=== PATIENT | female | born 1950 | race Asian ===

== ENCOUNTER → 2018-04-09 12:05 | Outpatient (CLI) | payer MEDICARE, MEDICAID, SELFPAY ==
--- NOTE | 2018-04-09 12:18 | DI.RAD.S_ITS ---
PROCEDURE: XR FOOT RT MIN 3V INDICATIONS: BILATERAL FOOT PAIN TECHNIQUE: 3 views of the foot were acquired. COMPARISON: None. FINDINGS: Bones: No fractures or dislocations. No suspicious bony lesions. Soft tissues: No tibiotalar joint effusion. Achilles tendon appears normal. IMPRESSION: Source of pain is not found. Dictated by: Ottoniel Dotson M.D. on 04/09/2018 at 13:33 Approved by: Ottoniel Dotson M.D. on 04/09/2018 at 13:34
--- NOTE | 2018-04-09 12:18 | DI.RAD.S_ITS ---
PROCEDURE: XR FOOT LT MIN 3V INDICATIONS: BILATERAL FOOT PAIN TECHNIQUE: 3 views of the foot were acquired. COMPARISON: [facility], CR, XR FOOT RT MIN 3V, 04/09/2018, 12:16. FINDINGS: Bones: No fractures or dislocations. No suspicious bony lesions. Soft tissues: No tibiotalar joint effusion. Achilles tendon appears normal. IMPRESSION: No trauma found, source of pain is not identified. Dictated by: Ottoniel Dotson M.D. on 04/09/2018 at 13:34 Approved by: Ottoniel Dotson M.D. on 04/09/2018 at 13:35
== END ==
PROVIDERS: PCP Family Medicine; Visit Provider Physician Assistant Medical
DX: M79.671 Pain in right foot (principal); M79.672 Pain in left foot
CPT/HCPCS: 73630

== ENCOUNTER → 2018-12-23 15:09 | Outpatient (CLI) | payer MEDICARE, SELFPAY | PROVIDERS: PCP Family Medicine; Visit Provider Physician Assistant | DX: N89.8 Other specified noninflammatory disorders of vagina (principal) | CPT/HCPCS: 87210 ==

== ENCOUNTER 2019-01-27 07:29 | Emergency (ER) | payer MEDICARE, SELFPAY ==
[2019-01-27 07:34] VITALS: BP 189/81; PULSE 89; RESP 16; TEMP 36.7; O2SAT 97; BMI 23.8
--- NOTE | 2019-01-27 07:40 | PC.NURSE ---
quarter size abrasion noted mid forehead.
--- NOTE | 2019-01-27 07:57 | ED.FALL ---
HPI - Fall General Chief Complaint: Fall Stated Complaint: fell and hit head, headache, dizziness Time Seen by Provider: 01/27/19 07:41 Source: patient Mode of arrival: ambulatory Limitations: no limitations History of Present Illness HPI Narrative: This is a 68-year-old female comes to the emergency department with complaint of trip and fall. Patient states she hit her right forehead. States she feels a little bit dizzy. She denies any loss of consciousness. She denies any headache, no neck or back pain, no vision changes, no nausea or vomiting. Patient does not have any other injuries. Patient states that she does not take any blood thinners. She states that she was not lightheaded dizzy or have any other issue she just caught her foot and fell forward. She states that she has injured her wrist before so she tries to protect them and caught herself with her head. Patient states tetanus is up-to-date she does take methadone daily for pain as well as addiction she does not take any other medications. Related Data Home Medications Medication Instructions Recorded Confirmed methadone 70 mg PO DAILY 12/23/18 12/23/18 Allergies Allergy/AdvReac Type Severity Reaction Status Date / Time codeine [CODEINE] Allergy Unknown Verified 01/27/19 07:37 Review of Systems Review of Systems ROS Unobtainable: All systems reviewed & are unremarkable except as noted in HPI and below Constitutional Denies frequent falls, Denies headache(s), Denies weakness and Reports other (head injury.) Eyes Denies change in vision ENT Ears, Nose, Mouth, and Throat: Reports dizziness, Denies headache(s), Denies neck pain and Reports other (abrasion forehead.) Cardiovascular Denies chest pain, Denies syncope and Denies dyspnea Respiratory Denies dyspnea Gastrointestinal Gastrointestinal: Denies abdominal pain, Denies nausea and Denies vomiting Musculoskeletal Denies back pain, Denies arthralgias, Denies limited range of motion, Denies neck pain and Denies numbness Integumentary/Breasts Reports wounds (abrasion forehead) Neurologic Reports as per HPI, Denies abnormal speech, Reports dizziness, Denies syncope, Denies frequent falls, Denies headache(s), Denies focal weakness, Denies memory loss, Denies numbness, Denies sensory deficit, Denies weakness and Denies other (loc) Psychiatric Denies memory loss Exam Narrative Exam Narrative: GEN: Patient appears in mild distress. HEAD: Patient has a 2 cm abrasion on the right forehead along the hairline, no raccoon/Cavazos sign. No other injuries noted. NECK: Nontender, painless range of motion, trachea midline Negative Nexus criteria, there is no midline tenderness, distracting injury, altered mental status, neuro deficit, recent EtOH. EYES: PERRLA, EOMI ENT: External inspection normal, trachea is midline, TM's are normal no hemotypanum, Nares are clear, no septal hematoma, no dental or oral injury, airway is normal and with normal occlusion, No bony tenderness RESP: Chest is nontender and has symmetric movement, no ecchymosis, breath sounds are normal no crackles, wheezes or rales CVS: Heart sounds are normal, no murmur noted, No JVD. ABG/GI: Nontender, soft, normal bowel sounds, no distention, no organomegaly. NEURO: Oriented AOx3, neuro is grossly intact, sensation and motor is normal all 4 extremities moving, cranial nerves II through XII are intact, GCS is 15 PSYCH: Normal mood and affect SKIN: Intact except as above. warm and dry, no crepitus and without decubitus BACK: No CVA tenderness, no vertebral tenderness, no step-off's, no crepitus EXT: Atraumatic, hips are nontender, no pedal edema, normal color and temperature, normal range of motion of extremities with normal tendon exam, 5/5 tube coremaker bilaterall and upper and lower extremites, 2+ pulses in all four extremities Initial Vital Signs Initial Vital Signs: Vital Signs Temperature 98.1 F 01/27/19 07:34 Pulse Rate 89 01/27/19 07:34 Respiratory Rate 16 01/27/19 07:34 Blood Pressure 189/81 H 01/27/19 07:34 Pulse Oximetry 97 01/27/19 07:34 Scores GCS [place] coma scale eye opening: Spontaneous [place] coma scale verbal response: Orientated Ling coma scale motor response: Obey commands Ling coma scale total score: 15 Course Vital Signs - 8 hr 01/27/19 07:34 Temperature 98.1 F Pulse Rate 89 Respiratory Rate 16 Blood Pressure 189/81 H Pulse Oximetry 97 MDM - Fall MDM Narrative Medical decision making narrative: Patient does not take any blood thinners she has some slight dizziness so she may have a concussion but no high risk factors that require head CT at this time. Discussed with patient his story guidance. As well as keeping an eye on the abrasion on her forehead appropriate care. Patient is comfortable with this plan. Discharge Plan Departure Patient Disposition: Home Clinical Impression: Concussion Qualifiers: Encounter type: initial encounter Loss of consciousness presence/duration: without LOC Qualified Code(s): S06.0X0A - Concussion without loss of consciousness, initial encounter Discharge Date/Time: 01/27/19 08:28 Interventions: ED Discharge Assessment Last Done: 01/27/19 08:27 Instructions: DI for Concussion Activity Restrictions/Additional Instructions: Follow up with your primary care physician. You may take ibuprofen and or tylenol as needed for pain. This should not interfere with your home medications. Wound Care: Keep wound(s) clean and dry. Wash daily with soap and water only. Do not use over the counter products (alcohol or peroxide)on the wounds unless instructed by a physician, you may use triple antibiotic ointment (i.e. neosporin) two to three times daily. Avoid sun on affected area. Return if fever greater than 100.4 Fahrenheit, increased swelling, increasing pain or worsening symptoms such as increased discharge or spreading redness, sudden severe headaches, new vision changes, persistent vomiting, new weakness, numbness, neck pain or other new or concerning symptoms. Prescriptions: No Action methadone 70 mg PO DAILY RF: 0 Referrals: Joel Kaur MD [Non-Staff] - ED Cosign/Signout Cosign ED Attending Cosignature Attestation: I was immediately available in the department for consultation. This documentation has been reviewed and I agree with assessment and plan. Supervised by Verito Shah DO
[2019-01-27 08:27] VITALS: BP 169/71; PULSE 64; RESP 16; O2SAT 94
== END 2019-01-27 08:28 | disposition home or self-care (01) ==
PROVIDERS: Emergency Provider Emergency Medicine
DX: S06.0X0A Concussion without loss of consciousness, initial encounter (principal); W19.XXXA Unspecified fall, initial encounter
CPT/HCPCS: 99282; 99283

== ENCOUNTER → 2020-06-03 17:27 | Outpatient (CLI) | payer MEDICARE, SELFPAY ==
--- NOTE | 2020-06-03 | DI.RAD.S_ITS ---
PROCEDURE: XR FOOT RT MIN 3V INDICATIONS: RIGHT ANKLE PAIN AND SWELLING TECHNIQUE: 3 views of the foot were acquired. COMPARISON: [facility], CR, XR FOOT LT MIN 3V, 04/09/2018, 12:17. FINDINGS: Bones: No fractures or dislocations. No suspicious bony lesions. Severe degenerative arthritis involving the 1st tarsometatarsal joint. Small subtle erosion at the base of the 5th metatarsal. Soft tissues: No tibiotalar joint effusion. Achilles tendon appears normal. No soft tissue gas. Mild edema. IMPRESSION: 1. Severe degenerative arthritis of the 1st tarsometatarsal joint. 2. Ill-defined erosion at the base of the 5th metatarsal. Comment: If clinically suspect osteomyelitis of the base of the 5th metatarsal, would consider foot MRI with without contrast. Dictated by: Jonathan Kamara M.D. on 06/04/2020 at 10:46 Approved by: Jonathan Kamara M.D. on 06/04/2020 at 10:48
== END ==
PROVIDERS: Referring Provider Nurse Practitioner Family; Visit Provider Nurse Practitioner Family
DX: M25.572 Pain in left ankle and joints of left foot (principal); M19.071 Primary osteoarthritis, right ankle and foot
CPT/HCPCS: 73630

== ENCOUNTER → 2020-06-25 11:02 | Outpatient (CLI) | payer MEDICARE, SELFPAY ==
[2020-06-26 10:47] LABS: COVID19 Sendout Not Detected (Not Detect)
== END ==
PROVIDERS: PCP Obstetrics & Gynecology; Visit Provider Physician Assistant
DX: Z11.59 Encounter for screening for other viral diseases (principal)
CPT/HCPCS: 87635

== ENCOUNTER 2020-06-28 08:54 | Day surgery (SDC) | payer MEDICARE, MEDICAID, SELFPAY ==
[2020-06-23 07:52] VITALS: BMI 23.0
[2020-06-28] VITALS (16 sets, daily range): BP systolic 97–169; BP diastolic 60–82; PULSE 58–92; RESP 9–18; TEMP 36.3–37.1; O2SAT 94–100; BMI 22.4
--- NOTE | 2020-06-28 | PATH_ITS ---
[facility] Accession Number: [id number] . 01 Material submitted: . uterus - UTERUS, CERVIX, BILATERAL FALLOPIAN TUBES AND BILATERAL OVARIES . 02 Diagnosis: Uterus, Cervix, Bilateral Fallopian Tubes and Bilateral Ovaries, Hysterectomy and Bilateral Salpingo-oophorectomy: 1. Adenomyosis. 2. Posterior cervix with ulcer and reactive changes. 3. Atrophic endometrium; negative for hyperplasia. 4. Paratubal cysts. 5. No evidence of neoplasia. [facility] 06/30/2020 1441 Local . 02 Electronically signed: . Anni Arthur MD, Pathologist NPI- [id number] . 01 Gross description: . Received in formalin, labeled uterus, cervix, bilateral fallopian tubes and bilateral ovaries, is a 110-gram uterus and cervix measuring 11.0 cm from superior fundus to cervix by 6.0 cm from cornu to cornu by 3.2 cm from anterior to posterior. The craft-pink wrinkled ectocervix measures 5.5 x 5.0 cm. The serosa is craft-pink and smooth. The specimen is bivalved to reveal a 6.0 x 2.0 cm endometrial cavity with a craft-pink glistening endometrium measuring 0.1 cm in thickness. The myometrium is craft-pink and trabeculated, measuring 1.3 cm in thickness. The detached ovaries measure 1.5 x 1.0 x 0.6 cm and 2.4 x 1.5 x 0.5 cm. The capsules are craft and smooth to cerebriform. Sectioning through the ovaries reveals multiple corpora albicantia and the larger ovary has a 0.2 x 0.2 x 0.2 cm smooth-walled cyst with no papillary excrescences. The fallopian tubes measure 3.2 cm in length by 0.5 cm in diameter and 3.7 cm length by 0.5 cm in diameter. The serosa is craft-pink and smooth. Sectioning reveals a pinpoint to stellate lumen measuring 0.2 cm in diameter. The larger fallopian tube displays multiple paratubal cysts measuring from 0.1 to 0.2 cm. Photographic Specialist sections are submitted. . A1: anterior cervix and lower uterine segment. A2: posterior cervix and lower uterine segment. A3: anterior uterus, full-thickness section. A4: posterior uterus, full-thickness section. A5-A6: novelties sales representative ovaries. A7-A10: fallopian tubes, to include bisected fimbria. (EA/cmc10 [id number]) /MRV 06/29/2020 1356 Local . 02 Pathologist provided ICD-10: N81.3, N80.0 . 02 CPT . 575809 Performed at: [facility] [address] [place] [address], [place], [place] [id number] MD Fer White MD Phone: [phone] Performed at: [facility] [address] [place] [id number] MD Anni Arthur MD Phone: [phone]
--- NOTE | 2020-06-28 09:17 | PM.PREOP ---
Pre-operative Note COVID-19 COVID-19 status: Negative Result date/Date tested (Pos, Neg/Pending): 06/25/20 Interval Note History & Physical reviewed/Exam performed by Physician: Yes Changes to H&P: No H&P completed within 30 days and has changed as indicated here:: 06/22/20
[2020-06-28] MEDS: LACTATED RINGERS 1,000 ML 42 ML IV ×2 (09:34→11:15)
[2020-06-28] MEDS: CEFAZOLIN 2 GM/100 ML FROZ.PIGGY IV (09:48)
--- NOTE | 2020-06-28 10:21 | SUR.OPER ---
Lithotomy on padded OR bed, head on pillow, arms secured on padded arm boards at <90 degrees abduction. Legs secured in padded yellow fins stirrups.
[2020-06-28] MEDS: BUPIVACAINE 0.5% W/ EPI (PF) 30 ML VIAL INJ (10:27)
--- NOTE | 2020-06-28 12:24 | SUR.PHASEI ---
1208 late entry -Assumed care from Edwige White RN. Pt sleeping, resp even and regular, VSS
--- NOTE | 2020-06-28 12:35 | P.OP_ITS ---
Operative Date/Time/Diagnoses Date of procedure: 06/28/20 Time of procedure: 12:35 Pre-op diagnosis: Uterine procidentia Post-op diagnosis: same Procedure & Clinicians Procedure: Procedures Operation Date: 06/28/20 09:45 Actual Procedures Side Surgeon p Vaginal Hysterectomy w/ bilateral salpingo-oophorectomy, perineoplasty, sacrospinous ligament fixation Mercy Chance MD Indications: Uterine procidentia Surgeon: Mercy Chance Organ Teacher: Alize Thorpe Anesthesia Type: General Operative Notes Findings: Uterine procidentia Normal tubes and ovaries Very lax vaginal cuff after the uterus removed Closure Type: primary Specimen(s): left tube & ovary, right tube & ovary and uterus Applied: catheter (To continuous drainage) Estimated blood loss (mL): 75 Blood products transfused: none Procedure in detail: The patient was taken to the operating room where she was placed in the dorsal supine position. After adequate general endotracheal anesthesia was achieved, she was placed in the dorsal lithotomy position, and prepped and draped in the usual sterile fashion. A time-out was performed. A 4 tooth tenaculum was placed on the cervix. 10 cc of 0.5% Marcaine with epinephrine were injected circumferentially around the cervix and the cervix was incised. This was carried down to the fascia. The bladder and rectum were dissected off the lower uterine segment and cervix piece using an open moistened Ray-Emmanuelle. The peritoneum was identified posteriorly and entered sharply with the Metzenbaum scissors. The long weighted speculum was placed into the cul-de-sac. Anteriorly the peritoneum was identified and entered sharply with the Metzenbaum scissors. A Alonzo retractor was placed into the anterior cul-de-sac. The uterosacral cardinal ligament complexes were clamped, incised, and suture ligated with 0 Vicryl and tagged with hemostats. The uterine arteries were clamped, transected, and suture ligated with 0 Vicryl. The utero- ovarian ligament bilaterally was clamped, transected, free tied with 0 Vicryl and then suture ligated with 0 Vicryl. There was a small amount of bleeding on the patient's left side and an Allis clamp was placed and then a suture with 2 0 Vicryl for hemostasis. The uterus was handed off for specimen. The left tube and ovary were identified and grasped with a Blair. The infundibulopelvic ligament on the left side was clamped, transected, free tied with 0 Vicryl and then suture ligated with 0 Vicryl. This was repeated on the patient's right side. Hemostasis was achieved. The peritoneum was identified anteriorly and posteriorly. The peritoneum was closed with a pursestring suture with 2 0 Vicryl. The angles of the vaginal cuff were closed with a [id number] suture with 0 Vicryl and tagged with a hemostat. The remainder of the vaginal cuff was closed with simple interrupted sutures with 0 Vicryl. Hemostasis was achieved. There was significant descent of the vaginal cuff. 6 cc of 0.5% Marcaine with epinephrine were injected posteriorly approximately 2[address] to the sacrum and a 4 cm incision was made. On left side of the rectum was dissected off bluntly and the sacral spinous ligament was identified and cleared of all tissue. 2 cm away from the ischial spine, 2 0 PDS on a Capio needle was used to place a suture into the sacral spinous ligament. This was then attached to the posterior vaginal wall. This was tagged with a hemostat. The vaginal mucosa was closed with 2 0 Vicryl in a running interlocking for approximately 4 passes. The sacral spinous ligament fixation was then tied down, taking the vaginal cuff back into the left. The remainder of the posterior vagina were closed with 2 0 Vicryl with running interlocking sutures. On the perineum Allis clamps were placed at the mucocutaneous junction. 6 cc of 0.5% Marcaine with epinephrine were injected between the 2 Allis clamps. An incision was made between the 2 Allis clamps and a triangular piece of skin with underlying s ubcutaneous tissue was excised. Two 0 Vicryl was used to close the vaginal mucosa up to the introitus. 0 Vicryl was then used to close the levator muscles. 2-0 Vicryl was used in simple interrupted sutures to close the space under the skin. The skin was closed with 2 0 chromic in a subcuticular fashion. The remainder of the 2 0 Vicryl was used to close all the way to the mucocutaneous junction. Hemostasis was achieved. The vagina was packed with a Betadine moistened packing. Sponge, lap, and instrument counts were correct x2. The patient tolerated the procedure well, and was taken to PACU in stable condition. The urine was clear and 150 cc. Estimated blood loss: 75 cc. IV fluids a 1000 cc of crystalloid. Complications: none Post-operative Condition: stable Disposition: PACU Plan for aftercare: To Acute care after recovery
--- NOTE | 2020-06-28 12:50 | SUR.PHASEI ---
1242 to room 221, bed down and locked, call light within reach. VSS. clothing to room. Pt drowsy, responsive, appropriate. No questions from pt or staff.
[2020-06-28] MEDS: LACTATED RINGERS 1,000 ML 100 ML IV ×2 (13:01→22:31)
--- NOTE | 2020-06-28 13:22 | PC.NURSE ---
accepted pt to room 221 s/p total vag/hyst + bso- peripad in place with small drainage noted to posterior portion - looks to be betadyne ( betadyne soaked packing inserted vaginally) pt is drowsy and oriented and tolerating ice chips well- general diet ordered for dinner - does state she is having some cramping - LR @ 100cc via peripheral iv in left wrist, scds in place and frazier patent for pale yellow urine- daughter at bedside
[2020-06-28] MEDS: KETOROLAC 30 MG/ML VIAL IV (18:20)
[2020-06-28] MEDS: ACETAMINOPHEN 325 MG TABLET 650 MG PO (18:20)
[2020-06-28] MEDS: DOCUSATE 250 MG CAPSULE PO (21:14)
--- NOTE | 2020-06-28 21:57 | PC.NURSE ---
Pt is A and O x 4, VSS. She was able to eat evening meal and states pain is 4/10. Urine output is qs clear yellow, no ricardo bleeding or discharge. LS clear, HRR. +BT. Able to sleep. Using IS.
[2020-06-29] MEDS: ACETAMINOPHEN 325 MG TABLET 650 MG PO ×3 (00:17→12:36)
[2020-06-29] MEDS: KETOROLAC 30 MG/ML VIAL IV ×3 (00:23→12:36)
[2020-06-29 05:00] VITALS: BP 130/65; PULSE 63; RESP 18; TEMP 36.7; O2SAT 96
[2020-06-29 05:37] LABS: Add Manual Diff / Slide Review NO; Basophils Absolute Auto 0 /uL (0-100); Basophils Percent Auto 0.3 % (0-2); Eosinophils Absolute Auto 0 /uL (0-450); Eosinophils Percent Auto 0.1 % (2-4); Hematocrit 29.3 % (36-46); Hemoglobin 9.6 g/dL (12.0-16.0); Lymphocytes Absolute Auto 1600 /uL (1100-4500); Lymphocytes Percent Auto 16.9 % (25-40); Mean Corpuscular HGB Conc 32.7 % (30-36); Mean Corpuscular Hemoglobin 26.7 PG (26-34); Mean Corpuscular Volume 81.7 fL (80-100); Monocytes Absolute Auto 600 /uL (0-900); Monocytes Percent Auto 6.1 % (3-14); Neutrophils Absolute Auto 7200 /uL (1500-7000); Neutrophils Percent Auto 76.6 % (50-75); Platelet Count 257 X10^3/uL (150-400); Red Blood Cell Count 3.59 X10^6/uL (4.0-5.2); Red Cell Distribution Width 15.3 % (11.6-14.8); White Blood Cell Count 9.4 X10^3/uL (4.5-11.0)
[2020-06-29 07:59] VITALS: BP 135/65; PULSE 57; RESP 15; TEMP 36.8; O2SAT 97
[2020-06-29] MEDS: SODIUM CHLORIDE 0.9% FLUSH 10 ML IV ×2 (10:23→12:37)
[2020-06-29] MEDS: DOCUSATE 250 MG CAPSULE PO (10:23)
[2020-06-29] MEDS: METHADONE 10 MG TABLET 140 MG PO (10:23)
[2020-06-29 11:30] VITALS: BP 134/71; PULSE 55; RESP 14; TEMP 36.7; O2SAT 97
--- NOTE | 2020-06-29 13:16 | CM.DANOTE ---
DCP/Assessment: Reviewed chart. Patient is a 69yr old female admitted for elective complete uterovaginal prolapse performed on 06-28-[address] Chance. Patient reports that she does not have PCP. Primary payor is 1)Medicare 2)Medicaid. Met with patient explained CM/SW role. Patient reports that she is completely I in all ADL's. Patient has very supportive daughter/Verito that will be available for support if needed. At this time patient does not anticipate any d/c planning needs. Patient unsure on d/c date. Patient believes that d/c might be today. P:Anticipate home when stable. CM team to continue to follow. CYNDEE Weaver Discharge Planning/Care Management CM Discharge Assessment Start: 06/29/20 13:13 Freq: Status: Active Protocol: Document 06/29/20 13:13 KJS (Rec: 06/29/20 13:16 KJS [id number]) Discharge Planning Assessment Assigned [employer] CYNDEE Weaver Contact Information Magdy Robi (friend) phone# [phone]. Advance Directives? No Advance Directives on File No History Provided By Patient,Medical Record Prior Living Arrangements House Household Members other Independent with ADL's Yes Is patient alert and oriented? Yes Caregiver for Another No Barriers to Discharge No Discharge Plan Home Transportation Arrangement Patient's daughter/Verito can provide transport. Referrals Initiated None needed Whiteboard Updated in Patient Room with Yes name and ext. # of [employer] Review Status In Process Next Review Type Continued Stay Review Pre-Anesthesia Assessment Start: 06/23/20 07:52 Freq: Status: Complete Protocol: Document 06/23/20 07:52 CAB (Rec: 06/23/20 08:19 CAB [id number]) Pre-Anesthesia Assessment Patient Information Reviewed Via Chart Review H&P Completed Within 30 Days Yes Comment COVID screen @ 06/25/20 Seen Specialist in Last 12 Months Yes Specialist Seen Traffic Rate Clerk Primary Language Wolof Release Engineer Required No Height 154.94 cm Weight 55.338 kg Body Mass Index (BMI) 23.0 Hx Anesthesia Reactions Pt takes 140mg methadone daily Anesthesia Review Requested Yes: Rene requested re: Methadone use Smoking Status Never smoker Substance Use Type former substance user Comment Hx of meth/heroin abuse Pain Present Pain Reported History of Falling (Recent or History of Yes ) Patient is completely paralyzed or No completely immobile Mental Status Oriented to own ability Currently Taking a Beta Payal No Hx Chest Pain Yes: Worked up @ ED 2018 Anti-Coagulant Therapy No Has a Cad Programmer No Cardiac Testing No Hx Pacemaker/ICD No Pacemaker Rep Required? No Cardiac Clearance Received Not Applicable Urinary Catheter Present No Hx Urinary Self Catheterization No Comment Uterine procidentia Diabetes No Patient No Lactating No Have you had any close contact with Unknown someone diagnosed with COVID-19? Marital Status Unknown Patient Discharge Plan Description Return Home Advance Directives? No
--- NOTE | 2020-06-29 13:29 | PC.NURSE ---
Discharge: IV dc'd intact. Reviewed all d/c instructions thoroughly with patient. Medicated with Toradol and Tylenol w/ noon scheduled doses prior to d/c. Instructed to alternate between Ibuprofen and Tylenol every 3 hours (per earlier conversation with Dr Chance), written into d/c papers when to start which medication (starting with Ibuprofen today at 3:30 pm and Tylenol next at 6:30 pm). Reviewed s/sx with which to call MD, instructed how to use answering service should issues/concerns come up after clinic hours. Given f/u appt info, instructed that Dr Chance wants to see her in 2 weeks should she need to reschedule. Patient verbalized understanding of all d/c instructions and stated no further questions. All personal belongings sent with patient. Wheeled out to private vehicle by nursing staff.
--- NOTE | 2020-06-29 17:30 | P.DS_ITS ---
History of Present Illness History of Present Illness Date Patient Seen: 06/29/20 Time Patient Seen: 12:30 Chief complaint: OPB Narrative: Patient is a 69-year-old 6 para 5 postop day # 1 status post total vaginal hysterectomy, bilateral salpingo-oophorectomy, sacral spinous ligament fixation, and perineorrhaphy. Overnight she did very well. Her Valle catheter was removed at 5:30 a.m.. The vaginal packing was removed at 7:00 a.m.. The patient was able to void 100 cc of clear yellow urine with a 0 postvoid residual. She has not used anything for pain other than Tylenol and Toradol. She is tolerating a diet. She has ambulated without assistance. She is passing flatus. Discharge Providers Provider Date of admission: June 28, 2020 Discharge Date: 06/29/20 Primary care physician: Mercy Chance MD Consults: 06/23/20 08:28 Consult to Anesthesiology Routine Comment: Consulting Provider: Anesthesiologist Reason for consultation: Surgeon requested re: Methadone use Discharge provider: Mercy Chance MD Summary Hospital Course Discharge Diagnosis: Uterine procidentia Status post total vaginal hysterectomy/bilateral salpingo-oophorectomy/sacral spinous ligament fixation/perineorrhaphy History of opioid abuse Currently on methadone Hospital Course: The patient was admitted on June 28, 2020 for scheduled TVH/BSO/SSLF/perineorrhaphy. She underwent these procedures without complication. On postop day # 1 her Valle catheter was removed as well as vaginal packing. She was able to void 100 cc of clear yellow urine with a 0 postvoid residual. She tolerated the diet. Her pain was well controlled with Tylenol and Toradol. She ambulated without assistance. She was passing flatus. She is discharged home on postop day # 1. Status at Discharge Cognitive/behavioral status at discharge: oriented Functional status at discharge: independent ambulation Overall status at discharge: patient is progressing back to baseline Time Spent with Patient Time spent: Less than 30 minutes Exam Vital Signs (past 8 hours): - 06/29/20 11:30 Temperature 98.1 F Pulse Rate 55 L Respiratory Rate 14 Blood Pressure 134/71 Pulse Oximetry 97 Oxygen Delivery Method Room Air Oxygen Flow Rate 0 Narrative Exam Narrative: Generally: A well-developed, well-nourished female, no acute distress Lungs: Clear to auscultation bilaterally Cardiovascular: Regular rate and rhythm Abdomen: Soft, flat, good bowel sounds in all 4 quadrants. Perineum: Scant old blood. Packing without much blood on removal. Extremities: Negative Homans Objective Labs Result Diagrams: 06/29/20 05:10 Labs: Laboratory Results - last 24 hr 06/29/20 05:10 WBC 9.4 RBC 3.59 L Hgb 9.6 L Hct 29.3 L MCV 81.7 MCH 26.7 MCHC 32.7 RDW 15.3 H Plt Count 257 Neut % (Auto) 76.6 H Lymph % (Auto) 16.9 L Hernando % (Auto) 6.1 Eos % (Auto) 0.1 L Baso % (Auto) 0.3 Neut # (Auto) 7200 H Lymph # (Auto) 1600 Hernando # (Auto) 600 Eos # (Auto) 0 Baso # (Auto) 0 Discharge Assessment & Plan Assessment and Plan Assessment: Patient is a 69-year-old 6 para 5 postop day # 1 status post TVH/BSO/SSLF/perineorrhaphy doing very well Plan of Treatment: Discharge to home Follow-up in 2 weeks by [facility] for postop visit No heavy lifting. Nothing more than a gal of milk Patient to call with fever, chills, or bleeding vaginally more than spotting to light Patient will use ibuprofen and Tylenol every 6 hours for pain Discharge Plan Discharge Plan Patient Disposition: Home Discharge comment: Call with fever, chills or bleeding vaginally more than spotty to light Ibuprofen 600mg every 6 hours Tylenol 650mg every 6 hours Discharge Med Rec/Prescriptions Prescriptions: Continued methadone 140 mg PO DAILY RF: 0 Follow up/Referrals: Mercy Chance MD [Primary Care Provider] - 2 Weeks (Follow up with Dr Chance scheduled for Sunday07/14/2020 at 9:30 a.m. ) Discharge Orders: Discharge (Order); Ordered 06/29/20 Ordered By: Mercy Chance Provider Discharge Instructions Diet: Regular Activity: No heavy lifting (nothing more than a gallon of milk) Nothing in the vagina Skin/Wound/Dressing Care Report to your healthcare provider any signs of infection, such as:: chills, fever, increased pain and unusual drainage Visit Report/Discharge Packet Instructions: Acetaminophen, Ibuprofen, DI for Vaginal Hysterectomy Stand Alone Forms: Surgery Discharge Discharge Data Primary Care Provider: Mercy Chance Attending Provider: Mrecy Chance Discharges patient from system. Discharge Date/Time: 06/29/20 13:34 Quality VTE Deep Vein Thrombosis/Pulmonary Embolism Present on Admission: No
== END 2020-06-29 13:34 | disposition home or self-care (01) ==
LOC: OR 09:02 → AC 11:14
PROVIDERS: PCP Obstetrics & Gynecology; Referring Provider Obstetrics & Gynecology; Visit Provider Obstetrics & Gynecology
PROC: (CPT 58260; principal; 2020-06-28 09:45)
DX: N81.3 Complete uterovaginal prolapse (principal); N80.0 Endometriosis of uterus; N86 Erosion and ectropion of cervix uteri; N83.8 Other noninflammatory disorders of ovary, fallopian tube and broad ligament; F11.20 Opioid dependence, uncomplicated
CPT/HCPCS: 58262; 57282; 57250; 36415; 85025; J0330; J0690; J1100; J1885; J2405; J2704; J3010

== ENCOUNTER 2020-10-03 00:17 | Emergency (ER) | payer MEDICARE, MEDICAID, SELFPAY ==
[2020-06-28 13:02] VITALS: BMI 22.4
[2020-10-03 00:25] VITALS: BP 186/82; PULSE 68; RESP 18; TEMP 36.9; O2SAT 98; BMI 23.4
--- NOTE | 2020-10-03 00:51 | ED_ITS ---
HPI - Fall General Chief Complaint: Fall Stated Complaint: fell hit face on cement outside -2 hours Time Seen by Provider: 10/03/20 00:51 Source: patient and family Mode of arrival: Wheelchair History of Present Illness HPI Narrative: Patient is a 69-year-old female presents after trip and fall, stating that she tripped on the cement and landed on the right side of the face. His she said she was rushing to get to [facility] before they closed. She states she did not lose consciousness however according to a witness it was a brief loss of consciousness. She denies any blurry vision or double vision. She is not on any anti-platelet or anticoagulation medications. She denies any neck pain or any other injury. MD complaint: fall Fall from: standing Fall witnessed: yes, by family Related Data Home Medications Medication Instructions Recorded Confirmed methadone 140 mg PO DAILY 06/22/20 06/28/20 Allergies Allergy/AdvReac Type Severity Reaction Status Date / Time codeine [CODEINE] Allergy Unknown Verified 06/28/20 09:09 Review of Systems Review of Systems ROS Unobtainable: All systems reviewed & are unremarkable except as noted in HPI and below Constitutional Constitutional: Denies chills, Denies fever(s), Denies lethargy and Denies weakness Eyes Eyes: Denies change in vision, Denies eye discharge, Denies irritation and Denies loss of vision Cardiovascular Cardiovascular: Denies chest pain, Denies irregular heart rhythm, Denies lightheadedness, Denies palpitations, Denies dyspnea, Denies dyspnea on exertion and Denies orthopnea Respiratory Respiratory: Denies cough, Denies dyspnea, Denies dyspnea on exertion and Denies wheezing Gastrointestinal Gastrointestinal: Denies abdominal pain, Denies change in bowel habits, Denies diarrhea, Denies nausea and Denies vomiting Musculoskeletal Musculoskeletal: Denies arthralgias, Denies back pain and Denies deformity Integumentary/Breasts Skin/Breast: Reports as per HPI Neurologic Neurologic: Reports as per HPI, Denies loss of vision, Denies weakness and Denies other (LOC) Endocrine Endocrine: Denies palpitations Allergic/Immunologic Allergic/Immunologic: Denies wheezing Patient History Medical History History of opioid abuse Methadone use Uterine procidentia Surgical History H/O right wrist surgery Social History household members: other Smoking Status: Never smoker alcohol intake: never Smoking Status: Never smoker alcohol intake frequency: 0-2 drinks per day Substance Use Type: former substance user Exam Initial Vital Signs Initial Vital Signs: Vital Signs Temperature 98.5 F 10/03/20 00:25 Pulse Rate 68 10/03/20 00:25 Respiratory Rate 18 10/03/20 00:25 Blood Pressure 186/82 H 10/03/20 00:25 Pulse Oximetry 98 10/03/20 00:25 GENERAL: Alert female appears sluggish to respond but does respond HEENT: Head atraumatic, right-sided superficial facial abrasions no step-offs or depression. Swelling noted just inferior right periorbital area. EOMI. No sign of entrapment. NECK: No vertebral tenderness or step-offs full flexion extension and rotation CARDIOVASCULAR: Regular rate and rhythm without murmurs, rubs or gallops. RESPIRATORY: Breath sounds equal bilaterally, no wheezes rales or rhonchi. ABDOMEN: Soft, nontender. Normoactive bowel sounds all 4 quadrants. No guardi ng or rebound. EXTREMITIES: Normal range of motion, no clubbing or edema. Neurovascularly intact NEUROLOGICAL: Alert and oriented x4.Normal gait and speech. Cranial nerves II through XII grossly intact. Behavioral Sciences Instructor strength equal bilaterally no tremors SKIN: Warm, dry, no laceration, no petechiae, no rashes or lesions. Course Orders Ordered: ED Orders 10/03/20 00:52 CT cervical spine wo con Stat CT facial bones wo con Stat CT head/brain wo con Stat Discontinued Medications Acetaminophen (Acetaminophen 325 Mg Tablet) 975 mg PO NOW ONE Stop: 10/03/20 02:07 Last Admin: 10/03/20 02:13 Dose: 975 mg Documented by: JONY Vital Signs Vital signs: Vital Signs - 8 hr 10/03/20 00:25 10/03/20 02:50 Temperature 98.5 F 98.8 F Pulse Rate 68 55 L Respiratory Rate 18 14 Blood Pressure 186/82 H 142/65 H Pulse Oximetry 98 99 MDM - Fall Imaging Data CT scan - head: Radiologist's Impression: Preliminary report: No acute intracranial findings CT - cervical spine: Radiologist's Impression: Preliminary report: No acute findings. Multilevel degenerative change of the spine with moderate to severe spinal canal stenosis at C4-C5 better characterization can be obtained with non emergent spine MRI CT Face: Radiologist's Impression: Preliminary report right orbital floor fracture. Mild inferior displacement of the inferior rectus muscle. Clinical it leak correlate for entrapment MDM Narrative Medical decision making narrative: The patient is found to have a right inferior orbital wall fracture. She denies any blurry vision or double vision. She does not have any sign of inferior rectus muscle entrapment. At this time recommend outpatient follow-up with ENT. I have given her strict instructions not to blow her nose. Discharge Plan Departure Patient Disposition: Home Clinical Impression: Closed fracture of right orbital floor Qualifiers: Encounter type: initial encounter Qualified Code(s): S02.31XA - Fracture of orbital floor, right side, initial encounter for closed fracture Closed head injury Qualifiers: Encounter type: initial encounter Qualified Code(s): S09.90XA - Unspecified injury of head, initial encounter Abrasion of face Qualifiers: Encounter type: initial encounter Qualified Code(s): S00.81XA - Abrasion of other part of head, initial encounter Instructions: DI for Orbital Fracture, How to Prevent Falls Activity Restrictions/Additional Instructions: *You have been diagnosed with right orbital floor fracture,. closed head injury, facial abrasions *What to do: DO NOT BLOW NOSE. DAB ONLY. You will need to call ENT thing Sunday morning to schedule follow-up appointment Please be careful where you are walking so that you do not trip and fall. At this time no injuries are noted *Continue to take medications as directed Tylenol 650 mg every 4-6 hours if needed for pain *Follow up with your primary care provider in 2-3 days Call ENT for follow-up appointment *Return to ER if you should have persistent vomiting of the confusion or any new, worsening or concerning symptoms Prescriptions: No Action methadone 140 mg PO DAILY RF: 0 Referrals: Luis Prajapati MD [Physician] - Mercy Chance MD [Primary Care Provider] - Darío Lozano MD [Physician] -
--- NOTE | 2020-10-03 00:52 | DI.CT.S_ITS ---
PROCEDURE: CT CERVICAL SPINE WO CON INDICATIONS: fall ams TECHNIQUE: Noncontrast 3 mm thick sections acquired from the skull base to the T4 level. Sagittal and coronal reformats were then constructed. For radiation dose reduction, the following was used: automated exposure control, adjustment of mA and/or kV according to patient size. COMPARISON: [facility], CT, CT HEAD/BRAIN WO CON, 10/03/2020, 1:22. [facility], CT, CT FACIAL BONES WO CON, 10/03/2020, 1:22. FINDINGS: Image quality: Excellent. Bones: No fractures or dislocations. Visualized superior ribs are intact. Prominent degenerative changes are seen, with severe C6-C7 disc space narrowing with moderate to severe disc space narrowing at C3-C4, C4-C5, and C5-C6. 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 Soft tissues: Prevertebral soft tissues are normal in thickness. No paravertebral hematomas. No apical pneumothoraces. IMPRESSION: No acute fractures are seen. Prominent degenerative changes are seen, with severe central canal narrowing at C4-C5. Severe disc space narrowing is seen at C6-C7. If it would be helpful for clinical management decision making, please consider a dedicated cervical spine MRI for further evaluation (assuming that there is no contraindication). Note: No significant discrepancy from the preliminary report. Dictated by: Moise Velasquez M.D. on 10/03/2020 at 8:25 Approved by: Moise Velasquez M.D. on 10/03/2020 at 8:27
--- NOTE | 2020-10-03 00:52 | DI.CT.S_ITS ---
PROCEDURE: CT FACIAL BONES WO CON INDICATIONS: fall on face right side TECHNIQUE: Noncontrast 2.5 mm thick axial images acquired from the mandible through the frontal sinuses, with coronal and sagittal reformatting. For radiation dose reduction, the following was used: automated exposure control, adjustment of mA and/or kV according to patient size. COMPARISON: [facility], CT, CT HEAD/BRAIN WO CON, 10/03/2020, 1:22. [facility], CT, CT CERVICAL SPINE WO CON, 10/03/2020, 1:22. FINDINGS: Image quality: This examination is limited by involuntary motion artifact. Bones and teeth: There is a right orbital floor blow-out fracture seen, with 5 mm displacement. There is inferior displacement of the right inferior rectus muscle. The lateral wall of the right maxillary sinus appears fractured on this study, although this appearance may be secondary to motion artifact. On the accompanying head CT examination, this area appears within normal limits. Nasal bones and septum are intact. There is chronic S shaped nasal septal deviation. Visualized portions of the mandible demonstrate no fractures or subluxation. Zygomatic arches are intact. Pterygoid plates are intact. Visualized portions of the skull base and auditory canals are intact. Sinuses: There is an air blood level seen within the right maxillary sinus Soft tissues: Right cheek/periorbital soft tissue swelling can be seen. Vascular: Visualized vascular structures appear normal in the absence of contrast. Bony vascular foramina and canals are intact. IMPRESSION: Right orbital floor blow-out fracture, with findings of entrapment of the inferior rectus muscle. An associated air blood level can be seen within the right maxillary sinus. Right cheek/periorbital soft tissue swelling. Note: No significant discrepancy from the preliminary report. Dictated by: Moise Velasquez M.D. on 10/03/2020 at 8:22 Approved by: Moise Velasquez M.D. on 10/03/2020 at 8:25
--- NOTE | 2020-10-03 00:52 | DI.CT.S_ITS ---
PROCEDURE: CT HEAD/BRAIN WO CON INDICATIONS: fall AMS TECHNIQUE: Noncontrast 4.5 mm thick angled axial sections acquired from the foramen magnum to the vertex, with coronal and sagittal reformats. For radiation dose reduction, the following was used: automated exposure control, adjustment of mA and/or kV according to patient size. COMPARISON: [facility], CT, CT CERVICAL SPINE WO CON, 10/03/2020, 1:22. [facility], CT, CT FACIAL BONES WO CON, 10/03/2020, 1:22. FINDINGS: Image quality: Excellent. CSF spaces: Basal cisterns are patent. No extra-axial fluid collections. The ventricles are symmetric in size and shape. Brain: No intracranial bleeds or masses. There is cerebral volume loss for age, with resultant ventricular and sulcal prominence. There are periventricular and deep white matter chronic small vessel ischemic changes. There is intracranial internal carotid artery atherosclerosis. Skull and face: There is a right orbital floor blow-out fracture seen, which is better demonstrated on the accompanying maxillofacial CT. The right inferior rectus muscle is displaced inferiorly. Calvarium and visualized facial bones appear intact, without suspicious lesions. Sinuses: There is an air blood level seen within the right maxillary sinus. No abnormal fluid is seen within the mastoid air cells. IMPRESSION: No acute intracranial hemorrhage is seen. No acute intracranial process is seen. Right orbital floor blow-out fracture, with findings of entrapment of the inferior rectus muscle and a right maxillary sinus air blood level. Note: No significant discrepancy from the preliminary report. Dictated by: Moise Velasquez M.D. on 10/03/2020 at 8:18 Approved by: Moise Velasquez M.D. on 10/03/2020 at 8:21
[2020-10-03] MEDS: ACETAMINOPHEN 325 MG TABLET 975 MG PO (02:13)
--- NOTE | 2020-10-03 02:46 | PC.NURSE ---
0130-- Pt's daughter, María, notified me that she was leaving the department but she left her phone number on the whiteboard in the room and we should call her with updates. I told María that is usually takes about an hour to receive results from imaging and we would be in touch after. 0230- Pt up for discharge. Multiple calls placed to María and pt's other contact, Magdy, without success.
[2020-10-03 02:50] VITALS: BP 142/65; PULSE 55; RESP 14; TEMP 37.1; O2SAT 99
== END 2020-10-03 02:35 | disposition home or self-care (01) ==
PROVIDERS: Emergency Provider Emergency Medicine; PCP Obstetrics & Gynecology
DX: S02.31XA Fracture of orbital floor, right side, initial encounter for closed fracture (principal); S09.90XA Unspecified injury of head, initial encounter; S00.81XA Abrasion of other part of head, initial encounter; W19.XXXA Unspecified fall, initial encounter
CPT/HCPCS: 70450; 70486; 72125; 99284

== ENCOUNTER 2020-11-18 22:21 | Inpatient (IN) | payer MEDICARE, MEDICAID, SELFPAY ==
[2020-06-28 13:02] VITALS: BMI 22.4
[2020-11-18 22:18] VITALS: BP 149/67; PULSE 80; RESP 22; TEMP 39.6; O2SAT 88; BMI 22.8
[2020-11-18 22:43] VITALS: PULSE 82; RESP 21; O2SAT 92
[2020-11-18 23:00] VITALS: PULSE 78; RESP 24; O2SAT 92
--- NOTE | 2020-11-18 23:00 | DI.RAD.S_ITS ---
PROCEDURE: XR CHEST 1V INDICATIONS: suspected sepsis TECHNIQUE: One view of the chest was acquired. COMPARISON: [facility], , CHEST 1 VIEW, 12/19/2017, 18:45. FINDINGS: Surgical changes and devices: None. Lungs and pleura: Patchy left basilar and retrocardiac opacity is present. Mediastinum: Mediastinal contours appear normal. Heart size is normal. Bones and chest wall: No suspicious bony lesions. Overlying soft tissues appear unremarkable. IMPRESSION: Retrocardiac and left basilar opacity most suggestive of developing pneumonia. The above findings are concordant with preliminary report. Dictated by: Shantal Joseph M.D. on 11/19/2020 at 9:23 Approved by: Shantal Joseph M.D. on 11/19/2020 at 9:28
[2020-11-18 23:30] VITALS: PULSE 76; RESP 23
[2020-11-19] VITALS (16 sets, daily range): BP systolic 104–142; BP diastolic 54–65; PULSE 57–87; RESP 15–24; TEMP 36.6–39.6; O2SAT 94–96; BMI 22.8
[2020-11-19 00:46] LABS: INR 1.3 (0.9-1.3); Prothrombin Time 14.7 SECONDS (10.1-12.7)
[2020-11-19 00:48] LABS: PTT Partial Thromboplastin Tim 31 SECONDS (26.4-36.2)
[2020-11-19 00:51] LABS: Add Manual Diff / Slide Review NO; Basophils Absolute Auto 0 /uL (0-100); Basophils Percent Auto 0.1 % (0-2); Eosinophils Absolute Auto 0 /uL (0-450); Hematocrit 33.8 % (36-46); Hemoglobin 10.6 g/dL (12.0-16.0); Lymphocytes Absolute Auto 400 /uL (1100-4500); Lymphocytes Percent Auto 3.6 % (25-40); Mean Corpuscular HGB Conc 31.4 % (30-36); Mean Corpuscular Hemoglobin 25.6 PG (26-34); Mean Corpuscular Volume 81.5 fL (80-100); Monocytes Absolute Auto 700 /uL (0-900); Monocytes Percent Auto 5.7 % (3-14); Neutrophils Absolute Auto 10700 /uL (1500-7000); Neutrophils Percent Auto 90.6 % (50-75); Platelet Count 238 X10^3/uL (150-400); Red Blood Cell Count 4.15 X10^6/uL (4.0-5.2); Red Cell Distribution Width 15.5 % (11.6-14.8); White Blood Cell Count 11.8 X10^3/uL (4.5-11.0)
[2020-11-19 01:01] LABS: Lactate (Lactic Acid) 1.4 mmol/L (0.7-2.1)
[2020-11-19 01:03] LABS: Alanine Aminotransferase 22 IU/L (<35); Albumin 3.9 g/dL (3.5-5.0); Alkaline Phosphatase 71 U/L (38-126); Aspartate Aminotransferase 52 IU/L (14-36); BUN Creatinine Ratio 33.6 (6-22); Bilirubin Total 0.7 mg/dL (0.2-1.3); Blood Urea Nitrogen 36 mg/dL (7-17); Calcium 8.4 mg/dL (8.4-10.2); Carbon Dioxide 31 mmol/L (22-32); Chloride 97 mmol/L (98-107); Estimated Glomerular Filt Rate 50.7 mL/min (>60); Globulin 4.1 g/dL (1.7-4.1); Glucose 97 mg/dL (80-110); HEMOLYSIS 17 (0-50); Lipase 17 U/L (23-300); Sodium 134 mmol/L (137-145)
--- NOTE | 2020-11-19 01:03 | PC.NURSE ---
Patient requiring frequent reminders to open eyes and take sips of water to swallow tylenol. Patient appears very lethargic, will follow commands with frequent prompts.
[2020-11-19] MEDS: ACETAMINOPHEN 325 MG TABLET 975 MG PO (01:09)
[2020-11-19 01:15] LABS: Procalcitonin 8.02 ng/mL (<0.5)
[2020-11-19 01:20] LABS: COVID19 -Nasal RAPID POSITIVE (Negative)
--- NOTE | 2020-11-19 02:02 | ED_ITS ---
HPI - URI/Sore Throat General Chief Complaint: Upper Respiratory Symptoms Stated Complaint: COVID + Source: patient and EMS Mode of arrival: EMS History of Present Illness HPI Narrative: Patient brought here by ambulance for dyspnea and fever. Tested COVID positive. Patient here with history of substance abuse. Has not used her when she states in a few days. Has fever and dry cough. No nausea vomiting or diarrhea. Is not on home oxygen. 89% room air prior to arrival. Has improved with 4 L nasal cannula 96%. Patient is very difficult with peripheral IV access. Verbal consent by patient for central line. Risks and benefits d iscussed with her. Risk of bleeding pain/infection. Benefits for medication and IV access and blood draw. She agrees. She is awake alert oriented x4 Complaint: fever and cough Related Data Home Medications Medication Instructions Recorded Confirmed methadone 140 mg PO DAILY 11/19/20 11/19/20 Allergies Allergy/AdvReac Type Severity Reaction Status Date / Time codeine [CODEINE] Allergy Unknown Verified 11/18/20 22:53 Review of Systems Review of Systems Narrative: GENERAL: Complaint chills, fatigue, malaise, fever, sweats. HEENT: Denies sinus pain, ear pain, sore throat, difficulty swallowing RESPIRATORY: Complains dyspnea, cough CARDIOVASCULAR: Denies chest pain, palpitations, edema, GASTROINTESTINAL: Denies nausea, vomiting, abdominal pain, diarrhea, constipa tion, melena. : Denies dysuria, frequency, hematuria MUSCULOSKELETAL: denies muscle or bony pain SKIN: Denies rash, skin lesions NEUROLOGIC: Denies weakness, headache, numbness, change in speech, confusion PSYCHIATRIC: No SI or HI or hallucinations ROS Unobtainable: All systems reviewed & are unremarkable except as noted in HPI and below Patient History Medical History History of opioid abuse Methadone use Uterine procidentia Surgical History H/O right wrist surgery Social History household members: other Smoking Status: Never smoker alcohol intake: never Smoking Status: Never smoker alcohol intake frequency: 0-2 drinks per day Substance Use Type: heroin and prescription drug Exam Narrative Exam Narrative: GENERAL: patient appears stated age. Well-nourished, well- developed patient, in no distress, not toxic not dyspneic now that patient is on nasal cannula HEAD: Normocephalic. EYES: Pupils equal round and reactive. No scleral icterus. No injection no discharge ENT: Mucous membranes moist. No drooling no tongue elevation no trismus no malocclusion NECK: Trachea midline. Non tender CARDIOVASCULAR: Regular rate and rhythm without murmurs, gallops, or rubs. RESPIRATORY: Clear to auscultation. Breath sounds equal bilaterally. No wheezes, rales, or rhonchi. GASTROINTESTINAL: Abdomen soft, non-tender, nondistended. EXTREMITIES: No gross deformities. BACK: Nontender without deformity or crepitance. No flank tenderness. NEURO: AOx4. SKIN: Warm and dry PSYCH: Not anxious, is cooperative Initial Vital Signs Initial Vital Signs: Vital Signs Temperature 103.2 F H 11/18/20 22:18 Pulse Rate 80 11/18/20 22:18 Respiratory Rate 22 11/18/20 22:18 Blood Pressure 149/67 H 11/18/20 22:18 Pulse Oximetry 88 L 11/18/20 22:18 Procedures Central Line Placement Right Femoral: Time Out Performed: Yes Patient Placed on Monitor/Pulse Ox: Yes MD Prep: mask, gown and gloves Central Line Prep: Chlorhexidine scrub and sterile drapes applied Local Anesthetic: lidocaine 1% and with epi Amount of anesthesia used (mL): 6 Ultrasound Used for Placement: Yes Central Line Lumen Inserted: triple Post Procedure: sutured in place, good blood return, all ports aspirated, flushed, capped and sterile dressing applied Patient Tolerated Procedure: Well Complications: none Course Course Course Narrative: Patient maintain blood pressure. Not requiring pressors. Will require admission for hypoxia. Protecting airway. Not requiring intubation Decision to Admit Date: 11/19/20 Decision to Admit time: 02:08 Orders Ordered: ED Orders 11/18/20 23:00 XR chest 1V Stat Blood Culture Stat Complete Blood Count AUTO DIFF Stat Comprehensive Metabolic Panel Stat Lactate (Lactic Acid) Stat Lipase Stat Partial Thromboplastin Time Stat Procalcitonin Stat Prothrombin Time INR Stat 11/19/20 00:58 COVID19 Stat 11/19/20 02:05 Respiratory Panel (Film Array) Stat Urinalysis and Microscopic Stat Acetaminophen (Acetaminophen 325 Mg Tablet) 650 mg PO Q4HR PRN PRN Reason: Fever/Mild Pain (1-3) Bisacodyl (Bisacodyl 10 Mg Supp) 10 mg [place] DAILY PRN PRN Reason: Constipation Dexamethasone (Dexamethasone 10 Mg/Ml Vial) 6 mg IV DAILY [facility] Dextrose (Dextrose 50 % In Water 25 Gm/50 Ml Syringe) 25 gm IV PRN PRN; Protocol PRN Reason: Hypoglycemia Docusate Sodium (Docusate 100 Mg Capsule) 100 mg PO BID [facility] Enoxaparin Sodium (Enoxaparin 40 Mg/0.4 Ml Syringe) 40 mg SUBCUT DAILY [facility] Famotidine (Famotidine 20 Mg Tablet) 20 mg PO BID [facility] Heparin Sodium (Porcine) (Heparin Flush (Cl/Picc/Mid-Line) 50 Unit/5 Ml Syringe) 50 unit IV PRN PRN PRN Reason: Flush Heparin Sodium (Porcine) (Heparin Flush (Cl/Picc/Mid-Line) 50 Unit/5 Ml Syringe) 50 unit IV BID [facility] Ceftriaxone Sodium/Dextrose (Rocephin) 2 gm in 50 mls @ 100 mls/hr IV Q24H [facility] Remdesivir 100 mg/ Sodium (Chloride) 250 mls @ 250 mls/hr IV DAILY [facility] Azithromycin 500 mg/ Dextrose 250 mls @ 250 mls/hr IV Q24H [facility] Insulin Aspart (Insulin Aspart 100 Unit/Ml Insuln Pen) 0 unit SUBCUT ACHS [facility]; Protocol Melatonin (Melatonin 3 Mg Tablet) 9 mg PO BEDTIME [facility] Metoclopramide HCl (Metoclopramide 10 Mg/2 Ml Inj) 10 mg IV Q6HR PRN PRN Reason: Nausea And Vomiting Naloxone HCl (Naloxone 0.4 Mg/Ml Vial) 0.2 mg IV Q2MIN PRN PRN Reason: Opiate Reversal Sodium Chloride (Sodium Chloride 0.9% Flush) 10 ml IV PRN PRN PRN Reason: Flush Sodium Chloride (Sodium Chloride 0.9% Flush) 10 ml IV BID [facility] Discontinued Medications Acetaminophen (Acetaminophen 325 Mg Tablet) 975 mg PO NOW ONE Stop: 11/19/20 00:45 Last Admin: 11/19/20 01:09 Dose: 975 mg Documented by: BEN Dexamethasone (Dexamethasone 10 Mg/Ml Vial) 6 mg IV NOW ONE Stop: 11/19/20 02:08 Last Admin: 11/19/20 02:10 Dose: 6 mg Documented by: BEN Sodium Chloride (Normal Saline 0.9%) 1,000 mls @ 1,000 mls/hr IV BOLUS ONE Stop: 11/18/20 23:59 Last Infusion: 11/19/20 03:59 Dose: 0 mls/hr Documented by: Admin: 11/19/20 02:03 Dose: 1,000 mls/hr Documented by: BEN Ceftriaxone Sodium/Dextrose (Rocephin) 2 gm in 50 mls @ 100 mls/hr IV NOW ONE Stop: 11/19/20 02:29 Last Infusion: 11/19/20 02:47 Dose: 0 mls/hr Documented by: Admin: 11/19/20 02:04 Dose: 100 mls/hr Documented by: BEN Azithromycin 500 mg/ Dextrose 250 mls @ 250 mls/hr IV NOW ONE Stop: 11/19/20 02:01 Last Admin: 11/19/20 04:05 Dose: 250 mls/hr Documented by: PEYTON Remdesivir 200 mg/ Sodium (Chloride) 250 mls @ 250 mls/hr IV NOW ONE Stop: 11/19/20 02:08 Azithromycin 500 mg/ Dextrose 250 mls @ 250 mls/hr IV Q24H WILLIE Reevaluation(s) Reevaluation #1: Reviewed results with patient and she understands and agrees for admission Time: 02:08 Consultations Consultation #1: Spoke with Jessee, hospitalist, will admit. He request patient start Decadron and remdesivir here Time: 02:08 Vital Signs Vital signs: Vital Signs - 8 hr 11/18/20 22:18 11/18/20 22:43 11/18/20 23:00 Temperature 103.2 F H Pulse Rate 80 82 78 Respiratory Rate 22 21 24 Blood Pressure 149/67 H Pulse Oximetry 88 L 92 92 11/18/20 23:30 11/19/20 00:00 11/19/20 00:30 Temperature Pulse Rate 76 79 77 Respiratory Rate 23 17 24 Blood Pressure Pulse Oximetry 96 95 11/19/20 00:53 11/19/20 01:00 11/19/20 01:09 Temperature 103.2 F H Pulse Rate 76 79 Respiratory Rate 23 24 Blood Pressure 131/61 135/56 L Pulse Oximetry 95 95 11/19/20 01:30 11/19/20 02:00 Temperature Pulse Rate 87 80 Respiratory Rate 19 19 Blood Pressure 142/65 H 116/54 L Pulse Oximetry 95 96 MDM - URI/Sore Throat Differential Diagnosis Differential diagnosis: Likely upper respiratory infection and viral infection Lab Data Attestation: I reviewed the patient's lab results. Result diagrams: 11/19/20 00:25 11/19/20 00:25 Labs: Lab Results 11/19/20 11/19/20 11/19/20 Range/Units 00:25 00:25 00:25 WBC 11.8 H (4.5-11.0) X10^3/uL RBC 4.15 (4.0-5.2) X10^6/uL Hgb 10.6 L (12.0-16.0) g/dL Hct 33.8 L (36-46) % MCV 81.5 (80-100) fL MCH 25.6 L (26-34) PG MCHC 31.4 (30-36) % RDW 15.5 H (11.6-14.8) % Plt Count 238 (150-400) X10^3/uL Neut % (Auto) 90.6 H (50-75) % Lymph % (Auto) 3.6 L (25-40) % Jay % (Auto) 5.7 (3-14) % Eos % (Auto) 0.0 L (2-4) % Baso % (Auto) 0.1 (0-2) % Neut # (Auto) 92692 H (1442-6010) /uL Lymph # (Auto) 400 L (8300-1439) /uL Jay # (Auto) 700 (0-900) /uL Eos # (Auto) 0 (0-450) /uL Baso # (Auto) 0 (0-100) /uL PT 14.7 H (10.1-12.7) SECONDS INR 1.3 (0.9-1.3) APTT 31 (26.4-36.2) SECONDS D-Dimer (<230) ng/mL Sodium (137-145) mmol/L Potassium (3.4-5.1) mmol/L Chloride (98-107) mmol/L Carbon Dioxide (22-32) mmol/L BUN (7-17) mg/dL Creatinine (0.52-1.04) mg/dL Estimated GFR (>60) mL/min BUN/Creatinine Ratio (6-22) Glucose (80-110) mg/dL Lactate (0.7-2.1) mmol/L Calcium (8.4-10.2) mg/dL Ferritin (11-264) ng/mL Total Bilirubin (0.2-1.3) mg/dL AST (14-36) IU/L ALT (<35) IU/L Alkaline Phosphatase (38-126) U/L Lactate Dehydrogenase (313-618) U/L Troponin I (0.01-0.034) ng/mL C-Reactive Protein (<1.0) mg/dL Total Protein (6.3-8.2) g/dL Albumin (3.5-5.0) g/dL Globulin (1.7-4.1) g/dL Albumin/Globulin Ratio (1.0-2.8) Lipase (23-300) U/L Procalcitonin 8.02 H (<0.5) ng/mL Urine Color Urine Appearance Urine pH (4.5-8.0) Ur Specific [place] (1.000-1.035) Urine Protein (Negative) Urine Glucose (UA) (Negative) g/dL Urine Ketones (NEGATIVE) Urine Occult Blood (Negative) Urine Nitrate (Negative) Urine Bilirubin (NEGATIVE) Urine Urobilinogen (0.2) E.U./dL Ur Leukocyte Esterase (NEGATIVE) Urine RBC (0-5/HPF) Urine WBC (0-5/HPF) Ur Squamous Epith Cells (0-5/HPF) Amorphous Sediment Urine Bacteria (None) Granular Casts (None) Ur Culture Indicated? U Opiates 300ng/mL cut (Negative) Ur Oxycodone Screen (Negative) Urine Methadone Screen (Negative) Ur Barbiturates Screen (Negative) U Tricyclic Antidepress (Negative) Ur Phencyclidine Scrn (Negative) Ur Amphetamines Screen (Negative) U Methamphetamines Scrn (Negative) Ur MDMA Scrn (Ecstasy) (Negative) U Benzodiazepines Scrn (Negative) Urine Cocaine Screen (Negative) U Marijuana (THC) Screen (Negative) Chlamy pneumoniae PCR (Not Detect) Adenovirus (PCR) (Not Detect) B.parapertussis DNA PCR (Not Detect) Coronavirus OC43 (PCR) (Not Detect) Coronavirus HKU1 (PCR) (Not Detect) Coronavirus 229E (PCR) (Not Detect) SARS-CoV-2 (PCR) (Negative) Coronavirus NL63 (PCR) (Not Detect) Human Metapneumovir PCR (Not Detect) Influenza Type A (PCR) (Not Detect) Influenza Type B (PCR) (Not Detect) M. pneumoniae (PCR) (Not Detect) Parainfluenza 1 (PCR) (Not Detect) Parainfluenza 2 (PCR) (Not Detect) Parainfluenza 3 (PCR) (Not Detect) Parainfluenza 4 (PCR) (Not Detect) RSV (PCR) (Not Detect) Entero/Rhino (PCR) (Not Detect) 11/19/20 11/19/20 11/19/20 Range/Units 00:25 00:25 00:25 WBC (4.5-11.0) X10^3/uL RBC (4.0-5.2) X10^6/uL Hgb (12.0-16.0) g/dL Hct (36-46) % MCV (80-100) fL MCH (26-34) PG MCHC (30-36) % RDW (11.6-14.8) % Plt Count (150-400) X10^3/uL Neut % (Auto) (50-75) % Lymph % (Auto) (25-40) % Jay % (Auto) (3-14) % Eos % (Auto) (2-4) % Baso % (Auto) (0-2) % Neut # (Auto) (2672-2299) /uL Lymph # (Auto) (9800-5901) /uL Jay # (Auto) (0-900) /uL Eos # (Auto) (0-450) /uL Baso # (Auto) (0-100) /uL PT (10.1-12.7) SECONDS INR (0.9-1.3) APTT (26.4-36.2) SECONDS D-Dimer 951 H (<230) ng/mL Sodium 134 L (137-145) mmol/L Potassium 4.0 (3.4-5.1) mmol/L Chloride 97 L (98-107) mmol/L Carbon Dioxide 31 (22-32) mmol/L BUN 36 H (7-17) mg/dL Creatinine 1.07 H (0.52-1.04) mg/dL Estimated GFR 50.7 L (>60) mL/min BUN/Creatinine Ratio 33.6 H (6-22) Glucose 97 (80-110) mg/dL Lactate 1.4 (0.7-2.1) mmol/L Calcium 8.4 (8.4-10.2) mg/dL Ferritin (11-264) ng/mL Total Bilirubin 0.7 (0.2-1.3) mg/dL AST 52 H (14-36) IU/L ALT 22 (<35) IU/L Alkaline Phosphatase 71 (38-126) U/L Lactate Dehydrogenase (313-618) U/L Troponin I (0.01-0.034) ng/mL C-Reactive Protein (<1.0) mg/dL Total Protein 8.0 (6.3-8.2) g/dL Albumin 3.9 (3.5-5.0) g/dL Globulin 4.1 (1.7-4.1) g/dL Albumin/Globulin Ratio 1.0 (1.0-2.8) Lipase 17 L (23-300) U/L Procalcitonin (<0.5) ng/mL Urine Color Urine Appearance Urine pH (4.5-8.0) Ur Specific [place] (1.000-1.035) Urine Protein (Negative) Urine Glucose (UA) (Negative) g/dL Urine Ketones (NEGATIVE) Urine Occult Blood (Negative) Urine Nitrate (Negative) Urine Bilirubin (NEGATIVE) Urine Urobilinogen (0.2) E.U./dL Ur Leukocyte Esterase (NEGATIVE) Urine RBC (0-5/HPF) Urine WBC (0-5/HPF) Ur Squamous Epith Cells (0-5/HPF) Amorphous Sediment Urine Bacteria (None) Granular Casts (None) Ur Culture Indicated? U Opiates 300ng/mL cut (Negative) Ur Oxycodone Screen (Negative) Urine Methadone Screen (Negative) Ur Barbiturates Screen (Negative) U Tricyclic Antidepress (Negative) Ur Phencyclidine Scrn (Negative) Ur Amphetamines Screen (Negative) U Methamphetamines Scrn (Negative) Ur MDMA Scrn (Ecstasy) (Negative) U Benzodiazepines Scrn (Negative) Urine Cocaine Screen (Negative) U Marijuana (THC) Screen (Negative) Chlamy pneumoniae PCR (Not Detect) Adenovirus (PCR) (Not Detect) B.parapertussis DNA PCR (Not Detect) Coronavirus OC43 (PCR) (Not Detect) Coronavirus HKU1 (PCR) (Not Detect) Coronavirus 229E (PCR) (Not Detect) SARS-CoV-2 (PCR) (Negative) Coronavirus NL63 (PCR) (Not Detect) Human Metapneumovir PCR (Not Detect) Influenza Type A (PCR) (Not Detect) Influenza Type B (PCR) (Not Detect) M. pneumoniae (PCR) (Not Detect) Parainfluenza 1 (PCR) (Not Detect) Parainfluenza 2 (PCR) (Not Detect) Parainfluenza 3 (PCR) (Not Detect) Parainfluenza 4 (PCR) (Not Detect) RSV (PCR) (Not Detect) Entero/Rhino (PCR) (Not Detect) 11/19/20 11/19/20 11/19/20 Range/Units 00:25 00:58 02:05 WBC (4.5-11.0) X10^3/uL RBC (4.0-5.2) X10^6/uL Hgb (12.0-16.0) g/dL Hct (36-46) % MCV (80-100) fL MCH (26-34) PG MCHC (30-36) % RDW (11.6-14.8) % Plt Count (150-400) X10^3/uL Neut % (Auto) (50-75) % Lymph % (Auto) (25-40) % Jay % (Auto) (3-14) % Eos % (Auto) (2-4) % Baso % (Auto) (0-2) % Neut # (Auto) (5611-2977) /uL Lymph # (Auto) (7515-6384) /uL Jay # (Auto) (0-900) /uL Eos # (Auto) (0-450) /uL Baso # (Auto) (0-100) /uL PT (10.1-12.7) SECONDS INR (0.9-1.3) APTT (26.4-36.2) SECONDS D-Dimer (<230) ng/mL Sodium (137-145) mmol/L Potassium (3.4-5.1) mmol/L Chloride (98-107) mmol/L Carbon Dioxide (22-32) mmol/L BUN (7-17) mg/dL Creatinine (0.52-1.04) mg/dL Estimated GFR (>60) mL/min BUN/Creatinine Ratio (6-22) Glucose (80-110) mg/dL Lactate (0.7-2.1) mmol/L Calcium (8.4-10.2) mg/dL Ferritin 149 (11-264) ng/mL Total Bilirubin (0.2-1.3) mg/dL AST (14-36) IU/L ALT (<35) IU/L Alkaline Phosphatase (38-126) U/L Lactate Dehydrogenase 620 H (313-618) U/L Troponin I < 0.012 (0.01-0.034) ng/mL C-Reactive Protein 31.7 H (<1.0) mg/dL Total Protein (6.3-8.2) g/dL Albumin (3.5-5.0) g/dL Globulin (1.7-4.1) g/dL Albumin/Globulin Ratio (1.0-2.8) Lipase (23-300) U/L Procalcitonin (<0.5) ng/mL Urine Color Yellow Urine Appearance Cloudy Urine pH 5.5 (4.5-8.0) Ur Specific [place] 1.025 (1.000-1.035) Urine Protein 2+ H (Negative) Urine Glucose (UA) Negative (Negative) g/dL Urine Ketones Negative (NEGATIVE) Urine Occult Blood 3+ H (Negative) Urine Nitrate Negative (Negative) Urine Bilirubin Negative (NEGATIVE) Urine Urobilinogen 0.2 (0.2) E.U./dL Ur Leukocyte Esterase Negative (NEGATIVE) Urine RBC 0-1/hpf (0-5/HPF) Urine WBC None seen (0-5/HPF) Ur Squamous Epith Cells 0-1 /hpf (0-5/HPF) Amorphous Sediment 2+ Urine Bacteria None seen (None) Granular Casts 0-1/lpf (None) Ur Culture Indicated? Cult not indicated U Opiates 300ng/mL cut (Negative) Ur Oxycodone Screen (Negative) Urine Methadone Screen (Negative) Ur Barbiturates Screen (Negative) U Tricyclic Antidepress (Negative) Ur Phencyclidine Scrn (Negative) Ur Amphetamines Screen (Negative) U Methamphetamines Scrn (Negative) Ur MDMA Scrn (Ecstasy) (Negative) U Benzodiazepines Scrn (Negative) Urine Cocaine Screen (Negative) U Marijuana (THC) Screen (Negative) Chlamy pneumoniae PCR (Not Detect) Adenovirus (PCR) (Not Detect) B.parapertussis DNA PCR (Not Detect) Coronavirus OC43 (PCR) (Not Detect) Coronavirus HKU1 (PCR) (Not Detect) Coronavirus 229E (PCR) (Not Detect) SARS-CoV-2 (PCR) Positive H (Negative) Coronavirus NL63 (PCR) (Not Detect) Human Metapneumovir PCR (Not Detect) Influenza Type A (PCR) (Not Detect) Influenza Type B (PCR) (Not Detect) M. pneumoniae (PCR) (Not Detect) Parainfluenza 1 (PCR) (Not Detect) Parainfluenza 2 (PCR) (Not Detect) Parainfluenza 3 (PCR) (Not Detect) Parainfluenza 4 (PCR) (Not Detect) RSV (PCR) (Not Detect) Entero/Rhino (PCR) (Not Detect) 11/19/20 11/19/20 Range/Units 02:05 02:05 WBC (4.5-11.0) X10^3/uL RBC (4.0-5.2) X10^6/uL Hgb (12.0-16.0) g/dL Hct (36-46) % MCV (80-100) fL MCH (26-34) PG MCHC (30-36) % RDW (11.6-14.8) % Plt Count (150-400) X10^3/uL Neut % (Auto) (50-75) % Lymph % (Auto) (25-40) % Jay % (Auto) (3-14) % Eos % (Auto) (2-4) % Baso % (Auto) (0-2) % Neut # (Auto) (9284-5924) /uL Lymph # (Auto) (3386-7603) /uL Jay # (Auto) (0-900) /uL Eos # (Auto) (0-450) /uL Baso # (Auto) (0-100) /uL PT (10.1-12.7) SECONDS INR (0.9-1.3) APTT (26.4-36.2) SECONDS D-Dimer (<230) ng/mL Sodium (137-145) mmol/L Potassium (3.4-5.1) mmol/L Chloride (98-107) mmol/L Carbon Dioxide (22-32) mmol/L BUN (7-17) mg/dL Creatinine (0.52-1.04) mg/dL Estimated GFR (>60) mL/min BUN/Creatinine Ratio (6-22) Glucose (80-110) mg/dL Lactate (0.7-2.1) mmol/L Calcium (8.4-10.2) mg/dL Ferritin (11-264) ng/mL Total Bilirubin (0.2-1.3) mg/dL AST (14-36) IU/L ALT (<35) IU/L Alkaline Phosphatase (38-126) U/L Lactate Dehydrogenase (313-618) U/L Troponin I (0.01-0.034) ng/mL C-Reactive Protein (<1.0) mg/dL Total Protein (6.3-8.2) g/dL Albumin (3.5-5.0) g/dL Globulin (1.7-4.1) g/dL Albumin/Globulin Ratio (1.0-2.8) Lipase (23-300) U/L Procalcitonin (<0.5) ng/mL Urine Color Urine Appearance Urine pH (4.5-8.0) Ur Specific [place] (1.000-1.035) Urine Protein (Negative) Urine Glucose (UA) (Negative) g/dL Urine Ketones (NEGATIVE) Urine Occult Blood (Negative) Urine Nitrate (Negative) Urine Bilirubin (NEGATIVE) Urine Urobilinogen (0.2) E.U./dL Ur Leukocyte Esterase (NEGATIVE) Urine RBC (0-5/HPF) Urine WBC (0-5/HPF) Ur Squamous Epith Cells (0-5/HPF) Amorphous Sediment Urine Bacteria (None) Granular Casts (None) Ur Culture Indicated? U Opiates 300ng/mL cut Positive H (Negative) Ur Oxycodone Screen Negative (Negative) Urine Methadone Screen Positive H (Negative) Ur Barbiturates Screen Negative (Negative) U Tricyclic Antidepress Negative (Negative) Ur Phencyclidine Scrn Negative (Negative) Ur Amphetamines Screen Negative (Negative) U Methamphetamines Scrn Positive H (Negative) Ur MDMA Scrn (Ecstasy) Negative (Negative) U Benzodiazepines Scrn Negative (Negative) Urine Cocaine Screen Negative (Negative) U Marijuana (THC) Screen Negative (Negative) Chlamy pneumoniae PCR Not detected (Not Detect) Adenovirus (PCR) Not detected (Not Detect) B.parapertussis DNA PCR Not detected (Not Detect) Coronavirus OC43 (PCR) Not detected (Not Detect) Coronavirus HKU1 (PCR) Not detected (Not Detect) Coronavirus 229E (PCR) Not detected (Not Detect) SARS-CoV-2 (PCR) Detected H (Negative) Coronavirus NL63 (PCR) Not detected (Not Detect) Human Metapneumovir PCR Not detected (Not Detect) Influenza Type A (PCR) Not detected (Not Detect) Influenza Type B (PCR) Not detected (Not Detect) M. pneumoniae (PCR) Not detected (Not Detect) Parainfluenza 1 (PCR) Not detected (Not Detect) Parainfluenza 2 (PCR) Not detected (Not Detect) Parainfluenza 3 (PCR) Not detected (Not Detect) Parainfluenza 4 (PCR) Not detected (Not Detect) RSV (PCR) Not detected (Not Detect) Entero/Rhino (PCR) Not detected (Not Detect) Imaging Data Chest x-ray: Radiologist's Impression: Ill-defined left face lab past [place] suggesting pneumonia MDM Narrative Medical decision making narrative: Appropriate for admission. Patient hypoxic with COVID-19. Discharge Plan Departure Patient Disposition: Admitted As Inpatient Clinical Impression: COVID-19 Pneumonia Qualifiers: Pneumonia type: due to unspecified organism Laterality: left Lung location: lower lobe of lung Qualified Code(s): J18.9 - Pneumonia, unspecified organism Admit Date/Time: 11/19/20 02:06 Admit Provider: Robson Alcazar
[2020-11-19] MEDS: SODIUM CHLORIDE 0.9% 1,000 ML 1000 ML IV (02:03)
[2020-11-19] MEDS: CEFTRIAXONE 2 GM/50 ML FROZ.PIGGY IV (02:04)
[2020-11-19 02:06] LABS: Bacteria Urine None Seen; WBC Urine None Seen (0-5/HPF)
[2020-11-19 02:07] LABS: Appearance Urine UA CLOUDY; Bilirubin Urine UA NEGATIVE (NEGATIVE); Color Urine UA YELLOW; Glucose Urine UA NEGATIVE (Negative); Ketones Urine UA NEGATIVE (NEGATIVE); Leukocyte Esterase Urine UA NEGATIVE (NEGATIVE); Nitrite Urine UA NEGATIVE (Negative); Occult Blood Urine UA 3+ (Negative); Protein Urine UA 2+ (Negative); Specific Gravity Urine UA 1.025 (1.000-1.035); Urobilinogen Urine UA 0.2 E.U./dL (0.2)
[2020-11-19] MEDS: LIDOCAINE 1% (PF) 2 ML (02:07)
[2020-11-19] MEDS: LIDOCAINE 2% W/EPI INJ 20 ML (02:07)
[2020-11-19 02:10] LABS: pH Urine UA 5.5 (4.5-8.0)
[2020-11-19] MEDS: DEXAMETHASONE 10 MG/ML VIAL 6 MG IV ×2 (02:10→10:12)
[2020-11-19 02:22] LABS: Amorphous Sediment Urine 2+; RBC Urine 0-1/HPF (0-5/HPF); Squamous Epithelial Cell Urine 0-1 /HPF (0-5/HPF)
[2020-11-19 02:23] LABS: Culture Indicated Urine Cult Not Indicated; Granular Casts Urine 0-1/LPF
[2020-11-19 02:40] LABS: D Dimer 951 ng/mL (<230)
[2020-11-19 02:46] LABS: Lactate Dehydrogenase 620 U/L (313-618)
[2020-11-19 02:55] LABS: Troponin I < 0.012 ng/mL (0.01-0.034)
[2020-11-19 03:13] LABS: C-Reactive Protein Quant 31.7 mg/dL (<1.0)
[2020-11-19 03:13] LABS: Adenovirus Not Detected (Not Detect); Coronavirus 229E Not Detected (Not Detect); Coronavirus HKU1 Not Detected (Not Detect); Coronavirus NL 63 Not Detected (Not Detect); Coronavirus OC43 Not Detected (Not Detect); Human Metapneumovirus Not Detected (Not Detect); Human Rhinovirus/Enterovirus Not Detected (Not Detect); Influenza A Not Detected (Not Detect); Influenza B Not Detected (Not Detect); Parainfluenza Virus 1 Not Detected (Not Detect); Parainfluenza Virus 2 Not Detected (Not Detect); Parainfluenza Virus 3 Not Detected (Not Detect); Parainfluenza Virus 4 Not Detected (Not Detect); Respiratory Syncytial Virus Not Detected (Not Detect); SARS- CoV-2 Detected (Not Detecte)
[2020-11-19 03:14] LABS: Bordetella pertussis Not Detected (Not Detect); Chlamydophila pneumoniae Not Detected (Not Detect)
[2020-11-19 03:15] LABS: Mycoplasma pneumoniae Not Detected (Not Detect)
[2020-11-19 03:18] LABS: Ferritin 149 ng/mL (11-264)
[2020-11-19 03:35] LABS: UR Morphine/Opiate cutoff 300 Positive (Negative); Ur Creatinine Normal (Normal); Ur Specific Gravity Normal (Normal); Urine Amphetamines Negative (Negative); Urine Barbiturates Negative (Negative); Urine Benzodiazepines Negative (Negative); Urine Cocaine Negative (Negative); Urine MDMA Negative (Negative); Urine Methadone Positive (Negative); Urine Methamphetamines Positive (Negative); Urine Phencyclidine Negative (Negative); Urine Tetrahydrocannabinol Negative (Negative); Urine Tricyclic Antidepressant Negative (Negative); Urine pH Normal (Normal)
[2020-11-19 03:36] LABS: Urine Oxycodone Negative (Negative)
[2020-11-19] MEDS: AZITHROMYCIN 500 MG in DEXTROSE 5% IN WATER 250 ML IV (04:05)
[2020-11-19] MEDS: SODIUM CHLORIDE 0.9% FLUSH 10 ML IV ×2 (05:15→10:27)
[2020-11-19] MEDS: REMDESIVIR 200 MG in SODIUM CHLORIDE 0.9% 210 ML 250 ML IV (05:16)
--- NOTE | 2020-11-19 05:39 | PC.ADMIT ---
patient admitted to room 230 via stretcher from ER. Is oriented but drowsy and vague with responses. States she is here because she has covid and the ambulance brought her but has no other insight as to the reason for coming to hospital. Breath sounds diminished but CTA with sat of 94% on oxygen at 3L/min. Congested sounding cough with poor effort to cough; states cough has been non productive. States she feels SOB at rest but does appear dyspneic. On continuous oximetry. HRR; telemetry reading of SR w/prolonged QT. Denies nausea. BT present and abdomen is soft but appears distended. Denies problems with urination; had in/out cath reportedly in ER for UA. Is able to move self in bed. Gait not assessed. States having pain in right flank/rib area but reports it is tolerable. Fall risk score is high and bed alarm is activated. On droplet + aerosolizing precautions due to being covid positive. Oriented to bed controls and call light. [id number] [facility] Admission Note: The patient,Ashlie Epstein,70 y/o, was given written information regarding hospital policies, unit procedures and contact persons. Patient's smoking status: Never smoker. Vital Signs - 8 hr 11/18/20 22:18 11/18/20 22:43 11/18/20 23:00 Temperature 103.2 F H Pulse Rate 80 82 78 Respiratory Rate 22 21 24 Blood Pressure 149/67 H Pulse Oximetry 88 L 92 92 11/18/20 23:30 11/19/20 00:00 11/19/20 00:30 Temperature Pulse Rate 76 79 77 Respiratory Rate 23 17 24 Blood Pressure Pulse Oximetry 96 95 11/19/20 00:53 11/19/20 01:00 11/19/20 01:09 Temperature 103.2 F H Pulse Rate 76 79 Respiratory Rate 23 24 Blood Pressure 131/61 135/56 L Pulse Oximetry 95 95 11/19/20 01:30 11/19/20 02:00 11/19/20 02:30 Temperature Pulse Rate 87 80 72 Respiratory Rate 19 19 15 Blood Pressure 142/65 H 116/54 L 114/57 L Pulse Oximetry 95 96 96 11/19/20 02:47 11/19/20 03:00 11/19/20 04:00 Temperature 99.6 F 97.8 F Pulse Rate 66 72 Respiratory Rate 16 24 Blood Pressure 104/55 L 132/63 Pulse Oximetry 94 94
[2020-11-19 05:49] LABS: Alanine Aminotransferase 18 IU/L (<35); Albumin 3.4 g/dL (3.5-5.0); Albumin Globulin Ratio 0.9 (1.0-2.8); Alkaline Phosphatase 65 U/L (38-126); Aspartate Aminotransferase 46 IU/L (14-36); BUN Creatinine Ratio 29.9 (6-22); Bilirubin Total 0.4 mg/dL (0.2-1.3); Blood Urea Nitrogen 35 mg/dL (7-17); Calcium 7.6 mg/dL (8.4-10.2); Carbon Dioxide 30 mmol/L (22-32); Chloride 98 mmol/L (98-107); Estimated Glomerular Filt Rate 45.7 mL/min (>60); Globulin 3.6 g/dL (1.7-4.1); Glucose 183 mg/dL (80-110); HEMOLYSIS < 15 (0-50); Magnesium 2.5 mg/dL (1.6-2.3); Potassium 3.7 mmol/L (3.4-5.1); Sodium 133 mmol/L (137-145)
--- NOTE | 2020-11-19 06:40 | PM.HP.1 ---
History of Present Illness History of Present Illness Date Patient Seen: 11/19/20 Time Patient Seen: 04:00 Chief complaint: COVID + Narrative: Ms. Ashlie Epstein is a 70-year-old female with a past medical history significant for polysubstance IV drug abuse with heroin and methamphetamine who presents to the ER via EMS from a local hotel with complaints of dyspnea and fever. Patient is minimally communicative and a poor historian as best able to obtain from the patient she is been feeling ill for ?a couple of days. The patient states she has had nonproductive cough though she has audible congestion. She reports she has had fevers and chills and fatigue. The patient describes right-sided chest pain that ?just started? which is palpable reproducible. She denies abdominal pain, nausea vomiting, diarrhea or constipation. She states her last heroin use was ?a couple days ago? and her last methamphetamine use which she injects is also ?a couple days ago?. The patient is also on chronic methadone reported as 140 mg daily from [facility] Upon arrival to the ER the patient's temperature of 103.2?, heart rate of 80, blood pressure 149/67, respirations of 22 saturating 88% on room air improving to 92% on 4 L nasal cannula. The patient had a chest x-ray taken which shows left lower lobe pneumonia. On laboratory analysis she has a white count of 11.8 with limbs low at 400. She has a PT of 14.7 and INR 1.3. On chemistries are sodium is 134 anterior BUN is 36 with a creatinine 1.07. Her EGFR is 50.7. Her nonfasting glucose is 97. Her LFTs are notable for an increased AST at 52. Her lactic acid is 1.8 and a procalcitonin is 8.02. Additional labs are ordered including LDH which is 620, D-dimer which is 951, troponin which is negative at less than 0.012 and a CRP of 31.7. And urinary tox screen was positive for methamphetamines, methadone and opiates. The patient also test positive on COVID screening. In the ER the patient had a femoral central line placed for lack of vascular access the patient received ceftriaxone and Decadron. Azithromycin and remdesivir are administered after admission to the floor. The patient is admitted to the hospitalist service with COVID-19 and bacterial pneumonia. Patient History Medical History (Updated 11/19/20 @ 07:45 by DAMIAN Higgins) History of opioid abuse Hypertension Methadone use Uterine procidentia Surgical History (Updated 11/19/20 @ 07:45 by DAMIAN Higgins) H/O right wrist surgery History of colonoscopy History of vaginal hysterectomy Family & Social History Family History (Updated 11/19/20 @ 07:47 by DAMIAN Higgins) Father Cancer Mother Heart disease Social History: household members friend(s) Prior Living Arrangements House Safety & Behavioral: Feels Safe in Current Yes Environment Been Physically Hurt or No Threatened By a Person Tobacco & Substance use: Smoking Status Never smoker alcohol intake former alcohol intake frequency 0-2 drinks per day Substance Use Type heroin,prescription drug Meds Home Medications and Allergies Home Medications Medication Instructions Recorded Confirmed Type methadone 140 mg PO DAILY 11/19/20 11/19/20 History Allergies Allergy/AdvReac Type Severity Reaction Status Date / Time codeine [CODEINE] Allergy Unknown Verified 11/18/20 22:53 Review of Systems Review of Systems ROS: Yes All systems reviewed with the patient and are negative except as otherwise documented Exam Vital Signs (past 8 hours): - 11/18/20 22:43 11/18/20 23:00 11/18/20 23:30 Temperature Pulse Rate 82 78 76 Respiratory Rate 21 24 23 Blood Pressure Pulse Oximetry 92 92 11/19/20 00:00 11/19/20 00:30 11/19/20 00:53 Temperature Pulse Rate 79 77 76 Respiratory Rate 17 24 23 Blood Pressure 131/61 Pulse Oximetry 96 95 95 11/19/20 01:00 11/19/20 01:09 11/19/20 01:30 Temperature 103.2 F H Pulse Rate 79 87 Respiratory Rate 24 19 Blood Pressure 135/56 L 142/65 H Pulse Oximetry 95 95 11/19/20 02:00 11/19/20 02:30 11/19/20 02:47 Temperature 99.6 F Pulse Rate 80 72 Respiratory Rate 19 15 Blood Pressure 116/54 L 114/57 L Pulse Oximetry 96 96 11/19/20 03:00 11/19/20 04:00 Temperature 97.8 F Pulse Rate 66 72 Respiratory Rate 16 24 Blood Pressure 104/55 L 132/63 Pulse Oximetry 94 94 Oxygen Delivery Method Nasal Cannula Oxygen Flow Rate 3 Narrative Exam Narrative: GENERAL APPEARANCE: well developed, chronically ill-appearing elderly woman, . HEENT: Normocephalic, PERRLA, conjunctiva clear, EOMs intact without nystagmus, no sinus tenderness to percussion, no rhinorrhea, mucous membranes are moist and pink. NECK/THYROID: neck supple, no JVD, no carotid bruit, no thyromegaly, trachea midline. LYMPH NODES: no cervical or supraclavicular lymphadenopathy. SKIN: [place], warm and dry, no visible rashes. HEART: regular rate and rhythm, S1-S2, 1/6 systolic murmur, no rubs or gallops, brisk capillary refill, no edema LUNGS: Audible central coarseness with weak cough, rhonchi and rales bibasilar. CHEST: Right chest wall tenderness on palpation, symmetrical movement, no accessory muscle use, good tidal volume. ABDOMEN: Soft, distended, attempting to percussion, no abdominal tenderness or guarding, no organomegaly, no flank or suprapubic tenderness, active bowel tones. EXTREMITIES: Femoral central line right groin, moves all extremities, strength is 5/5 and symmetrical, no deformities or joint effusions no distal cyanosis NEUROLOGIC: AAO x4, cranial nerves II-XII grossly intact, sensation intact to light touch, hearing grossly normal to speech. PSYCH: Patient minimally conversant, requiring repeating questions to obtain response, poor eye contact, flat affect, withdrawn appearing Objective Labs Result Diagrams: 11/19/20 00:25 11/19/20 05:15 Labs: Laboratory Results - last 24 hr 11/19/20 11/19/20 11/19/20 00:25 00:25 00:25 WBC 11.8 H RBC 4.15 Hgb 10.6 L Hct 33.8 L MCV 81.5 MCH 25.6 L MCHC 31.4 RDW 15.5 H Plt Count 238 Neut % (Auto) 90.6 H Lymph % (Auto) 3.6 L [place] % (Auto) 5.7 Eos % (Auto) 0.0 L Baso % (Auto) 0.1 Neut # (Auto) 02461 H Lymph # (Auto) 400 L [place] # (Auto) 700 Eos # (Auto) 0 Baso # (Auto) 0 PT 14.7 H INR 1.3 APTT 31 D-Dimer Sodium Potassium Chloride Carbon Dioxide BUN Creatinine Estimated GFR BUN/Creatinine Ratio Glucose Lactate Calcium Magnesium Ferritin Total Bilirubin AST ALT Alkaline Phosphatase Lactate Dehydrogenase Troponin I C-Reactive Protein Total Protein Albumin Globulin Albumin/Globulin Ratio Lipase Procalcitonin 8.02 H Urine Color Urine Appearance Urine pH Ur Specific [place] Urine Protein Urine Glucose (UA) Urine Ketones Urine Occult Blood Urine Nitrate Urine Bilirubin Urine Urobilinogen Ur Leukocyte Esterase Urine RBC Urine WBC Ur Squamous Epith Cells Amorphous Sediment Urine Bacteria Granular Casts Ur Culture Indicated? U Opiates 300ng/mL cut Ur Oxycodone Screen Urine Methadone Screen Ur Barbiturates Screen U Tricyclic Antidepress Ur Phencyclidine Scrn Ur Amphetamines Screen U Methamphetamines Scrn Ur MDMA Scrn (Ecstasy) U Benzodiazepines Scrn Urine Cocaine Screen U Marijuana (THC) Screen Chlamy pneumoniae PCR Adenovirus (PCR) B.parapertussis DNA PCR Coronavirus OC43 (PCR) Coronavirus HKU1 (PCR) Coronavirus 229E (PCR) SARS-CoV-2 (PCR) Coronavirus NL63 (PCR) Human Metapneumovir PCR Influenza Type A (PCR) Influenza Type B (PCR) M. pneumoniae (PCR) Parainfluenza 1 (PCR) Parainfluenza 2 (PCR) Parainfluenza 3 (PCR) Parainfluenza 4 (PCR) RSV (PCR) Entero/Rhino (PCR) 11/19/20 11/19/20 11/19/20 00:25 00:25 00:25 WBC RBC Hgb Hct MCV MCH MCHC RDW Plt Count Neut % (Auto) Lymph % (Auto) [place] % (Auto) Eos % (Auto) Baso % (Auto) Neut # (Auto) Lymph # (Auto) [place] # (Auto) Eos # (Auto) Baso # (Auto) PT INR APTT D-Dimer 951 H Sodium 134 L Potassium 4.0 Chloride 97 L Carbon Dioxide 31 BUN 36 H Creatinine 1.07 H Estimated GFR 50.7 L BUN/Creatinine Ratio 33.6 H Glucose 97 Lactate 1.4 Calcium 8.4 Magnesium Ferritin Total Bilirubin 0.7 AST 52 H ALT 22 Alkaline Phosphatase 71 Lactate Dehydrogenase Troponin I C-Reactive Protein Total Protein 8.0 Albumin 3.9 Globulin 4.1 Albumin/Globulin Ratio 1.0 Lipase 17 L Procalcitonin Urine Color Urine Appearance Urine pH Ur Specific [place] Urine Protein Urine Glucose (UA) Urine Ketones Urine Occult Blood Urine Nitrate Urine Bilirubin Urine Urobilinogen Ur Leukocyte Esterase Urine RBC Urine WBC Ur Squamous Epith Cells Amorphous Sediment Urine Bacteria Granular Casts Ur Culture Indicated? U Opiates 300ng/mL cut Ur Oxycodone Screen Urine Methadone Screen Ur Barbiturates Screen U Tricyclic Antidepress Ur Phencyclidine Scrn Ur Amphetamines Screen U Methamphetamines Scrn Ur MDMA Scrn (Ecstasy) U Benzodiazepines Scrn Urine Cocaine Screen U Marijuana (THC) Screen Chlamy pneumoniae PCR Adenovirus (PCR) B.parapertussis DNA PCR Coronavirus OC43 (PCR) Coronavirus HKU1 (PCR) Coronavirus 229E (PCR) SARS-CoV-2 (PCR) Coronavirus NL63 (PCR) Human Metapneumovir PCR Influenza Type A (PCR) Influenza Type B (PCR) M. pneumoniae (PCR) Parainfluenza 1 (PCR) Parainfluenza 2 (PCR) Parainfluenza 3 (PCR) Parainfluenza 4 (PCR) RSV (PCR) Entero/Rhino (PCR) 11/19/20 11/19/20 11/19/20 00:25 00:58 02:05 WBC RBC Hgb Hct MCV MCH MCHC RDW Plt Count Neut % (Auto) Lymph % (Auto) [place] % (Auto) Eos % (Auto) Baso % (Auto) Neut # (Auto) Lymph # (Auto) [place] # (Auto) Eos # (Auto) Baso # (Auto) PT INR APTT D-Dimer Sodium Potassium Chloride Carbon Dioxide BUN Creatinine Estimated GFR BUN/Creatinine Ratio Glucose Lactate Calcium Magnesium Ferritin 149 Total Bilirubin AST ALT Alkaline Phosphatase Lactate Dehydrogenase 620 H Troponin I < 0.012 C-Reactive Protein 31.7 H Total Protein Albumin Globulin Albumin/Globulin Ratio Lipase Procalcitonin Urine Color Yellow Urine Appearance Cloudy Urine pH 5.5 Ur Specific [place] 1.025 Urine Protein 2+ H Urine Glucose (UA) Negative Urine Ketones Negative Urine Occult Blood 3+ H Urine Nitrate Negative Urine Bilirubin Negative Urine Urobilinogen 0.2 Ur Leukocyte Esterase Negative Urine RBC 0-1/hpf Urine WBC None seen Ur Squamous Epith Cells 0-1 /hpf Amorphous Sediment 2+ Urine Bacteria None seen Granular Casts 0-1/lpf Ur Culture Indicated? Cult not indicated U Opiates 300ng/mL cut Ur Oxycodone Screen Urine Methadone Screen Ur Barbiturates Screen U Tricyclic Antidepress Ur Phencyclidine Scrn Ur Amphetamines Screen U Methamphetamines Scrn Ur MDMA Scrn (Ecstasy) U Benzodiazepines Scrn Urine Cocaine Screen U Marijuana (THC) Screen Chlamy pneumoniae PCR Adenovirus (PCR) B.parapertussis DNA PCR Coronavirus OC43 (PCR) Coronavirus HKU1 (PCR) Coronavirus 229E (PCR) SARS-CoV-2 (PCR) Positive H Coronavirus NL63 (PCR) Human Metapneumovir PCR Influenza Type A (PCR) Influenza Type B (PCR) M. pneumoniae (PCR) Parainfluenza 1 (PCR) Parainfluenza 2 (PCR) Parainfluenza 3 (PCR) Parainfluenza 4 (PCR) RSV (PCR) Entero/Rhino (PCR) 11/19/20 11/19/20 11/19/20 02:05 02:05 05:15 WBC RBC Hgb Hct MCV MCH MCHC RDW Plt Count Neut % (Auto) Lymph % (Auto) [place] % (Auto) Eos % (Auto) Baso % (Auto) Neut # (Auto) Lymph # (Auto) [place] # (Auto) Eos # (Auto) Baso # (Auto) PT INR APTT D-Dimer Sodium 133 L Potassium 3.7 Chloride 98 Carbon Dioxide 30 BUN 35 H Creatinine 1.17 H Estimated GFR 45.7 L BUN/Creatinine Ratio 29.9 H Glucose 183 H Lactate Calcium 7.6 L Magnesium 2.5 H Ferritin Total Bilirubin 0.4 AST 46 H ALT 18 Alkaline Phosphatase 65 Lactate Dehydrogenase Troponin I C-Reactive Protein Total Protein 7.0 Albumin 3.4 L Globulin 3.6 Albumin/Globulin Ratio 0.9 L Lipase Procalcitonin Urine Color Urine Appearance Urine pH Ur Specific [place] Urine Protein Urine Glucose (UA) Urine Ketones Urine Occult Blood Urine Nitrate Urine Bilirubin Urine Urobilinogen Ur Leukocyte Esterase Urine RBC Urine WBC Ur Squamous Epith Cells Amorphous Sediment Urine Bacteria Granular Casts Ur Culture Indicated? U Opiates 300ng/mL cut Positive H Ur Oxycodone Screen Negative Urine Methadone Screen Positive H Ur Barbiturates Screen Negative U Tricyclic Antidepress Negative Ur Phencyclidine Scrn Negative Ur Amphetamines Screen Negative U Methamphetamines Scrn Positive H Ur MDMA Scrn (Ecstasy) Negative U Benzodiazepines Scrn Negative Urine Cocaine Screen Negative U Marijuana (THC) Screen Negative Chlamy pneumoniae PCR Not detected Adenovirus (PCR) Not detected B.parapertussis DNA PCR Not detected Coronavirus OC43 (PCR) Not detected Coronavirus HKU1 (PCR) Not detected Coronavirus 229E (PCR) Not detected SARS-CoV-2 (PCR) Detected H Coronavirus NL63 (PCR) Not detected Human Metapneumovir PCR Not detected Influenza Type A (PCR) Not detected Influenza Type B (PCR) Not detected M. pneumoniae (PCR) Not detected Parainfluenza 1 (PCR) Not detected Parainfluenza 2 (PCR) Not detected Parainfluenza 3 (PCR) Not detected Parainfluenza 4 (PCR) Not detected RSV (PCR) Not detected Entero/Rhino (PCR) Not detected Assessment & Plan Assessment & Plan narrative: This is a 70-year-old female with a past medical history significant for polysubstance IV drug abuse with heroin and methamphetamine who presents to the ER via EMS from a local hotel with complaints of dyspnea and fever who is found have bacterial pneumonia as well as COVID-19. The patient is a poor historian and unable to provide duration of illness or contribute in a meaningful way the the medical record. 1. Community-acquired pneumonia, bacterial, present admission, active -chest x-ray shows left lower lobe infiltrates. -patient has elevated white count at 11.8 increased neutrophils at 10,700 and lobe lymphocytes and 400. Procalcitonin is 8.02. -ordered ceftriaxone 2 g IV daily 1st dose administered in the ER. -ordered azithromycin 500 mg daily for 3 days. -requested respiratory therapy to consult evaluate and treat. -ordered incentive spirometry every 2 hours while awake and flutter valve 3 times daily 2. COVID-19 pneumonia, present on admission, active -patient is hypoxic on arrival with a saturation of 88% on room air improving to only 92% on 4 L. Goal for oxygen saturations is 94%. -patient is COVID positive on screening, and respiratory PCR panel with no other infection identified. -patient has positive COVID markers with low lymphocytes of 400, elevated LDH at 620, D-dimer is 951, CRP is 31.7. -will trend COVID markers. -patient started on Decadron 6 mg daily with 1st dose administered in the ER -patient started on remdesivir 200 mg x1 now then remdesivir 100 mg daily for 4 days. -patient is placed in droplet isolation with anticipation of patient deterioration. 3. Polysubstance abuse, chronic -patient acknowledges use heroin and methadone both of which she states she used ?a couple of days ago?. -patient present with flat affect appears withdrawn and minimally cooperative care. -no venous access is available via peripheral IV therapy for femoral IV started by the ER physician which will be replaced with a PICC line for access. 4. Hypertension, chronic -patient's blood pressure is 149/67 upon arrival to the ER and 132/63 after admission. -the patient denies taking medication for hypertension however she has metoprolol listed on her pharmacy record. -the patient's blood pressure is stable now, will trend pressures and treat as needed. VTE prophylaxis: SCDs, Enoxaparin IV fluid: Saline lock Diet: Heart healthy medium consistent carbohydrate. Code status: Patient is unable to state will default full code and the patient does not designate a surrogate decision maker. The patient is admitted to the hospital due to the severity of her symptoms risks for further deterioration adverse events and implementation of a complex treatment plan. The patient is admitted as inpatient with expected length of stay to be greater than 2 midnights. COVID-19 COVID-19 status: Positive Result date/Date tested (Pos, Neg/Pending): 11/19/20
--- NOTE | 2020-11-19 09:47 | DI.RAD.S_ITS ---
PROCEDURE: XR CHEST FOR PICC 1V INDICATIONS: Picc placement COMPARISON: [facility], , XR CHEST 1V, 11/18/2020, 23:04. FINDINGS: PICC was placed by the intravenous therapy team from the left side. AP chest x-ray demonstrates the tip of PICC projecting to the area of the distal left brachiocephalic vein. Patchy bilateral infiltrates, left greater than right. IMPRESSION: Tip of PICC projects to the area of the distal left brachiocephalic vein. Dictated by: Jonathan Kamara M.D. on 11/19/2020 at 10:12 Approved by: Jonathan Kamara M.D. on 11/19/2020 at 10:23
[2020-11-19] MEDS: INSULIN ASPART 100 UNIT/ML INSULN PEN SUBCUT ×2 (09:54→14:05)
[2020-11-19] MEDS: ENOXAPARIN 40 MG/0.4 ML SYRINGE SUBCUT (10:11)
[2020-11-19] MEDS: FAMOTIDINE 20 MG TABLET PO (10:11)
[2020-11-19] MEDS: DOCUSATE 100 MG CAPSULE PO ×2 (10:12→21:13)
[2020-11-19] MEDS: METHADONE 10 MG TABLET 150 MG PO (10:23)
--- NOTE | 2020-11-19 11:26 | PM.PN.1 ---
Subjective Subjective Date Patient Seen: 11/19/20 Time Patient Seen: 11:27 Interval history: She is stabilized on 3 L nasal cannula with saturations in the mid 90%. Her chest x-ray showing minimal left lower lobe infiltrate is reviewed. Her procalcitonin is 8.02. She has a history of IV drug use recently including heroin and methamphetamines and is also on methadone high dose. Her femoral central line has been recently placed for IV access but will be removed to decrease the chance of inducing bacteremia and a PICC line has now been placed successfully. Exam Vital Signs (past 8 hours): - 11/19/20 04:00 11/19/20 09:00 Temperature 97.8 F 98.6 F Pulse Rate 72 63 Respiratory Rate 24 16 Blood Pressure 132/63 112/57 L Pulse Oximetry 94 96 Oxygen Delivery Method Nasal Cannula Oxygen Flow Rate 0 Narrative Exam Narrative: She is quite distracted, sleepy, over-sedated and difficult to connect with. She does not look to be in any distress. Heart is regular rate and rhythm without murmur Lungs are clear to auscultation bilaterally Abdomen is soft, bowel sounds positive, nontender, no organomegaly There is no ankle edema. Objective Labs Result Diagrams: 11/19/20 00:25 11/19/20 05:15 Labs: Laboratory Results - last 24 hr 11/19/20 11/19/20 11/19/20 00:25 00:25 00:25 WBC 11.8 H RBC 4.15 Hgb 10.6 L Hct 33.8 L MCV 81.5 MCH 25.6 L MCHC 31.4 RDW 15.5 H Plt Count 238 Neut % (Auto) 90.6 H Lymph % (Auto) 3.6 L [place] % (Auto) 5.7 Eos % (Auto) 0.0 L Baso % (Auto) 0.1 Neut # (Auto) 76537 H Lymph # (Auto) 400 L [place] # (Auto) 700 Eos # (Auto) 0 Baso # (Auto) 0 PT 14.7 H INR 1.3 APTT 31 D-Dimer Sodium Potassium Chloride Carbon Dioxide BUN Creatinine Estimated GFR BUN/Creatinine Ratio Glucose Lactate Calcium Magnesium Ferritin Total Bilirubin AST ALT Alkaline Phosphatase Lactate Dehydrogenase Troponin I C-Reactive Protein Total Protein Albumin Globulin Albumin/Globulin Ratio Lipase Procalcitonin 8.02 H Urine Color Urine Appearance Urine pH Ur Specific [place] Urine Protein Urine Glucose (UA) Urine Ketones Urine Occult Blood Urine Nitrate Urine Bilirubin Urine Urobilinogen Ur Leukocyte Esterase Urine RBC Urine WBC Ur Squamous Epith Cells Amorphous Sediment Urine Bacteria Granular Casts Ur Culture Indicated? Nasal Screen MRSA (PCR) U Opiates 300ng/mL cut Ur Oxycodone Screen Urine Methadone Screen Ur Barbiturates Screen U Tricyclic Antidepress Ur Phencyclidine Scrn Ur Amphetamines Screen U Methamphetamines Scrn Ur MDMA Scrn (Ecstasy) U Benzodiazepines Scrn Urine Cocaine Screen U Marijuana (THC) Screen Chlamy pneumoniae PCR Adenovirus (PCR) B.parapertussis DNA PCR Coronavirus OC43 (PCR) Coronavirus HKU1 (PCR) Coronavirus 229E (PCR) SARS-CoV-2 (PCR) Coronavirus NL63 (PCR) Human Metapneumovir PCR Influenza Type A (PCR) Influenza Type B (PCR) M. pneumoniae (PCR) Parainfluenza 1 (PCR) Parainfluenza 2 (PCR) Parainfluenza 3 (PCR) Parainfluenza 4 (PCR) RSV (PCR) Entero/Rhino (PCR) 11/19/20 11/19/20 11/19/20 00:25 00:25 00:25 WBC RBC Hgb Hct MCV MCH MCHC RDW Plt Count Neut % (Auto) Lymph % (Auto) [place] % (Auto) Eos % (Auto) Baso % (Auto) Neut # (Auto) Lymph # (Auto) [place] # (Auto) Eos # (Auto) Baso # (Auto) PT INR APTT D-Dimer 951 H Sodium 134 L Potassium 4.0 Chloride 97 L Carbon Dioxide 31 BUN 36 H Creatinine 1.07 H Estimated GFR 50.7 L BUN/Creatinine Ratio 33.6 H Glucose 97 Lactate 1.4 Calcium 8.4 Magnesium Ferritin Total Bilirubin 0.7 AST 52 H ALT 22 Alkaline Phosphatase 71 Lactate Dehydrogenase Troponin I C-Reactive Protein Total Protein 8.0 Albumin 3.9 Globulin 4.1 Albumin/Globulin Ratio 1.0 Lipase 17 L Procalcitonin Urine Color Urine Appearance Urine pH Ur Specific [place] Urine Protein Urine Glucose (UA) Urine Ketones Urine Occult Blood Urine Nitrate Urine Bilirubin Urine Urobilinogen Ur Leukocyte Esterase Urine RBC Urine WBC Ur Squamous Epith Cells Amorphous Sediment Urine Bacteria Granular Casts Ur Culture Indicated? Nasal Screen MRSA (PCR) U Opiates 300ng/mL cut Ur Oxycodone Screen Urine Methadone Screen Ur Barbiturates Screen U Tricyclic Antidepress Ur Phencyclidine Scrn Ur Amphetamines Screen U Methamphetamines Scrn Ur MDMA Scrn (Ecstasy) U Benzodiazepines Scrn Urine Cocaine Screen U Marijuana (THC) Screen Chlamy pneumoniae PCR Adenovirus (PCR) B.parapertussis DNA PCR Coronavirus OC43 (PCR) Coronavirus HKU1 (PCR) Coronavirus 229E (PCR) SARS-CoV-2 (PCR) Coronavirus NL63 (PCR) Human Metapneumovir PCR Influenza Type A (PCR) Influenza Type B (PCR) M. pneumoniae (PCR) Parainfluenza 1 (PCR) Parainfluenza 2 (PCR) Parainfluenza 3 (PCR) Parainfluenza 4 (PCR) RSV (PCR) Entero/Rhino (PCR) 11/19/20 11/19/20 11/19/20 00:25 00:58 02:05 WBC RBC Hgb Hct MCV MCH MCHC RDW Plt Count Neut % (Auto) Lymph % (Auto) [place] % (Auto) Eos % (Auto) Baso % (Auto) Neut # (Auto) Lymph # (Auto) [place] # (Auto) Eos # (Auto) Baso # (Auto) PT INR APTT D-Dimer Sodium Potassium Chloride Carbon Dioxide BUN Creatinine Estimated GFR BUN/Creatinine Ratio Glucose Lactate Calcium Magnesium Ferritin 149 Total Bilirubin AST ALT Alkaline Phosphatase Lactate Dehydrogenase 620 H Troponin I < 0.012 C-Reactive Protein 31.7 H Total Protein Albumin Globulin Albumin/Globulin Ratio Lipase Procalcitonin Urine Color Yellow Urine Appearance Cloudy Urine pH 5.5 Ur Specific [place] 1.025 Urine Protein 2+ H Urine Glucose (UA) Negative Urine Ketones Negative Urine Occult Blood 3+ H Urine Nitrate Negative Urine Bilirubin Negative Urine Urobilinogen 0.2 Ur Leukocyte Esterase Negative Urine RBC 0-1/hpf Urine WBC None seen Ur Squamous Epith Cells 0-1 /hpf Amorphous Sediment 2+ Urine Bacteria None seen Granular Casts 0-1/lpf Ur Culture Indicated? Cult not indicated Nasal Screen MRSA (PCR) U Opiates 300ng/mL cut Ur Oxycodone Screen Urine Methadone Screen Ur Barbiturates Screen U Tricyclic Antidepress Ur Phencyclidine Scrn Ur Amphetamines Screen U Methamphetamines Scrn Ur MDMA Scrn (Ecstasy) U Benzodiazepines Scrn Urine Cocaine Screen U Marijuana (THC) Screen Chlamy pneumoniae PCR Adenovirus (PCR) B.parapertussis DNA PCR Coronavirus OC43 (PCR) Coronavirus HKU1 (PCR) Coronavirus 229E (PCR) SARS-CoV-2 (PCR) Positive H Coronavirus NL63 (PCR) Human Metapneumovir PCR Influenza Type A (PCR) Influenza Type B (PCR) M. pneumoniae (PCR) Parainfluenza 1 (PCR) Parainfluenza 2 (PCR) Parainfluenza 3 (PCR) Parainfluenza 4 (PCR) RSV (PCR) Entero/Rhino (PCR) 11/19/20 11/19/20 11/19/20 02:05 02:05 03:55 WBC RBC Hgb Hct MCV MCH MCHC RDW Plt Count Neut % (Auto) Lymph % (Auto) [place] % (Auto) Eos % (Auto) Baso % (Auto) Neut # (Auto) Lymph # (Auto) [place] # (Auto) Eos # (Auto) Baso # (Auto) PT INR APTT D-Dimer Sodium Potassium Chloride Carbon Dioxide BUN Creatinine Estimated GFR BUN/Creatinine Ratio Glucose Lactate Calcium Magnesium Ferritin Total Bilirubin AST ALT Alkaline Phosphatase Lactate Dehydrogenase Troponin I C-Reactive Protein Total Protein Albumin Globulin Albumin/Globulin Ratio Lipase Procalcitonin Urine Color Urine Appearance Urine pH Ur Specific [place] Urine Protein Urine Glucose (UA) Urine Ketones Urine Occult Blood Urine Nitrate Urine Bilirubin Urine Urobilinogen Ur Leukocyte Esterase Urine RBC Urine WBC Ur Squamous Epith Cells Amorphous Sediment Urine Bacteria Granular Casts Ur Culture Indicated? Nasal Screen MRSA (PCR) Negative for mrsa U Opiates 300ng/mL cut Positive H Ur Oxycodone Screen Negative Urine Methadone Screen Positive H Ur Barbiturates Screen Negative U Tricyclic Antidepress Negative Ur Phencyclidine Scrn Negative Ur Amphetamines Screen Negative U Methamphetamines Scrn Positive H Ur MDMA Scrn (Ecstasy) Negative U Benzodiazepines Scrn Negative Urine Cocaine Screen Negative U Marijuana (THC) Screen Negative Chlamy pneumoniae PCR Not detected Adenovirus (PCR) Not detected B.parapertussis DNA PCR Not detected Coronavirus OC43 (PCR) Not detected Coronavirus HKU1 (PCR) Not detected Coronavirus 229E (PCR) Not detected SARS-CoV-2 (PCR) Detected H Coronavirus NL63 (PCR) Not detected Human Metapneumovir PCR Not detected Influenza Type A (PCR) Not detected Influenza Type B (PCR) Not detected M. pneumoniae (PCR) Not detected Parainfluenza 1 (PCR) Not detected Parainfluenza 2 (PCR) Not detected Parainfluenza 3 (PCR) Not detected Parainfluenza 4 (PCR) Not detected RSV (PCR) Not detected Entero/Rhino (PCR) Not detected 11/19/20 05:15 WBC RBC Hgb Hct MCV MCH MCHC RDW Plt Count Neut % (Auto) Lymph % (Auto) [place] % (Auto) Eos % (Auto) Baso % (Auto) Neut # (Auto) Lymph # (Auto) [place] # (Auto) Eos # (Auto) Baso # (Auto) PT INR APTT D-Dimer Sodium 133 L Potassium 3.7 Chloride 98 Carbon Dioxide 30 BUN 35 H Creatinine 1.17 H Estimated GFR 45.7 L BUN/Creatinine Ratio 29.9 H Glucose 183 H Lactate Calcium 7.6 L Magnesium 2.5 H Ferritin Total Bilirubin 0.4 AST 46 H ALT 18 Alkaline Phosphatase 65 Lactate Dehydrogenase Troponin I C-Reactive Protein Total Protein 7.0 Albumin 3.4 L Globulin 3.6 Albumin/Globulin Ratio 0.9 L Lipase Procalcitonin Urine Color Urine Appearance Urine pH Ur Specific [place] Urine Protein Urine Glucose (UA) Urine Ketones Urine Occult Blood Urine Nitrate Urine Bilirubin Urine Urobilinogen Ur Leukocyte Esterase Urine RBC Urine WBC Ur Squamous Epith Cells Amorphous Sediment Urine Bacteria Granular Casts Ur Culture Indicated? Nasal Screen MRSA (PCR) U Opiates 300ng/mL cut Ur Oxycodone Screen Urine Methadone Screen Ur Barbiturates Screen U Tricyclic Antidepress Ur Phencyclidine Scrn Ur Amphetamines Screen U Methamphetamines Scrn Ur MDMA Scrn (Ecstasy) U Benzodiazepines Scrn Urine Cocaine Screen U Marijuana (THC) Screen Chlamy pneumoniae PCR Adenovirus (PCR) B.parapertussis DNA PCR Coronavirus OC43 (PCR) Coronavirus HKU1 (PCR) Coronavirus 229E (PCR) SARS-CoV-2 (PCR) Coronavirus NL63 (PCR) Human Metapneumovir PCR Influenza Type A (PCR) Influenza Type B (PCR) M. pneumoniae (PCR) Parainfluenza 1 (PCR) Parainfluenza 2 (PCR) Parainfluenza 3 (PCR) Parainfluenza 4 (PCR) RSV (PCR) Entero/Rhino (PCR) [facility] Medical History (Updated 11/19/20 @ 07:45 by DAMIAN Higgins) History of opioid abuse Hypertension Methadone use Uterine procidentia Surgical History (Updated 11/19/20 @ 07:45 by DAMIAN Higgins) H/O right wrist surgery History of colonoscopy History of vaginal hysterectomy Family History (Updated 11/19/20 @ 07:47 by DAMIAN Higgins) Father Cancer Mother Heart disease Social History household members: friend(s) Smoking Status: Never smoker alcohol intake: former Assessment & Plan Assessment & Plan narrative: This is a 70-year-old female with a past medical history significant for polysubstance IV drug abuse with heroin and methamphetamine who presented to the ER via EMS from a local hotel with complaints of dyspnea and fever and is found have bacterial pneumonia as well as COVID-19. The patient is a poor historian and unable to provide duration of illness or contribute in a meaningful way to the the medical record. 1. Community-acquired pneumonia, bacterial, present admission, active -chest x-ray shows left lower lobe infiltrates. -patient has elevated white count at 11.8 increased neutrophils at 10,700. Procalcitonin is 8.02. -continue ceftriaxone 2 g IV daily 1st dose administered in the ER. Duration set for 7 days, to be changed as indicated. -continue azithromycin 500 mg daily for 3 days. -respiratory therapy to consult and treat. -incentive spirometry every 2 hours while awake and flutter valve 3 times daily 2. COVID-19 pneumonia, present on admission, active -patient is hypoxic on arrival with a saturation of 88% on room air improving to only 92% on 4 L. Goal for oxygen saturations is 94%. -patient is COVID positive on screening, and respiratory PCR panel with no other infection identified. -patient has positive COVID markers with low lymphocytes of 400, elevated LDH at 620, D-dimer is 951, CRP is 31.7. -will trend COVID markers. -patient started on Decadron 6 mg daily with 1st dose administered in the ER -patient started on remdesivir 200 mg x1 now then remdesivir 100 mg daily for 4 days. -patient is placed in droplet isolation 3. Polysubstance abuse, chronic -patient acknowledges use of heroin and methadone both of which she states she used ?a couple of days ago?. -patient present with flat affect appears withdrawn and minimally cooperative care. -no venous access is available via peripheral IV therapy so femoral IV started by the ER physician which was replaced with a PICC line 11/19 for access. 4. Hypertension, chronic -patient's blood pressure is 149/67 upon arrival to the ER and 132/63 after admission. -the patient denies taking medication for hypertension however she has metoprolol listed on her pharmacy record. -the patient's blood pressure is stable now, will trend pressures and treat as needed. VTE prophylaxis: SCDs, Enoxaparin IV fluid: Saline lock Diet: Heart healthy medium consistent carbohydrate. Code status: Patient is unable to state so will default full code and the patient does not designate a surrogate decision maker.
--- NOTE | 2020-11-19 12:05 | PC.NURSE ---
Addendum entered by Kenya Godoy R.N. 11/19/20 14:48: Correction to María's phone number, it is Original Note: spoke with daughter, María. pt gave permission to relay updates to any of her children. María was hoping for insight on where and when the patient would discharge. I told her that the pt will be here a couple days and discharge will depend on her strength, mobility, and respiratory status. Daughter understood. I will relay her number to discharge planning. María lives in [place] and willing to travel if needed. María's cell is ([phone].
--- NOTE | 2020-11-19 12:12 | PC.NURSE ---
[facility] called looking to speak to pt for COVID tracking purposes. pt agreed and I provided her direct phone number. Jose can be reached at .
--- NOTE | 2020-11-19 14:29 | CM.DANOTE ---
Discharge Planning/Care Management DCP: assessment: Case received EMR reviewed. Discussed case during Team Rounds and a ? of transfer to a higher level of care was discussed. Dr. Prajapati saw pt later in the morning and gave update that she was stable for treatment here at [facility]. Pt is a 70 year old female who admitted early this mornin to care of hospitalist team. PCP: listed as Dr. Lio Chance She is also per documentation a client at [facility] and is on daily Methadone dosing as part of her recovery program. Her tox screen is + for opioids and methamphetamine and she admits to recent IV use of both. She is admitted for COVID+ bacterial pneumonia and is currently on IV antbiotics. O2 per NC, IV decadron and IV remdesivir. Per nsg, pt does not have her cell phone in the room. She has told ANSELMO Zambrano that her case can be discussed with any of her daughters. María, who lives in [place] has called for updates and is, per Kenya, willing to come to up here if she is needed. P: follow up tomorrow with pt per phone in room and with María. Anticipate pt will be more alert and POC will be clearer. Pt was very groggy for much of the morning, becoming more alert this afternoon. PT lives in [place] on [address] but apparently was brought in by EMS for a hotel. Will hope to get a clearer picture of what may be needed for the dc planning process tomorrow. CM Discharge Assessment Start: 11/19/20 14:26 Freq: Status: Active Protocol: Document 11/19/20 14:27 ITV (Rec: 11/19/20 14:29 ITV [id number]) Discharge Planning Assessment Advance Directives? No Advance Directives on File No History Provided By Medical Record Prior Living Arrangements House Review Status In Process
--- NOTE | 2020-11-19 14:48 | PC.NURSE ---
Addendum entered by Kenya Godoy R.N. 11/19/20 14:57: Dr. Prajapati gave an order for the removal of the right groin central line. Meghan, bridge toll collector, stated she will assist and will return around 1500. To do so, the patient will need to lay flat for 30minutes. pt is aware and supplies are in the room ready. Original Note: AM Shift report. pt AO and receptive to care. Sleepy and rested most of the shift with willingness to transfer to [facility]. PICC placed around 1000 by Suzi in ID to ULE, tolerated well and flushed with Heparin. Difficulty voiding at end of shift but voided ~250ml earlier in shift. Titrated from 3L NC at start of shift to 2.5L NC and oxygen mid-high 90's (96% currently). ACHS CBG's this shift were 131 and 179. Tele: sinus rita with BBB and prolonged QT. Intermittent, non-productive cough. Expiratory wheezes throughout. pt gave permission to discuss status with all children who call. Spoke to María, daughter, earlier and provided update. Jose from [facility] called and requested permission to speak to pt regarding COVID tracing, pt agreed. I do not believe he was successful in communicating with the pt yet today and may call back, he has her direct phone line.
--- NOTE | 2020-11-19 17:16 | PC.NURSE ---
Addendum entered by Macey Siddiqui R.N. 11/19/20 22:44: Discussion with DAMIAN alvarez pt's lack of urinary output and limited to poor oral intake. NS begun @ 75 cc/hr to left PICC. Remains consistent with 02 2.5 L per NC 95-96% per continuous monitor. Was able to void 600 cc's late in shift darlene colored urine. Generalized weakness and does requires assistance with walker to transfer. Addendum entered by Macey Siddiqui R.N. 11/19/20 18:51: 02 2.5L NC oxygen saturation level 95%. Sleeping with even and unlabored respirations. Dressing to right groin (gauze and tegaderm) is dry and intact. Original Note: K. Horr up to the floor and dc'd pt's central line right groin. Pt flat in bed x 30 minutes. Site checked for bleeding every 15 minutes and no bleeding observed. Prior to this removal, pt did request assistance up to commode to void. Unable to void. Care was taken to keep right groin line from being pulled or kinked in any manner. Returned to bed and bladder scanned by INDUSTRIAL MACHINE ASSEMBLER for 139 cc's. Will encourage oral fluids. Pt denies pain, denies nausea. Occasional moist, unproductive cough. Crackles auscultated throughout all posterior lung caraballo. Clear anterior caraballo. 02 2.5 L per NC oxygen saturation level 96-98%. Denies dyspnea and no dyspnea observed with activity. BL calf scd's replaced when in bed. Pt uses call light appropriately. Isolation precautions for covid-19 observed by staff members.
[2020-11-19] MEDS: SODIUM CHLORIDE 0.9% 1,000 ML 75 ML IV (21:14)
[2020-11-20] VITALS (12 sets, daily range): BP systolic 121–134; BP diastolic 60–78; PULSE 51–55; RESP 13–22; TEMP 36–37; O2SAT 84–98
[2020-11-20] MEDS: CEFTRIAXONE 2 GM/50 ML FROZ.PIGGY IV (02:22)
[2020-11-20] MEDS: AZITHROMYCIN 500 MG in DEXTROSE 5% IN WATER 250 ML IV (04:13)
[2020-11-20] MEDS: REMDESIVIR 100 MG in SODIUM CHLORIDE 0.9% 230 ML 250 ML IV (05:32)
[2020-11-20 05:55] LABS: Add Manual Diff / Slide Review NO; Basophils Absolute Auto 0 /uL (0-100); Basophils Percent Auto 0.1 % (0-2); Eosinophils Absolute Auto 0 /uL (0-450); Hematocrit 29.5 % (36-46); Hemoglobin 9.6 g/dL (12.0-16.0); Lymphocytes Absolute Auto 400 /uL (1100-4500); Lymphocytes Percent Auto 5.3 % (25-40); Mean Corpuscular HGB Conc 32.7 % (30-36); Mean Corpuscular Hemoglobin 26.1 PG (26-34); Monocytes Absolute Auto 500 /uL (0-900); Monocytes Percent Auto 5.7 % (3-14); Neutrophils Absolute Auto 7100 /uL (1500-7000); Neutrophils Percent Auto 88.9 % (50-75); Platelet Count 223 X10^3/uL (150-400); Red Blood Cell Count 3.69 X10^6/uL (4.0-5.2); Red Cell Distribution Width 16.2 % (11.6-14.8); White Blood Cell Count 7.9 X10^3/uL (4.5-11.0)
[2020-11-20 06:04] LABS: Alanine Aminotransferase 32 IU/L (<35); Albumin 3.1 g/dL (3.5-5.0); Albumin Globulin Ratio 0.9 (1.0-2.8); Alkaline Phosphatase 56 U/L (38-126); Aspartate Aminotransferase 70 IU/L (14-36); BUN Creatinine Ratio 44.7 (6-22); Bilirubin Total 0.2 mg/dL (0.2-1.3); Blood Urea Nitrogen 34 mg/dL (7-17); Calcium 7.5 mg/dL (8.4-10.2); Carbon Dioxide 30 mmol/L (22-32); Chloride 98 mmol/L (98-107); Estimated Glomerular Filt Rate > 60.0 mL/min (>60); Globulin 3.5 g/dL (1.7-4.1); Glucose 159 mg/dL (80-110); HEMOLYSIS < 15 (0-50); Potassium 3.7 mmol/L (3.4-5.1); Sodium 132 mmol/L (137-145); Total Protein 6.6 g/dL (6.3-8.2)
[2020-11-20] MEDS: ENOXAPARIN 40 MG/0.4 ML SYRINGE SUBCUT (08:03)
[2020-11-20] MEDS: DEXAMETHASONE 10 MG/ML VIAL 6 MG IV (08:03)
[2020-11-20] MEDS: FAMOTIDINE 20 MG TABLET PO (08:03)
[2020-11-20] MEDS: DOCUSATE 100 MG CAPSULE PO ×2 (08:03→20:18)
[2020-11-20] MEDS: SODIUM CHLORIDE 0.9% FLUSH 10 ML IV ×2 (08:04→20:35)
[2020-11-20] MEDS: METHADONE 10 MG TABLET 150 MG PO (08:04)
--- NOTE | 2020-11-20 11:51 | PM.PN.1 ---
Subjective Subjective Date Patient Seen: 11/20/20 Time Patient Seen: 13:10 Interval history: She is now awake and alert., looking close to what must be her baseline. She tells me that she lives in a [address] on [address] with Evan but had gone to stay at the mot because she was getting sick and did not want him to get sick. That is why she came from the [facility] here. She is on the phone with her daughter when I walk in. She is not aware of any acquaintances with COVID so suspects she must have picked it up at the [facility]. She has her hair brushed and looks transformed. She receives IV fluid overnight because she had not been drinking or eating but that has completely resolved. Her glucose is 159. Her white blood count is 7.9 with a hemoglobin of 9.6. Exam Vital Signs (past 8 hours): - 11/20/20 04:24 11/20/20 08:15 11/20/20 08:51 Temperature 96.8 F L 97.8 F Pulse Rate 51 L 51 L Respiratory Rate 13 16 Blood Pressure 122/60 121/78 Pulse Oximetry 95 97 98 11/20/20 10:00 11/20/20 10:25 11/20/20 10:35 Temperature Pulse Rate Respiratory Rate Blood Pressure Pulse Oximetry 84 L 98 95 Oxygen Delivery Method Nasal Cannula Oxygen Flow Rate 1 Narrative Exam Narrative: She is now alert, sitting on the edge of her bed, brushing her hair, eating and talking on the phone to her daughter. There is no respiratory distress. She has her oxygen off and is saturating in the mid 90s. When she exerts herself, walking in her room then she does desat into the 80s. Heart is regular rate and rhythm without murmur Lungs are clear to auscultation bilaterally Extremities have no ankle edema. Objective Labs Result Diagrams: 11/20/20 05:30 11/20/20 05:30 Labs: Laboratory Results - last 24 hr 11/20/20 11/20/20 05:30 05:30 WBC 7.9 RBC 3.69 L Hgb 9.6 L Hct 29.5 L MCV 80.0 MCH 26.1 MCHC 32.7 RDW 16.2 H Plt Count 223 Neut % (Auto) 88.9 H Lymph % (Auto) 5.3 L [place] % (Auto) 5.7 Eos % (Auto) 0.0 L Baso % (Auto) 0.1 Neut # (Auto) 7100 H Lymph # (Auto) 400 L [place] # (Auto) 500 Eos # (Auto) 0 Baso # (Auto) 0 Sodium 132 L Potassium 3.7 Chloride 98 Carbon Dioxide 30 BUN 34 H Creatinine 0.76 Estimated GFR > 60.0 BUN/Creatinine Ratio 44.7 H Glucose 159 H Calcium 7.5 L Total Bilirubin 0.2 AST 70 H ALT 32 Alkaline Phosphatase 56 Total Protein 6.6 Albumin 3.1 L Globulin 3.5 Albumin/Globulin Ratio 0.9 L [facility] Medical History (Updated 11/19/20 @ 07:45 by DAMIAN Higgins) History of opioid abuse Hypertension Methadone use Uterine procidentia Surgical History (Updated 11/19/20 @ 07:45 by DAMIAN Higgins) H/O right wrist surgery History of colonoscopy History of vaginal hysterectomy Family History (Updated 11/19/20 @ 07:47 by DAMIAN Higgins) Father Cancer Mother Heart disease Social History household members: friend(s) Smoking Status: Never smoker alcohol intake: former Assessment & Plan Assessment & Plan narrative: This is a 70-year-old female with a past medical history significant for polysubstance IV drug abuse with heroin and methamphetamine who presented to the ER via EMS from a local hotel with complaints of dyspnea and fever and is found have bacterial pneumonia as well as COVID-19. The patient is a poor historian and unable to provide duration of illness or contribute in a meaningful way to the the medical record. 1. Community-acquired pneumonia, bacterial, present admission, active -chest x-ray shows left lower lobe infiltrates. -patient had an elevated white count at 11.8 increased neutrophils at 10,700. Procalcitonin was 8.02. -continue ceftriaxone 2 g IV daily 1st dose administered in the ER. Duration set for 7 days, to be changed as indicated. 11/20 dose decreased to 1 g daily. -Azithromycin stopped 11/20 (prolonged QT risks) as the patient has improved significantly. -respiratory therapy to consult and treat. -incentive spirometry every 2 hours while awake and flutter valve 3 times daily 2. COVID-19 pneumonia, present on admission, active -patient is hypoxic on arrival with a saturation of 88% on room air improving to only 92% on 4 L. Goal for oxygen saturations is 94%. -patient is COVID positive on screening, and respiratory PCR panel with no other infection identified. -patient has positive COVID markers with low lymphocytes of 400, elevated LDH at 620, D-dimer is 951, CRP is 31.7. -will trend COVID markers. -continue Decadron 6 mg daily with 1st dose administered in the ER -patient started on remdesivir 200 mg x1 and then remdesivir 100 mg daily for 4 days. -patient is placed in droplet isolation 3. Polysubstance abuse, chronic -patient acknowledges use of heroin and methadone both of which she states she used ?a couple of days ago?. -patient present with flat affect appears withdrawn and minimally cooperative care. -no venous access is available via peripheral IV therapy so femoral IV started by the ER physician which was replaced with a PICC line 11/19 for access. -affect, attitude, energy levels much improved on 11/20 4. Hypertension, chronic -patient's blood pressure is 149/67 upon arrival to the ER and 132/63 after admission. -the patient denies taking medication for hypertension however she has metoprolol listed on her pharmacy record. -the patient's blood pressure is stable now, will trend pressures and treat as needed. VTE prophylaxis: SCDs, Enoxaparin IV fluid: Saline lock Diet: Heart healthy medium consistent carbohydrate. Code status: Patient is unable to state so will default full code and the patient does not designate a surrogate decision maker. She does discuss her daughter who lives on [address].
--- NOTE | 2020-11-20 12:57 | PC.NURSE ---
Pt maintaining SPO2 95% and greater at start of shift. Weaned to 1L NC. Assisted up to BSC. Pt was noted to desat to 85% with increased work of breathing. Titrated back to 2L NC for SPO2 95%. Pt tolerated prone position for about an hour before turning independently to left side. Prone SPO2 98%. Left side lying SPO2 95%. At lunchtime, pt was noted to have removed O2 accidentally. She is unsure how long it has been off. She is noted to maintain SPO2 95% on RA at rest and with minimal exertion. Prolonged qtc noted at 1200 tele read. Discussed with pharmacist and reported to Dr. Prajapati. Pt on multiple qt prolonging meds (azithromycin, methadone, pepcid). Dr. Prajapati states he will review meds and write orders. States no need for EKG at this time. Pt is sitting up to eob for lunch. Denies pain. Reports fatique/generalized weakness. Call light/phone in easy reach, bed alarm on.
--- NOTE | 2020-11-20 13:25 | CM.DPC ---
DCP: continued: Spoke with Dr. Prajapati just now after he was in pt's room. He reported that pt seems much improved today and is now able and willing to communicate. He anticipates having pt stay in hospital for full dosing of Remdesivir as per CDC recommendations before consideration of d/c. Spoke then with pt via her room phone and introduced self and role. Pt states that she does not live on [address] any longer. She moved into a [address] (denies knowing the full address) a couple of months ago with an 85 year old man, Evan. She has recently been in a motel once I started to feel sick so that I would not put Evan at risk. Pt says she continued going to [facility] daily for her methadone dosing. States that the team there are very aware that IV heroin and IV methamphetamines are a current part of my life. She says they are helping her through this. She also confirms that she [facility] as she does not have a PCP outside of the [facility]. She says her daughers have been calling her and are concerned but they have their own families and she does not expect them to be a part of her d/c plan. She also states that she is unsure if she will be returning to [facility]. She does not want him at risk and today she has not been able to contact him by phone. She considering other options but says that today is the first time she has felt like she is feeling well enough to think about this. Agreed to check in again with her tomorrow... Will update Dr. Prajapati in Rounds tomorrow.
[2020-11-20] MEDS: MELATONIN 3 MG TABLET 9 MG PO (20:18)
--- NOTE | 2020-11-20 21:47 | PC.NURSE ---
Pt AAO X4 up independently in room, O2Sats >95 on RM air. Denies pain or discomfort, VSS, afebrile this shift. Will continue to monitor
[2020-11-21] VITALS (12 sets, daily range): BP systolic 129–161; BP diastolic 64–75; PULSE 46–55; RESP 16–20; TEMP 35.9–36.6; O2SAT 87–100
[2020-11-21] MEDS: CEFTRIAXONE 1 GM/50 ML FROZ.PIGGY IV (02:22)
[2020-11-21] MEDS: REMDESIVIR 100 MG in SODIUM CHLORIDE 0.9% 230 ML 250 ML IV (05:22)
[2020-11-21 05:46] LABS: Hematocrit 32.7 % (36-46); Hemoglobin 10.7 g/dL (12.0-16.0); Mean Corpuscular HGB Conc 32.8 % (30-36); Mean Corpuscular Hemoglobin 26.3 PG (26-34); Mean Corpuscular Volume 80.1 fL (80-100); Platelet Count 258 X10^3/uL (150-400); Red Blood Cell Count 4.09 X10^6/uL (4.0-5.2); Red Cell Distribution Width 16.1 % (11.6-14.8); White Blood Cell Count 10.4 X10^3/uL (4.5-11.0)
[2020-11-21 05:53] LABS: Add Manual Diff / Slide Review YES
[2020-11-21 05:57] LABS: Alanine Aminotransferase 27 IU/L (<35); Albumin 3.2 g/dL (3.5-5.0); Albumin Globulin Ratio 0.9 (1.0-2.8); Alkaline Phosphatase 55 U/L (38-126); Aspartate Aminotransferase 46 IU/L (14-36); BUN Creatinine Ratio 45.3 (6-22); Bilirubin Total 0.2 mg/dL (0.2-1.3); Blood Urea Nitrogen 29 mg/dL (7-17); Calcium 7.9 mg/dL (8.4-10.2); Carbon Dioxide 32 mmol/L (22-32); Chloride 100 mmol/L (98-107); Estimated Glomerular Filt Rate > 60.0 mL/min (>60); Globulin 3.4 g/dL (1.7-4.1); Glucose 84 mg/dL (80-110); HEMOLYSIS < 15 (0-50); Potassium 3.9 mmol/L (3.4-5.1); Sodium 135 mmol/L (137-145); Total Protein 6.6 g/dL (6.3-8.2)
[2020-11-21 06:04] LABS: Neutrophils Absolute Manual 8736 /uL (3000-5900); Total Cells Counted 100
[2020-11-21 06:05] LABS: Anisocytosis 1+; Poikilocytosis 1+
--- NOTE | 2020-11-21 07:19 | PM.PN.1 ---
Subjective Subjective Date Patient Seen: 11/21/20 Interval history: She is doing much better. Her hemoglobin has risen from 9.6 up to 10.7. Basic metabolic panel is normal and her white blood count is 10.4. The AST has dropped from 70-46 and the ALT has dropped from 32-27. Her blood sugars have been normal and she will be transitioned to a general diet. Room air saturation is 90% when walking and is in the mid 90s on room air at rest. Her heart rates is slow at 46 with blood pressure of 143/75. Exam Vital Signs (past 8 hours): - 11/21/20 00:20 11/21/20 04:00 Temperature 98 F 97.3 F L Pulse Rate 51 L 46 L Respiratory Rate 16 18 Blood Pressure 157/71 H 143/75 H Pulse Oximetry 97 95 Oxygen Delivery Method Nasal Cannula Oxygen Flow Rate 0 Narrative Exam Narrative: She is doing quite well today. She says she feels winded by walking and back and forth to the bathroom so does not look quite as rested sitting in bed today. It takes quite a while for her to regain her easy breathing. Otherwise there are no changes to suggest a repeat chest x-ray or worsening COVID. Her white blood count is 10.4 and her hemoglobin has come up to 10.7. Her liver enzymes are dropping Objective Labs Result Diagrams: 11/21/20 05:30 11/21/20 05:30 Labs: Laboratory Results - last 24 hr 11/21/20 11/21/20 05:30 05:30 WBC 10.4 RBC 4.09 Hgb 10.7 L Hct 32.7 L MCV 80.1 MCH 26.3 MCHC 32.8 RDW 16.1 H Plt Count 258 Neut % (Auto) Not Reportable Lymph % (Auto) Not Reportable [place] % (Auto) Not Reportable Eos % (Auto) Not Reportable Baso % (Auto) Not Reportable Lymph # (Auto) Not Reportable [place] # (Auto) Not Reportable Baso # (Auto) Not Reportable Total Counted 100 Seg Neutrophils % 80.0 H Band Neutrophils % 4.0 Lymphocytes % (Manual) 7.0 L Monocytes % (Manual) 9.0 Neutrophils # (Manual) 8736 H RBC Morphology See below Poikilocytosis 1+ H Anisocytosis 1+ H Sodium 135 L Potassium 3.9 Chloride 100 Carbon Dioxide 32 BUN 29 H Creatinine 0.64 Estimated GFR > 60.0 BUN/Creatinine Ratio 45.3 H Glucose 84 Calcium 7.9 L Total Bilirubin 0.2 AST 46 H ALT 27 Alkaline Phosphatase 55 Total Protein 6.6 Albumin 3.2 L Globulin 3.4 Albumin/Globulin Ratio 0.9 L [facility], [facility] Medical History (Updated 11/19/20 @ 07:45 by DAMIAN Higgins) History of opioid abuse Hypertension Methadone use Uterine procidentia Surgical History (Updated 11/19/20 @ 07:45 by DAMIAN Higgins) H/O right wrist surgery History of colonoscopy History of vaginal hysterectomy Family History (Updated 11/19/20 @ 07:47 by DAMIAN Higgins) Father Cancer Mother Heart disease Social History household members: friend(s) Smoking Status: Never smoker alcohol intake: former Assessment & Plan Assessment & Plan narrative: This is a 70-year-old female with a past medical history significant for polysubstance IV drug abuse with heroin and methamphetamine who presented to the ER via EMS from a local hotel with complaints of dyspnea and fever and is found have bacterial pneumonia as well as COVID-19. The patient is a poor historian and unable to provide duration of illness or contribute in a meaningful way to the the medical record. 1. Community-acquired pneumonia, bacterial, present admission, active -chest x-ray shows left lower lobe infiltrates. -patient had an elevated white count at 11.8 increased neutrophils at 10,700. Procalcitonin was 8.02. -continue ceftriaxone 2 g IV daily 1st dose administered in the ER. Duration set for 7 days, to be changed as indicated. 11/20 - dose decreased to 1 g daily. -Azithromycin stopped 11/20 (prolonged QT risks) as the patient has improved significantly. -respiratory therapy following -incentive spirometry every 2 hours while awake and flutter valve 3 times daily For 2. COVID-19 pneumonia, present on admission, active Acute Respiratory Failure with hypoxemia, present on admission. Active -patient is hypoxic on arrival with a saturation of 88% on room air improving to only 92% on 4 L. Goal for oxygen saturations is 94%. -11/21 current oxygen numbers are in the mid 90s at rest and then to 90% with exertion -patient is COVID positive on screening, and respiratory PCR panel with no other infection identified. -patient has positive COVID markers with low lymphocytes of 400, elevated LDH at 620, D-dimer is 951, CRP is 31.7. -will trend COVID markers. -continue Decadron 6 mg daily for 10 days with 1st dose administered in the ER on 11/19 -patient started on remdesivir 200 mg x1 and then remdesivir 100 mg daily for 4 days with last dose confirmed for 11/23. -She will be discharging to the [facility] in [place] if arrangements can be confirmed. -patient in droplet isolation 3. Polysubstance abuse, chronic -patient acknowledges use of heroin and methadone both of which she states she used ?a couple of days ago?. -patient present with flat affect appears withdrawn and minimally cooperative care. -no venous access is available via peripheral IV therapy so femoral IV started by the ER physician which was replaced with a PICC line 11/19 for access. -affect, attitude, energy levels much improved on 11/20 4. Hypertension, chronic -patient's blood pressure is 149/67 upon arrival to the ER and 132/63 after admission. -the patient denies taking medication for hypertension however she has metoprolol listed on her pharmacy record. -the patient's blood pressure is stable now, will trend pressures and treat as needed. VTE prophylaxis: SCDs, Enoxaparin IV fluid: Saline lock Diet: Heart healthy medium consistent carbohydrate. Code status: Patient is unable to state so will default full code and the patient does not designate a surrogate decision maker. She does discuss her daughter who lives on [address]. Discharge plan is to the [facility] in [place] on 11/23. To be confirmed with the health department in conversations on Sunday.
[2020-11-21] MEDS: SODIUM CHLORIDE 0.9% FLUSH 10 ML IV ×2 (08:05→21:22)
[2020-11-21] MEDS: DEXAMETHASONE 10 MG/ML VIAL 6 MG IV (08:05)
[2020-11-21] MEDS: FAMOTIDINE 20 MG TABLET PO (08:05)
[2020-11-21] MEDS: DOCUSATE 100 MG CAPSULE PO ×2 (08:05→21:22)
[2020-11-21] MEDS: ENOXAPARIN 40 MG/0.4 ML SYRINGE SUBCUT (08:05)
[2020-11-21] MEDS: METHADONE 10 MG TABLET 150 MG PO (08:19)
--- NOTE | 2020-11-21 12:06 | CM.DPC ---
Addendum entered by Nidhi Boyer LPN 11/21/20 12:35: contact # for [facility] is: [phone]. Original Note: DCP: continued: case discussed in Team Rounds and with focus on the d/c and recovery process for a pt without a safe quarantine spot to continue recovery. Dr. Prajapati mentioned a motel in [place] that he thought may be accepting patients in this catagory. Have worked on this option throughout the morning: [facility] call to pt early this morning to discuss her contacts for tracing history. They then called help desk supervisor and spoke with BISHNU Treviño re option of [facility] in [place]: set up under COVID funding to accommodate these patients. Call back # given: for [facility]: [phone] Attempted call back but is Sunday-Sunday and no ability for vm. Next called the [facility] and spoke with reception interviewer Sara. Sara reported that she had already been contacted by Funmilayo Clark/[employer] at [facility]. Contact #: [phone] re likely need for this patient. Left a vm for Funmilayo on this line, name of pt and anticipated d/c on Thursday 11/23 Sara reported that the next step would be for Funmilayo to contact this patient at the hospital to offer services at the facility and discuss details of her needed POC. She also clarified that no visitors are allowed during the quarantine. All meals are delivered to room/left outside the door. If medical supplies are needed these too are accepted and then left outside door. She says they work with various vendors and providers and including toes involved in recovery programs such as [employer]. Spoke with pt re this option and she expressed relief and gratitude that this was available and very much wishes to accept this. Dr. Prajapati was updated. Have confirmed now that Funmilayo Clark did call the room while pt in shower and ANSELMO Gandhi says she will call back again to get this plan finalized with pt. Transport: am not sure how this will work in the setting of + Covid..DCP team should be able to find this out more readily when the [facility] opens up tomorrow. Pt does have medicaid but do not know if this route will be considered safe... At this time: plan is for home Sunday with immediate transition to [facility]. Sara did confirm that there is no problem having a room available and that they are usually noticed by [facility] on the day pt is too arrive.
--- NOTE | 2020-11-21 13:09 | PC.NURSE ---
Addendum entered by Roosevelt Delong R.N. 11/21/20 14:15: Sitting up to chair comfortably. SPO2 95%-97% on RA. Provided set up assist for oral hygiene. Pt would like to drink some milk first. Original Note: 1130- Pt would like to take a shower. Prior to showering, VSS and pt maintaining Spo2 93-95% on RA. Pt walked to shower and provided own hygiene independently. At the end of the shower, pt began coughing and c/o shortness of breath. O2 sat at this time 87% on RA. RR 27 and pt noted with frequent congested cough without sputum production. Assisted pt to chair sitting bolt upright and instructed to take slow, deep breaths. Placed O2 via NC at 2LPM. After about 10 minutes, pt was able to maintain SPo2 93% on RA. Work of breathing decreased and RR slowed to 20. Pt states she is ready to eat lunch. Checked on pt again at 1300 and noted she had removed NC and had SPo2 95-97% on RA. No complaints at this time.
[2020-11-21] MEDS: MELATONIN 3 MG TABLET 9 MG PO (21:22)
[2020-11-22] VITALS (8 sets, daily range): BP systolic 146–182; BP diastolic 70–88; PULSE 44–62; RESP 14–20; TEMP 36.6–36.9; O2SAT 93–98
[2020-11-22] MEDS: SODIUM CHLORIDE 0.9% FLUSH 10 ML IV ×3 (01:52→21:13)
[2020-11-22] MEDS: CEFTRIAXONE 1 GM/50 ML FROZ.PIGGY IV (01:52)
[2020-11-22] MEDS: REMDESIVIR 100 MG in SODIUM CHLORIDE 0.9% 230 ML 250 ML IV (05:13)
[2020-11-22 05:44] LABS: Hemoglobin 10.5 g/dL (12.0-16.0); Mean Corpuscular HGB Conc 31.9 % (30-36); Mean Corpuscular Hemoglobin 25.6 PG (26-34); Mean Corpuscular Volume 80.3 fL (80-100); Platelet Count 304 X10^3/uL (150-400); Red Blood Cell Count 4.11 X10^6/uL (4.0-5.2); Red Cell Distribution Width 16.3 % (11.6-14.8); White Blood Cell Count 9.6 X10^3/uL (4.5-11.0)
[2020-11-22 05:47] LABS: Add Manual Diff / Slide Review YES; D Dimer 943 ng/mL (<230)
[2020-11-22 06:00] LABS: Alanine Aminotransferase 23 IU/L (<35); Albumin 2.9 g/dL (3.5-5.0); Albumin Globulin Ratio 0.9 (1.0-2.8); Alkaline Phosphatase 55 U/L (38-126); Aspartate Aminotransferase 33 IU/L (14-36); BUN Creatinine Ratio 39.7 (6-22); Bilirubin Total 0.1 mg/dL (0.2-1.3); Blood Urea Nitrogen 23 mg/dL (7-17); Calcium 7.9 mg/dL (8.4-10.2); Carbon Dioxide 34 mmol/L (22-32); Chloride 98 mmol/L (98-107); Estimated Glomerular Filt Rate > 60.0 mL/min (>60); Globulin 3.3 g/dL (1.7-4.1); Glucose 74 mg/dL (80-110); HEMOLYSIS < 15 (0-50); Potassium 3.7 mmol/L (3.4-5.1); Sodium 135 mmol/L (137-145); Total Protein 6.2 g/dL (6.3-8.2)
[2020-11-22 06:12] LABS: Anisocytosis 1+; Neutrophils Absolute Manual 7200 /uL (3000-5900); Total Cells Counted 100
[2020-11-22 06:32] LABS: Procalcitonin 1.44 ng/mL (<0.5)
[2020-11-22] MEDS: ENOXAPARIN 40 MG/0.4 ML SYRINGE SUBCUT (08:36)
[2020-11-22] MEDS: METHADONE 10 MG TABLET 150 MG PO (08:37)
[2020-11-22] MEDS: DOCUSATE 100 MG CAPSULE PO ×2 (08:37→21:12)
[2020-11-22] MEDS: FAMOTIDINE 20 MG TABLET PO (08:37)
[2020-11-22] MEDS: DEXAMETHASONE 10 MG/ML VIAL 6 MG IV (08:37)
[2020-11-22] MEDS: METOCLOPRAMIDE 10 MG/2 ML INJ IV (09:22)
--- NOTE | 2020-11-22 10:17 | CM.DPC ---
Addendum entered by Donna Rothman R.N. 11/22/20 10:43: Confirmed, this patient is not working with P.T, and is independent. Confirmed this with nurse, Caleb. Patient had already taken her shower on her own. Called Meche at [facility], and let her know that patient is independent. She is not working with P.T. Meche stated that she will request her medical records to review, and will call back. Addendum entered by Donna Rothman R.N. 11/22/20 10:37: Meghan, nurse for [facility] called back. Stated that she had recently spoken to patient, and is not a candidate for going to the [facility], since she is a one person assist. Looked at P.T. notes, and this is indicated that she is a one person. Will need to look into skilled facilities. [facility] in [place] [facility] Will have Monique call to see if there are any available openings. Original Note: DCP Cont: Discussed patient during team rounds. Hospitalist, Dr. Novak, stated that patient is not on room air, and may be able to be discharged today. Called the [facility], and attempted to get in touch with Funmilayo Clark, who is the contact center specialist. Left her a message and asked her to call this media planner / buyer. Also, called the other main [facility] phone number, and left a message for a call back as well. Called Sara, contract administration manager at [facility] in [place]. Stated, she has been in contact with Funmilayo Clark as well, and stated, she may need to hear from them first, since they are paying for patient's expenses. Asked Sara that if she hears back from [facility], to call this insurance case manager back. Called [facility] regarding transportation for COVID positive patient. Stated, they have one company out of [place] that does transport positive COVID patients. Stated to fax over Medicaid form when patient is ready for discharge, and they will dispatch with this company. Stated, it is essential on form to indicate that patient is COVID positive. P: DCP to continue to follow. Have call outs to the [facility]. Will need confirmation from them before patient can be discharged. Sara at [facility] will also call back when she hears back from [facility]. Donna Rothman RN/Entry Level Staff Accountant
--- NOTE | 2020-11-22 12:44 | PC.NURSE ---
Addendum entered by Roosevelt Delong R.N. 11/22/20 13:59: Pt has been AO x4 and making her needs known with clear, logical speech. She has ambulated to and from BR independently without an assistive device with some mild shortness of breath. Gait is steady. She has maintained an SPO2 91-98% on RA depending on activity. She did have some nausea this AM that was relieved with PRN reglan. Pt was able to shower herself and dress herself. VSS. Afebrile. Tolerating general diet. Addendum entered by Roosevelt Delong R.N. 11/22/20 13:41: Spoke with public health nurse, Jennyfer, via phone. Requested clarification/rationale for pt's denial. She states that due to pt's age of 70 and polysubstance abuse, she will not be a candidate. She further states that she read in the chart that pt had difficulty communicating needs, which excludes her from this program. Confirmed with Jennyfer that the pt does not, in fact, have any difficulty making her needs known. I reiterated to her that the pt is completely independent with ADLs. I also relayed to nurse that the pt has been calm and cooperative with care and that she has not displayed any substance misuse behaviors or requested any additional medications beyond what is currently prescribed to her during her stay here. Further, I reported to her that pt was staying in a motel prior to coming to the hospital in effort to self-isolate from her 84 year old housemate. Nurse states that some of pts housemates have been instructed to test for COVID, and if they have and are negative, to reach back out for further consideration. Reported this information to ANSELMO Thompson. Original Note: Spoke with ANSELMO Thompson regarding DCP. Donna relates that case was reviewed by [facility] nurse who has determined pt is not a candidate for room/board assistance as previously planned due to risk factors. Requested phone number from KIM BRIONES for [facility] nurse in order to clarify rationale for denial. Left VM for state nurse to return phone call at 1230.
--- NOTE | 2020-11-22 14:05 | CM.DPC ---
Addendum entered by Donna Rothman R.N. 11/22/20 14:32: Called Jennyfer, nurse at [facility]. Let her know that hospitalist is wanting to discharge patient, and only alternative is for her to go back to her motel. Jennyfer indicated, she is wondering if those individuals were tested. She called her room mates, and Evan, and left a message. Let Jennyfer know that there are no other options, other than her going back to the motel. Will await call back from patient, to see where she can go. Dr. Novak wants to ensure that patient has a safe discharge plan regarding contaminating others. Stated that he will keep her another day, for [facility] nurse is working on finding out about patient's room mate testing. Jennyfer gave this piano case and bench assembler her phone number. It is: [phone]. She will work on finding out if her room mates were tested, and if so, the results. She will coordinate with this piano case and bench assembler tomorrow on status. Original Note: DCP Cont: Jennyfer, nurse for [facility] has reviewed records, and confirmed denial for patient to be able to go to [facility]. Original reason, was concern that patient is not independent. After speaking to nurseCaleb, let Jennyfer know that patient is independent with all of her ADLS, had taken her own shower in her room. She is also confirmed to be going to the [facility] for her methadone treatments. She has been compliant here in the hospital, and alert and oriented. Other reason, according to [facility] nurse, was that she was around other individuals, who are also being tested. At this time, patient is not eligible to go to the [facility]. Caleb, GEOTHERMAL OPERATING ENGINEER also update Jennyfer regarding patient's compliance with care, and independence with activities. P: Attempted to call patient in her room, and give her update. Called her room phone, and left her a message on her cell phone to call this piano case and bench assembler back. Will ask patient if she is able to go back to her original motel that she has been staying at. Will also need to consider how she will be receiving meals, as well. Donna Rothman RN/Hand Buffing Wheel Former
--- NOTE | 2020-11-22 15:28 | P.PN_ITS ---
Subjective Subjective Date Patient Seen: 11/22/20 Time Patient Seen: 15:29 Interval history: This is a 70-year-old female with a past medical history of substance abuse who was admitted for acute respiratory failure secondary to COVID-19 pneumonia as well as a superimposed bacterial pneumonia. She continues to improve and is on room air. Anticipated discharge was to [facility] however they denied her today given history of substance abuse. Currently work ing to consider alternative options as patient does not currently know where she would go. She was living previously with an elderly male to care for him, but she did not think returning there would be a good idea. When asked where she would go, she did not know at this time. Will continue to work with care management and [facility] to determine safe discharge plan for patient and community. Exam Vital Signs (past 8 hours): - 11/22/20 08:00 11/22/20 08:30 11/22/20 12:00 Temperature 98.5 F 98.5 F Pulse Rate 62 55 L Respiratory Rate 20 15 Blood Pressure 163/72 H 149/72 H Pulse Oximetry 93 94 96 Oxygen Delivery Method Room Air Oxygen Flow Rate 0 Narrative Exam Narrative: GENERAL APPEARANCE: well developed, chronically ill-appearing elderly woman, . HEENT: Normocephalic, PERRLA, conjunctiva clear, EOMs intact without nystagmus, no sinus tenderness to percussion, no rhinorrhea, mucous membranes are moist and pink. NECK/THYROID: neck supple, no JVD, no carotid bruit, no thyromegaly, trachea midline. LYMPH NODES: no cervical or supraclavicular lymphadenopathy. SKIN: [place], warm and dry, no visible rashes. Old scattered bruising HEART: regular rate and rhythm, S1-S2, No murmur, no rubs or gallops, brisk capillary refill, no edema LUNGS: Mild ralesIn bilateral lung bases, otherwise clear to auscultation CHEST: symmetrical movement, no accessory muscle use, good tidal volume. ABDOMEN: Soft,Nondistended, no abdominal tenderness or guarding, no organomegaly, no flank or suprapubic tenderness, active bowel tones. EXTREMITIES: moves all extremities, strength is 5/5 and symmetrical, no deformi ties or joint effusions no distal cyanosis NEUROLOGIC: AAO x4, cranial nerves II-XII grossly intact, sensation intact to light touch, hearing grossly normal to speech. PSYCH: Patient calm and cooperative with stable behavior Objective Labs Result Diagrams: 11/22/20 05:15 11/22/20 05:15 Labs: Laboratory Results - last 24 hr 11/22/20 11/22/20 11/22/20 05:15 05:15 05:15 WBC 9.6 RBC 4.11 Hgb 10.5 L Hct 33.0 L MCV 80.3 MCH 25.6 L MCHC 31.9 RDW 16.3 H Plt Count 304 Neut % (Auto) Not Reportable Lymph % (Auto) Not Reportable [place] % (Auto) Not Reportable Eos % (Auto) Not Reportable Baso % (Auto) Not Reportable Lymph # (Auto) Not Reportable [place] # (Auto) Not Reportable Baso # (Auto) Not Reportable Total Counted 100 Seg Neutrophils % 65.0 Band Neutrophils % 10.0 H Lymphocytes % (Manual) 13.0 L Monocytes % (Manual) 7.0 Metamyelocytes % 4.0 H Myelocytes % 1.0 H Neutrophils # (Manual) 7200 H RBC Morphology See below Anisocytosis 1+ H D-Dimer 943 H Sodium Potassium Chloride Carbon Dioxide BUN Creatinine Estimated GFR BUN/Creatinine Ratio Glucose Calcium Total Bilirubin AST ALT Alkaline Phosphatase Total Protein Albumin Globulin Albumin/Globulin Ratio Procalcitonin 1.44 H 11/22/20 05:15 WBC RBC Hgb Hct MCV MCH MCHC RDW Plt Count Neut % (Auto) Lymph % (Auto) [place] % (Auto) Eos % (Auto) Baso % (Auto) Lymph # (Auto) [place] # (Auto) Baso # (Auto) Total Counted Seg Neutrophils % Band Neutrophils % Lymphocytes % (Manual) Monocytes % (Manual) Metamyelocytes % Myelocytes % Neutrophils # (Manual) RBC Morphology Anisocytosis D-Dimer Sodium 135 L Potassium 3.7 Chloride 98 Carbon Dioxide 34 H BUN 23 H Creatinine 0.58 Estimated GFR > 60.0 BUN/Creatinine Ratio 39.7 H Glucose 74 L Calcium 7.9 L Total Bilirubin 0.1 L AST 33 ALT 23 Alkaline Phosphatase 55 Total Protein 6.2 L Albumin 2.9 L Globulin 3.3 Albumin/Globulin Ratio 0.9 L Procalcitonin [facility] Medical History (Updated 11/19/20 @ 07:45 by DAMIAN Higgins) History of opioid abuse Hypertension Methadone use Uterine procidentia Surgical History (Updated 11/19/20 @ 07:45 by DAMIAN Higgins) H/O right wrist surgery History of colonoscopy History of vaginal hysterectomy Family History (Updated 11/19/20 @ 07:47 by DAMIAN Higgins) Father Cancer Mother Heart disease Social History household members: friend(s) Smoking Status: Never smoker alcohol intake: former Assessment & Plan Assessment & Plan narrative: This is a 70-year-old female with a past medical history significant for polysubstance IV drug abuse with heroin and methamphetamine who presented to the ER via EMS from a local hotel with complaints of dyspnea and fever and is found have bacterial pneumonia as well as COVID-19. 1. Community-acquired pneumonia, bacterial, present admission, active -chest x-ray on admission shows left lower lobe infiltrates. -patient had an elevated white count at 11.8 increased neutrophils at 10,700. Procalcitonin was 8.02. -continue ceftriaxone 2 g IV daily 1st dose administered in the ER. Duration set for 7 days, to be changed as indicated. 11/20 - dose decreased to 1 g daily. -Azithromycin stopped 11/20 (prolonged QT risks) as the patient has improved significantly. -respiratory therapy following -incentive spirometry every 2 hours while awake and flutter valve 3 times daily 2. COVID-19 pneumonia, present on admission, active -see management as noted below 3.Acute Respiratory Failure with hypoxemia, present on admission. Active -patient is hypoxic on arrival with a saturation of 88% on room air improving to only 92% on 4 L. Goal for oxygen saturations is 94%. -11/21 current oxygen numbers are in the mid 90s at rest and then to 90% with exertion -patient is COVID positive on screening, and respiratory PCR panel with no other infection identified. -patient has positive COVID markers with low lymphocytes of 400, elevated LDH at 620, D-dimer is 951, CRP is 31.7. -continue Decadron 6 mg daily for 10 days with 1st dose administered in the ER on 11/19 -patient started on remdesivir 200 mg x1 and then remdesivir 100 mg daily for 4 days with last dose confirmed for 11/23. 3. Polysubstance abuse, chronic -patient acknowledges use of heroin and methadone both of which she states she used ?a couple of days ago? on admission. -no venous access is available via peripheral IV therapy so femoral IV started by the ER physician which was replaced with a PICC line 11/19 for access. -affect, attitude, energy levels much improved since admission 4. Hypertension, chronic -patient's blood pressure is 149/67 upon arrival to the ER and 132/63 after admission. Has slightly increased today and her blood pressure is 149/72 this afternoon. She is also intermittently bradycardic, although asymptomatic. Her pharmacy record indicates she is previously on metoprolol, which will be changed given her bradycardia this admission. Will change to amlodipine 5 mg starting tomorrow. VTE prophylaxis: SCDs, Enoxaparin IV fluid: Saline lock Diet: Heart healthy medium consistent carbohydrate. Code status: Patient is unable to state so will default full code and the patient does not designate a surrogate decision maker. She does discuss her daughter who lives on [facility]. Dispo: Patient is no longer consistently requiring supplemental oxygen, plan was for discharge to the [facility] however [facility] did not believe this patient was a good candidate given her history of drug use. 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 Will continue to work with [facility] and care management to determine optimal safe discharge planning for the patient as well as the community.
[2020-11-22] MEDS: MELATONIN 3 MG TABLET 9 MG PO (21:12)
[2020-11-23] VITALS (7 sets, daily range): BP systolic 157–200; BP diastolic 70–93; PULSE 49–67; RESP 17–20; TEMP 36.7–37; O2SAT 93–95
[2020-11-23] MEDS: CEFTRIAXONE 1 GM/50 ML FROZ.PIGGY IV (01:57)
[2020-11-23] MEDS: REMDESIVIR 100 MG in SODIUM CHLORIDE 0.9% 230 ML 250 ML IV (04:41)
[2020-11-23] MEDS: ENOXAPARIN 40 MG/0.4 ML SYRINGE SUBCUT (07:58)
[2020-11-23] MEDS: SODIUM CHLORIDE 0.9% FLUSH 10 ML IV (07:59)
[2020-11-23] MEDS: DOCUSATE 100 MG CAPSULE PO (07:59)
[2020-11-23] MEDS: DEXAMETHASONE 10 MG/ML VIAL 6 MG IV (07:59)
[2020-11-23] MEDS: FAMOTIDINE 20 MG TABLET PO (07:59)
[2020-11-23] MEDS: AMLODIPINE 5 MG TABLET PO (07:59)
[2020-11-23] MEDS: METHADONE 10 MG TABLET 150 MG PO (08:54)
--- NOTE | 2020-11-23 10:06 | CM.DPC ---
Addendum entered by Donna Rothman R.N. 11/23/20 11:44: Called patient back and asked her if she was able to get in touch with Evan. Stated, he's not answering his phone, I don't think that he wants me back there. Asked her where she was staying prior to coming here. Stated, she was staying at the [facility]. Asked her if she can return there. Stated, she's not sure, she will have to call them. Will call patient back in about a half an hour to see what she has found out. Addendum entered by Donna Rothman R.N. 11/23/20 11:08: Spoke to Jennyfer, public health nurse. She did not have any suggestions to assist with discharge. Stated, you can call her room mates to see if they tested positive at the motel. Explained that this is not care management's role, and was hopeful that the department of health can assist with this. She stated that she would speak to her counter supervisor, and would call back. Maryann from [facility] called back shortly after. Let her know that patient is ready for discharge, but need to have the guidance from [facility] as far as her returning to her motel [place]. Maryann stated, the best plan is for her to return to her house with Evan. Stated that he is showing signs of COVID, but as long as they are socially distancing, would be the best option. She mentioned that there are also two other individuals who are living there. Called patient's cell phone in her room. Asked her if she has a heller to the house, and stated, she does not. Discussed having her discharge back to the house with Evan, and updated her that she is not able to go to the [facility] in [place] secondary to having tighter restrictions. Let her know that this exercise planner can set up transportation for her via Medicaid transport. DO MaryannH, stated that they can set up food delivery for patient. Asked patient about getting her Methadone at [facility], and she mentioned, she has enough from the last visit at the clinic. Have not yet heard back from [facility]. Updated Dr. Novak on discharge. Will call Maryann back again before setting up transportation, for will need to confirm address of where patient will go. It will either be the house, or motel, if need be. Original Note: DCP Cont: Left a message for public health nurse, Jennyfer, to call back regarding plan to discharge. Patient is medically ready for discharge, but need to identify safe plan back into the community. Also, left a message at [facility], to see if there are any other options for patient to be able to stay. P: DCP to continue to follow up with [facility] health nurse. If she does not call back within the next hours, will attempt another staff member. Donna Rothman RN/Seo Associate
--- NOTE | 2020-11-23 12:22 | CM.DPC ---
Addendum entered by Donna Rothman R.N. 11/23/20 15:22: Jennyfer,[facility] nurse stated that taxi will be here at approximately 1645. The team cdl driver will call from downstairs, at the upstairs nurses station. Patient's friend had brought her her debit card so that she was able to make her co-payment for her medications. [facility] has filled. Patient will discharge this pm. Addendum entered by Donna Rothman R.N. 11/23/20 14:38: Spoke to Jennyfer [facility] health nurse. Stated, she should not have her friend pick her up, since she can get exposed. Let her know that all efforts have been exhausted to pick her up. Jennyfer stated that they will send a taxi to come and get her. Updated patient, and she will call her friend and cancel to come and get her. Addendum entered by Donna Rothman R.N. 11/23/20 14:23: Spoke to Leda at [facility], after sending over Medicaid transport form. Indicated that patient does not have the Medicaid transport benefit. She gave a number of an individual from [employer], Joe. Called him, and he mentioned that they do transport, but already left the area. [employer] do not transport COVID positive patients. Called patient's room, she is aware now that [facility] can accept her. She mentioned that she would find someone to pick her up. Her friend, Funmilayo, called back. Stated that her or Linwood will come and pick her up in about a half an hour. Medications are being ordered at [facility] here in the hospital. Had nurse, Mayra, take IMM form for her to sign. Updated public [facility] nurse, Jennyfer, of time of picking machine operator helper. Original Note: DCP Cont: Nurse, Jennyfer, from [facility] called back, and stated that after collaborating with supervisor files, Dorina, they are approving patient to go to the [facility] in [place]. Stated, patient needs a safe discharge plan back in the community, so this will be an exception. Jennyfer is asking for report from nurse, Mayra. She also wants to have a time confirmed that patient will arrive at the mot, and not to contact the motel directly. Let Jennyfer know that this social work case manager will call her back as soon as a time is known. Updated Dr. Novak, he is aware of plan. He is ordering a stool sample from patient to rule out C-Diff. Updated nurse, Shwetha, and had her give a note to patient regarding her now being able to go to the [facility]. Had her sign updated IMM for discharge, but still will be pending stool results. Faxed Medicaid transport, confirmed that form went through. Will await for their call back, they will have to contract with a service that takes COVID positive patients. P: Plan is for patient to go to the [facility] in [place]. Gave Lyudmila number to give Jennyfer, public health nurse, report. Will follow up with [employer], in case there is no timely response, as far as transportation. Will also have to see about her stool results. Donna Rothman RN/Field Staff Manager
--- NOTE | 2020-11-23 13:37 | P.DS_ITS ---
History of Present Illness History of Present Illness Date Patient Seen: 11/23/20 Time Patient Seen: 11:00 Chief complaint: COVID + Narrative: As per DAMIAN Higgins: Ms. Ashlie Epstein is a 70-year-old female with a past medical histo ry significant for polysubstance IV drug abuse with heroin and methamphetamine who presents to the ER via EMS from a local hotel with complaints of dyspnea and fever. Patient is minimally communicative and a poor historian as best able to obtain from the patient she is been feeling ill for ?a couple of days. The patient states she has had nonproductive cough though she has audible congestion. She reports she has had fevers and chills and fatigue. The patient describes right-sided chest pain that ?just started? which is palpable reproducible. She denies abdominal pain, nausea vomiting, diarrhea or constipation. She states her last heroin use was ?a couple days ago? and her last methamphetamine use which she injects is also ?a couple days ago?. The patient is also on chronic methadone reported as 140 mg daily from [facility] Upon arrival to the ER the patient's temperature of 103.2?, heart rate of 80, blood pressure 149/67, respirations of 22 saturating 88% on room air improving to 92% on 4 L nasal cannula. The patient had a chest x-ray taken which shows left lower lobe pneumonia. On laboratory analysis she has a white count of 11.8 with limbs low at 400. She has a PT of 14.7 and INR 1.3. On chemistries are sodium is 134 anterior BUN is 36 with a creatinine 1.07. Her EGFR is 50.7. Her nonfasting glucose is 97. Her LFTs are notable for an increased AST at 52. Her lactic acid is 1.8 and a procalcitonin is 8.02. Additional labs are ordered including LDH which is 620, D-dimer which is 951, troponin which is negative at less than 0.012 and a CRP of 31.7. And urinary tox screen was positive for methamphetamines, methadone and opiates. The patient also test positive on COVID screening. In the ER the patient had a femoral central line placed for lack of vascular access the patient received ceftriaxone and Decadron. Azithromycin and remdesivir are administered after admission to the floor. The patient is admitted to the hospitalist service with COVID-19 and bacterial pneumonia. Discharge Providers Provider Date of admission: 11/19/20 02:06 Discharge Date: 11/23/20 Primary care physician: Mercy Chance MD Consults: 11/19/20 04:11 Consult to Discharge Planning Routine Comment: Consult to Respiratory Therapy Evaluate & Treat Comment: COVID +, bacterial PNA Physician Instructions: Evaluate and treat Discharge provider: oRbson Novak DO Summary Hospital Course Discharge Diagnosis: Please see hospital course by problem list noted below Hospital Course: This is a 70-year-old female with a past medical history significant for polysubstance IV drug abuse with heroin and methamphetamine who presented to the ER via EMS from a local [facility] with complaints of dyspnea and fever and is found have bacterial pneumonia as well as COVID-19. She required supplemental oxygen, as much as 4 L but improved with antibiotics, decadron and remdesevir therapy. She was discharged to the [facility] after extensive social work assistance given poor housing situation. 1. Community-acquired pneumonia, bacterial, present admission, resolved -chest x-ray on admission showed left lower lobe infiltrates. -patient had an elevated white count at 11.8 increased neutrophils at 10,700. Procalcitonin was 8.02. -continued ceftriaxone for 5 days for treatment of community acquired pneumonia (last day was discharge day). -Azithromycin stopped 11/20 (prolonged QT risks) 2. COVID-19 pneumonia, present on admission, improved -patient was treated with 5 days of decadron and remdesevir therapy given severe infection. Discontinued on day of discharge. 3.Acute Respiratory Failure with hypoxemia, present on admission. resolved -patient required as high as 4L NC, improved rapidly after above therapies and was not requiring supplemental oxygen on discharge. 4. Polysubstance abuse, chronic -patient acknowledges use of heroin and methadone both of which she states she used ?a couple of days ago? on admission. -no venous access is available via peripheral IV therapy so femoral IV started by the ER physician which was replaced with a PICC line 11/19 for access. Removed prior to discharge. -affect, attitude, energy levels much improved since admission and above therapies. 5. Hypertension, chronic - Her pharmacy record indicated she was previously on metoprolol, which was changed given her bradycardia this admission. Will discharge on home amlodipine 10 mg daily. Recommend she establish with PCP via telehealth visit. Time Spent with Patient Time spent: Greater than 30 minutes Exam Vital Signs (past 8 hours): - 11/23/20 08:38 11/23/20 08:41 11/23/20 11:07 Temperature 98.6 F Pulse Rate 52 L Respiratory Rate 20 Blood Pressure 200/93 H 178/79 H Pulse Oximetry 93 93 11/23/20 11:12 11/23/20 12:00 Temperature 98.1 F Pulse Rate 67 Respiratory Rate 17 Blood Pressure 163/79 H 160/72 H Pulse Oximetry 95 Oxygen Delivery Method Room Air Oxygen Flow Rate 0 Narrative Exam Narrative: GENERAL APPEARANCE: well developed, chronically ill-appearing elderly woman, . HEENT: Normocephalic, PERRLA, conjunctiva clear, EOMs intact without nystagmus, no sinus tenderness to percussion, no rhinorrhea, mucous membranes are moist and pink. NECK/THYROID: neck supple, no JVD, no carotid bruit, no thyromegaly, trachea midline. LYMPH NODES: no cervical or supraclavicular lymphadenopathy. SKIN: [place], warm and dry, no visible rashes. Old scattered bruising HEART: regular rate and rhythm, S1-S2, No murmur, no rubs or gallops, brisk ca pillary refill, no edema LUNGS: Mild ralesIn bilateral lung bases, otherwise clear to auscultation CHEST: symmetrical movement, no accessory muscle use, good tidal volume. ABDOMEN: Soft,Nondistended, no abdominal tenderness or guarding, no organomegaly, no flank or suprapubic tenderness, active bowel tones. EXTREMITIES: moves all extremities, strength is 5/5 and symmetrical, no deformities or joint effusions no distal cyanosis NEUROLOGIC: AAO x4, cranial nerves II-XII grossly intact, sensation intact to light touch, hearing grossly normal to speech. PSYCH: Patient calm and cooperative with stable behavior Objective Labs Result Diagrams: 11/22/20 05:15 11/22/20 05:15 [facility] Medical History (Updated 11/19/20 @ 07:45 by DAMIAN Higgins) History of opioid abuse Hypertension Methadone use Uterine procidentia Surgical History (Updated 11/19/20 @ 07:45 by DAMIAN Higgins) H/O right wrist surgery History of colonoscopy History of vaginal hysterectomy Family History (Updated 11/19/20 @ 07:47 by DAMIAN Higgins) Father Cancer Mother Heart disease Social History household members: friend(s) Smoking Status: Never smoker alcohol intake: former Discharge Plan Discharge Plan Patient Disposition: Home Provider Discharge Comment: You were admitted to the hospital with COVID 19 pneumonia and a probable bacterial pneumonia. You were treated fully in the hospital. If you have return of loose stools, you may need to be tested to make sure there is not an additional infection but this can also be a symptom of COVID-19 as well. I have started you on a blood pressure medication as well, you should take this once a day. Please follow up with a PCP preferrably via telehealth visit in the next few weeks to continue blood pressure management. Discharge orders & Medications Prescriptions: New amlodipine 10 mg tablet 10 mg PO DAILY 30 Days Qty: 30 RF: 0 Continued methadone 10 mg Tablet 140 mg PO DAILY RF: 0 Follow up/Referrals: Mercy Chance MD [Primary Care Provider] - Diet/Activity/Treatments Diet: Diet as Tolerated and Low-sodium Activity: As tolerated Visit Report/Discharge Packet Instructions: Amlodipine, DI for COVID-19 (Suspected or Confirmed ) Discharge Data Primary Care Provider: Meryc Chance
--- NOTE | 2020-11-23 14:56 | PC.NURSE ---
Went over dc medications and instructions with patient, questions answered. Rx for norvasc sent to [facility] and picked up for patient before discharge.
--- NOTE | 2020-11-23 18:11 | PC.NURSE ---
Evening shift note: Pt waiting for riding from cab, all discharge documentation reviewed with pt during dayshift, PICC line removed by dayshift. Pt taken via wheelchair with all of her belongings to [facility]. No further pt contact at this time.
== END 2020-11-23 16:50 | disposition home or self-care (01) | DRG 177 ==
LOC: ED 11-19 00:55 → AC 11-19 02:07 → ICU 11-19 03:20
PROVIDERS: Family Medicine; Admitting Provider Nurse Practitioner Adult Health; Emergency Provider Emergency Medicine; PCP Obstetrics & Gynecology; Referring Provider Emergency Medicine; Visit Provider Nurse Practitioner Adult Health
DX: U07.1 COVID-19 (principal); J12.82 Pneumonia due to coronavirus disease 2019; J15.9 Unspecified bacterial pneumonia; J96.01 Acute respiratory failure with hypoxia; F11.10 Opioid abuse, uncomplicated; F15.10 Other stimulant abuse, uncomplicated; I10 Essential (primary) hypertension
CPT/HCPCS: 36415; 36573; 36592; 71045; 80053; 80305; 81001; 82728; 82962; 83605; 83615; 83690; 83735; 84145; 84484; 85007; 85025; 85379; 85610; 85730; 86140; 87040; 87633; 87635; 87797; 94762; 96361; 96365; 96375; 99284; 99285; C9803; A9270; J0696; J1100; J1642; J1650; J2765

== ENCOUNTER → 2022-07-04 07:49 | Outpatient (CLI) | payer MEDICARE, MEDICAID, SELFPAY ==
[2020-11-19 04:23] VITALS: BMI 22.8
--- NOTE | 2022-07-04 | DI.NM.S_ITS ---
PROCEDURE: NM RAISSA PERF SPECT SINGLE STUDY Resting myocardial perfusion SPECT, with gated imaging and ejection fraction RADIOPHARMACEUTICAL: 11.7 mCi 99m-Tc sestamibi intravenously. INDICATIONS: dyspnea TECHNIQUE: Radiopharmaceutical was injected at rest. SPECT images were obtained. SPECT myocardial perfusion images were displayed in short axis, horizontal long axis, and vertical long axis views. Gated images were reviewed using Nub[employer] software. COMPARISON: None. FINDINGS: Raw data: There is good tracer uptake by the myocardium. No significant motion artifacts. Left ventricle function: gating not done Myocardial perfusion: There is mildly intense defect in the distal anterior wall defect at rest. No stress images done. IMPRESSION: Abnormal nuc stress test. There is mildly intense defect in the distal anterior wall defect at rest. No stress images done as the patient couldn't exercise and was unable to get lexiscan as she had coffee. Dictated by: Ingrid Vega MD on 07/17/2022 at 13:11 Approved by: Ingrid Vega MD on 07/17/2022 at 14:00
[2022-07-04 09:38] LABS: COVID19 -Nasal RAPID Negative (Negative)
--- NOTE | 2022-07-04 09:49 | DI.ECHO.S_ITS ---
Interpretation Summary The ejection fraction is estimated to be 60-65%. Diastolic function could not be accurately assessed due to contradictory data. The right ventricle is normal in size and function. The left atrium is severely dilated. There is mild tricuspid regurgitation. The right ventricular systolic pressure is estimated to be at least 27 mmHg based on an estimated right atrial pressure of 3 mm Hg. Compared to the prior study dated 01/10/2018, the left atrium has increased in size. Procedure: A two-dimensional transthoracic echocardiogram with color flow and Doppler was performed. The study quality was technically adequate. Comparison is made with the echocardiogram of 01/10/2018. The patient was in sinus rhythm with heart rates between 54-70 bpm during the exam. Left Ventricle: The left ventricle is normal in size and wall thickness. The ejection fraction is estimated to be 60-65%. Diastolic function could not be accurately assessed due to contradictory data. Right Ventricle: The right ventricle is normal in size and function. Atria: The left atrium is severely dilated. Right atrial size is normal. There is no Doppler evidence for an interatrial shunt. Mitral Valve: The mitral valve leaflets appear borderline thickened, but open well. There is trace mitral regurgitation. Aortic Valve: The aortic valve is trileaflet. The aortic valve opens well. There is no aortic valve stenosis. No aortic regurgitation is present. Tricuspid Valve: The tricuspid valve is normal in structure and function. There is mild tricuspid regurgitation. The right ventricular systolic pressure is estimated to be at least 27 mmHg based on an estimated right atrial pressure of 3 mm Hg. Pulmonic Valve: The pulmonic valve leaflets are thin and pliable; valve motion is normal. There is a trace or physiologic amount of pulmonic regurgitation. Great Vessels: The aortic root is normal size. The dimensions of the ascending aorta are normal. The IVC is of normal diameter and collapses greater than 50% with a sniff. This suggests a low right atrial pressure of 3 mm Hg. Pericardium/ Pleura There is no pericardial effusion. There is no pleural effusion. MMode/2D Measurements & Calculations LVIDd: 4.7 cm LVOT diam: 2.0 cm LVIDs: 3.0 cm Ao root diam: 2.8 cm FS: 35.9 % asc Aorta Diam: 3.7 cm EPSS: 0.44 cm Ao Arch Diam (Prox Trans): 2.6 cm IVSd: 0.85 cm LVPWd: 0.72 cm LV parker. diameter/BSA (cm/m^2): 3.1 LV sys. diameter/BSA (cm/m^2): 2.0 LA A2 area: 22.2 cm2 RA long axis: 5.2 cm LA A4 area: 20.2 cm2 RA area: 14.1 cm2 LA length (vol): 5.0 cm RA vol: 32.8 ml LA vol: 76.6 ml RA : 21.8 ml/m2 LA vol index: 50.7 ml/m2 IVC diam: 1.4 cm RVD1 (basal): 3.8 cm RVD2 (mid): 3.0 cm TAPSE: 2.4 cm Doppler Measurements & Calculations Ao V2 max: 179.9 cm/sec LVOT Max Jimbo: 113.6 cm/sec Ao V2 mean: 120.3 cm/sec LV V1 max P.2 mmHg Ao max P.0 mmHg LV V1 VTI: 28.5 cm Ao mean P.6 mmHg ABIGAIL(I,D): 2.0 cm2 Ao V2 VTI: 43.7 cm ABIGAIL(V,D): 1.9 cm2 sev ratio: 0.65 ABIGAIL indexed to BSA (cm^2/m^2): 1.3 MV E max jimbo: 88.4 cm/sec TR max jimbo: 237.2 cm/sec MV A max jimbo: 95.2 cm/sec TR max P.5 mmHg MV E/A: 0.93 PA V2 max: 96.1 cm/sec Med Peak E' Jimbo: 7.2 cm/sec PA V2 mean: 67.4 cm/sec E/E' med: 12.4 PA mean P.0 mmHg Lat Peak E' Jimbo: 8.6 cm/sec PA pr(Accel): 34.5 mmHg E/E' lat: 10.3 E/e' average: 11.3 MV dec time: 0.22 sec SV(LVOT): 85.3 ml Reading Physician:12:54 PM
== END ==
PROVIDERS: Referring Provider Internal Medicine Cardiovascular Disease; Visit Provider Internal Medicine Cardiovascular Disease
DX: R06.02 Shortness of breath (principal); R01.1 Cardiac murmur, unspecified; Z20.822 Contact with and (suspected) exposure to COVID-19
CPT/HCPCS: 78451; 87635; 93306; A9502

== ENCOUNTER 2023-07-11 18:48 | Inpatient (IN) | payer MEDICARE, MEDICAID, SELFPAY ==
[2020-11-19 04:23] VITALS: BMI 22.8
[2023-07-11 18:54] VITALS: BP 126/57; PULSE 67; RESP 18; TEMP 36.6; O2SAT 100; BMI 21.5
[2023-07-11 19:41] LABS: Hematocrit 30.1 % (36-46); Hemoglobin 9.9 g/dL (12.0-16.0); Mean Corpuscular HGB Conc 32.9 % (30-36); Mean Corpuscular Hemoglobin 26.7 PG (26-34); Mean Corpuscular Volume 81.2 fL (80-100); Platelet Count 559 X10^3/uL (150-400); Red Blood Cell Count 3.71 X10^6/uL (4.0-5.2); Red Cell Distribution Width 14.2 % (11.6-14.8)
[2023-07-11 19:43] LABS: Add Manual Diff / Slide Review YES
[2023-07-11 19:50] LABS: INR 1.3 (0.9-1.3); Prothrombin Time 15.2 SECONDS (10.1-12.7)
[2023-07-11 19:53] LABS: PTT Partial Thromboplastin Tim 31 SECONDS (26-36)
[2023-07-11 19:56] LABS: Alanine Aminotransferase 15 IU/L (<35); Albumin 3.6 g/dL (3.5-5.0); Albumin Globulin Ratio 0.9 (1.0-2.8); Alkaline Phosphatase 97 U/L (38-126); Aspartate Aminotransferase 20 IU/L (14-36); BUN Creatinine Ratio 33.3 (6-22); Bilirubin Total 0.3 mg/dL (0.2-1.3); Blood Urea Nitrogen 21 mg/dL (7-17); Carbon Dioxide 30 mmol/L (22-32); Chloride 94 mmol/L (98-107); Estimated Glomerular Filt Rate > 60 mL/min (>60); Globulin 3.8 g/dL (1.7-4.1); Glucose 125 mg/dL (80-110); HEMOLYSIS < 15 (0-50); Lipase 57 U/L (23-300); Potassium 4.7 mmol/L (3.4-5.1); Sodium 134 mmol/L (137-145); Total Protein 7.4 g/dL (6.3-8.2)
[2023-07-11 19:57] LABS: Lactate (Lactic Acid) 2.1 mmol/L (0.7-2.1)
[2023-07-11 20:06] LABS: Neutrophils Absolute Manual 17200 /uL (3000-5900); RBC Morphology Normal Morphology; Total Cells Counted 100
[2023-07-11 20:11] LABS: Procalcitonin 0.08 ng/mL (<0.5)
[2023-07-11] MEDS: SODIUM CHLORIDE 0.9% 1,000 ML 1000 ML IV (20:33)
--- NOTE | 2023-07-11 20:36 | ED.WOUNDLAC ---
HPI - Wound/Laceration General Chief Complaint: Wound/Laceration Stated Complaint: SENT BY [facility] Time Seen by Provider: 07/11/23 20:36 Source: patient Mode of arrival: Wheelchair History of Present Illness HPI narrative: 72-year-old female nonsmoker with history of opioid abuse, on Suboxone, IV drug use (most recently 3 or 4 days ago) presents at the request of the walk-in clinic for evaluation of a worsening abscess on her left hip. She states she did not inject in this region and has only had 1 prior skin infection. She states it has been gradually worsening despite taking Keflex had been prescribed her a few days ago at an outside facility. She is had subjective fever and chills but no nausea or vomiting, no diarrhea. No chest pain or shortness of breath. Related Data Home Medications Medication Instructions Recorded Confirmed buprenorphine 8 mg-naloxone 2 mg 8 mg sublingual BID 07/12/23 07/12/23 sublingual film cephalexin 500 mg capsule 1,000 mg PO BID 07/12/23 07/12/23 lisinopril 20 mg tablet 20 mg PO DAILY 07/12/23 07/12/23 metoprolol succinate 25 mg 25 mg PO DAILY 07/12/23 07/12/23 tablet,extended release 24 hr Allergies Allergy/AdvReac Type Severity Reaction Status Date / Time codeine [CODEINE] Allergy Unknown Verified 07/11/23 19:00 Review of Systems Review of Systems Narrative: GENERAL: Denies chills, fatigue, malaise, fever, sweats. HEENT: Denies sinus pain, ear pain, sore throat, difficulty swallowing, dizziness. RESPIRATORY: Denies dyspnea, cough, wheezing, hemoptysis, sputum. CARDIOVASCULAR: Denies chest pain, palpitations, orthopnea, edema, GASTROINTESTINAL: Denies nausea, vomiting, abdominal pain, diarrhea, constipation, melena. : Denies dysuria, frequency, incontinence, hematuria, urinary retention. MUSCULOSKELETAL: denies weakness, joint pain, or bony pain SKIN: See HPI NEUROLOGIC: Denies weakness, headache, numbness, change in speech, confusion, seizures, incoordination. PSYCHIATRIC: No concerning psychosocial issues. 12 point review of systems is negative except for those stated above Patient History Medical History History of opioid abuse Hypertension Methadone use Uterine procidentia Surgical History H/O right wrist surgery History of colonoscopy History of vaginal hysterectomy Family History Father Cancer Mother Heart disease Social History household members: children and friend(s) Smoking Status: Never smoker alcohol intake: former Smoking Status: Never smoker alcohol intake frequency: 0-2 drinks per day Substance Use Type: heroin, methamphetamine and prescription drug Exam Narrative Exam Narrative: GENERAL: [72] year old patient appears stated age. Well-developed patient, in mild distress. HEAD: Atraumatic. Normocephalic. EYES: Pupils equal round and reactive. Extraocular motions intact. No scleral icterus. No injection or drainage. ENT: Nose without bleeding, purulent drainage. Throat without erythema, tonsillar hypertrophy or exudate. Airway patent. NECK: Trachea midline. Non tender CARDIOVASCULAR: Regular rate and rhythm without murmurs, gallops, or rubs. RESPIRATORY: Clear to auscultation. Breath sounds equal bilaterally. No wheezes, rales, or rhonchi. GASTROINTESTINAL: Abdomen soft, non-tender, nondistended. EXTREMITIES: No edema or joint tenderness. BACK: Nontender without deformity or crepitance. No flank tenderness. NEURO: AOx3. SKIN: Left posterior hip and superior buttock with large, 10 x 10 cm abscess with significant fluctuance and moderate surrounding erythema consistent with abscess. No lymphangitis, no crepitance Initial Vital Signs Initial Vital Signs: Vital Signs Temperature 98 F 07/11/23 18:54 Pulse Rate 67 07/11/23 18:54 Respiratory Rate 18 07/11/23 18:54 Blood Pressure 126/57 L 07/11/23 18:54 Pulse Oximetry 100 07/11/23 18:54 Oxygen Delivery Method Room Air 07/11/23 18:54 Procedures Abscess I/D I&D #1: Site: back Side (if applicable): left Local Anesthetic: lidocaine 1% Amount of anesthesia used (mL): 10 Technique: incised with #11 blade Amount of fluid expressed (mL): 120 Irrigation: Yes Course Orders Ordered: Acetaminophen (Acetaminophen 325 Mg Tablet) 650 mg PO Q6H WILLIE Last Admin: 07/12/23 02:40 Dose: 650 mg Documented By: SEAN Albuterol (Albuterol 2.5 Mg/3 Ml Neb (Adult)) 2.5 mg INH RTQ4HR PRN PRN Reason: Shortness Of Breath Or Wheezing Calcium Carbonate (Calcium Carbonate 500 Mg Tab) 1,000 mg PO Q4HR PRN PRN Reason: Dyspepsia Vancomycin HCl (Vancomycin) 1,000 mg in 200 mls @ 200 mls/hr IV Q24H [facility] Sodium Chloride (Normal Saline 0.9%) 1,000 mls @ 100 mls/hr IV CONT [facility] Last Admin: 07/12/23 02:40 Dose: 100 mls/hr Documented By: SEAN Ibuprofen (Ibuprofen 600 Mg Tablet) 600 mg PO Q6H [facility] Last Admin: 07/12/23 04:08 Dose: 600 mg Documented By: SEAN Morphine Sulfate (Morphine 4 Mg/Ml Inj) 3 mg IV Q4HR PRN PRN Reason: Pain, Severe (7-10) Naloxone HCl (Naloxone 0.4 Mg/Ml Vial) 0.2 mg IV Q2MIN PRN PRN Reason: Opiate Reversal Ondansetron HCl (Ondansetron 4 Mg/2 Ml Inj) 4 mg IV NOW PRN PRN Reason: Nausea And Vomiting Ondansetron HCl (Ondansetron 4 Mg Odt) 4 mg SL NOW PRN PRN Reason: Nausea And Vomiting Ondansetron HCl (Ondansetron 4 Mg/2 Ml Inj) 4 mg IV Q8HR PRN PRN Reason: Nausea And Vomiting Oxycodone HCl (Oxycodone Ir 5 Mg Tablet) 5 mg PO Q3H PRN PRN Reason: Pain, Moderate (4-6) Sennosides (Sennosides 8.6 Mg Tablet) 17.2 mg PO BEDTIME [facility] Sodium Biphosphate/Sodium Phosphate (Fleets Enema) 1 each DE QD PRN PRN Reason: Constipation Vancomycin HCl (Vancomycin Per Pharmacy) 1 request MISC NOW PRN PRN Reason: Fever > 100.4 Discontinued Medications Hydromorphone HCl (Hydromorphone 1 Mg Inj) 1 mg IV NOW ONE Stop: 07/12/23 01:01 Last Admin: 07/12/23 01:09 Dose: 1 mg Documented By: ULI Sodium Chloride (Normal Saline 0.9%) 1,000 mls @ 1,000 mls/hr IV BOLUS ONE Stop: 07/11/23 20:00 Last Infusion: 07/11/23 21:33 Dose: 0 mls/hr Documented By: Admin: 07/11/23 20:33 Dose: 1,000 mls/hr Documented By: OTTO Vancomycin HCl (Vancomycin) 1,250 mg in 250 mls @ 250 mls/hr IV Q24H [facility] Last Admin: 07/12/23 03:41 Dose: Not Given Documented By: SEAN Vancomycin HCl (Vancomycin) 1,250 mg in 250 mls @ 250 mls/hr IV NOW ONE Stop: 07/12/23 02:44 Last Infusion: 07/12/23 02:42 Dose: 0 mls/hr Documented By: Admin: 07/12/23 01:42 Dose: 250 mls/hr Documented By: AP Consultations Consultation #1: Discussed with on-call surgery (Dr. Martel). Agrees with IV antibiotics, need for surgical exploration. Requests admission to hospitalist given opioid abuse history and use of Suboxone. States he has no need for imaging at this time Vital Signs Vital signs: Vital Signs - 8 hr 07/11/23 22:27 07/11/23 22:28 07/11/23 22:30 Pulse Rate 67 Respiratory Rate 19 Blood Pressure 112/56 L 107/53 L Pulse Oximetry 99 07/11/23 22:30 07/11/23 23:00 07/11/23 23:00 Pulse Rate 67 66 Respiratory Rate 18 12 Blood Pressure 127/58 L Pulse Oximetry 99 100 07/11/23 23:30 07/11/23 23:30 07/12/23 00:00 Pulse Rate 62 Respiratory Rate 17 Blood Pressure 105/51 L 111/61 Pulse Oximetry 100 07/12/23 00:00 07/12/23 00:30 07/12/23 00:30 Pulse Rate 64 63 Respiratory Rate 16 17 Blood Pressure 124/59 L Pulse Oximetry 99 100 07/12/23 01:00 07/12/23 01:00 07/12/23 01:30 Pulse Rate 66 Respiratory Rate 12 Blood Pressure 115/59 L 130/63 Pulse Oximetry 96 07/12/23 01:30 Pulse Rate 65 Respiratory Rate 12 Blood Pressure Pulse Oximetry 99 MDM - Wound/Laceration Lab Data 07/11/23 19:25 07/11/23 19:25 Labs: Lab Results 07/11/23 07/11/23 07/11/23 Range/Units 19:25 19:25 19:25 WBC 20.0 H (4.5-11.0) X10^3/uL RBC 3.71 L (4.0-5.2) X10^6/uL Hgb 9.9 L (12.0-16.0) g/dL Hct 30.1 L (36-46) % MCV 81.2 (80-100) fL MCH 26.7 (26-34) PG MCHC 32.9 (30-36) % RDW 14.2 (11.6-14.8) % Plt Count 559 H (150-400) X10^3/uL Neut % (Auto) Not Reportable Lymph % (Auto) Not Reportable [place] % (Auto) Not Reportable Eos % (Auto) Not Reportable Baso % (Auto) Not Reportable Lymph # (Auto) Not Reportable [place] # (Auto) Not Reportable Baso # (Auto) Not Reportable Total Counted 100 Seg Neutrophils % 84.0 H (38-70) % Band Neutrophils % 2.0 L (3-7) % Lymphocytes % (Manual) 10.0 L (25-45) % Metamyelocytes % 4.0 H (-0) % Neutrophils # (Manual) 69938 H (7345-2237) /uL RBC Morphology Normal morphology PT 15.2 H (10.1-12.7) SECONDS INR 1.3 (0.9-1.3) APTT 31 (26-36) SECONDS Sodium 134 L (137-145) mmol/L Potassium 4.7 (3.4-5.1) mmol/L Chloride 94 L (98-107) mmol/L Carbon Dioxide 30 (22-32) mmol/L BUN 21 H (7-17) mg/dL Creatinine 0.63 (0.52-1.04) mg/dL Estimated GFR > 60 (>60) mL/min BUN/Creatinine Ratio 33.3 H (6-22) Glucose 125 H (80-110) mg/dL Lactate (0.7-2.1) mmol/L Calcium 9.0 (8.4-10.2) mg/dL Total Bilirubin 0.3 (0.2-1.3) mg/dL AST 20 (14-36) IU/L ALT 15 (<35) IU/L Alkaline Phosphatase 97 (38-126) U/L Total Protein 7.4 (6.3-8.2) g/dL Albumin 3.6 (3.5-5.0) g/dL Globulin 3.8 (1.7-4.1) g/dL Albumin/Globulin Ratio 0.9 L (1.0-2.8) Lipase 57 (23-300) U/L Procalcitonin 0.08 (<0.5) ng/mL 07/11/23 07/11/23 Range/Units 19:25 22:17 WBC (4.5-11.0) X10^3/uL RBC (4.0-5.2) X10^6/uL Hgb (12.0-16.0) g/dL Hct (36-46) % MCV (80-100) fL MCH (26-34) PG MCHC (30-36) % RDW (11.6-14.8) % Plt Count (150-400) X10^3/uL Neut % (Auto) Lymph % (Auto) [place] % (Auto) Eos % (Auto) Baso % (Auto) Lymph # (Auto) [place] # (Auto) Baso # (Auto) Total Counted Seg Neutrophils % (38-70) % Band Neutrophils % (3-7) % Lymphocytes % (Manual) (25-45) % Metamyelocytes % (-0) % Neutrophils # (Manual) (1465-4638) /uL RBC Morphology PT (10.1-12.7) SECONDS INR (0.9-1.3) APTT (26-36) SECONDS Sodium (137-145) mmol/L Potassium (3.4-5.1) mmol/L Chloride (98-107) mmol/L Carbon Dioxide (22-32) mmol/L BUN (7-17) mg/dL Creatinine (0.52-1.04) mg/dL Estimated GFR (>60) mL/min BUN/Creatinine Ratio (6-22) Glucose (80-110) mg/dL Lactate 2.1 2.3 H (0.7-2.1) mmol/L Calcium (8.4-10.2) mg/dL Total Bilirubin (0.2-1.3) mg/dL AST (14-36) IU/L ALT (<35) IU/L Alkaline Phosphatase (38-126) U/L Total Protein (6.3-8.2) g/dL Albumin (3.5-5.0) g/dL Globulin (1.7-4.1) g/dL Albumin/Globulin Ratio (1.0-2.8) Lipase (23-300) U/L Procalcitonin (<0.5) ng/mL MDM Narrative Medical decision making narrative: 72-year-old female with history of IV drug abuse presents with a few days of worsening left buttock abscess. She has had fever, significant pain and the size and depth of the abscess is unable to be appropriately incised and drained at the bedside. The patient access the primary source of information. Multiple diagnoses considered. Consultations performed with both General surgery and hospitalist, see details above. Patient understands and agrees with the diagnosis and plan Discharge Plan Departure Patient Disposition: Admitted As Inpatient Clinical Impression: Abscess of buttock, left Admit Date/Time: 07/12/23 01:46 Admit Provider: Tobi Diggs
[2023-07-11 21:31] LABS: Reflexed Lactate in 2 Hours Y
[2023-07-11 22:27] VITALS: BP 112/56
[2023-07-11 22:28] VITALS: PULSE 67; RESP 19; O2SAT 99
[2023-07-11 22:30] VITALS: BP 107/53; PULSE 67; RESP 18; O2SAT 99
[2023-07-11 22:34] LABS: Lactate 2HR (Lactic Acid Rflx) 2.3 mmol/L (0.7-2.1)
[2023-07-11 23:00] VITALS: BP 127/58; PULSE 66; RESP 12; O2SAT 100
[2023-07-11 23:30] VITALS: BP 105/51; PULSE 62; RESP 17; O2SAT 100
[2023-07-12] VITALS (17 sets, daily range): BP systolic 88–130; BP diastolic 36–63; PULSE 49–66; RESP 12–17; TEMP 36.1–37.1; O2SAT 93–100; BMI 21.5
[2023-07-12] MEDS: HYDROMORPHONE 1 MG INJ IV (01:09)
[2023-07-12] MEDS: LIDOCAINE 1% 20 ML (01:30)
[2023-07-12] MEDS: VANCOMYCIN 1,250 MG/250 ML PIGGYBACK 250 MG IV (01:42)
[2023-07-12] MEDS: ACETAMINOPHEN 325 MG TABLET 650 MG PO ×4 (02:40→20:52)
[2023-07-12] MEDS: SODIUM CHLORIDE 0.9% 1,000 ML 100 ML IV ×3 (02:40→19:52)
--- NOTE | 2023-07-12 03:28 | PC.NURSE ---
Pt. admitted to room 211 diagnosed with left hip abscess, was I&D in ER. Wound is still erythematous & peeling Covered with 4x4 dressing. Draining small amount of sero-sang. drainage. Patient reported pain a lot better after abscess was drained & got some pain medication. Denied any fall @ home for the past 3 months. Bed alarm not activated, NS started @ 100 cc/hr., will continue plan of care & monitor.
--- NOTE | 2023-07-12 03:56 | P.HP_ITS ---
History of Present Illness History of Present Illness Date Patient Seen: 07/12/23 Time Patient Seen: 03:56 Chief complaint: SENT BY [facility] Narrative: The pt is a 72 yo who has been seen at the [facility] for her Suboxone meds as she is trying to wean off her Methadone ( was 140mg daily) who started noticing a painful area on her left hip. The area started to hurt 2 weeks ago and has been worsening since. She was seen at an area urgent care and was given Keflex. Ashlie comes to the ER after 5 days of therapy due to worsening pain and increasing area of the soreness. She denies any fevers, chills, injury to the area, hx of recurrent skin infections, and denies IV drug abuse to the area. [facility] Medical History History of opioid abuse Hypertension Methadone use Uterine procidentia Surgical History H/O right wrist surgery History of colonoscopy History of vaginal hysterectomy Family History Father Cancer Mother Heart disease Social History household members: children and friend(s) Smoking Status: Never smoker alcohol intake: former Meds Home Medications and Allergies Home Medications Medication Instructions Recorded Confirmed Type buprenorphine 8 mg-naloxone 2 mg 8 mg sublingual BID 07/12/23 07/12/23 History sublingual film cephalexin 500 mg capsule 1,000 mg PO BID 07/12/23 07/12/23 History lisinopril 20 mg tablet 20 mg PO DAILY 07/12/23 07/12/23 History metoprolol succinate 25 mg 25 mg PO DAILY 07/12/23 07/12/23 History tablet,extended release 24 hr Allergies Allergy/AdvReac Type Severity Reaction Status Date / Time codeine [CODEINE] Allergy Unknown Verified 07/11/23 19:00 Exam Vital Signs (past 8 hours): - 07/11/23 22:27 07/11/23 22:28 07/11/23 22:30 Temperature Pulse Rate 67 Respiratory Rate 19 Blood Pressure 112/56 L 107/53 L Pulse Oximetry 99 Oxygen Delivery Method 07/11/23 22:30 07/11/23 23:00 07/11/23 23:00 Temperature Pulse Rate 67 66 Respiratory Rate 18 12 Blood Pressure 127/58 L Pulse Oximetry 99 100 Oxygen Delivery Method 07/11/23 23:30 07/11/23 23:30 07/12/23 00:00 Temperature Pulse Rate 62 Respiratory Rate 17 Blood Pressure 105/51 L 111/61 Pulse Oximetry 100 Oxygen Delivery Method 07/12/23 00:00 07/12/23 00:30 07/12/23 00:30 Temperature Pulse Rate 64 63 Respiratory Rate 16 17 Blood Pressure 124/59 L Pulse Oximetry 99 100 Oxygen Delivery Method 07/12/23 01:00 07/12/23 01:00 07/12/23 01:30 Temperature Pulse Rate 66 Respiratory Rate 12 Blood Pressure 115/59 L 130/63 Pulse Oximetry 96 Oxygen Delivery Method 07/12/23 01:30 07/12/23 02:00 07/12/23 02:00 Temperature 98.7 F Pulse Rate 65 64 Respiratory Rate 12 15 Blood Pressure 120/58 L Pulse Oximetry 99 99 99 Oxygen Delivery Method Room Air Oxygen Delivery Method Room Air Const General: cooperative and comfortable Resp Auscultation: clear to auscultation bilaterally Cardio Rate: regular rate Rhythm: regular rhythm Skin Lesions: lesion noted Other: left hip/ gluteal area with large area of eyrthema with active drainage Objective Labs 07/11/23 19:25 07/11/23 19:25 Labs: Laboratory Results - last 24 hr 07/11/23 07/11/23 07/11/23 19:25 19:25 19:25 WBC 20.0 H RBC 3.71 L Hgb 9.9 L Hct 30.1 L MCV 81.2 MCH 26.7 MCHC 32.9 RDW 14.2 Plt Count 559 H Neut % (Auto) Not Reportable Lymph % (Auto) Not Reportable [place] % (Auto) Not Reportable Eos % (Auto) Not Reportable Baso % (Auto) Not Reportable Lymph # (Auto) Not Reportable [place] # (Auto) Not Reportable Baso # (Auto) Not Reportable Total Counted 100 Seg Neutrophils % 84.0 H Band Neutrophils % 2.0 L Lymphocytes % (Manual) 10.0 L Metamyelocytes % 4.0 H Neutrophils # (Manual) 24302 H RBC Morphology Normal morphology PT 15.2 H INR 1.3 APTT 31 Sodium 134 L Potassium 4.7 Chloride 94 L Carbon Dioxide 30 BUN 21 H Creatinine 0.63 Estimated GFR > 60 BUN/Creatinine Ratio 33.3 H Glucose 125 H Lactate Calcium 9.0 Total Bilirubin 0.3 AST 20 ALT 15 Alkaline Phosphatase 97 Total Protein 7.4 Albumin 3.6 Globulin 3.8 Albumin/Globulin Ratio 0.9 L Lipase 57 Procalcitonin 0.08 07/11/23 07/11/23 19:25 22:17 WBC RBC Hgb Hct MCV MCH MCHC RDW Plt Count Neut % (Auto) Lymph % (Auto) [place] % (Auto) Eos % (Auto) Baso % (Auto) Lymph # (Auto) [place] # (Auto) Baso # (Auto) Total Counted Seg Neutrophils % Band Neutrophils % Lymphocytes % (Manual) Metamyelocytes % Neutrophils # (Manual) RBC Morphology PT INR APTT Sodium Potassium Chloride Carbon Dioxide BUN Creatinine Estimated GFR BUN/Creatinine Ratio Glucose Lactate 2.1 2.3 H Calcium Total Bilirubin AST ALT Alkaline Phosphatase Total Protein Albumin Globulin Albumin/Globulin Ratio Lipase Procalcitonin Assessment & Plan Assessment and plan (1) Abscess of buttock, left: Status: Acute (2) Drug abuse: Status: Acute (3) Narcotic dependency, continuous: Status: Acute Plan The pt was started on Vanco as well as had a I&D by the ER physician. Will continue the vanco, needs to be screened for MRSA, wound culture pending, oxycodone and morphine ordered but could consider stopping once home meds have been restarted. repeat labs in am. Quality VTE Deep Vein Thrombosis/Pulmonary Embolism Present on Admission: No
[2023-07-12] MEDS: IBUPROFEN 600 MG TABLET PO ×3 (04:08→16:34)
--- NOTE | 2023-07-12 04:11 | PC.NURSE ---
Patient's daughter visiting & brought her cell phone & operations developer.
[2023-07-12 05:42] LABS: MRSA (Nasal) PCR Not Detected (Not Detect)
[2023-07-12 06:26] LABS: Hematocrit 27.2 % (36-46); Hemoglobin 8.9 g/dL (12.0-16.0); Mean Corpuscular HGB Conc 32.7 % (30-36); Mean Corpuscular Hemoglobin 26.7 PG (26-34); Mean Corpuscular Volume 81.5 fL (80-100); Platelet Count 465 X10^3/uL (150-400); Red Blood Cell Count 3.34 X10^6/uL (4.0-5.2); Red Cell Distribution Width 14.4 % (11.6-14.8); White Blood Cell Count 14.9 X10^3/uL (4.5-11.0)
[2023-07-12 06:27] LABS: Add Manual Diff / Slide Review YES
[2023-07-12 06:29] LABS: BUN Creatinine Ratio 32.8 (6-22); Blood Urea Nitrogen 22 mg/dL (7-17); Calcium 7.8 mg/dL (8.4-10.2); Carbon Dioxide 26 mmol/L (22-32); Chloride 101 mmol/L (98-107); Estimated Glomerular Filt Rate > 60 mL/min (>60); Glucose 125 mg/dL (80-110); HEMOLYSIS < 15 (0-50); Potassium 4.1 mmol/L (3.4-5.1); Sodium 135 mmol/L (137-145)
[2023-07-12 07:41] LABS: Neutrophils Absolute Manual 12963 /uL (3000-5900); Total Cells Counted 100
[2023-07-12 07:43] LABS: Hypochromasia 1+; Ovalocytes 1+
[2023-07-12 07:44] LABS: Poikilocytosis 1+
[2023-07-12] MEDS: SODIUM CHLORIDE 0.9% 1,000 ML 1000 ML IV (08:15)
--- NOTE | 2023-07-12 10:38 | CM.DANOTE ---
Initial DCP Assessment Note Pt is a 72 yo female, resident of [place], arrives with Abscess of buttock, left scheduled for an I+D PCP: Did not discuss Payer: [facility] Met w/patient this morning to introduce self and role. Two woman were at bedside visiting, both were falling asleep. Patient introduced them as a friend and daughter María Siddiqui P [phone]. Patient denied having a DPOA Patient explains she is renting a room from Evan Carreon, who lives a few blocks from the hospital. Patient exchanges house work for rent. Patient receives $23 mo in food stamps, denies difficult access to any basic needs including food transport housing Patient has a home on [address] that is currently occupied by her other daughter, Verito Epstein's boyfriend. Verito Galeas [phone] Patient admits to former drug use, says she is no longer using drugs and attends [facility] once weekly for suboxone maintenance. Patient's last use of heroin (IM) and meth was last week when she states he used very little Plan: Discharge home expected. Awaiting medical plan of care to unfold Would not recommend this patient discharge home w/PICC r/t recent heroin use CM team will plan to follow closely for DCP coordination. Patient denies having a substance use disorder, says I use to also denies need for resources to retain sobriety CYNDEE Cheng Discharge Planning/Care Management Advanced directive, confirm from FAMILY Start: 07/12/23 03:25 Freq: Q24H Status: Active Protocol: Document 07/12/23 03:25 MP (Rec: 07/12/23 04:35 MP [id number]) Advance Directive, confirm on record Time 03:25 Person contacted pt. Copy received No CM Discharge Assessment Start: 07/12/23 10:35 Freq: Status: Active Protocol: Document 07/12/23 10:35 CAESAR (Rec: 07/12/23 10:38 CAESAR [id number]) Discharge Planning Assessment Assigned Library Associate CYNDEE Thakur DPOA/Assigned Designee Name María Siddiqui, ,daughter Contact Information [phone] Advance Directives? No Advance Directives on File No History Provided By Patient,Medical Record Prior Living Arrangements House Household Members children,friend(s) Type of transporation used prior to Relies on Others admit Independent with ADL's Yes Is patient alert and oriented? Yes Barriers to Discharge No Discharge Plan Home Transportation Arrangement Patient's daughter/Verito can provide transport. Referrals Initiated None needed Whiteboard Updated in Patient Room with Yes name and ext. # of Library Associate
[2023-07-12] MEDS: VANCOMYCIN 500 MG in SODIUM CHLORIDE 0.9% 100 ML 100 MG IV ×2 (11:07→18:49)
--- NOTE | 2023-07-12 11:15 | PC.NURSE ---
Addendum entered by Maryellen Buenrostro R.N. 07/12/23 16:51: Got pt up to BS, SBA. Chucks pad and gauze dressing were heavily saturated with serousanguinous/purulent fluid draining from wound. When pt went to sit on BSC, the wound site was gushing out fluid. Left wound to drain with another chucks pad under pt while in the bed. Pain at the wound site 03/07. Medicated with carlos enrique ibuprofen and tylenol. Original Note: @ 0800 Pavan SELF notified RN of low BP readin/39 (MAP 54) & HR 49. Rechecked pt's BP @ 0811, reading showed 93/39 (51) & HR 51. Pt stated she was not symptomatic, no c/o dizziness, lightheadedness or N/V, but repositioned pt in Trendelenburg. Pt stated was very fatigued and waa sleepy all moring. Notified MD. Rocio ordered 1L bolus. Rechecked BP before administering bolus, reading: BP 88/36 (55) @ 0812. Rechecked BP during bolus, reading: BP 95/41 (57) & HR 51 @ 0820, pt was sleeping soundly, asymptomatic. Bolus finished @ 0927, BP 108/47 (72) & HR 51. checked on pt and notified of effectiveness. Checking pt's BP Q4. MD and RN spoke with pt at length about taking something without letting us know, and educated pt about the safety measures, and pt denies taking anything. RN & PRODUCER DIRECTOR have noticed that pt's friends/family keep visiting pt frequently all morning, coming in and out of pt's room. Yelena from [facility] suggested to keep pt's door open, so we have all morning since the BP was low. Pt was asking friend/family to get her food, friend/family asked if she wanted a chocolate and I educated family about the reason why pt is NPO as well as safety concerns for pt during sx if she does eat. PRODUCER DIRECTOR got pt up to BS, rechecked BP: 108/47 HR 50, and pt was still asymptomatic. When getting pt up, PRODUCER DIRECTOR found a half-eaten chocolate bar & an unopened twinkie. RN notified and spoke with pt about when she ate the chocolate bar. Pt denied eating it this morning, and stated she ate it last night. I reminded pt that there has been suspicious visiting frequency with her friends/family, and that I heard the friend talking about getting chocolate bar for pt, and that I thought it was odd that BP was so low this morning from having stable VS overnight. Pt still denies. utilization specialist notified and HEADER BOSS notified. Aristeo MONTANO, notified and pt will not have sx today. Pt ok to have dinner tonight, NPO @ midnight. Orders changed and pt notified and reminded of safety and policies for NPO and sx.
[2023-07-12] MEDS: PIPERACILLIN/TAZO 3.375 GM in SODIUM CHLORIDE 0.9% 100 ML IV ×2 (12:11→20:49)
--- NOTE | 2023-07-12 13:41 | P.PN_ITS ---
Subjective Subjective Date Patient Seen: 07/12/23 Time Patient Seen: 08:00 Interval history: She has no complaints. Her pain is controlled. She has been quite sleepy and per nursing lethargic. Exam Vital Signs (past 8 hours): - 07/12/23 06:00 07/12/23 08:00 07/12/23 10:00 Pulse Rate 49 L Respiratory Rate 14 Blood Pressure 89/39 L Pulse Oximetry 95 98 98 Oxygen Delivery Method Room Air Oxygen Flow Rate 0 07/12/23 08:11 07/12/23 08:12 07/12/23 08:20 Pulse Rate 51 L 51 L Respiratory Rate Blood Pressure 93/39 L 88/36 L 95/41 L Pulse Oximetry Oxygen Delivery Method Oxygen Flow Rate 07/12/23 10:58 07/12/23 12:00 Pulse Rate 51 L 50 L Respiratory Rate 14 Blood Pressure 108/47 L 108/47 L Pulse Oximetry 93 Oxygen Delivery Method Oxygen Flow Rate Oxygen Delivery Method Room Air Oxygen Flow Rate 0 Narrative Exam Narrative: GEN: no acute distress CV: regular rate and rhythm, no murmurs PULM: clear bilaterally ABD: soft, nontender Objective Labs 07/12/23 06:03 07/12/23 06:03 Labs: Laboratory Results - last 24 hr 07/11/23 07/11/23 07/11/23 19:25 19:25 19:25 WBC 20.0 H RBC 3.71 L Hgb 9.9 L Hct 30.1 L MCV 81.2 MCH 26.7 MCHC 32.9 RDW 14.2 Plt Count 559 H Neut % (Auto) Not Reportable Lymph % (Auto) Not Reportable [place] % (Auto) Not Reportable Eos % (Auto) Not Reportable Baso % (Auto) Not Reportable Lymph # (Auto) Not Reportable [place] # (Auto) Not Reportable Baso # (Auto) Not Reportable Total Counted 100 Seg Neutrophils % 84.0 H Band Neutrophils % 2.0 L Lymphocytes % (Manual) 10.0 L Monocytes % (Manual) Eosinophils % (Manual) Metamyelocytes % 4.0 H Blast Cells % Neutrophils # (Manual) 69858 H RBC Morphology Normal morphology Hypochromasia Poikilocytosis Ovalocytes PT 15.2 H INR 1.3 APTT 31 Sodium 134 L Potassium 4.7 Chloride 94 L Carbon Dioxide 30 BUN 21 H Creatinine 0.63 Estimated GFR > 60 BUN/Creatinine Ratio 33.3 H Glucose 125 H Lactate Calcium 9.0 Total Bilirubin 0.3 AST 20 ALT 15 Alkaline Phosphatase 97 Total Protein 7.4 Albumin 3.6 Globulin 3.8 Albumin/Globulin Ratio 0.9 L Lipase 57 Procalcitonin 0.08 Nasal Screen MRSA (PCR) 07/11/23 07/11/23 07/12/23 19:25 22:17 04:27 WBC RBC Hgb Hct MCV MCH MCHC RDW Plt Count Neut % (Auto) Lymph % (Auto) [place] % (Auto) Eos % (Auto) Baso % (Auto) Lymph # (Auto) [place] # (Auto) Baso # (Auto) Total Counted Seg Neutrophils % Band Neutrophils % Lymphocytes % (Manual) Monocytes % (Manual) Eosinophils % (Manual) Metamyelocytes % Blast Cells % Neutrophils # (Manual) RBC Morphology Hypochromasia Poikilocytosis Ovalocytes PT INR APTT Sodium Potassium Chloride Carbon Dioxide BUN Creatinine Estimated GFR BUN/Creatinine Ratio Glucose Lactate 2.1 2.3 H Calcium Total Bilirubin AST ALT Alkaline Phosphatase Total Protein Albumin Globulin Albumin/Globulin Ratio Lipase Procalcitonin Nasal Screen MRSA (PCR) Not detected 07/12/23 07/12/23 06:03 06:03 WBC 14.9 H RBC 3.34 L Hgb 8.9 L Hct 27.2 L MCV 81.5 MCH 26.7 MCHC 32.7 RDW 14.4 Plt Count 465 H Neut % (Auto) Not Reportable Lymph % (Auto) Not Reportable [place] % (Auto) Not Reportable Eos % (Auto) Not Reportable Baso % (Auto) Not Reportable Lymph # (Auto) Not Reportable [place] # (Auto) Not Reportable Baso # (Auto) Not Reportable Total Counted 100 Seg Neutrophils % 87.0 H Band Neutrophils % Lymphocytes % (Manual) 9.0 L Monocytes % (Manual) 1.0 L Eosinophils % (Manual) 2.0 Metamyelocytes % Blast Cells % 1.0 H Neutrophils # (Manual) 71315 H RBC Morphology See below Hypochromasia 1+ H Poikilocytosis 1+ H Ovalocytes 1+ H PT INR APTT Sodium 135 L Potassium 4.1 Chloride 101 Carbon Dioxide 26 BUN 22 H Creatinine 0.67 Estimated GFR > 60 BUN/Creatinine Ratio 32.8 H Glucose 125 H Lactate Calcium 7.8 L Total Bilirubin AST ALT Alkaline Phosphatase Total Protein Albumin Globulin Albumin/Globulin Ratio Lipase Procalcitonin Nasal Screen MRSA (PCR) [facility] Medical History History of opioid abuse Hypertension Methadone use Uterine procidentia Surgical History H/O right wrist surgery History of colonoscopy History of vaginal hysterectomy Family History Father Cancer Mother Heart disease Social History household members: children and friend(s) Smoking Status: Never smoker alcohol intake: former Assessment & Plan Assessment and plan (1) Abscess of buttock, left: Status: Acute (2) Drug abuse: Status: Acute (3) Narcotic dependency, continuous: Status: Acute Plan -she was started on vanco in ED -initial WBC 20.0, now improved to 14.9 -she had I+D in ED -due to abscess surgery is consulted and planning to take to OR -follow up wound cultures -for now treat with broad spectrum antibiotics -for now ordered for pain medications for pain control -will try to restart suboxone, but blood pressure has been quite low, so hold f or now -unclear why blood pressure so low, could be illicit drug use, vs infection, vs other, continue with IV fluid resuscitation -patient denies any substance use in hospital Quality VTE Deep Vein Thrombosis/Pulmonary Embolism Present on Admission: No
--- NOTE | 2023-07-12 15:34 | P.CONS_ITS ---
History of Present Illness Consult details Date Patient Seen: 07/12/23 Time Patient Seen: 15:34 Chief complaint: [facility] Narrative: Ashlie is a 72-year-old woman who is an IV drug user. She developed a left hip abscess a few weeks ago that has steadily worsened. It did start draining yesterday. She was admitted to the hospital and started on IV antibiotics. She did have some Twinkies and chocolate today. Meds Home Medications and Allergies Home Medications Medication Instructions Recorded Confirmed Type buprenorphine 8 mg-naloxone 2 mg 8 mg sublingual BID 07/12/23 07/12/23 History sublingual film cephalexin 500 mg capsule 1,000 mg PO BID 07/12/23 07/12/23 History lisinopril 20 mg tablet 20 mg PO DAILY 07/12/23 07/12/23 History metoprolol succinate 25 mg 25 mg PO DAILY 07/12/23 07/12/23 History tablet,extended release 24 hr Allergies Allergy/AdvReac Type Severity Reaction Status Date / Time codeine [CODEINE] Allergy Unknown Verified 07/11/23 19:00 Exam Vital Signs (past 8 hours): - 07/12/23 08:00 07/12/23 10:00 07/12/23 08:11 Pulse Rate 49 L 51 L Respiratory Rate 14 Blood Pressure 89/39 L 93/39 L Pulse Oximetry 98 98 Oxygen Delivery Method Room Air Oxygen Flow Rate 0 07/12/23 08:12 07/12/23 08:20 07/12/23 10:58 Pulse Rate 51 L 51 L Respiratory Rate Blood Pressure 88/36 L 95/41 L 108/47 L Pulse Oximetry Oxygen Delivery Method Oxygen Flow Rate 07/12/23 12:00 07/12/23 14:00 Pulse Rate 50 L Respiratory Rate 14 Blood Pressure 108/47 L Pulse Oximetry 93 93 Oxygen Delivery Method Room Air Oxygen Flow Rate 0 Oxygen Delivery Method Room Air Oxygen Flow Rate 0 Narrative Exam Narrative: The left hip is inflamed and indurated There is a 6 mm opening in the skin which is draining purulent fluid Objective Labs 07/12/23 06:03 07/12/23 06:03 Labs: Laboratory Results - last 24 hr 07/11/23 07/11/23 07/11/23 19:25 19:25 19:25 WBC 20.0 H RBC 3.71 L Hgb 9.9 L Hct 30.1 L MCV 81.2 MCH 26.7 MCHC 32.9 RDW 14.2 Plt Count 559 H Neut % (Auto) Not Reportable Lymph % (Auto) Not Reportable [place] % (Auto) Not Reportable Eos % (Auto) Not Reportable Baso % (Auto) Not Reportable Lymph # (Auto) Not Reportable [place] # (Auto) Not Reportable Baso # (Auto) Not Reportable Total Counted 100 Seg Neutrophils % 84.0 H Band Neutrophils % 2.0 L Lymphocytes % (Manual) 10.0 L Monocytes % (Manual) Eosinophils % (Manual) Metamyelocytes % 4.0 H Blast Cells % Neutrophils # (Manual) 54234 H RBC Morphology Normal morphology Hypochromasia Poikilocytosis Ovalocytes PT 15.2 H INR 1.3 APTT 31 Sodium 134 L Potassium 4.7 Chloride 94 L Carbon Dioxide 30 BUN 21 H Creatinine 0.63 Estimated GFR > 60 BUN/Creatinine Ratio 33.3 H Glucose 125 H Lactate Calcium 9.0 Total Bilirubin 0.3 AST 20 ALT 15 Alkaline Phosphatase 97 Total Protein 7.4 Albumin 3.6 Globulin 3.8 Albumin/Globulin Ratio 0.9 L Lipase 57 Procalcitonin 0.08 Nasal Screen MRSA (PCR) 07/11/23 07/11/23 07/12/23 19:25 22:17 04:27 WBC RBC Hgb Hct MCV MCH MCHC RDW Plt Count Neut % (Auto) Lymph % (Auto) [place] % (Auto) Eos % (Auto) Baso % (Auto) Lymph # (Auto) [place] # (Auto) Baso # (Auto) Total Counted Seg Neutrophils % Band Neutrophils % Lymphocytes % (Manual) Monocytes % (Manual) Eosinophils % (Manual) Metamyelocytes % Blast Cells % Neutrophils # (Manual) RBC Morphology Hypochromasia Poikilocytosis Ovalocytes PT INR APTT Sodium Potassium Chloride Carbon Dioxide BUN Creatinine Estimated GFR BUN/Creatinine Ratio Glucose Lactate 2.1 2.3 H Calcium Total Bilirubin AST ALT Alkaline Phosphatase Total Protein Albumin Globulin Albumin/Globulin Ratio Lipase Procalcitonin Nasal Screen MRSA (PCR) Not detected 07/12/23 07/12/23 06:03 06:03 WBC 14.9 H RBC 3.34 L Hgb 8.9 L Hct 27.2 L MCV 81.5 MCH 26.7 MCHC 32.7 RDW 14.4 Plt Count 465 H Neut % (Auto) Not Reportable Lymph % (Auto) Not Reportable [place] % (Auto) Not Reportable Eos % (Auto) Not Reportable Baso % (Auto) Not Reportable Lymph # (Auto) Not Reportable [place] # (Auto) Not Reportable Baso # (Auto) Not Reportable Total Counted 100 Seg Neutrophils % 87.0 H Band Neutrophils % Lymphocytes % (Manual) 9.0 L Monocytes % (Manual) 1.0 L Eosinophils % (Manual) 2.0 Metamyelocytes % Blast Cells % 1.0 H Neutrophils # (Manual) 93848 H RBC Morphology See below Hypochromasia 1+ H Poikilocytosis 1+ H Ovalocytes 1+ H PT INR APTT Sodium 135 L Potassium 4.1 Chloride 101 Carbon Dioxide 26 BUN 22 H Creatinine 0.67 Estimated GFR > 60 BUN/Creatinine Ratio 32.8 H Glucose 125 H Lactate Calcium 7.8 L Total Bilirubin AST ALT Alkaline Phosphatase Total Protein Albumin Globulin Albumin/Globulin Ratio Lipase Procalcitonin Nasal Screen MRSA (PCR) [facility] Medical History History of opioid abuse Hypertension Methadone use Uterine procidentia Surgical History H/O right wrist surgery History of colonoscopy History of vaginal hysterectomy Family History Father Cancer Mother Heart disease Social History household members: children and friend(s) Tobacco & Substance Use Smoking Status: Never smoker alcohol intake: former Assessment & Plan Assessment and plan (1) Abscess of left lower extremity: Status: Acute Plan I recommend incision and drainage with anesthesia in the operating room. She should be NPO tonight. She should stay on IV antibiotics for now.
[2023-07-12] MEDS: SENNOSIDES 8.6 MG TABLET 17.2 MG PO (20:49)
[2023-07-13] VITALS (16 sets, daily range): BP systolic 102–157; BP diastolic 42–60; PULSE 51–60; RESP 10–111; TEMP 35.8–36.9; O2SAT 92–100; BMI 21.3
[2023-07-13] MEDS: VANCOMYCIN 500 MG in SODIUM CHLORIDE 0.9% 100 ML 100 MG IV ×3 (02:03→20:26)
[2023-07-13] MEDS: ACETAMINOPHEN 325 MG TABLET 650 MG PO ×3 (02:03→20:49)
[2023-07-13] MEDS: PIPERACILLIN/TAZO 3.375 GM in SODIUM CHLORIDE 0.9% 100 ML IV ×3 (04:52→20:50)
[2023-07-13 08:37] LABS: Blood Urea Nitrogen 20 mg/dL (7-17); Calcium 8.1 mg/dL (8.4-10.2); Carbon Dioxide 21 mmol/L (22-32); Chloride 112 mmol/L (98-107); Estimated Glomerular Filt Rate > 60 mL/min (>60); Glucose 106 mg/dL (80-110); HEMOLYSIS < 15 (0-50); Potassium 4.3 mmol/L (3.4-5.1); Sodium 138 mmol/L (137-145)
[2023-07-13 08:46] LABS: Hemoglobin 8.8 g/dL (12.0-16.0); Mean Corpuscular HGB Conc 32.8 % (30-36); Mean Corpuscular Hemoglobin 27.2 PG (26-34); Mean Corpuscular Volume 82.9 fL (80-100); Platelet Count 467 X10^3/uL (150-400); Red Blood Cell Count 3.25 X10^6/uL (4.0-5.2); Red Cell Distribution Width 14.5 % (11.6-14.8); White Blood Cell Count 13.5 X10^3/uL (4.5-11.0)
[2023-07-13 10:05] LABS: Vancomycin Trough 14.3 ug/mL (10-20)
--- NOTE | 2023-07-13 10:12 | PC.NURSE ---
Addendum entered by Joelle Hwang R.N. 07/13/23 14:02: Dressing to l.hip/buttock abcess changed. Area with bloody drainage and no odor. Patient has asked a couple of times if she can have ice chips. She knows that she is npo and cannot have any ice. Gave patient a toothette and let her clean her mouth out. She has been resting. Original Note: Patient is lying on her r.side. Abcess to l.hip/buttocks draining a serous/pus fluid. Area is hard, warm, and red to touch. Patient denies pain. Discussed suboxone and Patients blood pressure. It has come up to 100s/50s and he states that if she was awake enough that we could give this. He does not want her to withdraw. She tolerated it fine under her tongue as it is in a strip form. Resting comfortably and waiting for surgery.
[2023-07-13] MEDS: SODIUM CHLORIDE 0.9% 1,000 ML 100 ML IV ×2 (10:50→20:27)
--- NOTE | 2023-07-13 10:52 | PM.PN.1 ---
Subjective Subjective Date Patient Seen: 07/13/23 Time Patient Seen: 08:00 Interval history: She is not lethargic today. Her blood pressure is mildly improved. Her pain is improved. Plan is for surgery today. Exam Vital Signs (past 8 hours): - 07/13/23 04:00 07/13/23 06:00 07/13/23 08:00 Temperature 96.7 F L 97.6 F Pulse Rate 52 L 51 L Respiratory Rate 14 18 Blood Pressure 134/47 L 104/50 L Pulse Oximetry 98 98 98 Oxygen Delivery Method Room Air Oxygen Flow Rate 0 07/13/23 10:05 Temperature Pulse Rate Respiratory Rate Blood Pressure Pulse Oximetry Oxygen Delivery Method Room Air Oxygen Flow Rate Oxygen Delivery Method Room Air Oxygen Flow Rate 0 Narrative Exam Narrative: GEN: no acute distress CV: regular rate and rhythm, no murmurs PULM: clear bilaterally ABD: soft, nontender EXT: indurated draining wound Objective Labs 07/13/23 08:05 07/13/23 08:05 Labs: Laboratory Results - last 24 hr 07/13/23 07/13/23 07/13/23 08:05 08:05 09:31 WBC 13.5 H RBC 3.25 L Hgb 8.8 L Hct 27.0 L MCV 82.9 MCH 27.2 MCHC 32.8 RDW 14.5 Plt Count 467 H Sodium 138 Potassium 4.3 Chloride 112 H Carbon Dioxide 21 L BUN 20 H Creatinine 0.80 Estimated GFR > 60 BUN/Creatinine Ratio 25.0 H Glucose 106 Lactate 1.0 Calcium 8.1 L Vancomycin Trough 07/13/23 09:31 WBC RBC Hgb Hct MCV MCH MCHC RDW Plt Count Sodium Potassium Chloride Carbon Dioxide BUN Creatinine Estimated GFR BUN/Creatinine Ratio Glucose Lactate Calcium Vancomycin Trough 14.3 PFSH Medical History History of opioid abuse Hypertension Methadone use Uterine procidentia Surgical History H/O right wrist surgery History of colonoscopy History of vaginal hysterectomy Family History Father Cancer Mother Heart disease Social History household members: children and friend(s) Smoking Status: Never smoker alcohol intake: former Assessment & Plan Assessment and plan (1) Abscess of buttock, left: Status: Acute (2) Drug abuse: Status: Acute (3) Narcotic dependency, continuous: Status: Acute Plan -she was started on vanco in ED -initial WBC 20.0, now improved to 13.5 -she had I+D in ED -due to abscess surgery is consulted and planning to take to OR -follow up wound cultures, so far growing staph aureus, no sensitivities -blood culture with no growth -for now treat with broad spectrum antibiotics -for now ordered for pain medications for pain control -restart suboxone, monitor closely with soft blood pressures -patient denies any substance use in hospital Quality VTE Deep Vein Thrombosis/Pulmonary Embolism Present on Admission: No
--- NOTE | 2023-07-13 15:53 | PC.NURSE ---
Day shift: Pt left unit for procedure with RESEARCH INTERVIEWER at approx 1555.
--- NOTE | 2023-07-13 16:29 | PM.PREOP ---
Pre-operative Note Interval Note History & Physical reviewed/Exam performed by Physician: Yes Changes to H&P: No H&P completed within 30 days and has changed as indicated here:: Consult note reviewed by Dr. Alberts. I examined the patient and agree that I&D is recommended there is a cavity approximately 10 cm palpable underneath the skin though it is draining spontaneously there is just a punctate lesion and a large cavity underneath. I discussed the risks benefits and alternatives of opening up this cavity and proceeding with a washout and packing. She understands that there will be a large wound and that packing dressing changes can be painful and prolonged but overall the hope is that this will shorten her overall healing and have a better outcome than not opening the cavity since I would anticipate that the infection would reaccumulate and not heal well without incision. She understands these and the options including risks benefits and alternatives and wishes to proceed today.
[2023-07-13] MEDS: LACTATED RINGERS 1,000 ML 42 ML IV (16:31)
[2023-07-13] MEDS: LIDOCAINE 1% 20 ML, EPINEPHrine 0.2 MG INJ (19:08)
--- NOTE | 2023-07-13 19:09 | PM.OP.1 ---
Operative Date/Time/Diagnoses Date of procedure: 07/13/23 Time of procedure: 19:09 Pre-op diagnosis: Abscess left back/hip/upper buttock Procedure & Clinicians Procedure: Incision and drainage Same procedure as scheduled: Yes Indications: There is a large cavity that is draining spontaneously through a punctate lesion. I discussed risks benefits and alternatives but recommended opening the cavity for more optimal wound healing. Patient understood the risks benefits and alternatives and wished to proceed with the incision and drainage Surgeon: Adriana Jimenez Click Yes if Unassisted: Yes Anesthesia Type: MAC +/- and Local Operative Notes Findings: Abscess cavity 10 x 15 cm and 5 cm in depth. Located in the subcutaneous layer with muscles intact and not involved. Previous cultures have been sent decision not to send a 2nd set. Specimen(s): none sent Procedure in detail: Patient was taken to the operating room and given a little bit propofol to keep her comfortable on her hospital bed she was turned on her side into a right lateral decubitus position to expose the area of the abscess. Chlorhexidine prep was used to prep the skin and it was corner off with sterile towels. A sterile gown and sterile gloves were used. A 50% mixture of lidocaine and bupivacaine with epinephrine was infused around the area. An 10 blade scalpel was used to incorporate the punctate drainage area into an elliptical incision overlying the cavity. The cavity then was explored with a gloved finger loculations broke broken down. Kerlix moistened with saline was packed into the area. There was undermining both medially and laterally of the abscess cavity approximately 5 cm in depth. The wound was then covered with 4x4s and ABD pad. Patient tolerated the procedure well EBL was minimal and she went in good condition to the postoperative care unit Complications: none Post-operative Condition: stable Disposition: PACU Plan for aftercare: Return to floor and can be discharged home as soon as able to do dressing changes either with assistance from family or by herself. When the cultures have speciated and an antibiotic regimen is decided then she can be discharged. As far as I can tell I do not see any further cellulitis and the abscess cavity is open so unless there is concern for systemic or cellulitic infection no further antibiotics are needed from a surgical perspective.
[2023-07-13] MEDS: BUPIVACAINE 0.5% (PF) 30 ML VIAL INJ (19:10)
--- NOTE | 2023-07-13 19:13 | SUR.OPER ---
Patient moved to right lateral position in acute care bed for procedure. Warm blankets placed to patient. Head on pillow and pillow between legs. Three out of four bed rails up in place.
[2023-07-13] MEDS: fentaNYL 100 MCG/2 ML INJ IV (19:29)
[2023-07-13] MEDS: OXYCODONE IR 5 MG TABLET PO (19:59)
--- NOTE | 2023-07-13 20:34 | SUR.PHASEI ---
Pt transferred to room 211 by Morena BRIONES. SBAR report to Tres BRIONES.
[2023-07-13] MEDS: SENNOSIDES 8.6 MG TABLET 17.2 MG PO (20:46)
[2023-07-14] VITALS (13 sets, daily range): BP systolic 99–150; BP diastolic 44–75; PULSE 54–81; RESP 16–18; TEMP 35.7–36.3; O2SAT 96–98
[2023-07-14] MEDS: OXYCODONE IR 5 MG TABLET PO ×3 (02:50→16:49)
[2023-07-14] MEDS: ACETAMINOPHEN 325 MG TABLET 650 MG PO ×4 (02:50→20:29)
[2023-07-14] MEDS: VANCOMYCIN 500 MG in SODIUM CHLORIDE 0.9% 100 ML 100 MG IV ×3 (02:51→17:43)
[2023-07-14] MEDS: IBUPROFEN 600 MG TABLET PO ×3 (04:25→16:48)
[2023-07-14] MEDS: PIPERACILLIN/TAZO 3.375 GM in SODIUM CHLORIDE 0.9% 100 ML IV (04:26)
[2023-07-14 05:23] LABS: Hematocrit 26.3 % (36-46); Hemoglobin 8.7 g/dL (12.0-16.0); Platelet Count 474 X10^3/uL (150-400); Red Blood Cell Count 3.21 X10^6/uL (4.0-5.2); Red Cell Distribution Width 14.7 % (11.6-14.8); White Blood Cell Count 9.3 X10^3/uL (4.5-11.0)
[2023-07-14 05:34] LABS: BUN Creatinine Ratio 20.8 (6-22); Blood Urea Nitrogen 16 mg/dL (7-17); Calcium 7.8 mg/dL (8.4-10.2); Carbon Dioxide 25 mmol/L (22-32); Chloride 111 mmol/L (98-107); Estimated Glomerular Filt Rate > 60 mL/min (>60); Glucose 138 mg/dL (80-110); HEMOLYSIS < 15 (0-50); Potassium 4.1 mmol/L (3.4-5.1); Sodium 140 mmol/L (137-145)
[2023-07-14] MEDS: METOPROLOL ER 25 MG TABLET PO (09:11)
[2023-07-14] MEDS: lisinopriL 20 MG TABLET PO (09:11)
--- NOTE | 2023-07-14 11:03 | CM.DPNOTE ---
DCP Note Patient discussed in multidisciplinary rounds, MRSA is growing in the wound, blood cultures pending Discussed recent hx of IVDU and discouraged patient's discharge with PICC Patient is likely to return home on po abx according to Dr Núñez CM team will plan to follow closely in case any DC needs, concerns or questions arise JW
--- NOTE | 2023-07-14 14:18 | PM.PN.1 ---
Subjective Subjective Interval history: 72-year-old female with hypertension, opioid dependence as well as recent IV drug use was admitted with a significant buttock abscess. She underwent incision and drainage of the abscess in the operating room by General surgery yesterday. She was found to have a 10 x 15 cm cavity which went to a depth of 5 cm. There was some loculation which was removed. Patient reports her pain is fairly well controlled. She reports that she provides caregiving to in the person with whom she lives. She does not feel she will be able to change her dressings at this point. She may be able to ask her daughter to do so. Exam Vital Signs (past 8 hours): - 07/14/23 06:32 07/14/23 08:30 07/14/23 09:11 Temperature 96.6 F L 96.9 F L Pulse Rate 58 L 54 L 58 L Respiratory Rate 16 16 Blood Pressure 137/75 115/47 L 140/58 L Pulse Oximetry 96 98 Oxygen Delivery Method Oxygen Flow Rate 0 0 07/14/23 09:11 07/14/23 10:00 07/14/23 12:10 Temperature 96.9 F L Pulse Rate 58 L 81 Respiratory Rate 16 Blood Pressure 140/58 L 99/44 L Pulse Oximetry 98 98 Oxygen Delivery Method Room Air Oxygen Flow Rate 0 0 07/14/23 14:00 Temperature Pulse Rate Respiratory Rate Blood Pressure Pulse Oximetry 98 Oxygen Delivery Method Room Air Oxygen Flow Rate 0 Oxygen Delivery Method Room Air Oxygen Flow Rate 0 Narrative Exam Narrative: GEN: Alert and oriented x 3, NAD HEENT:NC, Face symmetric CHEST: Respiratory excursions symmetric, CTAB CV: RRR, no M/R/G ABD: Soft, NT/ND, BT present in all 4 quadrants, no organomegaly or masses EXTR: warm, well perfused, no C/C/E SKIN: warm and dry, no rash, surgical wound is clean, dry, intact, no drainage, there is some dried serosanguineous drainage noted on the dressing NEURO: Alert and oriented x 3, nonfocal Objective Labs 07/14/23 05:13 07/14/23 05:13 Labs: Laboratory Results - last 24 hr 07/14/23 07/14/23 05:13 05:13 WBC 9.3 RBC 3.21 L Hgb 8.7 L Hct 26.3 L MCV 82.0 MCH 27.0 MCHC 33.0 RDW 14.7 Plt Count 474 H Sodium 140 Potassium 4.1 Chloride 111 H Carbon Dioxide 25 BUN 16 Creatinine 0.77 Estimated GFR > 60 BUN/Creatinine Ratio 20.8 Glucose 138 H Calcium 7.8 L PFSH Medical History History of opioid abuse Hypertension Methadone use Uterine procidentia Surgical History H/O right wrist surgery History of colonoscopy History of vaginal hysterectomy Family History Father Cancer Mother Heart disease Social History household members: children and friend(s) Smoking Status: Former smoker alcohol intake: former Assessment & Plan Assessment & Plan narrative: 1. Left buttock abscess, positive for MRSA, postop day 1. From incision and drainage by General surgery Patient remains on IV vancomycin. Will discontinue Zosyn, as cultures are positive for MRSA. General surgery felt patient would be low risk for sepsis or worsening cellulitis and recommended oral antibiotics pending culture results. Will plan to transition to oral doxycycline tomorrow. I have instructed the patient to contact her daughter to determine if her daughter is receptive to doing her dressing changes for her until she is able to do them herself. Patient agrees. Anticipate she will be able to discharge tomorrow. 2. Anemia Hemoglobin was 9.9 on admission. Post I&D x2, her hemoglobin has drifted down to 8.7. This is expected given her procedures. She is above the threshold for transfusion. 3. Thrombocytosis Platelet count is 474. This is improved from 559 on admission. Likely an acute phase reactant. 4. Opioid dependence Patient is on Suboxone. She was recently transitioned off of methadone 140 mg daily. She is back on Suboxone and tolerating it well. 5. IV drug use Patient reports she is not presently using, but nursing notes that she last used week ago. Will send an HIV and hepatitis panel. Code status Full Prophylaxis Low Olive score Disposition Likely discharge home tomorrow Quality VTE Deep Vein Thrombosis/Pulmonary Embolism Present on Admission: No
[2023-07-14] MEDS: MORPHINE 4 MG/ML INJ 3 MG IV (17:38)
--- NOTE | 2023-07-14 18:32 | PM.PNPO.1 ---
Subjective Subjective Date Patient Seen: 07/14/23 Time Patient Seen: 18:32 Interval history: Doing fine no complaints still complaining of pain at the incision site. States that the other doctor told her possibly discharge home tomorrow. Exam Vital Signs (past 8 hours): - 07/14/23 12:10 07/14/23 14:00 07/14/23 17:37 Temperature 96.9 F L 96.3 F L Pulse Rate 81 57 L Respiratory Rate 16 16 Blood Pressure 99/44 L 150/54 H Pulse Oximetry 98 98 98 Oxygen Delivery Method Room Air Oxygen Flow Rate 0 0 0 Oxygen Delivery Method Room Air Oxygen Flow Rate 0 Narrative Exam Narrative: Wound is clean and dry cavity open. First dressing change went well except for patient had pain and required IV medication. Objective Labs 07/14/23 05:13 07/14/23 05:13 Labs: Laboratory Results - last 24 hr 07/14/23 07/14/23 05:13 05:13 WBC 9.3 RBC 3.21 L Hgb 8.7 L Hct 26.3 L MCV 82.0 MCH 27.0 MCHC 33.0 RDW 14.7 Plt Count 474 H Sodium 140 Potassium 4.1 Chloride 111 H Carbon Dioxide 25 BUN 16 Creatinine 0.77 Estimated GFR > 60 BUN/Creatinine Ratio 20.8 Glucose 138 H Calcium 7.8 L PFSH Medical History History of opioid abuse Hypertension Methadone use Uterine procidentia Surgical History H/O right wrist surgery History of colonoscopy History of vaginal hysterectomy Family History Father Cancer Mother Heart disease Social History household members: children and friend(s) Smoking Status: Former smoker alcohol intake: former Assessment & Plan Post-op Postoperative Procedures: Procedures Operation Date: 07/13/23 15:15 Actual Procedure Side Surgeon p Incision and Drainage Hip/Gluteal Left Adriana Jimenez MD Postoperative day: 1 Postoperative status: doing well Postoperative plan narrative: Wet-to-dry dressings once or twice daily. Okay for RN change at this point. Will need wound check in about a week, would send to wound care clinic. Okay for discharge from surgical perspective. Time Spent With Patient Time with patient: less than 15 minutes Quality VTE Deep Vein Thrombosis/Pulmonary Embolism Present on Admission: No
[2023-07-14] MEDS: SENNOSIDES 8.6 MG TABLET 17.2 MG PO (20:29)
[2023-07-15 01:54] VITALS: BP 130/51; PULSE 50; RESP 16; TEMP 36.8; O2SAT 100
[2023-07-15 02:00] VITALS: O2SAT 100
[2023-07-15] MEDS: VANCOMYCIN 500 MG in SODIUM CHLORIDE 0.9% 100 ML 100 MG IV ×2 (02:44→10:34)
[2023-07-15 05:45] VITALS: BP 139/50; PULSE 50; RESP 16; TEMP 36.2; O2SAT 97
[2023-07-15 06:28] LABS: Hematocrit 27.1 % (36-46); Hemoglobin 8.8 g/dL (12.0-16.0); Mean Corpuscular HGB Conc 32.5 % (30-36); Mean Corpuscular Hemoglobin 26.6 PG (26-34); Mean Corpuscular Volume 81.8 fL (80-100); Platelet Count 482 X10^3/uL (150-400); Red Blood Cell Count 3.31 X10^6/uL (4.0-5.2); Red Cell Distribution Width 14.3 % (11.6-14.8); White Blood Cell Count 7.9 X10^3/uL (4.5-11.0)
[2023-07-15 06:30] LABS: Add Manual Diff / Slide Review YES
[2023-07-15 06:31] LABS: BUN Creatinine Ratio 22.2 (6-22); Blood Urea Nitrogen 16 mg/dL (7-17); Calcium 8.4 mg/dL (8.4-10.2); Carbon Dioxide 26 mmol/L (22-32); Chloride 110 mmol/L (98-107); Estimated Glomerular Filt Rate > 60 mL/min (>60); Glucose 114 mg/dL (80-110); HEMOLYSIS < 15 (0-50); Potassium 4.4 mmol/L (3.4-5.1); Sodium 140 mmol/L (137-145)
[2023-07-15 06:44] LABS: Neutrophils Absolute Manual 5688 /uL (3000-5900); Total Cells Counted 100
[2023-07-15 06:45] LABS: Poikilocytosis 1+
[2023-07-15 08:17] VITALS: BP 129/52; PULSE 50; RESP 16; TEMP 35.8; O2SAT 97
[2023-07-15] MEDS: lisinopriL 20 MG TABLET PO (09:10)
[2023-07-15] MEDS: ACETAMINOPHEN 325 MG TABLET 650 MG PO (09:10)
[2023-07-15 10:00] VITALS: O2SAT 97
[2023-07-15 10:17] VITALS: PULSE 50
[2023-07-15] MEDS: IBUPROFEN 600 MG TABLET PO (10:35)
--- NOTE | 2023-07-15 12:05 | PM.DS.1 ---
History of Present Illness History of Present Illness Chief complaint: SENT BY [facility] Narrative: Per history and physical: The pt is a 72 yo who has been seen at the [facility] for her Suboxone meds as she is trying to wean off her Methadone ( was 140mg daily) who started noticing a painful area on her left hip. The area started to hurt 2 weeks ago and has been worsening since. She was seen at an area urgent care and was given Keflex. Ashlie comes to the ER after 5 days of therapy due to worsening pain and increasing area of the soreness. She denies any fevers, chills, injury to the area, hx of recurrent skin infections, and denies IV drug abuse to the area. Discharge Providers Provider Date of admission: 07/12/23 01:46 Discharge Date: 07/15/23 Primary care physician: Doctor Carlos MD Consults: 07/12/23 01:55 Consult to General Surgery Routine Comment: Consulting Provider: Sukumar Martel Reason for consultation: abscess Has provider been notified: Yes Discharge provider: Carolina Núñez MD Summary Hospital Course Discharge Diagnosis: 1. Left buttock abscess, positive for MRSA, postop day 2 from incision and drainage by General surgery 2. Anemia Acute blood loss in the setting of chronic anemia, stable, improving. 3. Thrombocytosis [place] to be secondary to an acute phase reaction. 4. Opioid dependence on Suboxone. 5. IV drug use Unclear whether in remission or not Hospital Course: Patient was admitted with increasing pain to her left buttock for a period of 5 days prior to admission. She was found to have a large left buttock abscess. She was admitted for further treatment with IV vancomycin as well as Zosyn. General surgery was consulted with plan for patient to be taken to the operating room for incision and drainage. General surgery, Dr. Jimenez, took the patient to the operating room on July 13. Abscess cavity was noted to be 10 x 15 cm and 5 cm in depth. Wet-to-dry dressings were recommended. Postoperatively, patient showed ongoing improvement. Her daughter was taught how to do dressing changes. Home health referral is being made at discharge. [facility] referral is requested as they are able to provide home health services with sound telehealth physician support. Patient is also being referred to the Wound Care Clinic. She will follow-up with Dr. Jimenez and the wound care clinic. Patient is discharged in stable condition. Status at Discharge Cognitive/behavioral status at discharge: oriented Functional status at discharge: independent ambulation Overall status at discharge: patient is progressing back to baseline Time Spent with Patient Time spent: Greater than 30 minutes Exam Vital Signs (past 8 hours): - 07/15/23 06:00 07/15/23 05:45 07/15/23 08:17 Temperature 97.2 F L 96.5 F L Pulse Rate 50 L 50 L Respiratory Rate 16 16 Blood Pressure 139/50 L 129/52 L Pulse Oximetry 97 97 Oxygen Delivery Method Room Air Oxygen Flow Rate 0 0 07/15/23 10:17 Temperature Pulse Rate 50 L Respiratory Rate Blood Pressure Pulse Oximetry Oxygen Delivery Method Oxygen Flow Rate Oxygen Delivery Method Room Air Oxygen Flow Rate 0 Narrative Exam Narrative: GEN: Alert and oriented x 3, NAD HEENT:NC, Face symmetric CHEST: Respiratory excursions symmetric, CTAB CV: RRR, no M/R/G ABD: Soft, NT/ND, BT present in all 4 quadrants, no organomegaly or masses EXTR: warm, well perfused, no C/C/E SKIN: warm and dry, no rash, surgical wound is clean, dry, intact, no drainage, mild erythema at the edges of the incision, wound is packed with wet gauze, wet-to-dry dressing intact serosanguineous drainage noted NEURO: Alert and oriented x 3, nonfocal Objective Labs 07/15/23 05:45 07/15/23 05:45 Labs: Laboratory Results - last 24 hr 07/15/23 07/15/23 05:45 05:45 WBC 7.9 RBC 3.31 L Hgb 8.8 L Hct 27.1 L MCV 81.8 MCH 26.6 MCHC 32.5 RDW 14.3 Plt Count 482 H Neut % (Auto) Not Reportable Lymph % (Auto) Not Reportable [place] % (Auto) Not Reportable Eos % (Auto) Not Reportable Baso % (Auto) Not Reportable Lymph # (Auto) Not Reportable [place] # (Auto) Not Reportable Baso # (Auto) Not Reportable Total Counted 100 Seg Neutrophils % 70.0 Band Neutrophils % 2.0 L Lymphocytes % (Manual) 24.0 L Monocytes % (Manual) 1.0 L Basophils % (Manual) 1.0 Metamyelocytes % 2.0 H Neutrophils # (Manual) 5685 RBC Morphology See below Poikilocytosis 1+ H Sodium 140 Potassium 4.4 Chloride 110 H Carbon Dioxide 26 BUN 16 Creatinine 0.72 Estimated GFR > 60 BUN/Creatinine Ratio 22.2 H Glucose 114 H Calcium 8.4 PFSH Medical History History of opioid abuse Hypertension Methadone use Uterine procidentia Surgical History H/O right wrist surgery History of colonoscopy History of vaginal hysterectomy Family History Father Cancer Mother Heart disease Social History household members: children and friend(s) Smoking Status: Former smoker alcohol intake: former Discharge Plan Discharge Plan Patient Disposition: Home Health Service Provider Discharge Comment: You had a large buttock abscess that grew MRSA. You will continue oral antibiotics to complete a total of 10 days of antibiotic therapy. Your wound dressing needs to be replaced daily to twice daily. The surgeon recommended wet-to-dry dressing changes and your RN provided instruction on that. You will need to follow-up in the surgery clinic within 1 week. Return to the ED: Fever/chills/increased pain, redness or drainage from wound/inability to hold down food/fluids Discharge orders & Medications Prescriptions: New sennosides [senna] 8.6 mg Tablet 17.2 mg PO BEDTIME Qty: 30 0RF acetaminophen 325 mg Tablet 650 mg PO Q6H Qty: 60 0RF ibuprofen 600 mg Tablet 600 mg PO TID Qty: 30 0RF oxycodone 5 mg Tablet 5 mg PO Q3H PRN (Reason: Pain, Moderate (4-6)) Qty: 15 0RF doxycycline monohydrate 100 mg capsule 100 mg PO BID Qty: 14 0RF Continued lisinopril 20 mg tablet 20 mg PO DAILY metoprolol succinate 25 mg tablet extended release 24 hr 25 mg PO DAILY buprenorphine-naloxone 8-2 mg film 8 mg sublingual BID Rx Instructions: takes 8 mg.Buprenorphine & 2 mg. of Naloxone BID. Discontinued cephalexin 500 mg capsule 1,000 mg PO BID Follow up/Referrals: Ashwin Zapata MD [Physician] - (Call for wound care. Wound check in 7-10 days) Adriana Jimenez MD [Physician] - (Follow-up as needed or if you are unable to get into the wound care clinic in a timely way) Doctor Gonzalez MD [Primary Care Provider] - Diet/Activity/Treatments Diet: Diet as Tolerated and Regular Activity: As tolerated Catheter comment: N/A Oxygen: N/A Visit Report/Discharge Packet Instructions: DI for Methicillin-Resistant Staph Infection (MRSA), DI for Prescription Opioid Use, DI for Incision and Drainage, [facility]: Wound Care Stand Alone Forms: Patient Portal/API, Stroke Signs & Symptoms Discharge Data Primary Care Provider: Doctor Carlos Quality VTE Deep Vein Thrombosis/Pulmonary Embolism Present on Admission: No
[2023-07-15] MEDS: MORPHINE 4 MG/ML INJ 3 MG IV (12:48)
--- NOTE | 2023-07-15 12:57 | CM.DPC ---
DCP Cont: Dr. Jasso is discharging patient home today, daughter will be assisting with wound care. Dr. Jasso inquired if patient could qualify for [facility], since she does not have a current provider. Let her know that the barrier is her past IV drug use. She is asking to attempt to send referral, for she does work with [facility] as their provider. Also, can see if there is a change that [facility] may see patient, this DC Electrolysist will discuss with patient and give her provider numbers for [facility], since they are accepting new patients. Met with patient and daughter, and printed out providers for [facility], and gave her and daughter their number. Encouraged her and daughter to call tomorrow to set up new appointment. Let her know that this DC Electrolysist could attempt [facility], but no guarantee. Could also see if [facility] could possibly see patient otherwise, if she is seeking a provider, other barrier is that referral is needed by primary care provider. Called Ashlie over at [facility] and left a message and faxed her over the information on patient. Let her know that patient is discharging home today, has no current PCP, but encouraged her to call over at [facility]. Left Funmilayo Aguilar with [facility] a message regarding patient as well, regarding [facility], but mentioned that she does have drug history. Did go ahead and fax over referral, on face to face, indicated no current provider, but patient is to be calling [facility] to see about new appointment. No guaranteed acceptance of [facility] or if [facility] can see. Patient is not on [place] at this time, is staying at [facility] [address], here in [place], with Evan Carreon. P: Patient is discharging home today, sent referrals to [facility], [facility], and gave patient phone numbers and encouraged her to call [facility] tomorrow, no confirmed acceptance. Donna Rothman, RN/Truck Leasing Manager
--- NOTE | 2023-07-15 14:10 | PC.NURSE ---
Pt A&Ox4, VSS with bradycardia. Wound care done and steps reviewed with patient and daughter, supplies provided for transition to home/wound care. IV removed, pt tolerated well. Discharge packet reviewed with patient and daughter, both able to teach back information independently. Pt taken downstairs in wheelchair by CLOTH FINISHING RANGE OPERATOR CHIEF and discharged home with ride from daughter.
[2023-07-15 19:29] LABS: HIV 1 & 2 Ab/Ag 4th Gen Combo NEGATIVE (NEGATIVE)
[2023-07-19 12:13] LABS: HBsAg Screen Negative (Negative); Hepatitis A Antibody IgM Negative (Negative); Hepatitis B Core Antibody IgM Negative (Negative); Hepatitis C Antibody Reactive (Non Reactive); Hepatitis C Quant HCV Not Detected IU/mL (.)
== END 2023-07-15 14:19 | disposition home health service (06) | DRG 603 ==
LOC: ED 07-12 01:44 → AC 07-12 01:46
PROVIDERS: Family Medicine; Internal Medicine; Surgery; Admitting Provider Internal Medicine; Emergency Provider Emergency Medicine; Referring Provider Emergency Medicine; Visit Provider Internal Medicine
PROC: 0J990ZZ Drainage of Buttock Subcutaneous Tissue and Fascia, Open Approach (ICD-10-PCS; principal; 2023-07-13 15:15)
DX: L02.31 Cutaneous abscess of buttock (principal); D62 Acute posthemorrhagic anemia; F11.20 Opioid dependence, uncomplicated; B95.62 Methicillin resistant Staphylococcus aureus infection as the cause of diseases classified elsewhere; D75.839 Thrombocytosis, unspecified
CPT/HCPCS: 10060; 10061; 36415; 80048; 80053; 80074; 80202; 81003; 83605; 83690; 84145; 85007; 85025; 85027; 85610; 85730; 87040; 87070; 87075; 87077; 87147; 87186; 87205; 87389; 87797; 96361; 96365; 96375; 99232; 99284; J0171; J1100; J1170; J2270; J2405; J2543; J2704; J3010; J3370

== ENCOUNTER → 2023-07-24 10:53 | Outpatient (CLI) | payer MEDICARE, MEDICAID, SELFPAY ==
[2023-07-12 02:00] VITALS: BMI 21.5
== END ==
PROVIDERS: Referring Provider Emergency Medicine; Visit Provider Surgery
DX: T81.89XA Other complications of procedures, not elsewhere classified, initial encounter (principal); S71.002A Unspecified open wound, left hip, initial encounter; I10 Essential (primary) hypertension; F15.90 Other stimulant use, unspecified, uncomplicated; Z87.891 Personal history of nicotine dependence; Z86.14 Personal history of Methicillin resistant Staphylococcus aureus infection
CPT/HCPCS: 11042; 99203; 99212

== ENCOUNTER → 2023-07-31 13:51 | Outpatient (CLI) | payer MEDICARE, MEDICAID, SELFPAY ==
[2023-07-12 02:00] VITALS: BMI 21.5
== END ==
PROVIDERS: Referring Provider Emergency Medicine; Visit Provider Surgery
DX: T81.31XA Disruption of external operation (surgical) wound, not elsewhere classified, initial encounter (principal); S71.002A Unspecified open wound, left hip, initial encounter
CPT/HCPCS: 11042

== ENCOUNTER → 2023-08-08 13:29 | Outpatient (CLI) | payer MEDICARE, MEDICAID, SELFPAY ==
[2023-07-12 02:00] VITALS: BMI 21.5
== END ==
PROVIDERS: Referring Provider Emergency Medicine; Visit Provider Surgery
DX: T81.89XA Other complications of procedures, not elsewhere classified, initial encounter (principal); S71.002A Unspecified open wound, left hip, initial encounter
CPT/HCPCS: 17250; 99213

== ENCOUNTER 2023-08-11 11:22 | Emergency (ER) | payer MEDICARE, MEDICAID, SELFPAY ==
[2023-07-12 02:00] VITALS: BMI 21.5
[2023-08-11] VITALS (15 sets, daily range): BP systolic 102–162; BP diastolic 51–73; PULSE 54–76; RESP 13–23; TEMP 36.7–37.2; O2SAT 95–100; BMI 21.3
--- NOTE | 2023-08-11 11:39 | ED_ITS ---
HPI - General Adult General Chief complaint: Fever Stated complaint: fever/ R/knee and hand pain/bloody stool Time Seen by Provider: 08/11/23 11:32 History of Present Illness HPI narrative: 72-year-old female 72-year-old female nonsmoker with history of opioid abuse, on Suboxone, IV drug use who was seen by myself about 1 month ago and admitted for treatment and surgical debridement of a large left buttock abscess found to be positive for MRSA. She states that her left hip is nearly completely healed and is doing quite well. She presents with multiple symptoms including some rectal bleeding with occasional abdominal discomfort for the past week or so. She takes no blood thinners and has had no fever or chills. Her last colonoscopy was about 20 years ago and she states she had some polyps. He has had recent hospitalizations and has had recent antibiotic use but denies any bad food or travel. She has had fever as high as 101F that comes and goes. She denies headache or blurred vision. She is had no runny nose, sore throat or cough. She denies any chest pain. She denies abdominal pain currently nor any nausea or vomiting. She denies urinary complaints such as dysuria, frequency or urgency. Additionally she states that she was having swelling in her right hand seems to be better now in the absence of any trauma or injury. Related Data Home Medications Medication Instructions Recorded Confirmed buprenorphine 8 mg-naloxone 2 mg 8 mg sublingual BID 07/12/23 07/12/23 sublingual film lisinopril 20 mg tablet 20 mg PO DAILY 07/12/23 07/12/23 metoprolol succinate 25 mg 25 mg PO DAILY 07/12/23 07/12/23 tablet,extended release 24 hr Previous Rx's Medication Instructions Recorded acetaminophen 325 mg tablet 650 mg (2 x 325 mg) PO Q6H #60 tabs 07/15/23 doxycycline monohydrate 100 mg 100 mg PO BID #14 caps 07/15/23 capsule ibuprofen 600 mg tablet 600 mg PO TID #30 tabs 07/15/23 oxycodone 5 mg tablet 5 mg PO Q3H PRN Pain, Moderate 07/15/23 (4-6) #15 tabs sennosides 8.6 mg tablet (senna) 17.2 mg (2 x 8.6 mg) PO BEDTIME 07/15/23 #30 tabs acetaminophen 325 mg tablet 650 mg (2 x 325 mg) PO Q6H PRN 07/16/23 fever or pain #120 tabs sennosides 17.2 mg tablet 17.2 mg PO BEDTIME PRN 07/16/23 constipation #30 tabs cephalexin 500 mg capsule 500 mg PO Q6H 7 days #28 caps 08/11/23 Allergies Allergy/AdvReac Type Severity Reaction Status Date / Time codeine [CODEINE] Allergy Unknown Verified 07/11/23 19:00 Review of Systems Review of Systems Narrative: GENERAL: See HPI HEENT: See HPI RESPIRATORY: Denies dyspnea, cough, wheezing, hemoptysis, sputum. CARDIOVASCULAR: Denies chest pain, palpitations, orthopnea, edema, GASTROINTESTINAL: See HPI : Denies dysuria, frequency, incontinence, hematuria, urinary retention. MUSCULOSKELETAL: See HPI SKIN: Denies rash, skin lesions, or other NEUROLOGIC: Denies weakness, headache, numbness, change in speech, confusion, seizures, incoordination. PSYCHIATRIC: No concerning psychosocial issues. 12 point review of systems is negative except for those stated above Patient History Medical History Uterine procidentia Methadone use History of opioid abuse Hypertension Surgical History History of colonoscopy History of vaginal hysterectomy H/O right wrist surgery Family History Father Cancer Mother Heart disease Social History household members: children and friend(s) Smoking Status: Former smoker alcohol intake: former Smoking Status: Former smoker alcohol intake frequency: 0-2 drinks per day Substance Use Type: heroin, methamphetamine, prescription drug and other Exam Narrative Exam Narrative: GENERAL: [72] year old patient appears stated age. Well-developed patient, in no obvious distress, resting comfortably, sitting upright HEAD: Atraumatic. Normocephalic. EYES: Pupils equal round and reactive. Extraocular motions intact. No scleral icterus. No injection or drainage. ENT: Nose without bleeding, purulent drainage. Throat without erythema, tonsillar hypertrophy or exudate. Airway patent. NECK: Trachea midline. Non tender CARDIOVASCULAR: Regular rate and rhythm without murmurs, gallops, or rubs. RESPIRATORY: Clear to auscultation. Breath sounds equal bilaterally. No wheezes, rales, or rhonchi. GASTROINTESTINAL: Abdomen soft, non-tender, nondistended. Bowel sounds present EXTREMITIES: Perhaps minimal edema to the right hand, able to make a fist, no obvious redness or significant swelling, no lymphangitis, no pain in the forearm or upper arm BACK: Nontender without deformity or crepitance. No flank tenderness. NEURO: AOx3. SKIN: No rash or erythema of visible areas Initial Vital Signs Initial Vital Signs: Vital Signs Temperature 98.0 F 08/11/23 11:45 Pulse Rate 65 08/11/23 11:45 Respiratory Rate 23 08/11/23 11:45 Blood Pressure 162/73 H 08/11/23 11:45 Pulse Oximetry 99 08/11/23 11:45 Oxygen Delivery Method Room Air 08/11/23 11:45 Course Orders Ordered: ED Orders 08/11/23 11:43 GI Panel (Film Array) Stat 08/11/23 12:07 Complete Blood Count AUTO DIFF Stat Comprehensive Metabolic Panel Stat Covid-19 + FLU A/B + RSV - PCR Stat D Dimer Stat Lactate (Lactic Acid) Stat Magnesium Stat NT-proBNP (BNP-Adult 18+) Stat Procalcitonin Stat Troponin & CK Cardiac Panel Stat 08/11/23 12:34 US periph venous up extrem rt Stat 08/11/23 13:15 Blood Culture Stat 08/11/23 14:58 CT angio chest PE protocol Stat 08/11/23 16:53 Urine Microscopic Stat Sodium Chloride (Normal Saline 0.9%) 1,000 mls @ 1,000 mls/hr IV BOLUS ONE Stop: 08/11/23 17:14 Last Admin: 08/11/23 16:53 Dose: Not Given Documented By: KLS Discontinued Medications Cefazolin Sodium (Cephalexin 250 Mg Cap Prepack) 1 bottle MISC SEEINSTR ONE Stop: 08/11/23 16:54 Sodium Chloride (Normal Saline 0.9%) 1,000 mls @ 1,000 mls/hr IV BOLUS ONE Stop: 08/11/23 12:39 Last Infusion: 08/11/23 13:35 Dose: Infused Documented By: Admin: 08/11/23 12:15 Dose: 1,000 mls/hr Documented By: SHAYNE Vital Signs Vital signs: Vital Signs - 8 hr 08/11/23 11:45 08/11/23 12:00 08/11/23 12:13 Temperature 98.0 F 98.9 F Pulse Rate 65 67 66 Respiratory Rate 23 18 18 Blood Pressure 162/73 H 162/73 H 130/60 Pulse Oximetry 99 97 99 Oxygen Delivery Method Room Air Room Air Room Air 08/11/23 12:31 08/11/23 13:00 08/11/23 13:01 Temperature Pulse Rate 59 L 62 65 Respiratory Rate 15 20 14 Blood Pressure Pulse Oximetry 100 96 96 Oxygen Delivery Method 08/11/23 13:01 08/11/23 13:05 08/11/23 13:05 Temperature Pulse Rate 64 Respiratory Rate 19 Blood Pressure 154/69 H 148/69 H Pulse Oximetry 95 Oxygen Delivery Method 08/11/23 13:30 08/11/23 13:30 08/11/23 14:00 Temperature Pulse Rate 63 Respiratory Rate 14 Blood Pressure 138/63 115/55 L Pulse Oximetry 97 Oxygen Delivery Method 08/11/23 14:00 08/11/23 14:30 08/11/23 14:30 Temperature Pulse Rate 63 59 L Respiratory Rate 17 15 Blood Pressure 103/53 L Pulse Oximetry 99 97 Oxygen Delivery Method 08/11/23 15:00 08/11/23 15:00 08/11/23 15:30 Temperature Pulse Rate 56 L 54 L Respiratory Rate 14 18 Blood Pressure 103/51 L 102/66 Pulse Oximetry 98 97 Oxygen Delivery Method Room Air 08/11/23 16:00 08/11/23 16:47 08/11/23 16:49 Temperature Pulse Rate 73 76 63 Respiratory Rate 18 13 Blood Pressure 104/66 Pulse Oximetry 98 98 99 Oxygen Delivery Method 08/11/23 16:49 Temperature Pulse Rate Respiratory Rate Blood Pressure 130/62 Pulse Oximetry Oxygen Delivery Method Medical Decision Making Lab Data 08/11/23 12:07 08/11/23 12:07 Labs: Lab Results 08/11/23 Range/Units 12:07 WBC 7.5 (4.5-11.0) X10^3/uL RBC 3.71 L (4.0-5.2) X10^6/uL Hgb 10.1 L (12.0-16.0) g/dL Hct 30.3 L (36-46) % MCV 81.7 (80-100) fL MCH 27.1 (26-34) PG MCHC 33.2 (30-36) % RDW 16.2 H (11.6-14.8) % Plt Count 248 (150-400) X10^3/uL Neut % (Auto) 75.2 H (50-75) % Lymph % (Auto) 14.6 L (25-40) % [place] % (Auto) 9.1 (3-14) % Eos % (Auto) 0.2 L (2-4) % Baso % (Auto) 0.9 (0-2) % Neut # (Auto) 5600 (0267-9559) /uL Lymph # (Auto) 1100 (9902-2041) /uL [place] # (Auto) 700 (0-900) /uL Eos # (Auto) 0 (0-450) /uL Baso # (Auto) 100 (0-100) /uL D-Dimer 1731 H (<500) ng/ml Sodium 136 L (137-145) mmol/L Potassium 3.4 (3.4-5.1) mmol/L Chloride 101 (98-107) mmol/L Carbon Dioxide 27 (22-32) mmol/L BUN 12 (7-17) mg/dL Creatinine 0.69 (0.52-1.04) mg/dL Estimated GFR > 60 (>60) mL/min BUN/Creatinine Ratio 17.4 (6-22) Glucose 131 H (80-110) mg/dL Lactate 0.9 (0.7-2.1) mmol/L Calcium 8.7 (8.4-10.2) mg/dL Magnesium 2.0 (1.6-2.3) mg/dL Total Bilirubin 0.7 (0.2-1.3) mg/dL AST 33 (14-36) IU/L ALT 32 (<35) IU/L Alkaline Phosphatase 66 (38-126) U/L Total Creatine Kinase 21 L (30-135) U/L Troponin I < 0.012 (0.01-0.034) ng/mL NT-Pro-B Natriuret Pep 481 H (<125) pg/mL Total Protein 7.3 (6.3-8.2) g/dL Albumin 3.9 (3.5-5.0) g/dL Globulin 3.4 (1.7-4.1) g/dL Albumin/Globulin Ratio 1.1 (1.0-2.8) Procalcitonin 0.11 (<0.5) ng/mL SARS-CoV-2 (PCR) Negative (Negative) Influenza A (RT-PCR) Flu a negative (NEGATIVE) Influenza B (RT-PCR) Flu b negative (NEGATIVE) RSV (PCR) Negative (Negative) Urine Dip Bedside Urine Glucose Negative Bedside Urine Bilirubin - Negative Bedside Urine Ketone - Negative Urine Specific [place] 1.015 Bedside Urine Occult Blood +/- Bedside Urine pH 6.0 Bedside Urine Protein - Negative Bedside Urine Urobilinogen - Negative Bedside Urine Nitrite - Negative Bedside Urine Leukocytes +/- 15 Esterase Point of care testing: Urine Dip Bedside Urine Glucose Negative Bedside Urine Bilirubin - Negative Bedside Urine Ketone - Negative Urine Specific [place] 1.015 Bedside Urine Occult Blood +/- Bedside Urine pH 6.0 Bedside Urine Protein - Negative Bedside Urine Urobilinogen - Negative Bedside Urine Nitrite - Negative Bedside Urine Leukocytes +/- 15 Esterase MDM Narrative Medical decision making narrative: CC: 72-year-old female with multiple complaints as noted above Complicating co-morbidities: Age, recent hospitalization, MRSA, prior IV drug abuse Data collected from: Patient Medical records reviewed: Prior notes reviewed in our EMR Differential considered, but not limited to: DVT versus pulmonary embolism versus pneumonia versus viral infection versus bacteremia versus urine infection versus C diff or other colitis versus other Exam documented above, pertinent findings include: Heart rate regular, lungs clear, alert and oriented, abdomen soft and nontender with bowel sounds intact, minimal swelling to right hand with no obvious deformity, redness or induration Lab Test results independently reviewed as above. Pertinent findings: Independently reviewed EKG as above Imaging studies independently reviewed: CT angio without evidence of pulmonary embolism or focal infiltrates, right upper extremity DVT without evidence clot Treatments: Fluids, Keflex prepack Re-evaluations: Patient hemodynamically stable, no signs of sepsis no increased work of breathing, no ability to produce a bowel movement over the course of the visit Discussion: 72-year-old female with various, relatively nonspecific complaints has reassuring history and physical exam, is hemodynamically stable, no signs of sepsis. Multiple etiologies considered as noted above. No evidence of DVT or pulmonary embolism, no evidence of pneumonia. Urine with leukocytes requires treatment, prepack given here and prescription sent to pharmacy of choice. Disposition: see below, along with detailed discharge instructions that have been reviewed with patient as well as indications for ED re-evaluation and additional outpatient follow up Discharge Plan Departure Patient Disposition: Home Clinical Impression: Acute UTI Instructions: DI for Urinary Tract Infection (UTI) Activity Restrictions/Additional Instructions: *You have been diagnosed with [UTI ] *What to do: *Please continue to take your regular medications as directed. [x ] New medication prescriptions sent to your pharmacy: [[facility] ] [ ] New medication written as a paper prescription [ ] No new medications given *Please follow up with your primary care provider in 2-3 days, call for an appointment. Let them know you were seen in the Emergency Department and that we ask that you be seen in follow up. We will electronically transmit a record of today's note if your PCP is in our system *If you do not have a primary care provider please contact the [facility] Resource line at [phone]. They will ask some questions about your medical history and help get you set up with a doctor in the community. *Return to Emergency Department if you should have any new, worsening or concerning symptoms, such as [fever greater than 101 F, shaking chills, worsening pain, persistent vomiting or other bothersome symptoms] Prescriptions: New cephalexin 500 mg capsule 500 mg PO Q6H 7 Days Qty: 28 0RF No Action lisinopril 20 mg tablet 20 mg PO DAILY metoprolol succinate 25 mg tablet extended release 24 hr 25 mg PO DAILY buprenorphine-naloxone 8-2 mg film 8 mg sublingual BID Rx Instructions: takes 8 mg.Buprenorphine & 2 mg. of Naloxone BID. sennosides [senna] 8.6 mg Tablet 17.2 mg PO BEDTIME Qty: 30 0RF acetaminophen 325 mg Tablet 650 mg PO Q6H Qty: 60 0RF ibuprofen 600 mg Tablet 600 mg PO TID Qty: 30 0RF oxycodone 5 mg Tablet 5 mg PO Q3H PRN (Reason: Pain, Moderate (4-6)) Qty: 15 0RF doxycycline monohydrate 100 mg capsule 100 mg PO BID Qty: 14 0RF acetaminophen 325 mg tablet 650 mg PO Q6H PRN (Reason: fever or pain) Qty: 120 0RF sennosides 17.2 mg tablet 17.2 mg PO BEDTIME PRN (Reason: constipation) Qty: 30 0RF Referrals: Miscellaneous,Doctor, MD [Primary Care Provider] - Stand Alone Forms: Patient Portal/API
[2023-08-11] MEDS: SODIUM CHLORIDE 0.9% 1,000 ML 1000 ML IV (12:15)
[2023-08-11 12:18] LABS: Add Manual Diff / Slide Review NO; Basophils Absolute Auto 100 /uL (0-100); Basophils Percent Auto 0.9 % (0-2); Eosinophils Absolute Auto 0 /uL (0-450); Eosinophils Percent Auto 0.2 % (2-4); Hematocrit 30.3 % (36-46); Hemoglobin 10.1 g/dL (12.0-16.0); Lymphocytes Absolute Auto 1100 /uL (1100-4500); Lymphocytes Percent Auto 14.6 % (25-40); Mean Corpuscular HGB Conc 33.2 % (30-36); Mean Corpuscular Hemoglobin 27.1 PG (26-34); Mean Corpuscular Volume 81.7 fL (80-100); Monocytes Absolute Auto 700 /uL (0-900); Monocytes Percent Auto 9.1 % (3-14); Neutrophils Absolute Auto 5600 /uL (1500-7000); Neutrophils Percent Auto 75.2 % (50-75); Platelet Count 248 X10^3/uL (150-400); Red Blood Cell Count 3.71 X10^6/uL (4.0-5.2); Red Cell Distribution Width 16.2 % (11.6-14.8); White Blood Cell Count 7.5 X10^3/uL (4.5-11.0)
[2023-08-11 12:26] LABS: D Dimer 1731 ng/ml (<500)
--- NOTE | 2023-08-11 12:34 | DI.US.S_ITS ---
PROCEDURE: US PERIPH VENOUS UP EXTREM RT INDICATIONS: PAIN/SWELLING. CRITICAL D-DIMER. TECHNIQUE: Real-time imaging, as well as color and pulse Doppler interrogation, was performed of the right upper extremity deep veins from the inferior neck to the antecubital fossa. COMPARISON: None. FINDINGS: The internal jugular vein, visualized portions of the subclavian vein, axillary, and brachial veins are free of intraluminal thrombus. Where physically possible, the veins are normally compressible. Color and pulse Doppler demonstrate normal intraluminal flow, with expected phasicity and pulsatility. Additional scanning of the cephalic and basilic veins of the superficial system demonstrates normal compressibility, without thrombus. At the site of the IV, there is stagnant blood flow seen, yet without quyen thrombus. IMPRESSION: No findings of upper extremity deep venous thrombosis can be seen. Dictated by: Moise Velasquez M.D. on 08/11/2023 at 12:56 Approved by: Moise Velasquez M.D. on 08/11/2023 at 12:57
[2023-08-11 12:47] LABS: Alanine Aminotransferase 32 IU/L (<35); Albumin 3.9 g/dL (3.5-5.0); Albumin Globulin Ratio 1.1 (1.0-2.8); Alkaline Phosphatase 66 U/L (38-126); Aspartate Aminotransferase 33 IU/L (14-36); BUN Creatinine Ratio 17.4 (6-22); Bilirubin Total 0.7 mg/dL (0.2-1.3); Blood Urea Nitrogen 12 mg/dL (7-17); Calcium 8.7 mg/dL (8.4-10.2); Carbon Dioxide 27 mmol/L (22-32); Chloride 101 mmol/L (98-107); Creatine Kinase 21 U/L (30-135); Estimated Glomerular Filt Rate > 60 mL/min (>60); Globulin 3.4 g/dL (1.7-4.1); Glucose 131 mg/dL (80-110); HEMOLYSIS < 15 (0-50); Potassium 3.4 mmol/L (3.4-5.1); Sodium 136 mmol/L (137-145); Total Protein 7.3 g/dL (6.3-8.2)
[2023-08-11 12:48] LABS: Lactate (Lactic Acid) 0.9 mmol/L (0.7-2.1)
[2023-08-11 12:58] LABS: NT-proBNP (BNP-Adult 18+) 481 pg/mL (<125); Troponin I < 0.012 ng/mL (0.01-0.034)
[2023-08-11 13:04] LABS: Procalcitonin 0.11 ng/mL (<0.5)
[2023-08-11 13:05] LABS: Influenza A - CEPHEID Flu A NEGATIVE (NEGATIVE); Influenza B - CEPHEID Flu B NEGATIVE (NEGATIVE); Respiratory Syncytial Virus Negative (Negative)
--- NOTE | 2023-08-11 13:05 | PC.NURSE ---
Provider aware of inability to get 2nd blood culture. (multiple attempts by lab / RNs)
--- NOTE | 2023-08-11 14:58 | DI.CT.S_ITS ---
PROCEDURE: CT ANGIO CHEST PE PROTOCOL INDICATIONS: fever, body pain, recent admit, critical dimer, PE? TECHNIQUE: After the administration of intravenous contrast, 2 mm thick sections acquired from the pulmonary apices to the posterior costophrenic angles. 3-dimensional maximum intensity projection (MIP) coronal and sagittal reformats were then acquired through the thorax. For radiation dose reduction, the following was used: automated exposure control, adjustment of mA and/or kV according to patient size. COMPARISON: [facility], , PERIPH VENOUS UP EXTREM RT, 08/11/2023, 13:19. FINDINGS: Image quality: Excellent. Pulmonary arteries: Pulmonary arteries are normal in size, and demonstrate no intraluminal filling defects to suggest central pulmonary embolism. Lungs and pleura: Lungs are clear. No pleural effusions or pneumothorax. Central and peripheral airways are patent. Mediastinum: Heart size is normal, without pericardial effusion. No mediastinal or hilar adenopathy. Thoracic aorta is normal in caliber and enhancement. Esophagus is normal in caliber, without hiatal hernia. Bones and chest wall: No suspicious bony lesions. No displaced rib fracture is seen. There is a remote appearing L1 anterior wedge deformity, with approximately 30% loss of height anteriorly. Focal lower cervical spine degenerative change can be seen. Accentuated thoracic kyphosis is seen. Age-appropriate bony degenerative changes are seen. Mild dextroconvex scoliotic curvature is seen. Thyroid gland demonstrates no significant abnormality. No axillary or supraclavicular adenopathy. Abdomen: Visualized upper abdominal solid organs appear normal in the early arterial phase of enhancement. IMPRESSION: Negative for pulmonary embolism. No focal infiltrates are seen. Additional findings: Focal lower cervical spine degenerative change Remote appearing L1 anterior wedge deformity Dictated by: Moise Velasquez M.D. on 08/11/2023 at 14:26 Approved by: Moise Velasquez M.D. on 08/11/2023 at 14:29
[2023-08-11 15:13] LABS: COVID-19 CEPHEID 4-PLEX PCR Negative (Negative)
[2023-08-11] MEDS: cephALEXin 250 MG CAP PREPACK 1 BOTTLE MISC (17:16)
[2023-08-11 18:00] LABS: Bacteria Urine Moderate (10-30); RBC Urine 1-5/HPF (0-5/HPF); Renal Epithelial Cells Urine 5-10/HPF (0-1/HPF); Squamous Epithelial Cell Urine None Seen (0-5/HPF); WBC Urine 5-10/HPF (0-5/HPF)
[2023-08-11 18:01] LABS: Amorphous Sediment Urine 1+; Culture Indicated Urine Specimen Cultured
== END 2023-08-11 17:18 | disposition home or self-care (01) ==
PROVIDERS: Emergency Provider Emergency Medicine
DX: N39.0 Urinary tract infection, site not specified (principal); Z79.899 Other long term (current) drug therapy; Z20.822 Contact with and (suspected) exposure to COVID-19
CPT/HCPCS: 0241U; 36415; 71275; 80053; 81003; 81015; 82550; 83605; 83735; 83880; 84145; 84484; 85025; 85379; 87040; 87077; 87086; 87186; 93971; 99284; Q9967

== ENCOUNTER → 2023-08-15 13:19 | Outpatient (CLI) | payer MEDICARE, MEDICAID, SELFPAY ==
[2023-07-12 02:00] VITALS: BMI 21.5
== END ==
PROVIDERS: Referring Provider Emergency Medicine; Visit Provider Surgery
DX: S71.002A Unspecified open wound, left hip, initial encounter (principal)
CPT/HCPCS: 99212; 99213

== ENCOUNTER 2023-09-12 18:12 | Emergency (ER) | payer MEDICARE, MEDICAID, SELFPAY ==
[2023-07-12 02:00] VITALS: BMI 21.5
[2023-09-12] VITALS (12 sets, daily range): BP systolic 125–174; BP diastolic 58–74; PULSE 53–74; RESP 14–22; TEMP 37.1; O2SAT 97–99; BMI 20.2
--- NOTE | 2023-09-12 19:12 | DI.US.S_ITS ---
PROCEDURE: US ABDOMEN LIMITED INDICATIONS: Jaundice TECHNIQUE: Real-time scanning was performed of the abdominal and retroperitoneal organs, with image documentation. COMPARISON: [facility], CT, CT ANGIO CHEST PE PROTOCOL, 08/11/2023, 15:03. FINDINGS: Liver: Liver is normal in size and homogeneous in echotexture. Gallbladder: Distended, with sludge. No wall thickening. Negative sonographic Cunningham sign. Biliary ducts: Intrahepatic and extrahepatic biliary dilation. Common bile duct measures 18 mm. Pancreas: Not visualized due to overlying bowel gas. IMPRESSION: Marked intrahepatic and extrahepatic biliary dilation. Obstructing mass or stone not excluded. Recommend MRI (pancreatic mass protocol) if available now. If not available, CT abdomen (pancreatic mass protocol). Dictated by: Jon Fitch M.D. on 09/12/2023 at 21:40 Approved by: Jon Fitch M.D. on 09/12/2023 at 21:44
[2023-09-12 20:02] LABS: INR 1.9 (0.9-1.3); Prothrombin Time 22.2 SECONDS (10.1-12.7)
[2023-09-12 20:05] LABS: PTT Partial Thromboplastin Tim 44 SECONDS (26-36)
[2023-09-12 20:17] LABS: Alanine Aminotransferase 128 IU/L (<35); Alkaline Phosphatase 334 U/L (38-126); Aspartate Aminotransferase 119 IU/L (14-36); BUN Creatinine Ratio 21.5 (6-22); Bilirubin Conjugated 2.4 md/dL (0.0-0.3); Bilirubin Total 6.2 mg/dL (0.2-1.3); Bilirubin Unconjugated 1.1 mg/dL (0.0-1.1); Blood Urea Nitrogen 14 mg/dL (7-17); Carbon Dioxide 28 mmol/L (22-32); Chloride 99 mmol/L (98-107); Estimated Glomerular Filt Rate > 60 mL/min (>60); Globulin 4.1 g/dL (1.7-4.1); Glucose 125 mg/dL (80-110); HEMOLYSIS < 15 (0-50); Potassium 3.5 mmol/L (3.4-5.1); Sodium 137 mmol/L (137-145); Total Protein 8.1 g/dL (6.3-8.2)
[2023-09-12 20:21] LABS: Ammonia (NH3) 15 umol/L (9-30)
[2023-09-12 20:30] LABS: Ethanol (ETOH) < 10 mg/dL
[2023-09-12 20:38] LABS: Acetaminophen < 10 ug/mL (10-30)
[2023-09-12 20:43] LABS: Add Manual Diff / Slide Review NO; Basophils Absolute Auto 100 /uL (0-100); Basophils Percent Auto 0.9 % (0-2); Eosinophils Absolute Auto 0 /uL (0-450); Eosinophils Percent Auto 0.6 % (2-4); Hematocrit 31.3 % (36-46); Hemoglobin 10.4 g/dL (12.0-16.0); Lymphocytes Absolute Auto 1100 /uL (1100-4500); Lymphocytes Percent Auto 16.2 % (25-40); Mean Corpuscular HGB Conc 33.2 % (30-36); Mean Corpuscular Hemoglobin 27.6 PG (26-34); Mean Corpuscular Volume 83.2 fL (80-100); Monocytes Absolute Auto 500 /uL (0-900); Monocytes Percent Auto 6.8 % (3-14); Neutrophils Absolute Auto 5300 /uL (1500-7000); Neutrophils Percent Auto 75.5 % (50-75); Platelet Count 464 X10^3/uL (150-400); Red Blood Cell Count 3.77 X10^6/uL (4.0-5.2); Red Cell Distribution Width 18.4 % (11.6-14.8)
--- NOTE | 2023-09-12 22:00 | ED_ITS ---
HPI - Abdominal Pain General Chief Complaint: Abdominal Pain Stated Complaint: [facility] reffered due to color of skin and stom issues Time Seen by Provider: 09/12/23 19:10 Source: patient Mode of arrival: Ambulatory History of Present Illness HPI narrative: 72-year-old female with prior history of hepatitis-C treated 20 years ago patient states she would hepatitis-B which cleared, hypertension and non Suboxone chronically. Patient states no longer uses IV drugs but does occasionally smoke methamphetamines. Patient presents with complaint of abdominal pain, diarrhea, gas and burping for the past several weeks and noted that she had a color change with jaundice for the past week. She is had no fevers, she denies chest pain no shortness of breath no passing out. She is had nausea but no vomiting. She states diarrhea has been intermittent that she might have seen some blood she is unsure what color it was it was black or bloody or burgundy. She states no new edema in her extremities. No urinary symptoms. Patient states medications include blood pressure medication and Suboxone. Has had prior hysterectomy, wrist surgery hip surgery. Allergic to codeine. Quit using tobacco in 2002, quit using alcohol in 2002. Remote history of IV drug use. Occasionally smokes methamphetamine but denies other recreational drugs. Last use of methamphetamine was yesterday. Related Data Home Medications Medication Instructions Recorded Confirmed buprenorphine 8 mg-naloxone 2 mg 8 mg sublingual BID 07/12/23 09/11/23 sublingual film lisinopril 20 mg tablet 20 mg PO DAILY 07/12/23 09/11/23 metoprolol succinate 25 mg 25 mg PO DAILY 07/12/23 09/11/23 tablet,extended release 24 hr Previous Rx's Medication Instructions Recorded acetaminophen 325 mg tablet 650 mg (2 x 325 mg) PO Q6H #60 tabs 07/15/23 doxycycline monohydrate 100 mg 100 mg PO BID #14 caps 07/15/23 capsule ibuprofen 600 mg tablet 600 mg PO TID #30 tabs 07/15/23 oxycodone 5 mg tablet 5 mg PO Q3H PRN Pain, Moderate 07/15/23 (4-6) #15 tabs sennosides 8.6 mg tablet (senna) 17.2 mg (2 x 8.6 mg) PO BEDTIME 07/15/23 #30 tabs acetaminophen 325 mg tablet 650 mg (2 x 325 mg) PO Q6H PRN 07/16/23 fever or pain #120 tabs sennosides 17.2 mg tablet 17.2 mg PO BEDTIME PRN 07/16/23 constipation #30 tabs Allergies Allergy/AdvReac Type Severity Reaction Status Date / Time codeine [CODEINE] Allergy Unknown Verified 09/11/23 11:35 Review of Systems Review of Systems ROS Unobtainable: All systems reviewed & are unremarkable except as noted in HPI and below Patient History Medical History Uterine procidentia Methadone use History of opioid abuse Hypertension Surgical History History of colonoscopy History of vaginal hysterectomy H/O right wrist surgery Family History Father Cancer Mother Heart disease Social History household members: children and friend(s) Smoking Status: Former smoker alcohol intake: former Smoking Status: Former smoker alcohol intake frequency: 0-2 drinks per day Substance Use Type: methamphetamine, prescription drug and other Exam Narrative Exam Narrative: GENERAL: Alert and oriented x three, female. Jaundiced. Mild distress. HEENT: Head normocephalic, atraumatic, EOMI, positive for scleral icterus, pupils reactive, face symmetric, moist mucous membranes NECK: Supple, full range of motion CARDIOVASCULAR: Regular rate and rhythm without murmurs, rubs or gallops. RESPIRATORY: Breath sounds equal bilaterally, no wheezes rales or rhonchi. ABDOMEN: Soft, nontender. Mildly distended but does feel full. Normoactive bowel sounds all 4 quadrants. No guarding or rebound, rigidity, no mass : No CVA tenderness EXTREMITIES: Normal range of motion, no clubbing or edema bilateral lower extremities. Neurovascularly intact NEUROLOGICAL: Cranial nerves II through XII grossly intact. Moving all extremities SKIN: Warm, dry, no petechiae, no rashes or lesions. Initial Vital Signs Initial Vital Signs: Vital Signs Temperature 98.7 F 09/12/23 18:35 Pulse Rate 74 09/12/23 18:35 Respiratory Rate 16 09/12/23 18:35 Blood Pressure 174/72 H 09/12/23 18:35 Pulse Oximetry 98 09/12/23 18:35 Oxygen Delivery Method Room Air 09/12/23 18:35 Course Orders Ordered: ED Orders 09/12/23 18:58 EKG-12 Lead Stat 09/12/23 19:11 Hepatitis Acute Panel Stat 09/12/23 19:12 US abdomen limited Stat 09/12/23 19:40 Acetaminophen Stat Ammonia (NH3) Stat Basic Metabolic Panel Stat Complete Blood Count AUTO DIFF Stat Ethanol (ETOH) Stat Hepatic (Liver) Panel Stat Lipase Stat PTT Partial Thromboplastin Tj Stat Prothrombin Time INR Stat 09/12/23 21:59 CT abdomen pelvis w con Stat 09/12/23 22:14 Ictotest Urine Stat UA Complete [Urinalysis and Microscopic] Stat Discontinued Medications Phytonadione 10 mg/ Sodium (Chloride) 101 mls @ 202 mls/hr IV NOW ONE Stop: 09/12/23 22:42 Last Infusion: 09/12/23 23:41 Dose: Infused Documented By: Admin: 09/12/23 23:01 Dose: 202 mls/hr Documented By: DIAZ Ondansetron HCl (Ondansetron 4 Mg Odt) 4 mg PO NOW PRN PRN Reason: Nausea And Vomiting Ondansetron HCl (Ondansetron 4 Mg/2 Ml Inj) 4 mg IV NOW PRN PRN Reason: Nausea And Vomiting Vital Signs Vital signs: Vital Signs - 8 hr 09/12/23 19:45 09/12/23 19:46 09/12/23 19:46 Pulse Rate 62 Respiratory Rate Blood Pressure 161/74 H Pulse Oximetry 98 98 Oxygen Delivery Method Room Air Room Air 09/12/23 20:00 09/12/23 20:00 09/12/23 20:30 Pulse Rate 62 60 Respiratory Rate 22 20 Blood Pressure 151/70 H Pulse Oximetry 99 99 Oxygen Delivery Method Room Air 09/12/23 20:30 09/12/23 21:00 09/12/23 21:00 Pulse Rate 59 L Respiratory Rate 18 Blood Pressure 136/64 125/58 L Pulse Oximetry 97 Oxygen Delivery Method Room Air 09/12/23 21:30 09/12/23 21:30 09/12/23 22:00 Pulse Rate 54 L Respiratory Rate 16 Blood Pressure 144/65 H 136/62 Pulse Oximetry 98 Oxygen Delivery Method Room Air 09/12/23 22:00 09/12/23 22:38 09/12/23 23:00 Pulse Rate 53 L 67 58 L Respiratory Rate 14 20 21 Blood Pressure Pulse Oximetry 99 Oxygen Delivery Method 09/12/23 23:30 09/12/23 23:48 09/12/23 23:48 Pulse Rate 58 L 55 L Respiratory Rate 18 18 Blood Pressure 130/63 Pulse Oximetry 99 99 Oxygen Delivery Method Room Air Room Air 09/13/23 00:00 09/13/23 00:00 Pulse Rate 54 L Respiratory Rate 17 Blood Pressure 134/60 Pulse Oximetry 100 Oxygen Delivery Method Room Air MDM - Abdominal Pain Lab Data 09/12/23 19:40 09/12/23 19:40 Labs: Lab Results 09/12/23 09/12/23 09/12/23 Range/Units 19:40 19:40 19:40 WBC 7.0 (4.5-11.0) X10^3/uL RBC 3.77 L (4.0-5.2) X10^6/uL Hgb 10.4 L (12.0-16.0) g/dL Hct 31.3 L (36-46) % MCV 83.2 (80-100) fL MCH 27.6 (26-34) PG MCHC 33.2 (30-36) % RDW 18.4 H (11.6-14.8) % Plt Count 464 H (150-400) X10^3/uL Neut % (Auto) 75.5 H (50-75) % Lymph % (Auto) 16.2 L (25-40) % [place] % (Auto) 6.8 (3-14) % Eos % (Auto) 0.6 L (2-4) % Baso % (Auto) 0.9 (0-2) % Neut # (Auto) 5300 (2436-5618) /uL Lymph # (Auto) 1100 (4363-9303) /uL [place] # (Auto) 500 (0-900) /uL Eos # (Auto) 0 (0-450) /uL Baso # (Auto) 100 (0-100) /uL PT 22.2 H (10.1-12.7) SECONDS INR 1.9 H (0.9-1.3) APTT 44 H (26-36) SECONDS Sodium Cancelled 137 Potassium Cancelled 3.5 Chloride Cancelled Carbon Dioxide BUN Creatinine Estimated GFR BUN/Creatinine Ratio Glucose Calcium Total Bilirubin Conjugated Bilirubin (0.0-0.3) md/dL Unconjugated Bilirubin (0.0-1.1) mg/dL AST ALT Alkaline Phosphatase Ammonia (9-30) umol/L Total Protein Albumin Globulin Albumin/Globulin Ratio Lipase Urine Color Urine Appearance Urine pH (4.5-8.0) Ur Specific [place] (1.000-1.035) Urine Protein (Negative) Urine Glucose (UA) (Negative) g/dL Urine Ketones (NEGATIVE) Urine Occult Blood (Negative) Urine Nitrate (Negative) Urine Bilirubin (NEGATIVE) Ur Bilirubin Confirm (Negative) Urine Urobilinogen (0.2) E.U./dL Ur Leukocyte Esterase (NEGATIVE) Urine RBC (0-5/HPF) Urine WBC (0-5/HPF) Ur Squamous Epith Cells (0-5/HPF) Amorphous Sediment Urine Bacteria (None) Granular Casts (None) Ur Culture Indicated? Acetaminophen (10-30) ug/mL Ethyl Alcohol ( - 10) mg/dL 09/12/23 09/12/23 09/12/23 Range/Units 19:40 19:40 19:40 WBC (4.5-11.0) X10^3/uL RBC (4.0-5.2) X10^6/uL Hgb (12.0-16.0) g/dL Hct (36-46) % MCV (80-100) fL MCH (26-34) PG MCHC (30-36) % RDW (11.6-14.8) % Plt Count (150-400) X10^3/uL Neut % (Auto) (50-75) % Lymph % (Auto) (25-40) % [place] % (Auto) (3-14) % Eos % (Auto) (2-4) % Baso % (Auto) (0-2) % Neut # (Auto) (8940-0805) /uL Lymph # (Auto) (9257-0575) /uL [place] # (Auto) (0-900) /uL Eos # (Auto) (0-450) /uL Baso # (Auto) (0-100) /uL PT (10.1-12.7) SECONDS INR (0.9-1.3) APTT (26-36) SECONDS Sodium Potassium Chloride 99 Carbon Dioxide Cancelled 28 BUN Cancelled 14 Creatinine Cancelled Estimated GFR BUN/Creatinine Ratio Glucose Calcium Total Bilirubin Conjugated Bilirubin (0.0-0.3) md/dL Unconjugated Bilirubin (0.0-1.1) mg/dL AST ALT Alkaline Phosphatase Ammonia (9-30) umol/L Total Protein Albumin Globulin Albumin/Globulin Ratio Lipase Urine Color Urine Appearance Urine pH (4.5-8.0) Ur Specific [place] (1.000-1.035) Urine Protein (Negative) Urine Glucose (UA) (Negative) g/dL Urine Ketones (NEGATIVE) Urine Occult Blood (Negative) Urine Nitrate (Negative) Urine Bilirubin (NEGATIVE) Ur Bilirubin Confirm (Negative) Urine Urobilinogen (0.2) E.U./dL Ur Leukocyte Esterase (NEGATIVE) Urine RBC (0-5/HPF) Urine WBC (0-5/HPF) Ur Squamous Epith Cells (0-5/HPF) Amorphous Sediment Urine Bacteria (None) Granular Casts (None) Ur Culture Indicated? Acetaminophen (10-30) ug/mL Ethyl Alcohol ( - 10) mg/dL 09/12/23 09/12/23 09/12/23 Range/Units 19:40 19:40 19:40 WBC (4.5-11.0) X10^3/uL RBC (4.0-5.2) X10^6/uL Hgb (12.0-16.0) g/dL Hct (36-46) % MCV (80-100) fL MCH (26-34) PG MCHC (30-36) % RDW (11.6-14.8) % Plt Count (150-400) X10^3/uL Neut % (Auto) (50-75) % Lymph % (Auto) (25-40) % [place] % (Auto) (3-14) % Eos % (Auto) (2-4) % Baso % (Auto) (0-2) % Neut # (Auto) (0538-7237) /uL Lymph # (Auto) (0579-5038) /uL [place] # (Auto) (0-900) /uL Eos # (Auto) (0-450) /uL Baso # (Auto) (0-100) /uL PT (10.1-12.7) SECONDS INR (0.9-1.3) APTT (26-36) SECONDS Sodium Potassium Chloride Carbon Dioxide BUN Creatinine 0.65 Estimated GFR Cancelled > 60 BUN/Creatinine Ratio Cancelled 21.5 Glucose Cancelled Calcium Total Bilirubin Conjugated Bilirubin (0.0-0.3) md/dL Unconjugated Bilirubin (0.0-1.1) mg/dL AST ALT Alkaline Phosphatase Ammonia (9-30) umol/L Total Protein Albumin Globulin Albumin/Globulin Ratio Lipase Urine Color Urine Appearance Urine pH (4.5-8.0) Ur Specific [place] (1.000-1.035) Urine Protein (Negative) Urine Glucose (UA) (Negative) g/dL Urine Ketones (NEGATIVE) Urine Occult Blood (Negative) Urine Nitrate (Negative) Urine Bilirubin (NEGATIVE) Ur Bilirubin Confirm (Negative) Urine Urobilinogen (0.2) E.U./dL Ur Leukocyte Esterase (NEGATIVE) Urine RBC (0-5/HPF) Urine WBC (0-5/HPF) Ur Squamous Epith Cells (0-5/HPF) Amorphous Sediment Urine Bacteria (None) Granular Casts (None) Ur Culture Indicated? Acetaminophen (10-30) ug/mL Ethyl Alcohol ( - 10) mg/dL 09/12/23 09/12/23 09/12/23 Range/Units 19:40 19:40 19:40 WBC (4.5-11.0) X10^3/uL RBC (4.0-5.2) X10^6/uL Hgb (12.0-16.0) g/dL Hct (36-46) % MCV (80-100) fL MCH (26-34) PG MCHC (30-36) % RDW (11.6-14.8) % Plt Count (150-400) X10^3/uL Neut % (Auto) (50-75) % Lymph % (Auto) (25-40) % [place] % (Auto) (3-14) % Eos % (Auto) (2-4) % Baso % (Auto) (0-2) % Neut # (Auto) (5606-4051) /uL Lymph # (Auto) (1429-9497) /uL [place] # (Auto) (0-900) /uL Eos # (Auto) (0-450) /uL Baso # (Auto) (0-100) /uL PT (10.1-12.7) SECONDS INR (0.9-1.3) APTT (26-36) SECONDS Sodium Potassium Chloride Carbon Dioxide BUN Creatinine Estimated GFR BUN/Creatinine Ratio Glucose 125 H Calcium Cancelled 9.0 Total Bilirubin Cancelled 6.2 H Conjugated Bilirubin 2.4 H (0.0-0.3) md/dL Unconjugated Bilirubin 1.1 (0.0-1.1) mg/dL AST Cancelled ALT Alkaline Phosphatase Ammonia (9-30) umol/L Total Protein Albumin Globulin Albumin/Globulin Ratio Lipase Urine Color Urine Appearance Urine pH (4.5-8.0) Ur Specific [place] (1.000-1.035) Urine Protein (Negative) Urine Glucose (UA) (Negative) g/dL Urine Ketones (NEGATIVE) Urine Occult Blood (Negative) Urine Nitrate (Negative) Urine Bilirubin (NEGATIVE) Ur Bilirubin Confirm (Negative) Urine Urobilinogen (0.2) E.U./dL Ur Leukocyte Esterase (NEGATIVE) Urine RBC (0-5/HPF) Urine WBC (0-5/HPF) Ur Squamous Epith Cells (0-5/HPF) Amorphous Sediment Urine Bacteria (None) Granular Casts (None) Ur Culture Indicated? Acetaminophen (10-30) ug/mL Ethyl Alcohol ( - 10) mg/dL 09/12/23 09/12/23 09/12/23 Range/Units 19:40 19:40 19:40 WBC (4.5-11.0) X10^3/uL RBC (4.0-5.2) X10^6/uL Hgb (12.0-16.0) g/dL Hct (36-46) % MCV (80-100) fL MCH (26-34) PG MCHC (30-36) % RDW (11.6-14.8) % Plt Count (150-400) X10^3/uL Neut % (Auto) (50-75) % Lymph % (Auto) (25-40) % [place] % (Auto) (3-14) % Eos % (Auto) (2-4) % Baso % (Auto) (0-2) % Neut # (Auto) (1561-1739) /uL Lymph # (Auto) (1562-0095) /uL [place] # (Auto) (0-900) /uL Eos # (Auto) (0-450) /uL Baso # (Auto) (0-100) /uL PT (10.1-12.7) SECONDS INR (0.9-1.3) APTT (26-36) SECONDS Sodium Potassium Chloride Carbon Dioxide BUN Creatinine Estimated GFR BUN/Creatinine Ratio Glucose Calcium Total Bilirubin Conjugated Bilirubin (0.0-0.3) md/dL Unconjugated Bilirubin (0.0-1.1) mg/dL AST 119 H ALT Cancelled 128 H Alkaline Phosphatase Cancelled 334 H Ammonia 15 (9-30) umol/L Total Protein Cancelled Albumin Globulin Albumin/Globulin Ratio Lipase Urine Color Urine Appearance Urine pH (4.5-8.0) Ur Specific [place] (1.000-1.035) Urine Protein (Negative) Urine Glucose (UA) (Negative) g/dL Urine Ketones (NEGATIVE) Urine Occult Blood (Negative) Urine Nitrate (Negative) Urine Bilirubin (NEGATIVE) Ur Bilirubin Confirm (Negative) Urine Urobilinogen (0.2) E.U./dL Ur Leukocyte Esterase (NEGATIVE) Urine RBC (0-5/HPF) Urine WBC (0-5/HPF) Ur Squamous Epith Cells (0-5/HPF) Amorphous Sediment Urine Bacteria (None) Granular Casts (None) Ur Culture Indicated? Acetaminophen (10-30) ug/mL Ethyl Alcohol ( - 10) mg/dL 09/12/23 09/12/23 09/12/23 Range/Units 19:40 19:40 19:40 WBC (4.5-11.0) X10^3/uL RBC (4.0-5.2) X10^6/uL Hgb (12.0-16.0) g/dL Hct (36-46) % MCV (80-100) fL MCH (26-34) PG MCHC (30-36) % RDW (11.6-14.8) % Plt Count (150-400) X10^3/uL Neut % (Auto) (50-75) % Lymph % (Auto) (25-40) % [place] % (Auto) (3-14) % Eos % (Auto) (2-4) % Baso % (Auto) (0-2) % Neut # (Auto) (4025-8950) /uL Lymph # (Auto) (5965-3001) /uL [place] # (Auto) (0-900) /uL Eos # (Auto) (0-450) /uL Baso # (Auto) (0-100) /uL PT (10.1-12.7) SECONDS INR (0.9-1.3) APTT (26-36) SECONDS Sodium Potassium Chloride Carbon Dioxide BUN Creatinine Estimated GFR BUN/Creatinine Ratio Glucose Calcium Total Bilirubin Conjugated Bilirubin (0.0-0.3) md/dL Unconjugated Bilirubin (0.0-1.1) mg/dL AST ALT Alkaline Phosphatase Ammonia (9-30) umol/L Total Protein 8.1 Albumin Cancelled 4.0 Globulin Cancelled 4.1 Albumin/Globulin Ratio Cancelled Lipase Urine Color Urine Appearance Urine pH (4.5-8.0) Ur Specific [place] (1.000-1.035) Urine Protein (Negative) Urine Glucose (UA) (Negative) g/dL Urine Ketones (NEGATIVE) Urine Occult Blood (Negative) Urine Nitrate (Negative) Urine Bilirubin (NEGATIVE) Ur Bilirubin Confirm (Negative) Urine Urobilinogen (0.2) E.U./dL Ur Leukocyte Esterase (NEGATIVE) Urine RBC (0-5/HPF) Urine WBC (0-5/HPF) Ur Squamous Epith Cells (0-5/HPF) Amorphous Sediment Urine Bacteria (None) Granular Casts (None) Ur Culture Indicated? Acetaminophen (10-30) ug/mL Ethyl Alcohol ( - 10) mg/dL 09/12/23 09/12/23 09/12/23 Range/Units 19:40 19:40 22:14 WBC (4.5-11.0) X10^3/uL RBC (4.0-5.2) X10^6/uL Hgb (12.0-16.0) g/dL Hct (36-46) % MCV (80-100) fL MCH (26-34) PG MCHC (30-36) % RDW (11.6-14.8) % Plt Count (150-400) X10^3/uL Neut % (Auto) (50-75) % Lymph % (Auto) (25-40) % [place] % (Auto) (3-14) % Eos % (Auto) (2-4) % Baso % (Auto) (0-2) % Neut # (Auto) (6324-9210) /uL Lymph # (Auto) (8888-4151) /uL [place] # (Auto) (0-900) /uL Eos # (Auto) (0-450) /uL Baso # (Auto) (0-100) /uL PT (10.1-12.7) SECONDS INR (0.9-1.3) APTT (26-36) SECONDS Sodium Potassium Chloride Carbon Dioxide BUN Creatinine Estimated GFR BUN/Creatinine Ratio Glucose Calcium Total Bilirubin Conjugated Bilirubin (0.0-0.3) md/dL Unconjugated Bilirubin (0.0-1.1) mg/dL AST ALT Alkaline Phosphatase Ammonia (9-30) umol/L Total Protein Albumin Globulin Albumin/Globulin Ratio 1.0 Lipase Cancelled 71 Urine Color Brown Urine Appearance Clear Urine pH 5.0 (4.5-8.0) Ur Specific [place] >=1.030 H (1.000-1.035) Urine Protein 1+ H (Negative) Urine Glucose (UA) Negative (Negative) g/dL Urine Ketones Trace H (NEGATIVE) Urine Occult Blood Trace-intact (Negative) Urine Nitrate Negative (Negative) Urine Bilirubin 3+ H (NEGATIVE) Ur Bilirubin Confirm Positive H (Negative) Urine Urobilinogen 1.0 (0.2) E.U./dL Ur Leukocyte Esterase Negative (NEGATIVE) Urine RBC 0-1/hpf (0-5/HPF) Urine WBC 1-5/hpf (0-5/HPF) Ur Squamous Epith Cells 1-5 /hpf (0-5/HPF) Amorphous Sediment 1+ Urine Bacteria Few (2-10) H (None) Granular Casts 0-1/lpf (None) Ur Culture Indicated? Cult not indicated Acetaminophen < 10 (10-30) ug/mL Ethyl Alcohol < 10 ( - 10) mg/dL Imaging Data US - abdomen: Radiologist's Impression: [address] [address] Ultrasound Report Signed Patient: Ashlie Epstein MR#: [id number] : 1950 Acct:[id number] Age/Sex: 72 / F Date of Service: 09/12/23 Loc: ED Accession Number: [id number] Procedure: US abdomen limited Ordering Provider: Tobi Martin D.O. PROCEDURE: US ABDOMEN LIMITED INDICATIONS: Jaundice TECHNIQUE: Real-time scanning was performed of the abdominal and retroperitoneal organs, with image documentation. COMPARISON: [facility], CT, CT ANGIO CHEST PE PROTOCOL, 08/11/2023, 15:03. FINDINGS: Liver: Liver is normal in size and homogeneous in echotexture. Gallbladder: Distended, with sludge. No wall thickening. Negative sonographic Cunningham sign. Biliary ducts: Intrahepatic and extrahepatic biliary dilation. Common bile duct measures 18 mm. Pancreas: Not visualized due to overlying bowel gas. IMPRESSION: Marked intrahepatic and extrahepatic biliary dilation. Obstructing mass or stone not excluded. Recommend MRI (pancreatic mass protocol) if available now. If not available, CT abdomen (pancreatic mass protocol). Dictated by: Jon Fitch M.D. on 09/12/2023 at 21:40 Approved by: Jon Fitch M.D. on 09/12/2023 at 21:44 CT scan - abdomen/pelvis: Radiologist's Impression: Close Abdomen/Pelvis CT (Signed) Jon Fitch - 09/12/23 Abdomen Ultrasound (Signed) Jon Fitch - 09/12/23 Launch?[place] [address] CT Scan Report Signed Patient: Ashlie Epstein MR#: [id number] : 1950 Acct:[id number] Age/Sex: 72 / F Date of Service: 09/12/23 Loc: Accession Number: [id number] Procedure: CT abdomen pelvis w con Ordering Provider: Verito Shah D.O. PROCEDURE: CT ABDOMEN PELVIS W CON INDICATIONS: jaundice, CBD 18mm TECHNIQUE: After the administration of intravenous contrast, axial sections acquired from the lung bases to the pubic symphysis. Coronal and sagittal reformats were performed. For radiation dose reduction, the following was used: automated exposure control, adjustment of mA and/or kV according to patient size. COMPARISON: None. FINDINGS: Image quality: Excellent. Lung bases: Unremarkable. Heart: No significant findings. ABDOMEN: Liver: No suspicious liver lesions. Gallbladder: Distended, with sludge. Biliary ducts: Intrahepatic and extrahepatic biliary dilation. The common bile duct is obstructed by the pancreatic mass. Pancreas: Obstructing pancreatic mass in the head and neck measuring 3.7 x 2.4 cm (series 5, image 49). There is associated pancreatic ductal dilation. The mass abuts the SMV, encases the portal vein, with vessel narrowing. There is abutment of the common hepatic artery. Abutment of the 1st branch of the SMV. The mass contacts the gastric antrum and 1st and segment segment of the duodenum. Spleen: Unremarkable. Adrenal Glands: Unremarkable. Kidneys and Ureters: Unremarkable. Stomach and Bowel: Stomach, small bowel loops, and colon are unremarkable. Peritoneum: No abnormal intraperitoneal fluid. No free air. Ventral Wall: No hernias. Abdominal Nodes: Prominent peripancreatic lymph nodes, presumably metastatic. Vessels: Aorta and inferior vena cava are normal in size. PELVIS: Pelvic Organs: Unremarkable. Bladder: Unremarkable. Pelvic Nodes: No enlarged lymph nodes. Miscellaneous: No hernias are seen. Bones: Grade 1 anterolisthesis of L5 on S1 secondary to pars defects. Degenerative disc disease. Anterior wedging of the L1 vertebral body. IMPRESSION: Obstructing pancreatic head mass measuring 3.7 x 2.4 cm. This obstructs the common bile duct and the pancreatic duct, resulting in severe biliary dilation. Findings are consistent with pancreatic adenocarcinoma. Vascular involvement as above. No definite evidence of metastatic disease. Findings discussed with Dr. Shah at time of dictation. Dictated by: Jon Fitch M.D. on 09/12/2023 at 23:03 Approved by: Jon Fitch M.D. on 09/12/2023 at 23:11 ECG Data Attestation: I personally reviewed and interpreted this ECG as follows: Interpretation: Sinus rhythm rate of 61 W[place] 150 QRS [address] QTC 438[address] No acute ST elevation noted. Patient does have some lateral T-wave depression. [facility] Narrative Medical decision making narrative: 72-year-old female with history of hepatitis-C treated 20 years ago and reportedly cleared hepatitis-B in the past. Is on Suboxone daily has a remote history in 2002 of alcohol use, history of IV drug use but does still occasionally use methamphetamines. Patient appears jaundiced with scleral icterus. Hemoglobin is 10 white count 7 with platelets of 464 INR is 1.9 renal functions appropriate at 0.65 with normal electrolytes and a potassium of 3.5 glucose of 125. Bilirubin 6.2, AST is 119, ALT is 128 alk-phos is 334. Negative ammonia, negative Tylenol. Patient had hepatitis panel sent which is pending. Patient abdominal ultrasound which shows liver normal in size and homogeneous in echotexture distended gallbladder with sludge no wall thickening negative sonographic Cunningham. Patient has a common bile duct measuring 18 mm with intra and extrahepatic biliary dilation. Patient has been complaining of pain but is nontender on palpation. Suspect possible common bile duct stone versus other cause. Unable to obtain MRCP this evening ordered CT abdomen pancreatic mass protocol. Discussed with patient I do recommend that she be transferred for potential ERCP and further workup. MELD score is 21 points with 19.6% mortality. SPoke with Dr. Queen, gastroenterology at [facility]. Does agree patient would likely benefit from ERCP recommends 10 mg of vitamin K with elevated INR. He agrees also with CT pancreatic protocol as we can not get MRCP until tomorrow and would be happy to see the patient. Spoke with Dr. Barragan reviewed case CT abdomen pelvis come back which does show a pancreatic mass. Reviewed I have a call out to GI to make sure still appropriate location for transfer. She is agreeable to accept for transfer if GI still feels [facility] is the best place. Spoke with Dr. Queen, gastroenterology. Reviewed findings including mass, changes to the vessels and he feels patient is still appropriate for transfer. He states they can do appropriate treatment there and then referred to pancreatic surgeon for next steps. Recontacted Dr. Barragan and [facility]. Updated about recommendations for Gastroenterology. They accept for transfer. Patient has been hemodynamically stable does not have any medications currently running felt appropriate for S transport at this time. Patient updated of all findings. Read does appear to be a mass in the pancreas which is concerning for possible cancer that she will be seen at [facility] possible intervention and then ultimately referred onto additional specialist. Discharge Plan Departure Patient Disposition: [facility] Clinical Impression: Hepatitis, Common bile duct (CBD) obstruction, Mass of head of pancreas Prescriptions: No Action lisinopril 20 mg tablet 20 mg PO DAILY metoprolol succinate 25 mg tablet extended release 24 hr 25 mg PO DAILY buprenorphine-naloxone 8-2 mg film 8 mg sublingual BID Rx Instructions: takes 8 mg.Buprenorphine & 2 mg. of Naloxone BID. sennosides [senna] 8.6 mg Tablet 17.2 mg PO BEDTIME Qty: 30 0RF acetaminophen 325 mg Tablet 650 mg PO Q6H Qty: 60 0RF ibuprofen 600 mg Tablet 600 mg PO TID Qty: 30 0RF oxycodone 5 mg Tablet 5 mg PO Q3H PRN (Reason: Pain, Moderate (4-6)) Qty: 15 0RF doxycycline monohydrate 100 mg capsule 100 mg PO BID Qty: 14 0RF acetaminophen 325 mg tablet 650 mg PO Q6H PRN (Reason: fever or pain) Qty: 120 0RF sennosides 17.2 mg tablet 17.2 mg PO BEDTIME PRN (Reason: constipation) Qty: 30 0RF Referrals: Miscellaneous,Doctor, MD [Primary Care Provider] -
[2023-09-12 22:21] LABS: Lipase 71 U/L (23-300)
[2023-09-12 22:21] LABS: Appearance Urine UA CLEAR; Bilirubin Urine UA 3+ (NEGATIVE); Glucose Urine UA NEGATIVE (Negative); Ketones Urine UA TRACE (NEGATIVE); Leukocyte Esterase Urine UA NEGATIVE (NEGATIVE); Nitrite Urine UA NEGATIVE (Negative); Occult Blood Urine UA TRACE-INTACT (Negative); Protein Urine UA 1+ (Negative); Specific Gravity Urine UA >=1.030 (1.000-1.035)
[2023-09-12 22:29] LABS: Color Urine UA BROWN
[2023-09-12 22:38] LABS: Amorphous Sediment Urine 1+; Bacteria Urine Few (2-10); Granular Casts Urine 0-1/LPF; Ictotest Urine Positive (Negative); RBC Urine 0-1/HPF (0-5/HPF); Squamous Epithelial Cell Urine 1-5 /HPF (0-5/HPF); WBC Urine 1-5/HPF (0-5/HPF)
[2023-09-12 22:39] LABS: Culture Indicated Urine Cult Not Indicated
[2023-09-12] MEDS: PHYTONADIONE (VIT K1) 10 MG in SODIUM CHLORIDE 0.9% 100 ML 202 MG IV (23:01)
[2023-09-13] VITALS: BP 134/60; PULSE 54; RESP 17; O2SAT 100
--- NOTE | 2023-09-13 00:27 | PC.NURSE ---
Per patient request, this nurse called her family María, to tell her she is being transferred to [facility].
[2023-09-16 10:16] LABS: HBsAg Screen Negative (Negative); Hepatitis A Antibody IgM Negative (Negative); Hepatitis B Core Antibody IgM Negative (Negative); Hepatitis C Antibody Reactive (Non Reactive); Hepatitis C Quant HCV Not Detected IU/mL (.)
== END 2023-09-13 00:36 | disposition short-term general hospital (02) ==
PROVIDERS: Emergency Medicine; Emergency Provider Emergency Medicine
DX: K83.1 Obstruction of bile duct (principal); K86.89 Other specified diseases of pancreas; K75.9 Inflammatory liver disease, unspecified; R19.7 Diarrhea, unspecified; Z79.899 Other long term (current) drug therapy
CPT/HCPCS: 36415; 74177; 76705; 80048; 80074; 80076; 80320; 80329; 81001; 82140; 83690; 85025; 85610; 85730; 93005; 93010; 96365; 99284; G0480; J3430; Q9967

== ENCOUNTER → 2023-09-25 16:57 | Outpatient (CLI) | payer MEDICARE, MEDICAID, SELFPAY ==
[2023-07-12 02:00] VITALS: BMI 21.5
== END ==
PROVIDERS: Referring Provider Internal Medicine Gastroenterology; Visit Provider Internal Medicine Gastroenterology
DX: R19.7 Diarrhea, unspecified (principal)
CPT/HCPCS: 87507

== ENCOUNTER 2025-03-18 23:32 | Inpatient (IN) | payer OTHER, MEDICAID, SELFPAY ==
[2023-07-12 02:00] VITALS: BMI 21.5
[2025-03-18 23:38] VITALS: BP 139/65; PULSE 85; RESP 20; TEMP 37.1; O2SAT 98; BMI 20.7
--- NOTE | 2025-03-18 23:41 | DI.RAD.S_ITS ---
PROCEDURE: XR HIP W PEL IF DONE LT 2V INDICATIONS: fall, pain TECHNIQUE: AP pelvis with lateral view(s) of the left hip(s). COMPARISON: [facility], CT, CT ABDOMEN PELVIS WITH CONTRAST, 11/07/2023, 9:55. FINDINGS: Bones: Foreshortened and overlapping appearance of the left femoral head. Minimal irregularity seen on the frog-leg view. Suspect nondisplaced fracture. No dislocations. Pelvic ring appears intact. No suspicious bony lesions. Soft tissues: The visualized bowel gas pattern is normal. No suspicious soft tissue calcifications. IMPRESSION: Suspect nondisplaced left femoral neck fracture. CT bony pelvis would be helpful for confirmation. Dictated by: Colby Mayes M.D. on 03/19/2025 at 2:23 Approved by: Colby Mayes M.D. on 03/19/2025 at 2:26
--- NOTE | 2025-03-18 23:48 | ED_ITS ---
HPI - Extremity Injury (Lower) General Chief Complaint: Extremity Injury, Lower Stated Complaint: fell at home injured hip Time Seen by Provider: 03/18/25 23:43 Source: patient, RN notes reviewed and old records reviewed Mode of arrival: Wheelchair Limitations: no limitations History of Present Illness HPI Narrative: 74-year-old female history of pancreatic cancer has been on chemotherapy in the past (last dose 1 month ago) and had radiation with complaint of left hip pain after fall. Patient states she tripped on a rug about 4 days ago fell. Landed on her left hip has had pain since then particularly with weight-bearing and external rotation. She states she can lift and straighten it which isn't as uncomfortable. When she was resting or lying flat it is not painful. Patient states has not been improving so her oncologist encouraged her to come for evaluation. She denies any swelling, redness or bruising. Denies hitting her head. No neck or back pain, no chest pain or shortness of breath. No other GI or urinary symptoms. Denies any numbness, tingling or weakness of her extremity. States she has been taking Tylenol for pain. States she was on some medications for her pancreatic cancer. Reports allergy to codeine. She was accompanied by her daughter and her daughter's boyfriend. She follows with Jose Howell and Dr. Lundberg for oncology. Primary care is in [place]. Related Data Home Medications Medication Instructions Recorded Confirmed buprenorphine 8 mg-naloxone 2 mg 8 mg sublingual BID 07/12/23 09/11/23 sublingual film lisinopril 20 mg tablet 20 mg PO DAILY 07/12/23 09/11/23 metoprolol succinate 25 mg 25 mg PO DAILY 07/12/23 09/11/23 tablet,extended release 24 hr Previous Rx's Medication Instructions Recorded acetaminophen 325 mg tablet 650 mg (2 x 325 mg) PO Q6H #60 tabs 07/15/23 doxycycline monohydrate 100 mg 100 mg PO BID #14 caps 07/15/23 capsule ibuprofen 600 mg tablet 600 mg PO TID #30 tabs 07/15/23 oxycodone 5 mg tablet 5 mg PO Q3H PRN Pain, Moderate 07/15/23 (4-6) #15 tabs sennosides 8.6 mg tablet (senna) 17.2 mg (2 x 8.6 mg) PO BEDTIME 07/15/23 #30 tabs acetaminophen 325 mg tablet 650 mg (2 x 325 mg) PO Q6H PRN 07/16/23 fever or pain #120 tabs sennosides 17.2 mg tablet 17.2 mg PO BEDTIME PRN 07/16/23 constipation #30 tabs Allergies Allergy/AdvReac Type Severity Reaction Status Date / Time codeine [CODEINE] Allergy Unknown Verified 09/11/23 11:35 Review of Systems Review of Systems ROS Unobtainable: All systems reviewed & are unremarkable except as noted in HPI and below Patient History Medical History Uterine procidentia Methadone use History of opioid abuse Hypertension Surgical History History of colonoscopy History of vaginal hysterectomy H/O right wrist surgery Family History Father Cancer Mother Heart disease Social History household members: children and friend(s) Smoking Status: Former smoker alcohol intake: former Smoking Status: Former smoker alcohol intake frequency: 0-2 drinks per day Exam Narrative Exam Narrative: GEN: Patient appears in mild distress. HEAD: No evidence of trauma, no raccoon/Cavazos sign. NECK: Nontender, painless range of motion, trachea midline Negative Nexus criteria, no midline line tenderness, distracting injury, altered mental status, neuro deficit, recent EtOH. EYES: PERRLA, EOMI ENT: External inspection normal, trachea is midline, Nares are clear, airway is normal and with normal occlusion. RESP: Chest is nontender and has symmetric movement, no ecchymosis, breath sounds are normal no crackles, wheezes or rales, patient does have a port in the left side of her chest. CVS: Heart sounds are normal, no murmur noted, No JVD. ABG/GI: Nontender, soft, normal bowel sounds, no distention, no organomegaly, pelvic rock is negative NEURO: Oriented AOx3, neuro is grossly intact, sensation and motor is normal all 4 extremities moving, cranial nerves II through XII are intact, GCS is 15 PSYCH: Normal mood and affect SKIN: Intact, warm and dry, no crepitus and without decubitus BACK: No CVA tenderness, no vertebral tenderness, no step-off's, no crepitus EXT: Atraumatic, hips are nontender, patient has no pain with straight leg raise but has increased discomfort with the external rotation on the left. No pedal edema, normal color and temperature, normal range of motion of extremities with normal tendon exam, 2+ pulses in all four extremities Initial Vital Signs Initial Vital Signs: Vital Signs Temperature 98.7 F 03/18/25 23:38 Pulse Rate 85 03/18/25 23:38 Respiratory Rate 20 03/18/25 23:38 Blood Pressure 139/65 03/18/25 23:38 Pulse Oximetry 98 03/18/25 23:38 Oxygen Delivery Method Room Air 03/18/25 23:38 Course Orders Ordered: ED Orders 03/18/25 23:41 XR hip w pel LT 2V Stat 03/19/25 02:44 Ct Hip left without con Stat 03/19/25 02:53 Consult to Orthopedic Surgery Stat 03/19/25 03:05 CBC Auto Diff [Complete Blood Count AUTO DIFF] Stat CMP [Comprehensive Metabolic Panel] Stat PTT Partial Thromboplastin Tj Stat Prothrombin Time INR Stat 03/19/25 04:29 Consult to Occupational Therapy Evaluate & Treat Consult to Physical Therapy Evaluate & Treat 03/20/25 06:00 Basic Metabolic Panel DAILY Complete Blood Count AUTO DIFF DAILY Acetaminophen (Acetaminophen 325 Mg Tablet) 650 mg PO Q6H PRN PRN Reason: Fever/Mild Pain (1-3) Hydrocodone Bitart/Acetaminophen (Hydrocodone/Acet 5/325 Tablet) 1 tab PO Q4H PRN PRN Reason: Pain, Moderate (4-6) Hydromorphone HCl (Hydromorphone 0.5 Mg Inj) 0.5 mg IV Q2H PRN PRN Reason: Pain, Severe (7-10) Sodium Chloride (Normal Saline 0.9%) 1,000 mls @ 75 mls/hr IV CONT WILLIE Naloxone HCl (Naloxone 0.4 Mg/Ml Vial) 0.2 mg IV Q2MIN PRN PRN Reason: Opiate Reversal Ondansetron HCl (Ondansetron 4 Mg/2 Ml Inj) 4 mg IV Q8HR PRN PRN Reason: Nausea And Vomiting Vital Signs Vital signs: Vital Signs - 8 hr 03/18/25 23:38 03/19/25 01:00 03/19/25 03:14 Temperature 98.7 F Pulse Rate 85 68 69 Respiratory Rate 20 16 14 Blood Pressure 139/65 108/54 L 161/71 H Pulse Oximetry 98 98 100 Oxygen Delivery Method Room Air Room Air Room Air MDM - Extremity Injury (Lower) Lab Data 03/19/25 03:05 03/19/25 03:05 Labs: Lab Results 03/19/25 Range/Units 03:05 WBC 7.2 (4.5-11.0) X10^3/uL RBC 2.86 L (4.0-5.2) X10^6/uL Hgb 9.1 L (12.0-16.0) g/dL Hct 27.5 L (36-46) % MCV 96.0 (80-100) fL MCH 31.9 (26-34) PG MCHC 33.3 (30-36) % RDW 17.3 H (11.6-14.8) % Plt Count 316 (150-400) X10^3/uL Neut % (Auto) 78.2 H (50-75) % Lymph % (Auto) 10.2 L (25-40) % [place] % (Auto) 10.9 (3-14) % Eos % (Auto) 0.4 L (2-4) % Baso % (Auto) 0.3 (0-2) % Neut # (Auto) 5600 (6773-1826) /uL Lymph # (Auto) 700 L (0863-9091) /uL [place] # (Auto) 800 (0-900) /uL Eos # (Auto) 0 (0-450) /uL Baso # (Auto) 0 (0-100) /uL PT 12.9 H (9.4-12.5) SECONDS INR 1.1 (0.9-1.3) APTT 38 H (25.1-36.5) SECONDS Sodium 134 L (137-145) mmol/L Potassium 4.5 (3.4-5.1) mmol/L Chloride 103 (98-107) mmol/L Carbon Dioxide 24 (22-32) mmol/L BUN 20 H (7-17) mg/dL Creatinine 0.72 (0.52-1.04) mg/dL Estimated GFR > 60 (>60) mL/min BUN/Creatinine Ratio 27.8 H (6-22) Glucose 108 H (70-99) mg/dL Calcium 8.5 (8.4-10.2) mg/dL Total Bilirubin 0.4 (0.2-1.3) mg/dL AST 26 (14-36) IU/L ALT 16 (<35) IU/L Alkaline Phosphatase 80 (38-126) U/L Total Protein 7.4 (6.3-8.2) g/dL Albumin 3.8 (3.5-5.0) g/dL Globulin 3.6 (1.7-4.1) g/dL Albumin/Globulin Ratio 1.1 (1.0-2.8) MDM Narrative Medical decision making narrative: 74-year-old female history of known pancreatic cancer we will left hip pain after mechanical ground level fall 4 days ago with persistent pain with weight- bearing and external rotation. X-ray imaging shows changes consistent with suspect nondisplaced fracture patient's exam is consistent with this as well. Labs were added on. Patient defers anything for pain. Show normal white count hemoglobin of 9 platelets of 316. INR is 1.1 PTT is 38, chemistries shows sodium 134 BUN 20 creatinine 0.72 glucose is 108 LFTs are negative. Left hip x-ray, shows suspected nondisplaced left femoral neck fracture with foreshortening overall appears left femoral head. Minimal irregularity seen in the frogleg view. Suspect nondisplaced fracture no dislocations. CT left hip/pelvis shows no free fluid with the pelvis or pelvic adenopathy large volume of stools in the colon, bladder unremarkable status post hysterectomy anterolisthesis on L5 and a 7 measuring 11 mm bilateral multifocal facet arthrosis. Spoke with Dr. Arias, who notes there is a subtle change at the left hip, addendum read is on images 40 and 49 several cortical irregularity in the ventral aspect left femoral neck eventually which could represent a nondisplaced fracture. Spoke with Dr. Escobar, orthopedic surgery @ 0240, S so we admit to medicine. Asked for CT lower extremity for surgical planning. Asks for MRI if radiology does not see definitive fracture. Plan for OR later today. Spoke with radiologist as overnight read did not on patient's left hip. I spoke with the radiologist Dr. Paniagua who notes subtle irregularity could represent a nondisplaced fracture. Spoke with Dr. Sampson, tele hospitalist, accepts for inpatient. Discharge Plan Departure Clinical Impression: Closed fracture of left hip Prescriptions: No Action lisinopril 20 mg tablet 20 mg PO DAILY metoprolol succinate 25 mg tablet extended release 24 hr 25 mg PO DAILY buprenorphine-naloxone 8-2 mg film 8 mg sublingual BID Rx Instructions: takes 8 mg.Buprenorphine & 2 mg. of Naloxone BID. sennosides [senna] 8.6 mg Tablet 17.2 mg PO BEDTIME Qty: 30 0RF acetaminophen 325 mg Tablet 650 mg PO Q6H Qty: 60 0RF ibuprofen 600 mg Tablet 600 mg PO TID Qty: 30 0RF oxycodone 5 mg Tablet 5 mg PO Q3H PRN (Reason: Pain, Moderate (4-6)) Qty: 15 0RF doxycycline monohydrate 100 mg capsule 100 mg PO BID Qty: 14 0RF acetaminophen 325 mg tablet 650 mg PO Q6H PRN (Reason: fever or pain) Qty: 120 0RF sennosides 17.2 mg tablet 17.2 mg PO BEDTIME PRN (Reason: constipation) Qty: 30 0RF Referrals: Miscellaneous,Doctor, MD [Primary Care Provider] -
[2025-03-19] VITALS (15 sets, daily range): BP systolic 95–164; BP diastolic 45–88; PULSE 62–74; RESP 12–20; TEMP 36.2–37.3; O2SAT 93–100; BMI 17.9
--- NOTE | 2025-03-19 | DI.RAD.S_ITS ---
PROCEDURE: [id number] W PEL IF PERFORMED INDICATIONS: Left Hip Fracture Repair TECHNIQUE: Fluoroscopic guidance utilized for a hip surgical fixation COMPARISON: None. FINDINGS: Fluoroscopic images submitted for a hip surgical fixation. Please see operative note for further discussion. IMPRESSION: Fluoroscopic guidance. Dictated by: Jon Fitch M.D. on 03/19/2025 at 18:58 Approved by: Jon Fitch M.D. on 03/19/2025 at 18:59
--- NOTE | 2025-03-19 00:38 | PC.NURSE ---
Pt to imaging via ED stretcher with mechanical engineering technician.
--- NOTE | 2025-03-19 02:44 | DI.CT.S_ITS ---
PROCEDURE: CT HIP LEFT WITHOUT CON INDICATIONS: L hip/femoral neck fx. TECHNIQUE: Noncontrast 3 mm axial sections acquired through the bony pelvis. Additional 3 mm axial sections acquired through the symptomatic hip joint, with coronal and sagittal reformats. COMPARISON: [facility], CR, XR HIP W PEL LT 2V, 03/19/2025, 0:30. FINDINGS: Image quality: Excellent. Bones: Minimally displaced left femoral neck fracture. No dislocation at the hip joint. Remaining osseous structures appear intact. Soft tissues: Prominent colonic stool. No obstruction. IMPRESSION: Minimally displaced left femoral neck fracture. The above findings are concordant with preliminary report. Dictated by: Shantal Joseph M.D. on 03/19/2025 at 9:06 Approved by: Shantal Joseph M.D. on 03/19/2025 at 9:09
--- NOTE | 2025-03-19 03:06 | PC.NURSE ---
Pt to imaging via ED stretcher with isotope technician
[2025-03-19 03:26] LABS: Add Manual Diff / Slide Review NO; Basophils Absolute Auto 0 /uL (0-100); Basophils Percent Auto 0.3 % (0-2); Eosinophils Absolute Auto 0 /uL (0-450); Eosinophils Percent Auto 0.4 % (2-4); Hematocrit 27.5 % (36-46); Hemoglobin 9.1 g/dL (12.0-16.0); Lymphocytes Absolute Auto 700 /uL (1100-4500); Lymphocytes Percent Auto 10.2 % (25-40); Mean Corpuscular HGB Conc 33.3 % (30-36); Mean Corpuscular Hemoglobin 31.9 PG (26-34); Monocytes Absolute Auto 800 /uL (0-900); Monocytes Percent Auto 10.9 % (3-14); Neutrophils Absolute Auto 5600 /uL (1500-7000); Neutrophils Percent Auto 78.2 % (50-75); Platelet Count 316 X10^3/uL (150-400); Red Blood Cell Count 2.86 X10^6/uL (4.0-5.2); Red Cell Distribution Width 17.3 % (11.6-14.8); White Blood Cell Count 7.2 X10^3/uL (4.5-11.0)
[2025-03-19 03:42] LABS: INR 1.1 (0.9-1.3); Prothrombin Time 12.9 SECONDS (9.4-12.5)
[2025-03-19 03:44] LABS: PTT Partial Thromboplastin Tim 38 SECONDS (25.1-36.5)
[2025-03-19 04:03] LABS: Alanine Aminotransferase 16 IU/L (<35); Albumin 3.8 g/dL (3.5-5.0); Albumin Globulin Ratio 1.1 (1.0-2.8); Alkaline Phosphatase 80 U/L (38-126); Aspartate Aminotransferase 26 IU/L (14-36); BUN Creatinine Ratio 27.8 (6-22); Bilirubin Total 0.4 mg/dL (0.2-1.3); Blood Urea Nitrogen 20 mg/dL (7-17); Calcium 8.5 mg/dL (8.4-10.2); Carbon Dioxide 24 mmol/L (22-32); Chloride 103 mmol/L (98-107); Estimated Glomerular Filt Rate > 60 mL/min (>60); Globulin 3.6 g/dL (1.7-4.1); Glucose 108 mg/dL (70-99); HEMOLYSIS < 15 (0-50); Potassium 4.5 mmol/L (3.4-5.1); Sodium 134 mmol/L (137-145); Total Protein 7.4 g/dL (6.3-8.2)
--- NOTE | 2025-03-19 05:14 | P.HP_ITS ---
History of Present Illness History of Present Illness Chief complaint: fell at home injured hip Narrative: 74-year-old female with past medical history of hypertension, constipation presents with a fall and left hip pain. Per the patient's report, about 4 days ago, the patient tripped and fell onto her left hip. The patient did initially able to ambulate but over the last 24 hours the patient has difficulty ambulating due to significant hip pain. The patient denies being on any blood thinner and head injury or loss of consciousness. The patient also recently denies any fever, chills, nausea, vomiting, diarrhea, chest pain, shortness of breath or syncope. In the emergency room, the patient was hemodynamically stable. Labs were relatively benign. X-ray and CT scan of the left hip did show signs of femoral neck fracture. Orthopedic surgery was consulted and plan for ORIF morning. COUNTS INCLUDE 234 BEDS AT THE [facility] Medical History Uterine procidentia Methadone use History of opioid abuse Hypertension Surgical History History of colonoscopy History of vaginal hysterectomy H/O right wrist surgery Family History Father Cancer Mother Heart disease Social History household members: children and friend(s) Smoking Status: Former smoker alcohol intake: former Meds Home Medications and Allergies Home Medications Medication Instructions Recorded Confirmed Type buprenorphine 8 mg-naloxone 2 mg 8 mg sublingual BID 07/12/23 09/11/23 History sublingual film lisinopril 20 mg tablet 20 mg PO DAILY 07/12/23 09/11/23 History metoprolol succinate 25 mg 25 mg PO DAILY 07/12/23 09/11/23 History tablet,extended release 24 hr acetaminophen 325 mg tablet 650 mg (2 x 325 mg) PO Q6H #60 tabs 07/15/23 09/11/23 Rx doxycycline monohydrate 100 mg 100 mg PO BID #14 caps 07/15/23 09/11/23 Rx capsule ibuprofen 600 mg tablet 600 mg PO TID #30 tabs 07/15/23 09/11/23 Rx oxycodone 5 mg tablet 5 mg PO Q3H PRN Pain, Moderate 07/15/23 09/11/23 Rx (4-6) #15 tabs sennosides 8.6 mg tablet (senna) 17.2 mg (2 x 8.6 mg) PO BEDTIME 07/15/23 09/11/23 Rx #30 tabs acetaminophen 325 mg tablet 650 mg (2 x 325 mg) PO Q6H PRN 07/16/23 09/11/23 Rx fever or pain #120 tabs sennosides 17.2 mg tablet 17.2 mg PO BEDTIME PRN 07/16/23 09/11/23 Rx constipation #30 tabs Allergies Allergy/AdvReac Type Severity Reaction Status Date / Time codeine [CODEINE] Allergy Unknown Verified 09/11/23 11:35 Review of Systems Review of Systems ROS: Yes All systems reviewed with the patient and are negative except as otherwise documented Exam Vital Signs (past 8 hours): - 03/18/25 23:38 03/19/25 01:00 03/19/25 03:14 Temperature 98.7 F Pulse Rate 85 68 69 Respiratory Rate 20 16 14 Blood Pressure 139/65 108/54 L 161/71 H Pulse Oximetry 98 98 100 Oxygen Delivery Method Room Air Room Air Room Air Oxygen Delivery Method Room Air Narrative Exam Narrative: Physical Exam: GENERAL: The patient is not in any acute distressed. Awake and alert. HEENT: Nonicteric sclerae, PERRLA, EOMI. Oropharynx clear. Moist mucous membranes. Conjunctivae appear well perfused. HEART: Regular rate and rhythm without murmurs. No lower extremities edema. LUNGS: Clear to auscultation bilaterally. No wheezing, crackles or rhonchi ABDOMEN: Soft, positive bowel sounds, nontender. SKIN: No rash, no excessive bruising, petechiae, or purpura. NEUROLOGIC: AxO x 3. Pain in left LEs which limit movement otherwise Cranial nerves II-XII intact without motor/sensory deficit. Objective Labs 03/19/25 03:05 03/19/25 03:05 Labs: Laboratory Results - last 24 hr 03/19/25 03:05 WBC 7.2 RBC 2.86 L Hgb 9.1 L Hct 27.5 L MCV 96.0 MCH 31.9 MCHC 33.3 RDW 17.3 H Plt Count 316 Neut % (Auto) 78.2 H Lymph % (Auto) 10.2 L [place] % (Auto) 10.9 Eos % (Auto) 0.4 L Baso % (Auto) 0.3 Neut # (Auto) 5600 Lymph # (Auto) 700 L [place] # (Auto) 800 Eos # (Auto) 0 Baso # (Auto) 0 PT 12.9 H INR 1.1 APTT 38 H Sodium 134 L Potassium 4.5 Chloride 103 Carbon Dioxide 24 BUN 20 H Creatinine 0.72 Estimated GFR > 60 BUN/Creatinine Ratio 27.8 H Glucose 108 H Calcium 8.5 Total Bilirubin 0.4 AST 26 ALT 16 Alkaline Phosphatase 80 Total Protein 7.4 Albumin 3.8 Globulin 3.6 Albumin/Globulin Ratio 1.1 Assessment & Plan Assessment & Plan narrative: Mechanical fall with left hip fracture. Admit the patient to medical inpatient. NPO. IV fluid. Pain control. Patient is cleared for OR this morning from a medical standpoint. Appreciate orthopedic surgery consult and management. Patient will need PT OT and rehab placement post surgery. Hypertension. Monitor blood pressure and resume home medication accordingly. Constipation. Resume home bowel regiment. DVT prophylaxis SCDs for now due to plan OR this morning. CODE STATUS full code. Disposition likely rehab in 2 days. - As the provider of this telehealth evaluation, requested by the patient's evaluating physician, I attest that I introduced myself to the patient, provided my credentials and determined that telemedicine via a real-time, 2 way interactive audio and video platform is an appropriate and effective means of providing this service. - I reviewed the patient's chart and had a discussion with the member of the patient's treatment team. - The patient and I mutually agreed with continuation of this evaluation via telemedicine. The patient consented for the telemedicine evaluation. - This virtual encounter was taken place from [place] by Dr. Joe Sampson. The patient was evaluated at [facility]. The encounter was approximately 35 minutes. The nurse was present during the entire time of the encounter and was able to move the stethoscope in appropriate directions. Time-Based Coding :: [TOTAL MINUTES] spent with patient and on the chart (including review of chart, obtaining history, exam, reviewing outside data, placing orders, documenting exam and treatment plan, and counseling patient) on [DATE].
[2025-03-19] MEDS: SODIUM CHLORIDE 0.9% 1,000 ML 75 ML IV (05:31)
--- NOTE | 2025-03-19 07:55 | PT-IP ANOTE ---
Physical Therapy order received and chart reviewed. Pt diagnosed with hip fracture. Surgery planned for today. Will hold Physical Therapy until after surgery. Please write new orders after surgery.
--- NOTE | 2025-03-19 08:34 | OT.IPNOTE ---
Pt to had surgery today discharge OT eval orders.
--- NOTE | 2025-03-19 13:50 | P.CONS_ITS ---
History of Present Illness Consult details Chief complaint: fell at home injured hip Narrative: CHIEF COMPLAINT My hip hurts after I fell. SUBJECTIVE The patient reports experiencing pain in her left hip following a fall four days ago. She describes the pain as persistent, particularly when she moves around. Despite the pain, she has been using a walker and managed to walk to the bathroom. She feels the pain is not as severe as when she first moves but acknowledges it is still present. She expressed concern about her ability to heal due to her ongoing chemotherapy treatment for pancreatic cancer. SOCIAL HISTORY Lives with her daughter PERTINENT PMH - Pancreatic cancer, currently on chemotherapy. PRIOR HIP/KNEE PROCEDURES None. PHYSICAL EXAM Hip Exam: - Examination: The patient is able to move her leg, surprising given the fracture. She walked to the bathroom using a walker. - Gait: The patient uses a walker for ambulation. Her ability to walk indicates the fracture is stable. - Pain testing: The patient reports pain with movement of the left hip. - Alignment: No gross deformity observed. RADIOLOGY Images independently reviewed and interpreted: Left Hip ? AP pelvis and lateral hip views performed 2025-03-18 1. Non-displaced fracture line visualized along the superior aspect of the femoral neck, consistent with impaction type fracture. CT Pelvis 1. Fracture lines visualized in the femoral neck on both the axial and coronal cuts LABS - Hemoglobin: 9.1 - WBC count: 7.2 ASSESSMENT Non-displaced left femoral neck fracture with limited healing potential due to active chemotherapy for pancreatic cancer. PLAN Given the patient?s current chemotherapy treatment, her healing potential is compromised. Therefore, after a comprehensive discussion with the patient and her family, we opted for a less invasive surgical approach with cannulated screw fixation. This decision aims to minimize surgical risks while attempting to stabilize the fracture for potential healing. SURGICAL OPTIONS: 1. Cannulated screw fixation Risks: - Relies on bone healing which may be compromised by chemotherapy. - Potential need for revision surgery if nonunion occurs. Benefits: - Minimally invasive procedure. - Lower immediate surgical risks compared to hemiarthroplasty. 2. Nonoperative Risks: - High risk of fracture progression and displacement. - Possible requirement for urgent surgical intervention if fracture worsens. Benefits: - No immediate surgical risk. - No anesthesia required. 3. Hemiarthroplasty Risks: - Significant surgical intervention with higher risk of complications such as infection - Most likely will need blood transfusion given current anemia Benefits: - Eliminates reliance on bone healing. - Rapid pain relief from fracture site. SURGICAL PLAN: The patient and her family opted for a smaller surgical intervention with cannulated screw fixation, given the lower surgical risks and avoidance of immediate large-scale surgery. The patient understands the potential need for further surgery if the fracture does not heal properly. I told her that the risk of need for conversion to arthroplasty following cannulated screw fixation is 10% and that hers is higher because of the chemotherapy. She understands this and elected cannulated screw fixation after extensive discussion PLAIN LANGUAGE SUMMARY We discussed your fracture and the challenges it presents due to your ongoing chemotherapy. We have decided to proceed with a smaller surgery to place screws in your hip to stabilize it. This approach is less risky in terms of surgery and gives your bone a chance to heal on its own. If it doesn?t heal, we can consider a more extensive surgery later. You were able to walk on it, which is a good sign, and we hope this procedure allows you to continue recovering without needing more invasive surgery. TIME 65 minutes was spent discussing treatment options, reviewing records, and documenting Meds Home Medications and Allergies Home Medications Medication Instructions Recorded Confirmed Type buprenorphine 8 mg-naloxone 2 mg 8 mg sublingual BID 07/12/23 03/19/25 History sublingual film lisinopril 20 mg tablet 20 mg PO DAILY 07/12/23 03/19/25 History bupropion HCl 150 mg 24 hr tablet, 150 mg PO DAILY 03/19/25 03/19/25 History extended release uajljn-[id number]-cisupct 2 cap PO 3XD 03/19/25 03/19/25 History 3,000-9,500-15,000 unit capsule, delayed rel (Creon) loperamide 2 mg capsule mg PO PRN PRN Diarrhea 03/19/25 History ondansetron HCl 8 mg tablet 8 mg PO Q8H PRN nausea/vomiting 03/19/25 03/19/25 History prochlorperazine maleate 10 mg 10 mg PO Q6H PRN Nausea 03/19/25 03/19/25 History tablet Allergies Allergy/AdvReac Type Severity Reaction Status Date / Time codeine [CODEINE] Allergy Unknown Verified 09/11/23 11:35 Exam Vital Signs (past 8 hours): - 03/19/25 08:00 03/19/25 12:46 03/19/25 13:17 Temperature 98.4 F 99.1 F 97.2 F L Pulse Rate 71 69 74 Respiratory Rate 18 16 16 Blood Pressure 117/56 L 121/60 164/88 H Pulse Oximetry 99 98 98 Oxygen Delivery Method Room Air Oxygen Flow Rate 0 Oxygen Delivery Method Room Air Oxygen Flow Rate 0 Objective Labs 03/19/25 03:05 03/19/25 03:05 Labs: Laboratory Results - last 24 hr 03/19/25 03/19/25 03:05 10:15 WBC 7.2 RBC 2.86 L Hgb 9.1 L Hct 27.5 L MCV 96.0 MCH 31.9 MCHC 33.3 RDW 17.3 H Plt Count 316 Neut % (Auto) 78.2 H Lymph % (Auto) 10.2 L [place] % (Auto) 10.9 Eos % (Auto) 0.4 L Baso % (Auto) 0.3 Neut # (Auto) 5600 Lymph # (Auto) 700 L [place] # (Auto) 800 Eos # (Auto) 0 Baso # (Auto) 0 PT 12.9 H INR 1.1 APTT 38 H Sodium 134 L Potassium 4.5 Chloride 103 Carbon Dioxide 24 BUN 20 H Creatinine 0.72 Estimated GFR > 60 BUN/Creatinine Ratio 27.8 H Glucose 108 H Calcium 8.5 Total Bilirubin 0.4 AST 26 ALT 16 Alkaline Phosphatase 80 Total Protein 7.4 Albumin 3.8 Globulin 3.6 Albumin/Globulin Ratio 1.1 Blood Type A Positive Antibody Screen Negative [facility] Medical History Uterine procidentia Methadone use History of opioid abuse Hypertension Surgical History History of colonoscopy History of vaginal hysterectomy H/O right wrist surgery Family History Father Cancer Mother Heart disease Social History household members: children Tobacco & Substance Use Smoking Status: Former smoker alcohol intake: former Assessment & Plan Assessment and plan (1) Nondisplaced fracture of neck of left femur: Status: Acute Time-Based Coding :: [TOTAL MINUTES] spent with patient and on the chart (including review of chart, obtaining history, exam, reviewing outside data, placing orders, documenting exam and treatment plan, and counseling patient) on [DATE]. PROFEE Charge Codes Inpatient or Observation consultation: [id number]
--- NOTE | 2025-03-19 13:59 | PC.NURSE ---
Pt's friend John Chau ([phone]) called requesting pt status/information, unfortunately was not on list of approved people to communicate pt information to. No information given. Will inform pt upon arrival back to floor.
[2025-03-19] MEDS: ACETAMINOPHEN IV 1,000 MG/100 ML VIAL 400 MG IV (14:16)
[2025-03-19] MEDS: ROPIVACAINE/EPI/CLONIDINE/KET 50 ML SYRINGE INJ (14:30)
--- NOTE | 2025-03-19 14:46 | CM.DANOTE ---
Patient is a 74 yo female who was admitted on 03/19/25 for GLF with femoral neck fx. Pt has [employer] and [employer] for insurance and her PCP is in [facility]. EMR was reviewed. Per , pt with hx of JAYCEE remotely and continues on Buprenorphine for opiate tx and admitted for hip fx and Ortho Consult recommending surgical intervention and scheduled for this afternoon around 1430. SW met bedside with pt and explained role and she confirms that she still lives in an apt in [place] with her adult Dtr María who is her informal primary CG. Pt states she has a cane for ambulation but usually just furniture surfs or her Dtr provides CGA. Pt states her PCP is now in [facility] but could not recall her doctor's name. Pt denies any hx of HH or SNF and her preference is to d/c home with Dtr to assist pending progress. Pt states she still has her place on [facility] that her adult Dtr Verito and SO still live there and pt primarily stays in [place]. Pt does not have POA and SW explained the benefits and purpose of POA and pt not interested in formal pwk at this time. Plan: SW to follow closely for PT/OT post hip surgery today to determine SNF vs Home with Dtr assist pending progress. CYNDEE Hinton Discharge Planning/Care Management Advanced directive, confirm from FAMILY Start: 03/19/25 05:31 Freq: Q24H Status: Active Protocol: Document 03/19/25 05:31 MW (Rec: 03/19/25 06:55 MW [id number]) Advance Directive, confirm on record Time 05:30 Person contacted pt Copy received No CM Discharge Assessment Start: 03/19/25 05:13 Freq: Status: Active Protocol: Document 03/19/25 14:43 BF (Rec: 03/19/25 14:46 BF [id number]) Discharge Planning Assessment Assigned Track Patrol CYNDEE Posada DPOA/Assigned Designee Name none, informally two adult Dtrs Advance Directives? No Advance Directives on File No History Provided By Patient,Medical Record Has Patient been admitted in last 30 No days? Prior Living Arrangements Apartment/Condo Household Members children Comment Lives in Apt with Dtr María who is her informal primary CG Type of transporation used prior to Relies on Others admit Independent with ADL's Yes: mostly Is patient alert and oriented? Yes Needs Assistance With Managing Medications,Home Chores / Shopping Caregiver for Another No DME Already Rented / Owned Cane Comment Pending PT/OT post hip surg Barriers to Discharge No Discharge Plan Custodial Facility Community Services Physical Therapy,Occupational Therapy Transportation Arrangement Patient's daughter/María can transport if safe for home Additional Comment Pending PT/OT post surg Whiteboard Updated in Patient Room with Yes name and ext. # of Track Patrol Review Status In Process Please Provide Date Initial DC 03/19/25 Assessment Was Performed Next Review Type Continued Stay Review
--- NOTE | 2025-03-19 15:19 | PM.OP.1 ---
Operative Date/Time/Diagnoses Date of procedure: 03/19/25 Time of procedure: 14:00 Pre-op diagnosis: Nondisplaced left femoral neck fracture Post-op diagnosis: same Procedure & Clinicians Procedure: Percutaneous cannulated screw fixation of nondisplaced left femoral neck fracture Same procedure as scheduled: Yes Surgeon: Gustavo Escobar Click Yes if Unassisted: Yes Anesthesia Type: General and Local Operative Notes Findings: Stable fracture Estimated Blood Loss (mL): 25 Procedure in detail: This 74-year-old female patient presented to the emergency department with left hip pain after having fallen approximately 5 days ago. She had been ambulating on this but had ongoing pain. Radiographs revealed a nondisplaced femoral neck fracture. A CT scan was obtained which further delineated that fracture. She has a past medical history significant for pancreatic cancer in his currently receiving chemotherapy with her last dosage coming approximately a month ago. Given her chemotherapy I initially planned to do a hemiarthroplasty as this would eliminate the potential risk of nonunion or AVN with fracture fixation. On the day of surgery however she was noted to be ambulating and tolerating range of motion to the hip. Both of these caused her discomfort however she was tolerating her discomfort well. I discussed for approximately an hour with her and her daughter the options of cannulated screw fixation, nonoperative treatment, and hemiarthroplasty. I counseled her that nonoperative treatment would have a high risk of eventual fracture displacement even though she had been able to walk on it with discomfort. I counseled her that cannulated screw fixation would be a smaller surgery and have a lower risk of devastating complications such as infection or breakdown of a large wound from an anterior approach. It would still require the fracture to heal however and this could be made more challenging by the presence of her chemotherapy which might inhibit fracture healing. Hemiarthroplasty was also discussed in detail. I counseled her that this would eliminate the fracture site and allow early mobilization but would almost certainly necessitate a blood transfusion as she was anemic upon arrival to the hospital and would be a larger surgery with the risks concordant with the size of the surgery. After extensive discussion of the options she elected to proceed with cannulated screw fixation. She was brought back to the operating room and anesthesia was induced. She was transferred to the [place] table. The surgical site was prepped and draped in the usual sterile fashion. A time-out procedure was performed. Imaging displaying the injured extremity was displayed throughout the case. The operative site was verified with my initials. I began by getting an inferior screw which was located with in the femoral neck and just slightly posterior of center. This extended towards the center of the femoral head. I verified this positioning with fluoroscopy and repositioned until I was satisfied with that position. I then used a parallel pin guide to place 2 more superior screws, 1 anterior and 1 posterior, in the femoral neck. This formed an inverted triangle. I evaluated these pins on AP and lateral views and repositioned them until they were appropriately positioned. I then measured the lengths for the 3 screws and drilled for the 7.0 mm screws. I elected to utilize fully-threaded screws as the fracture was nondisplaced and I was not attempting to achieve additional compression across it beyond the compression that had already occurred from the head being impacted into the femoral neck. I hand tightened the screws and verified appropriate positioning on AP and lateral views. I then copiously irrigated the surgical sites and closed them using a combination of Vicryl sutures and gary. The wound was infiltrated with a dilute mixture of ropivacaine epinephrine clonidine Toradol and vancomycin. I placed a soft dressing. The patient was transferred off of the [place] table and taken to the operating room with no immediate apparent complications. Complications: none Post-operative Plan for aftercare: -weightbearing as tolerated -continue medical care per the primary service -I am hopeful that the patient will eventually be able to discharge home with help from her daughter -follow up in 2 weeks at [facility] for a wound check
[2025-03-19] MEDS: LACTATED RINGERS 1,000 ML 100 ML IV ×2 (16:11→17:15)
--- NOTE | 2025-03-19 16:34 | P.HP_ITS ---
History of Present Illness History of Present Illness Date Patient Seen: 03/19/25 Time Patient Seen: 11:00 Chief complaint: fell at home injured hip Narrative: Per overnight provider, 74-year-old female with past medical history of hypertension, constipation presents with a fall and left hip pain. Per the patient's report, about 4 days ago, the patient tripped and fell onto her left hip. The patient did initially able to ambulate but over the last 24 hours the patient has difficulty ambulating due to significant hip pain. The patient denies being on any blood thinner and head injury or loss of consciousness. The patient also recently denies any fever, chills, nausea, vomiting, diarrhea, chest pain, shortness of breath or syncope. In the emergency room, the patient was hemodynamically stable. Labs were relatively benign. X-ray and CT scan of the left hip did show signs of femoral neck fracture. Orthopedic surgery was consulted and plan for ORIF morning. Interval history: 74 F with PMH HTN, pancreatic insufficiency, chronic nausea, and substance use on suboxone who presented 4 days after a mechanical fall onto her left hip. Imaging showed a left femoral neck fracture. Orthopedics plans for surgical interventions later today. Patient denies recent shortness of breath or chest pain. No palpitations, fever, chills, nausea, or vomiting. her hip pain is controlled at rest. ON LICENSE OF [facility] Medical History Uterine procidentia Methadone use History of opioid abuse Hypertension Surgical History History of colonoscopy History of vaginal hysterectomy H/O right wrist surgery Family History Father Cancer Mother Heart disease Social History household members: children Smoking Status: Former smoker alcohol intake: former Meds Home Medications and Allergies Home Medications Medication Instructions Recorded Confirmed Type buprenorphine 8 mg-naloxone 2 mg 8 mg sublingual BID 07/12/23 03/19/25 History sublingual film lisinopril 20 mg tablet 20 mg PO DAILY 07/12/23 03/19/25 History bupropion HCl 150 mg 24 hr tablet, 150 mg PO DAILY 03/19/25 03/19/25 History extended release yypuql-shrycirf-obndque 2 cap PO 3XD 03/19/25 03/19/25 History 3,000-9,500-15,000 unit capsule, delayed rel (Creon) loperamide 2 mg capsule mg PO PRN PRN Diarrhea 03/19/25 History ondansetron HCl 8 mg tablet 8 mg PO Q8H PRN nausea/vomiting 03/19/25 03/19/25 History prochlorperazine maleate 10 mg 10 mg PO Q6H PRN Nausea 03/19/25 03/19/25 History tablet Allergies Allergy/AdvReac Type Severity Reaction Status Date / Time codeine [CODEINE] Allergy Unknown Verified 09/11/23 11:35 Review of Systems Review of Systems Narrative: All other systems reviewed with the patient and are negative unless otherwise stated. Exam Vital Signs (past 8 hours): - 03/19/25 12:46 03/19/25 13:17 03/19/25 15:15 Temperature 99.1 F 97.2 F L 98.9 F Pulse Rate 69 74 67 Respiratory Rate 16 16 17 Blood Pressure 121/60 164/88 H 155/69 H Pulse Oximetry 98 98 95 Oxygen Delivery Method Room Air Room Air 03/19/25 15:20 03/19/25 15:25 03/19/25 15:32 Temperature 98.7 F 98.8 F 98.8 F Pulse Rate 68 68 66 Respiratory Rate 15 15 16 Blood Pressure 141/64 H 135/65 125/65 Pulse Oximetry 94 94 95 Oxygen Delivery Method Room Air Room Air Room Air 03/19/25 15:45 Temperature 97.4 F L Pulse Rate 72 Respiratory Rate 14 Blood Pressure 121/64 Pulse Oximetry 93 Oxygen Delivery Method Oxygen Delivery Method Room Air Oxygen Flow Rate 0 Narrative Exam Narrative: General:? Patient is well developed and well nourished, in no distress at this time. Lungs:? CTA b/l no wheezing rhonchi or rales. Cardio:?RRR no m/r/g. Abdomen: S NT ND. Extremities: No edema or joint effusions. No cyanosis or clubbing. Neuro:? Alert and orientated x3,? sensation to touch intact in all extremities, no gross deficits noted of cranial nerves. Psych:? Patient has a well-kept appearance, appropriate affect, mental status attitude thought context and judgment are appropriate for age. Objective Labs 03/19/25 03:05 03/19/25 03:05 Labs: Laboratory Results - last 24 hr 03/19/25 03/19/25 03:05 10:15 WBC 7.2 RBC 2.86 L Hgb 9.1 L Hct 27.5 L MCV 96.0 MCH 31.9 MCHC 33.3 RDW 17.3 H Plt Count 316 Neut % (Auto) 78.2 H Lymph % (Auto) 10.2 L [place] % (Auto) 10.9 Eos % (Auto) 0.4 L Baso % (Auto) 0.3 Neut # (Auto) 5600 Lymph # (Auto) 700 L [place] # (Auto) 800 Eos # (Auto) 0 Baso # (Auto) 0 PT 12.9 H INR 1.1 APTT 38 H Sodium 134 L Potassium 4.5 Chloride 103 Carbon Dioxide 24 BUN 20 H Creatinine 0.72 Estimated GFR > 60 BUN/Creatinine Ratio 27.8 H Glucose 108 H Calcium 8.5 Total Bilirubin 0.4 AST 26 ALT 16 Alkaline Phosphatase 80 Total Protein 7.4 Albumin 3.8 Globulin 3.6 Albumin/Globulin Ratio 1.1 Blood Type A Positive Antibody Screen Negative Assessment & Plan Assessment & Plan narrative: 1) Left femoral neck fracture, acute, present on admission, pathologic secondary to osteoporosis - NPO for OR later today, patient is medically optimized prior to procedure, no additional evaluation is required at this time. - Appreciate orthopedic consultation, discussed with surgeon today. - PT / OT after surgery - pain control with tylenol, opiates as needed, restart suboxone as noted below after acute period. 2) HTN - normotensive today, holding lisinopril 20 mg prior to OR today. 3) Opiate use, chronic, on suboxone - restart suboxone after initial treatment with opiate therapies for acute pain. 4) Pancreatic insufficiency - continue home creon and nausea medications. Code: Full, surrogate is patient's daughter DVT: Lovenox daily I have utilized all available immediate resources to obtain, update, or review the patient's current medications. Dispo: patient admitted under inpatient status. Unclear if will be able to discharge home or possible SNF, will have PT/OT evaluations after surgery as tnoed above Additional history obtained via discussions with the ER provider. These discussions contributed to the creation of the above assessment and plan. I have reviewed patient's presenting documentation, labs, and imaging personally. Time-Based Coding :: [TOTAL MINUTES] spent with patient and on the chart (including review of chart, obtaining history, exam, reviewing outside data, placing orders, documenting exam and treatment plan, and counseling patient) on [DATE]. Quality VTE Deep Vein Thrombosis/Pulmonary Embolism Present on Admission: No
[2025-03-19] MEDS: LIPASE/PROTEASE/AMYLASE 5/17/24 CAP PO (17:28)
[2025-03-19] MEDS: CEFAZOLIN VIAL 1 GM in SODIUM CHLORIDE 0.9% 100 ML IV (20:39)
[2025-03-19] MEDS: SENNOSIDES 8.6 MG TABLET 17.2 MG PO (20:41)
[2025-03-19] MEDS: ASPIRIN EC 81 MG TABLET PO (20:41)
[2025-03-19] MEDS: DOCUSATE 100 MG CAPSULE PO (20:41)
[2025-03-19] MEDS: ACETAMINOPHEN 325 MG TABLET 650 MG PO (20:41)
[2025-03-20] VITALS: BP 108/54; PULSE 65; RESP 12; TEMP 36.6; O2SAT 98
[2025-03-20] MEDS: ACETAMINOPHEN 325 MG TABLET 650 MG PO ×3 (04:11→15:22)
[2025-03-20] MEDS: CEFAZOLIN VIAL 1 GM in SODIUM CHLORIDE 0.9% 100 ML IV (04:11)
[2025-03-20 04:20] VITALS: BP 126/58; PULSE 68; RESP 12; TEMP 36.8; O2SAT 99
[2025-03-20 07:02] LABS: Add Manual Diff / Slide Review NO; Basophils Absolute Auto 0 /uL (0-100); Basophils Percent Auto 0.3 % (0-2); Eosinophils Absolute Auto 100 /uL (0-450); Eosinophils Percent Auto 0.9 % (2-4); Hematocrit 24.8 % (36-46); Hemoglobin 8.3 g/dL (12.0-16.0); Lymphocytes Absolute Auto 400 /uL (1100-4500); Mean Corpuscular HGB Conc 33.7 % (30-36); Mean Corpuscular Hemoglobin 32.3 PG (26-34); Mean Corpuscular Volume 95.8 fL (80-100); Monocytes Absolute Auto 500 /uL (0-900); Monocytes Percent Auto 8.8 % (3-14); Neutrophils Absolute Auto 5200 /uL (1500-7000); Platelet Count 270 X10^3/uL (150-400); Red Blood Cell Count 2.58 X10^6/uL (4.0-5.2); Red Cell Distribution Width 17.1 % (11.6-14.8); White Blood Cell Count 6.2 X10^3/uL (4.5-11.0)
[2025-03-20 07:17] LABS: BUN Creatinine Ratio 26.1 (6-22); Blood Urea Nitrogen 18 mg/dL (7-17); Calcium 7.6 mg/dL (8.4-10.2); Carbon Dioxide 24 mmol/L (22-32); Chloride 105 mmol/L (98-107); Estimated Glomerular Filt Rate > 60 mL/min (>60); Glucose 117 mg/dL (70-99); HEMOLYSIS < 15 (0-50); Potassium 4.2 mmol/L (3.4-5.1); Sodium 136 mmol/L (137-145)
[2025-03-20 08:00] VITALS: BP 133/60; PULSE 67; RESP 17; TEMP 36.6; O2SAT 97
[2025-03-20] MEDS: DOCUSATE 100 MG CAPSULE PO ×2 (08:04→21:20)
[2025-03-20] MEDS: ASPIRIN EC 81 MG TABLET PO ×2 (08:04→21:20)
[2025-03-20] MEDS: LIPASE/PROTEASE/AMYLASE 5/17/24 CAP PO ×3 (08:04→17:04)
[2025-03-20] MEDS: buPROPion XL 150 MG TAB PO (08:06)
--- NOTE | 2025-03-20 09:10 | PT.IIE ---
Current Diagnoses Fracture of unspecified part of neck of left femur, initial encounter for closed fracture (03/19/25) Surgery Performed Operation Date: 03/19/25 14:30 Actual Procedures p PERCUTANEOUS PINNING LEFT HIP(Left) - Gustavo Escobar MD Surgical History (Last Reviewed 03/18/25 @ 23:55 by Verito Shah DO) H/O right wrist surgery History of colonoscopy History of vaginal hysterectomy Medical History (Last Reviewed 03/18/25 @ 23:55 by Verito Shah DO) History of opioid abuse Hypertension Methadone use Uterine procidentia Physical Therapy Inpatient Evaluation/Re-Eval M1 PT/OT-IP Prior Functional Status Start: 03/20/25 11:59 Freq: NEEDED Status: Active Protocol: Document 03/20/25 09:10 AB (Rec: 03/20/25 12:18 AB [id number]) Medical Review Prior Functional Status Medical History Reviewed Yes Communication able to make make needs known Mobility and Gait pt stated that she was independent with all mobilities and ambulation without AD Social History Household Members children Living Arrangements Apartment/Condo Number of Floors (Floors) One Floor Number of Stairs To Enter/Railing? no steps to enter Home Environment Standard Height Toilet,Tub/ Shower Home Equipment Four Wheel Walker,Grab Bars In Shower Additional Social History Comment pt lives with daughter who is her caregiver and can provide 24/7 assist M2 PT-IP Current Condition Start: 03/20/25 11:59 Freq: NEEDED Status: Active Protocol: Document 03/20/25 09:10 AB (Rec: 03/20/25 12:18 AB [id number]) Physical Therapy Current Condition Current Condition Evaluation Date 03/20/25 Treatment Diagnosis fall; s/p L hip ORIF; difficulty in walking Onset Date 03/19/25 M3 PT-IP Subjective Start: 03/20/25 11:59 Freq: NEEDED Status: Active Protocol: Document 03/20/25 09:10 AB (Rec: 03/20/25 12:18 AB [id number]) Subjective Physical Therapy Visit Type Type Initial Evaluation Visit Start Time 09:10 Visit Stop Time 09:45 Number of INDUSTRIAL COMMERCIAL GROUNDSKEEPER Visits 0 Physical Therapy Visit Comments Patient Comments agreeable to do PT Therapy Pain Assessment Pain When Pain Assessed At Rest Pain Present Pain Present Pain Reported Location Left Hip Intensity 2 Scale Used Numeric (0 - 10) Pain Management Techniques Apply Cold,Distraction, Modification of Treatment,Re- positioning,Timing of Activity with Medications M4 PT-IP Mobility and Gait Start: 03/20/25 11:59 Freq: NEEDED Status: Active Protocol: Document 03/20/25 09:10 AB (Rec: 03/20/25 12:18 AB [id number]) PT-Bed Mobility Assessment Supine to Sit Supine to Sit Standby Assistance Sit to Supine Sit to Supine Standby Assistance PT-Transfer Assessment Sit to and From Stand Sit to and from Stand Standby Assistance,1 Person Assistance,Use of Upper Extremities Equipment Transfer Assistive Device Gait Belt,Front Wheeled Walker Orthotic/Prosthetic Devices or Brace: No Transfers Transfer Destination Bed,Chair Transfer Technique ambulated Transfer Ability Level of Assist Standby Assistance,Contact Guard Assistance,1 Person Assistance,Use of Upper Extremities Comments Mobility Comments pt sitting on the chair and agreeable to do PT. obtained PLOF and home set up. post-op folder provided and reviewed contents. informed pt regarding DME needs. completed sit to stand SBA and ambulated ~ 15 ft to EOB using fWW SBA to CGA. completed sit<>supine SBA. sit to stand from EOB SBA and ambulated in room ~ 35 ft using fWW SBA to CGA. pt sat back on chair. positioned pt on the chair. call light and table placed within reach. Gait Assessment Gait Gait Assistance Required: Standby Assistance,Contact Guard Assist Distance (Feet) 35 Able to Maintain Weight Bearing Status Yes During Gait Assistive Devices Assistive Device Gait Belt,Front Wheeled Walker Orthotic/Prosthetic Devices or Brace: No Gait Deviations General Gait Pattern Decreased Stride Length, Decreased Feet Clearance Factors Limiting Gait Function Factors Limiting Gait Function Decreased Activity Tolerance, Decreased Strength,Limited Range of Motion,Pain,Poor Balance,Poor Safety Awareness PT-Balance Assessment Sitting Balance and Reactions Static Sitting Balance Ability Normal Dynamic Sitting Balance Ability Good Standing Balance and Reactions Static Standing Balance Ability Good Dynamic Standing Balance Ability Fair Device Used FWW M5 PT-IP Objective Assessments Start: 03/20/25 11:59 Freq: NEEDED Status: Active Protocol: Document 03/20/25 09:10 AB (Rec: 03/20/25 12:18 AB [id number]) Orientation Orientation/Cognition Level of Alertness Alert Orientation Name,Place,Situation Language Function Ability No Deficits Noted Safety Awareness Understands Safety Issues Memory Description No Deficits Noted Gross Range of Motion Lower Extremity ROM Assessment Within Functional Limits Strength Lower Extremity Strength Assessment Left Impaired Hip 3-/5 Knee 4-/5 Coordination Assessment Gross Coordination Gross Coordination WNL Muscle Tone Muscle Tone WNL Yes M6 PT-IP Treatment Start: 03/20/25 11:59 Freq: NEEDED Status: Active Protocol: Document 03/20/25 09:10 AB (Rec: 03/20/25 12:18 AB [id number]) Physical Therapy Treatment Education Education Provided Precautions,Weight Bearing Status,Post-Op Packet,Safety M7 PT-IP Assessment and Plan Start: 03/20/25 11:59 Freq: NEEDED Status: Active Protocol: Document 03/20/25 09:10 AB (Rec: 03/20/25 12:18 AB [id number]) PT Summary Assessment and Plan Potential Rehabilitation Potential Good Status of Condition at Evaluation Stable Summary Impairments Pain,ROM,Strength,Balance, Coordination,Sensation,Tone, Cognition,Bed Mobility, Transfers,Gait,Activity Tolerance Assessment Summary pt is a 74 y/o F who had a fall and sustain a L femoral neck fx. pt underwent L hip ORIF POD 1. pt is WBAT on LLE. pt requiring SBA to CGA with ambulation using FWW. pt plans to go home and her daughter will assist her at home. pt may go home when medically stable. Goals Bed Mobility Goal Independent Transfer Goal Independent,Front Wheeled Walker Gait Goal Independent,Front Wheel Walker Gait Distance 150 Other Goals improve transfers and ambulation using 4WW 200 ft mod I Days to Meet Goals 10 Frequency of Treatment Frequency Of Treatment Twice a Day Treatment Plan Physical Therapy Treatment Plan Bed Mobility Training,Transfer Training,Gait Training, Therapeutic Exercise,Balance Retraining,Post Op Education, Discharge Planning,Hot or Cold Pack,Neuromuscular Re-ed, Coordination Retraining,Manual Therapy Weight Bearing Status Weight Bearing Status Weight Bear as Tolerated Allowed Weight Bearing Amount (enter % LLE WBAT or #) (%) Recommendations To Nursing Amount of Assist Needed 1 Person Assist Discharge Recommendations PT Discharge Recommendations Home with Assistance, Outpatient PT Equipment Needed for Home Before FWW Discharge Transportation Needs at Discharge Private Vehicle - PT assist 1
--- NOTE | 2025-03-20 11:30 | CM.DPNOTE ---
DCP Continued: Reviewed EMR and team rounds for pt?s medical status. Per MD, anticipating pt to discharge home with family support on 03/21. Per PT, recommending pt to discharge home with daughter who lives with pt and is primary caregiver. Pt initially declining home health referral, CM team following for further recommendations. Plan: Anticipating dc home with daughter on 03/21 or when cleared. CM Team will continue to follow for coordination of discharge plans. LINO WhiteSW
[2025-03-20 12:00] VITALS: BP 124/64; PULSE 74; RESP 16; O2SAT 97
--- NOTE | 2025-03-20 12:12 | PM.PNPO.1 ---
Subjective Subjective Interval history: PATIENT SUMMARY The patient is a postoperative day one following percutaneous screw fixation for a femoral neck fracture. PAST SURGICAL HISTORY - Percutaneous screw fixation for left femoral neck fracture, performed yesterday. No complications reported. SUBJECTIVE The patient reports that her pain is about the same as it was before surgery. She has been able to walk to the bathroom and did therapy with the staff. Discussions included the importance of continuing her cancer treatment, with emphasis that her cancer care is prioritized over her hip condition. She is aware and agrees. PHYSICAL EXAM Constitutional: - Patient is meditating appropriately and sitting in a chair. - No discernible sensory motor deficits observed. Musculoskeletal: - Left lower extremity examination shows a dressing in place with mild strikethrough (Aquacel dressing). - Flexion and extension intact in toes. - Palpable posterior tibial pulse. ASSESSMENT - Differential diagnosis includes healing femoral neck fracture and potential future surgical intervention if healing does not progress as expected. PLAN - Obtain follow-up x-rays in clinic in two weeks and again in six weeks. - Continue with physical therapy. - Coordinate with oncology for continuation of chemotherapy as planned. DISPOSITION Planned discharge to home, timing TBD. Exam Vital Signs (past 8 hours): - 03/20/25 04:20 03/20/25 08:00 Temperature 98.3 F 97.8 F Pulse Rate 68 67 Respiratory Rate 12 17 Blood Pressure 126/58 L 133/60 Pulse Oximetry 99 97 Oxygen Flow Rate 0 0 Oxygen Delivery Method Room Air Oxygen Flow Rate 0 Objective Labs 03/20/25 06:45 03/20/25 06:45 Labs: Laboratory Results - last 24 hr 03/19/25 03/20/25 10:15 06:45 WBC 6.2 RBC 2.58 L Hgb 8.3 L Hct 24.8 L MCV 95.8 MCH 32.3 MCHC 33.7 RDW 17.1 H Plt Count 270 Neut % (Auto) 84.0 H Lymph % (Auto) 6.0 L [place] % (Auto) 8.8 Eos % (Auto) 0.9 L Baso % (Auto) 0.3 Neut # (Auto) 5200 Lymph # (Auto) 400 L [place] # (Auto) 500 Eos # (Auto) 100 Baso # (Auto) 0 Sodium 136 L Potassium 4.2 Chloride 105 Carbon Dioxide 24 BUN 18 H Creatinine 0.69 Estimated GFR > 60 BUN/Creatinine Ratio 26.1 H Glucose 117 H Calcium 7.6 L Blood Type A Positive Antibody Screen Negative PFSH Medical History Uterine procidentia Methadone use History of opioid abuse Hypertension Surgical History History of colonoscopy History of vaginal hysterectomy H/O right wrist surgery Family History Father Cancer Mother Heart disease Social History household members: children Smoking Status: Former smoker alcohol intake: former Assessment & Plan Post-op Postoperative Procedures: Procedures Operation Date: 03/19/25 14:30 Actual Procedure Side Surgeon p PERCUTANEOUS PINNING LEFT HIP Left Gustavo Escobar MD Quality VTE Deep Vein Thrombosis/Pulmonary Embolism Present on Admission: No
--- NOTE | 2025-03-20 13:05 | OT.IP.EVAL ---
Current Diagnoses Fracture of unspecified part of neck of left femur, initial encounter for closed fracture (03/19/25) Surgery Performed Operation Date: 03/19/25 14:30 Actual Procedures p PERCUTANEOUS PINNING LEFT HIP(Left) - Gustavo Escobar MD Past Medical History (Last Reviewed 03/18/25 @ 23:55 by Verito Shah DO) History of opioid abuse Hypertension Methadone use Uterine procidentia Surgical History (Last Reviewed 03/18/25 @ 23:55 by Verito Shah DO) H/O right wrist surgery History of colonoscopy History of vaginal hysterectomy Occupational Therapy Inpatient Evaluation/Re-Eval M1 PT/OT-IP Prior Functional Status Start: 03/20/25 11:59 Freq: NEEDED Status: Active Protocol: Document 03/20/25 13:21 [facility] (Rec: 03/20/25 13:33 [facility] Desktop) Medical Review Prior Functional Status Medical History Reviewed Yes Communication able to make make needs known Mobility and Gait pt stated that she was independent with all mobilities and ambulation without AD Activities of Daily Living and IADL's Pt's daughter assists for IADL needs. Social History Household Members children Living Arrangements Apartment/Condo Number of Floors (Floors) One Floor Number of Stairs To Enter/Railing? no steps to enter Home Environment Standard Height Toilet,Tub/ Shower Home Equipment Four Wheel Walker,Grab Bars In Shower Additional Social History Comment pt lives with daughter who is her caregiver and can provide 24/7 assist M2 OT-IP Current Condition Start: 03/20/25 13:21 Freq: Status: Active Protocol: Document 03/20/25 13:21 [facility] (Rec: 03/20/25 13:33 [facility] Desktop) Occupational Therapy Current Condition Current Condition Evaluation Date 03/20/25 Treatment Diagnosis Nondisplaced fx of neck of left hip, S/P ORIF left hip Diagnosis Onset Date 03/19/25 Weight Bearing Status Weight Bearing Status Weight Bear as Tolerated M3 OT- IP Subjective and Pain Start: 03/20/25 13:21 Freq: Status: Active Protocol: Document 03/20/25 13:21 [facility] (Rec: 03/20/25 13:33 [facility] Desktop) OT- Subjective Occupational Therapy Visit Type Type Initial Evaluation Visit Start Time 12:35 Visit Stop Time 13:05 Occupational Therapy Visit Comments Patient Comments Pt agreed to get up to travis the bathroom. Patient/Caregiver Goals TO go home. OT Pain Assessment Pain When Pain Assessed At Rest Pain Present Pain Present Pain Reported Location Left Hip Intensity 2 Scale Used Numeric (0 - 10) M4 OT- IP ADL's Start: 03/20/25 13:21 Freq: Status: Active Protocol: Document 03/20/25 13:21 [facility] (Rec: 03/20/25 13:33 [facility] Desktop) OT [id number] Comments OT Self-Feeding Comments Not at meal time. OT ADL-Grooming General Evaluation Grooming Ability Standby Assistance Comments OT Grooming Comments Pt able to do while standing with FWW in front of the snk. OT ADL-Oral Care General Eval Oral Care Ability Independent OT ADL-Dressing General Eval Upper Body Dressing Ability Minimal Assistance Lower Body Dressing Ability Maximum Assistance Comments OT Dressing Comments JOSE to help change her gown out. MAXA for socks and able to show pt use or supervisor vat house and sock aid. OT ADL-Toileting General Evaluation Toileting Ability Standby Assistance Comments OT Toileting Comments Pt able to do all toileting hygiene needs with SBA. Pt aware best to wear pads at night and that she would benefit from getting a BSC. OT ADL-Bathing Comments OT Bathing Comments Pt will benefit from a tub bench and HHSP. M5 OT- IP IADL's Start: 03/20/25 13:21 Freq: Status: Active Protocol: Document 03/20/25 13:21 [facility] (Rec: 03/20/25 13:33 [facility] Desktop) OT-Instrumental Activities of Daily Living Home Safety Awareness Awareness of Need for Assistance at Home Good Awareness Medication Management Medication Management Caregiver Administers Money Management Money Management Caregiver Provides Assistance Meal Preparation Meal Preparation Caregiver Provides Assist Charge Rn Charge Rn Caregiver Provides Assist M6 OT- IP Functional Cognition Start: 03/20/25 13:21 Freq: Status: Active Protocol: Document 03/20/25 13:21 [facility] (Rec: 03/20/25 13:33 [facility] Desktop) Cognitive Factors Limiting Selfcare Function Cognitive Ability Level of Alertness Alert Patient Orientation Name,Place,Situation Attention Span Ability Capable of Focused Attention, Capable of Sustained Attention Ability to Follow Commands Able to Follow One Step Commands Memory Description Short Term Impaired Cognitive Comments Cognitive Assessment Comments Pt able to follow commands for ADL and mobility needs. Pt needing vc to use her new phone and how to access her phone list so able to call her daughter to get equipment needs. Pt requesting to have a notary, able to pass along her request to the front line supervisor nursing staff. OT- Vision and Hearing OT- Vision Assessment Visual Acuity Glasses All The Time Visual Attentiveness WFL Occular Pursuits WFL M7 OT- IP Mobility and Balance Start: 03/20/25 13:21 Freq: Status: Active Protocol: Document 03/20/25 13:21 [facility] (Rec: 03/20/25 13:33 [facility] Desktop) OT- Bed Mobility Assessment Sit to Supine Sit to Supine Assist Contact Guard Assistance OT-Transfer Assessment Sit to and From Stand Sit to and from Stand Standby Assistance Transfers Transfer Ability Standby Assistance Technique Transfer Destination Bed,Chair,Toilet Transfer Technique Stand Step Pivot Devices Transfer Assistive Devices Gait Belt,Front Wheeled Walker Comments Mobility Comments SBA for transfers with FWW and CGA to assist to help get her LLE into the bed. Pt will benefit from getting a FWW. OT- Balance Assessment Sitting Balance and Reactions Static Sitting Balance Ability Normal Dynamic Sitting Balance Ability Good Standing Balance and Reactions Static Standing Balance Ability Good Dynamic Standing Balance Ability Fair M8 OT- IP Objective Assessments Start: 03/20/25 13:21 Freq: Status: Active Protocol: Document 03/20/25 13:21 [facility] (Rec: 03/20/25 13:33 [facility] Desktop) OT Gross Range of Motion Upper Extremity Range of Motion Assessment Within Functional Limits OT Strength Upper Extremity Strength Assessment Within Functional Limits OT- Coordination Assessment Comments Coordination Comments Arthritic changes in her hands . M9 OT- IP Assessment and Plan Start: 03/20/25 13:21 Freq: Status: Active Protocol: Document 03/20/25 13:21 [facility] (Rec: 03/20/25 13:33 [facility] Desktop) OT Summary Assessment and Plan Potential Rehabilitation Potential Excellent Analytic Complexity at Evaluation Moderate Summary OT Impairments Pain,Balance,Functional Mobility,Dressing,Toileting, Bathing,Toilet Transfers, Shower Transfers Progress Towards Goals Progressing Toward Goals Assessment Summary Pt doing well overall with mobility and will need assist for ADL needs at home. Pt has a supportive daughter that stay with her to be able to assist her. Pt will benefit from equipment needs and list made out for the pt. Pt to go home with assist when medically stable. Goals Grooming Goal Independent Dressing Goal Independent Toileting Goal Independent Bathing Goal Standby Assistance Toilet Transfer Goal Independent Shower Transfer Goal Standby Assistance Days to Meet Goals 5 Frequency of Treatment Other frequency 5x/week Treatment Plan OT Treatment Plan ADL Training,Functional Mobility,Patient/Family Education,Discharge Planning Discharge Recommendations OT Discharge Recommendations Home with Assistance Other Discharge Recommendations tub bench, fww, supervisor vat house, sock aid, hhsp, fww, BSC Transportation Needs at Discharge Private Vehicle
--- NOTE | 2025-03-20 14:10 | PT.IPTN ---
Current Diagnoses Fracture of unspecified part of neck of left femur, initial encounter for closed fracture (03/19/25) Surgery Performed Operation Date: 03/19/25 14:30 Actual Procedures p PERCUTANEOUS PINNING LEFT HIP(Left) - Gustavo Escobar MD Physical Therapy Treatment Note M2 PT-IP Current Condition Start: 03/20/25 11:59 Freq: NEEDED Status: Active Protocol: Document 03/20/25 09:10 AB (Rec: 03/20/25 12:18 AB [id number]) Physical Therapy Current Condition Current Condition Evaluation Date 03/20/25 Treatment Diagnosis fall; s/p L hip ORIF; difficulty in walking Onset Date 03/19/25 M3 PT-IP Subjective Start: 03/20/25 11:59 Freq: NEEDED Status: Active Protocol: Document 03/20/25 14:10 AB (Rec: 03/20/25 14:56 AB [id number]) Subjective Physical Therapy Visit Type Type Treatment Note Visit Start Time 14:10 Visit Stop Time 14:35 Number of CATERING SALES MANAGER Visits 0 Physical Therapy Visit Comments Patient Comments agreeable to do PT Therapy Pain Assessment Pain When Pain Assessed At Rest Pain Present Pain Present Pain Reported Location Left Hip Scale Used pain scale not stated Pain Management Techniques Apply Cold,Distraction, Modification of Treatment,Re- positioning M4 PT-IP Mobility and Gait Start: 03/20/25 11:59 Freq: NEEDED Status: Active Protocol: Document 03/20/25 14:10 AB (Rec: 03/20/25 14:56 AB [id number]) PT-Bed Mobility Assessment Supine to Sit Supine to Sit Independent Sit to Supine Sit to Supine Standby Assistance PT-Transfer Assessment Sit to and From Stand Sit to and from Stand Standby Assistance,1 Person Assistance,Use of Upper Extremities Equipment Transfer Assistive Device Gait Belt,Front Wheeled Walker Orthotic/Prosthetic Devices or Brace: No Comments Mobility Comments pt in bed and agreed to do PT. supine to sit SBA. sit to stand SBA and ambulated in room using FWW ~ 60 ft SBA to CGA. pt requested to go back in bed. sit to supine SBA. positioned pt in bed. call light and table placed within reach. Gait Assessment Gait Gait Assistance Required: Standby Assistance,Contact Guard Assist Distance (Feet) 60 Able to Maintain Weight Bearing Status Yes During Gait Assistive Devices Assistive Device Gait Belt,Front Wheeled Walker Orthotic/Prosthetic Devices or Brace: No Gait Deviations General Gait Pattern Decreased Stride Length, Decreased Feet Clearance,Step- to Gait Factors Limiting Gait Function Factors Limiting Gait Function Decreased Activity Tolerance, Decreased Strength,Limited Range of Motion,Pain,Poor Balance M5 PT-IP Objective Assessments Start: 03/20/25 11:59 Freq: NEEDED Status: Active Protocol: Document 03/20/25 09:10 AB (Rec: 03/20/25 12:18 AB [id number]) Orientation Orientation/Cognition Level of Alertness Alert Orientation Name,Place,Situation Language Function Ability No Deficits Noted Safety Awareness Understands Safety Issues Memory Description No Deficits Noted Gross Range of Motion Lower Extremity ROM Assessment Within Functional Limits Strength Lower Extremity Strength Assessment Left Impaired Hip 3-/5 Knee 4-/5 Coordination Assessment Gross Coordination Gross Coordination WNL Muscle Tone Muscle Tone WNL Yes M6 PT-IP Treatment Start: 03/20/25 11:59 Freq: NEEDED Status: Active Protocol: Document 03/20/25 14:10 AB (Rec: 03/20/25 14:56 AB [id number]) Physical Therapy Treatment Education Education Provided Safety M7 PT-IP Assessment and Plan Start: 03/20/25 11:59 Freq: NEEDED Status: Active Protocol: Document 03/20/25 14:10 AB (Rec: 03/20/25 14:56 AB [id number]) PT Summary Assessment and Plan Potential Rehabilitation Potential Good Summary Impairments Pain,ROM,Strength,Balance, Coordination,Sensation,Tone, Cognition,Bed Mobility, Transfers,Gait,Activity Tolerance Progress Towards Goals Progressing Toward Goals Assessment Summary pt progressing well with mobility and plans to go home with her daughter to assist her. pt will need outpt PT. Goals Bed Mobility Goal Independent Transfer Goal Independent,Front Wheeled Walker Gait Goal Independent,Front Wheel Walker Gait Distance 150 Other Goals improve transfers and ambulation using 4WW 200 ft mod I Days to Meet Goals 10 Frequency of Treatment Frequency Of Treatment Twice a Day Treatment Plan Physical Therapy Treatment Plan Bed Mobility Training,Transfer Training,Gait Training, Therapeutic Exercise,Balance Retraining,Post Op Education, Discharge Planning,Hot or Cold Pack,Neuromuscular Re-ed, Coordination Retraining,Manual Therapy Weight Bearing Status Weight Bearing Status Weight Bear as Tolerated Allowed Weight Bearing Amount (enter % LLE WBAT or #) (%) Recommendations To Nursing Amount of Assist Needed 1 Person Assist Discharge Recommendations PT Discharge Recommendations Home with Assistance, Outpatient PT Equipment Needed for Home Before FWW Discharge Transportation Needs at Discharge Private Vehicle - PT assist 1
--- NOTE | 2025-03-20 17:01 | P.PN_ITS ---
Subjective Subjective Interval history: 74 F admitted with L femoral neck fracture. She is doing well today, minimal pain requesting to restart home suboxone. She was able to get up a little with therapy, overall she relates her pain was not that bad today. Denies chest pain, shortness of breath, or LE edema. Exam Vital Signs (past 8 hours): - 03/20/25 12:00 Pulse Rate 74 Respiratory Rate 16 Blood Pressure 124/64 Pulse Oximetry 97 Oxygen Flow Rate 0 Oxygen Delivery Method Room Air Oxygen Flow Rate 0 Narrative Exam Narrative: General:? Patient is well developed and well nourished, in no distress at this time. Lungs:? CTA b/l no wheezing rhonchi or rales. Cardio:?RRR no m/r/g. Abdomen: S NT ND. Extremities: No edema or joint effusions. No cyanosis or clubbing. Neuro:? Alert and orientated x3,? sensation to touch intact in all extremities, no gross deficits noted of cranial nerves. Psych:? Patient has a well-kept appearance, appropriate affect, mental status attitude thought context and judgment are appropriate for age. Objective Labs 03/20/25 06:45 03/20/25 06:45 Labs: Laboratory Results - last 24 hr 03/20/25 06:45 WBC 6.2 RBC 2.58 L Hgb 8.3 L Hct 24.8 L MCV 95.8 MCH 32.3 MCHC 33.7 RDW 17.1 H Plt Count 270 Neut % (Auto) 84.0 H Lymph % (Auto) 6.0 L [place] % (Auto) 8.8 Eos % (Auto) 0.9 L Baso % (Auto) 0.3 Neut # (Auto) 5200 Lymph # (Auto) 400 L [place] # (Auto) 500 Eos # (Auto) 100 Baso # (Auto) 0 Sodium 136 L Potassium 4.2 Chloride 105 Carbon Dioxide 24 BUN 18 H Creatinine 0.69 Estimated GFR > 60 BUN/Creatinine Ratio 26.1 H Glucose 117 H Calcium 7.6 L PFSH Medical History Uterine procidentia Methadone use History of opioid abuse Hypertension Surgical History History of colonoscopy History of vaginal hysterectomy H/O right wrist surgery Family History Father Cancer Mother Heart disease Social History household members: children Smoking Status: Former smoker alcohol intake: former Assessment & Plan Assessment & Plan narrative: 1) Left femoral neck fracture, acute, present on admission, pathologic secondary to osteoporosis - Appreciate orthopedic consultation and surgical management. - Continue PT/OT. - pain control with tylenol. Has not needed many opiates today so will restart home suboxone. 2) HTN - normotensive today, will continue to hold home lisinpril for now unless hypertensive given slight anemia. 3) Opiate use, chronic, on suboxone - restarted suboxone today as noted above. 4) Pancreatic insufficiency - continue home creon and nausea medications. 5) Mild acute blood loss anemia secondary to surgical procedure - Hg to 8.3 today. No symptoms of severe anemia at this time. Will have repeat CBC tomorrow. Code: Full, surrogate is patient's daughter DVT: ASA BID I have utilized all available immediate resources to obtain, update, or review the patient's current medications. Dispo: patient admitted under inpatient status. Like discharge home, possibly as soon as tomorrow if continues to progress well with therapies. Time-Based Coding :: [TOTAL MINUTES] spent with patient and on the chart (including review of chart, obtaining history, exam, reviewing outside data, placing orders, documenting exam and treatment plan, and counseling patient) on [DATE]. Quality VTE Deep Vein Thrombosis/Pulmonary Embolism Present on Admission: No
[2025-03-20 20:00] VITALS: BP 130/50; PULSE 80; RESP 19; TEMP 36.9; O2SAT 98
[2025-03-20] MEDS: SENNOSIDES 8.6 MG TABLET 17.2 MG PO (21:20)
[2025-03-20] MEDS: BUPRENORPHINE/NALOXONE 8MG/2MG 1 TAB SL (21:20)
[2025-03-21 02:00] VITALS: BP 132/74; PULSE 84; RESP 19; TEMP 37; O2SAT 96
[2025-03-21] MEDS: ACETAMINOPHEN 325 MG TABLET 650 MG PO ×2 (03:09→09:26)
--- NOTE | 2025-03-21 09:00 | PT.IPTN ---
Current Diagnoses Fracture of unspecified part of neck of left femur, initial encounter for closed fracture (03/19/25) Surgery Performed Operation Date: 03/19/25 14:30 Actual Procedures p PERCUTANEOUS PINNING LEFT HIP(Left) - Gustavo Escobar MD Physical Therapy Treatment Note M2 PT-IP Current Condition Start: 03/20/25 11:59 Freq: NEEDED Status: Active Protocol: Document 03/20/25 09:10 AB (Rec: 03/20/25 12:18 AB [id number]) Physical Therapy Current Condition Current Condition Evaluation Date 03/20/25 Treatment Diagnosis fall; s/p L hip ORIF; difficulty in walking Onset Date 03/19/25 M3 PT-IP Subjective Start: 03/20/25 11:59 Freq: NEEDED Status: Active Protocol: Document 03/21/25 09:00 AB (Rec: 03/21/25 11:52 AB Desktop) Subjective Physical Therapy Visit Type Type Treatment Note Visit Start Time 09:00 Visit Stop Time 09:20 Number of CHANGE HOUSE ATTENDANT Visits 0 Physical Therapy Visit Comments Patient Comments agreed to do PT Therapy Pain Assessment Pain When Pain Assessed At Rest Location Left Hip Intensity 2 Scale Used Numeric (0 - 10) Pain Management Techniques Apply Cold,Distraction, Modification of Treatment,Re- positioning,Timing of Activity with Medications M4 PT-IP Mobility and Gait Start: 03/20/25 11:59 Freq: NEEDED Status: Active Protocol: Document 03/21/25 09:00 AB (Rec: 03/21/25 11:52 AB Desktop) PT-Transfer Assessment Sit to and From Stand Sit to and from Stand Contact Guard Assistance,1 Person Assistance,Use of Upper Extremities Equipment Transfer Assistive Device Gait Belt,Front Wheeled Walker Orthotic/Prosthetic Devices or Brace: No Comments Mobility Comments pt sitting on the chair and agreed to do PT. completed sit to stand CGA and ambulated in the hallway using fWW ~ 100 ft SBA to CGA. presents with slow paced antalgic gait. pt sat back on chair. positioned pt on the chair. call light and table placed within reach. pt confirmed that her daughter was able to get FWW and other DMEs for her. daughter not present during PT session. educated pt on how to use safety belt and pt will relay to daughter. Gait Assessment Gait Gait Assistance Required: Standby Assistance,Contact Guard Assist Distance (Feet) 100 Able to Maintain Weight Bearing Status Yes During Gait Assistive Devices Assistive Device Gait Belt,Front Wheeled Walker Orthotic/Prosthetic Devices or Brace: No Gait Deviations General Gait Pattern Decreased Stride Length, Decreased Feet Clearance Factors Limiting Gait Function Factors Limiting Gait Function Decreased Activity Tolerance, Decreased Strength,Limited Range of Motion,Pain,Poor Balance,Poor Safety Awareness M5 PT-IP Objective Assessments Start: 03/20/25 11:59 Freq: NEEDED Status: Active Protocol: Document 03/20/25 09:10 AB (Rec: 03/20/25 12:18 AB [id number]) Orientation Orientation/Cognition Level of Alertness Alert Orientation Name,Place,Situation Language Function Ability No Deficits Noted Safety Awareness Understands Safety Issues Memory Description No Deficits Noted Gross Range of Motion Lower Extremity ROM Assessment Within Functional Limits Strength Lower Extremity Strength Assessment Left Impaired Hip 3-/5 Knee 4-/5 Coordination Assessment Gross Coordination Gross Coordination WNL Muscle Tone Muscle Tone WNL Yes M6 PT-IP Treatment Start: 03/20/25 11:59 Freq: NEEDED Status: Active Protocol: Document 03/21/25 09:00 AB (Rec: 03/21/25 11:52 AB Desktop) Physical Therapy Treatment Education Education Provided Safety M7 PT-IP Assessment and Plan Start: 03/20/25 11:59 Freq: NEEDED Status: Active Protocol: Document 03/21/25 09:00 AB (Rec: 03/21/25 11:52 AB Desktop) PT Summary Assessment and Plan Potential Rehabilitation Potential Good Summary Impairments Pain,ROM,Strength,Balance,Bed Mobility,Transfers,Gait, Activity Tolerance Progress Towards Goals Progressing Toward Goals Assessment Summary pt improving well with mobility and able to walk ~ 100 ft using FWW SBA to CGA. pt plans to go home and daughter to assist her at home . pt will benefit from outpt PT. Goals Bed Mobility Goal Independent Transfer Goal Independent,Front Wheeled Walker Gait Goal Independent,Front Wheel Walker Gait Distance 150 Other Goals improve transfers and ambulation using 4WW 200 ft mod I Days to Meet Goals 10 Frequency of Treatment Frequency Of Treatment Twice a Day Treatment Plan Physical Therapy Treatment Plan Bed Mobility Training,Transfer Training,Gait Training, Therapeutic Exercise,Balance Retraining,Post Op Education, Discharge Planning,Hot or Cold Pack,Neuromuscular Re-ed, Coordination Retraining,Manual Therapy Weight Bearing Status Weight Bearing Status Weight Bear as Tolerated Allowed Weight Bearing Amount (enter % LLE WBAT or #) (%) Recommendations To Nursing Amount of Assist Needed 1 Person Assist Discharge Recommendations PT Discharge Recommendations Home with Assistance, Outpatient PT Transportation Needs at Discharge Private Vehicle - PT assist 1
[2025-03-21] MEDS: BUPRENORPHINE/NALOXONE 8MG/2MG 1 TAB SL (09:26)
[2025-03-21] MEDS: ASPIRIN EC 81 MG TABLET PO (09:27)
[2025-03-21] MEDS: buPROPion XL 150 MG TAB PO (09:27)
[2025-03-21] MEDS: LIPASE/PROTEASE/AMYLASE 5/17/24 CAP PO ×2 (09:33→11:24)
[2025-03-21 12:00] VITALS: BP 114/60; PULSE 67; RESP 16; TEMP 37.2; O2SAT 96
--- NOTE | 2025-03-21 12:06 | P.DS_ITS ---
History of Present Illness History of Present Illness Chief complaint: fell at home injured hip Narrative: Per H&P: 74-year-old female with past medical history of hypertension, constipation presents with a fall and left hip pain. Per the patient's report, about 4 days ago, the patient tripped and fell onto her left hip. The patient did initially able to ambulate but over the last 24 hours the patient has difficulty ambulating due to significant hip pain. The patient denies being on any blood thinner and head injury or loss of consciousness. The patient also recently denies any fever, chills, nausea, vomiting, diarrhea, chest pain, shortness of breath or syncope. In the emergency room, the patient was hemodynamically stable. Labs were relatively benign. X-ray and CT scan of the left hip did show signs of femoral neck fracture. Orthopedic surgery was consulted and plan for ORIF morning. Interval history: 74 F with PMH HTN, pancreatic insufficiency, chronic nausea, and substance use on suboxone who presented 4 days after a mechanical fall onto her left hip. Imaging showed a left femoral neck fracture. Orthopedics plans for surgical interventions later today. Patient denies recent shortness of breath or chest pain. No palpitations, fever, chills, nausea, or vomiting. her hip pain is controlled at rest. Discharge Providers Provider Date of admission: 03/19/25 05:11 Discharge Date: 03/21/25 Primary care physician: Doctor Carlos MD Consults: 03/19/25 02:53 Consult to Orthopedic Surgery Stat Comment: Consulting Provider: Gustavo Escobar Reason for consultation: L hip fracture Has provider been notified: Yes 03/19/25 04:29 Consult to Occupational Therapy Evaluate & Treat Comment: Physician Instructions: Evaluate and treat Consult to Physical Therapy Evaluate & Treat Comment: Physician Instructions: Evaluate and Treat 03/19/25 15:48 Consult to Discharge Planning Routine Comment: Consult to Occupational Therapy Evaluate & Treat Comment: Physician Instructions: Evaluate and treat Consult to Physical Therapy Evaluate & Treat Comment: Physician Instructions: Evaluate and Treat Discharge provider: Carolina Núñez MD Summary Hospital Course Discharge Diagnosis: 1. Left femoral neck fracture, pathologic, secondary to osteoporosis, now post- operative day #2 from pinning 2. HTN 3. Chronic opiate use, on suboxone 4. Pancreatic cancer w/last chemotherapy one month ago, 5. Pancreatic insufficiency 5. Mild acute blood loss anemia Hospital Course: Patient sustained a mechanical fall resulting in left hip pain. This occurred after she tripped on a rug 4 days prior to admission. She had pain with weight- bearing and external rotation since that time. She presented to the emergency department where she was found to have a nondisplaced left femoral neck fracture. She underwent percutaneous cannulated screw fixation on March 19. Postoperative course was uncomplicated. She is evaluated by Physical therapy and did well and was ultimately felt to be safe for discharge home with outpatient physical therapy. Patient is discharged in stable condition. Status at Discharge Cognitive/behavioral status at discharge: at baseline, oriented Functional status at discharge: uses cane/walker Overall status at discharge: patient is progressing back to baseline Time Spent with Patient Time spent: Less than 30 minutes Exam Vital Signs (past 8 hours): - 03/21/25 07:45 Oxygen Delivery Method Room Air Oxygen Delivery Method Room Air Oxygen Flow Rate 0 Narrative Exam Narrative: GEN: Alert and oriented x 3, NAD HEENT:NC, Face symmetric CHEST: Respiratory excursions symmetric, CTAB CV: RRR, no M/R/G ABD: Soft, NT/ND, BT present in all 4 quadrants, no organomegaly or masses EXTR: warm, well perfused, no C/C/E, dressing over incision is clean, dry, intact SKIN: warm and dry, no rash NEURO: Alert and oriented x 3, nonfocal Objective Labs 03/20/25 06:45 03/20/25 06:45 [facility] Medical History Uterine procidentia Methadone use History of opioid abuse Hypertension Surgical History History of colonoscopy History of vaginal hysterectomy H/O right wrist surgery Family History Father Cancer Mother Heart disease Social History household members: children Smoking Status: Former smoker alcohol intake: former Discharge Plan Discharge Plan Patient Disposition: Home Provider Discharge Comment: You were admitted with a Left hip fracture, which has now been repaired. You can bear weight as tolerated on your left leg and use a front wheeled walker. Please call outpatient physical therapy to set up an appointment on Sunday (Sunday is a holiday). Buy OTC aspirin and take it twice a day for four weeks for prevention of blood clots and acetaminophen as needed for pain. Additionally, buy miralax and use as needed for constipation. Return to the ED: fevers/chills Increased pain or drainage from the Left hip inability to hold down food/fluids Discharge orders & Medications Prescriptions: New acetaminophen 325 mg Tablet 650 mg PO Q6H PRN (Reason: Fever/Mild Pain (1-3)) Qty: 30 0RF aspirin 81 mg Tablet,Delayed Release (Dr/Ec) 81 mg PO BID Qty: 60 0RF Continued lisinopril 20 mg tablet 20 mg PO DAILY buprenorphine-naloxone 8-2 mg film 8 mg sublingual BID Rx Instructions: takes 8 mg.Buprenorphine & 2 mg. of Naloxone BID. loperamide 2 mg capsule PO PRN PRN (Reason: Diarrhea) ondansetron HCl 8 mg tablet 8 mg PO Q8H PRN (Reason: nausea/vomiting) prochlorperazine maleate 10 mg Tablet 10 mg PO Q6H PRN (Reason: Nausea) bupropion HCl 150 mg tablet extended release 24 hr 150 mg PO DAILY Creon 3,000-9,500- 15,000 unit capsule,delayed release(DR/EC) 2 cap PO 3XD Follow up/Referrals: Carlos,MD Orin [Primary Care Provider] - Discharge Health Status Multidrug resistant organism: No MDRO Diet/Activity/Treatments Diet: Diet as Tolerated and Regular Activity: Weight bear as tolerated, front wheeled walker Oxygen: N/A Visit Report/Discharge Packet Instructions: DI for Hip Fracture, DI for Constipation, How to Prevent Falls, DI for Open Reduction Internal Fixation Surgery Stand Alone Forms: Patient Portal/API, Stroke Signs & Symptoms Discharge Data Primary Care Provider: Doctor Carlos Quality VTE Deep Vein Thrombosis/Pulmonary Embolism Present on Admission: No
--- NOTE | 2025-03-21 13:02 | CM.DPC ---
DCP Discharge Home Per MD, pt is medically stable post op day two from hip surgery and no identified barriers to discharge and d/c orders placed. Per PT, pt cleared for return to apt with Dtr assist and outpt PT. Per RN, no concerns noted. Plan: Patient to d/c home this afternoon via Dtr POV with outpt PT and outpt f/u with her PCP in [facility]. CYNDEE Hinton
--- NOTE | 2025-03-21 13:41 | PM.DS.1 ---
History of Present Illness History of Present Illness Chief complaint: fell at home injured hip Narrative: Per H&P: 74-year-old female with past medical history of hypertension, constipation presents with a fall and left hip pain. Per the patient's report, about 4 days ago, the patient tripped and fell onto her left hip. The patient did initially able to ambulate but over the last 24 hours the patient has difficulty ambulating due to significant hip pain. The patient denies being on any blood thinner and head injury or loss of consciousness. The patient also recently denies any fever, chills, nausea, vomiting, diarrhea, chest pain, shortness of breath or syncope. In the emergency room, the patient was hemodynamically stable. Labs were relatively benign. X-ray and CT scan of the left hip did show signs of femoral neck fracture. Orthopedic surgery was consulted and plan for ORIF morning. Interval history: 74 F with PMH HTN, pancreatic insufficiency, chronic nausea, and substance use on suboxone who presented 4 days after a mechanical fall onto her left hip. Imaging showed a left femoral neck fracture. Orthopedics plans for surgical interventions later today. Patient denies recent shortness of breath or chest pain. No palpitations, fever, chills, nausea, or vomiting. her hip pain is controlled at rest. Discharge Providers Provider Date of admission: 03/19/25 05:11 Discharge Date: 03/21/25 Primary care physician: Doctor Carlos MD Consults: 03/19/25 02:53 Consult to Orthopedic Surgery Stat Comment: Consulting Provider: Gustavo Escobar Reason for consultation: L hip fracture Has provider been notified: Yes 03/19/25 04:29 Consult to Occupational Therapy Evaluate & Treat Comment: Physician Instructions: Evaluate and treat Consult to Physical Therapy Evaluate & Treat Comment: Physician Instructions: Evaluate and Treat 03/19/25 15:48 Consult to Discharge Planning Routine Comment: Consult to Occupational Therapy Evaluate & Treat Comment: Physician Instructions: Evaluate and treat Consult to Physical Therapy Evaluate & Treat Comment: Physician Instructions: Evaluate and Treat Discharge provider: Carolina Núñez MD Exam Vital Signs (past 8 hours): - 03/21/25 07:45 03/21/25 12:00 Temperature 98.9 F Pulse Rate 67 Respiratory Rate 16 Blood Pressure 114/60 Pulse Oximetry 96 Oxygen Delivery Method Room Air Oxygen Flow Rate 0 Oxygen Delivery Method Room Air Oxygen Flow Rate 0 Objective Labs 03/20/25 06:45 03/20/25 06:45 PFS Medical History Uterine procidentia Methadone use History of opioid abuse Hypertension Surgical History History of colonoscopy History of vaginal hysterectomy H/O right wrist surgery Family History Father Cancer Mother Heart disease Social History household members: children Smoking Status: Former smoker alcohol intake: former Discharge Plan Discharge Plan Patient Disposition: Home Provider Discharge Comment: You were admitted with a Left hip fracture, which has now been repaired. You can bear weight as tolerated on your left leg and use a front wheeled walker. Please call outpatient physical therapy to set up an appointment on Sunday (Sunday is a holiday). Buy OTC aspirin and take it twice a day for four weeks for prevention of blood clots and acetaminophen as needed for pain. Additionally, buy miralax and use as needed for constipation. Return to the ED: fevers/chills Increased pain or drainage from the Left hip inability to hold down food/fluids Discharge orders & Medications Prescriptions: New acetaminophen 325 mg Tablet 650 mg PO Q6H PRN (Reason: Fever/Mild Pain (1-3)) Qty: 30 0RF aspirin 81 mg Tablet,Delayed Release (Dr/Ec) 81 mg PO BID Qty: 60 0RF Continued lisinopril 20 mg tablet 20 mg PO DAILY buprenorphine-naloxone 8-2 mg film 8 mg sublingual BID Rx Instructions: takes 8 mg.Buprenorphine & 2 mg. of Naloxone BID. loperamide 2 mg capsule PO PRN PRN (Reason: Diarrhea) ondansetron HCl 8 mg tablet 8 mg PO Q8H PRN (Reason: nausea/vomiting) prochlorperazine maleate 10 mg Tablet 10 mg PO Q6H PRN (Reason: Nausea) bupropion HCl 150 mg tablet extended release 24 hr 150 mg PO DAILY Creon 3,000-9,500- 15,000 unit capsule,delayed release(DR/EC) 2 cap PO 3XD Follow up/Referrals: Miscellaneous,Doctor, [Primary Care Provider] - 2 Weeks (Follow up with orthopedist Dr Nair in 2 weeks, expect to be there a couple of hours. ) Discharge Health Status Multidrug resistant organism: No MDRO Diet/Activity/Treatments Diet: Diet as Tolerated and Regular Activity: Weight bear as tolerated, front wheeled walker Oxygen: N/A Visit Report/Discharge Packet Instructions: DI for Hip Fracture, DI for Constipation, How to Prevent Falls, DI for Open Reduction Internal Fixation Surgery, How to Monitor Your Blood Pressure at Home Stand Alone Forms: Patient Portal/API, Stroke Signs & Symptoms Discharge Data Primary Care Provider: Carlos,Doctor Quality VTE Deep Vein Thrombosis/Pulmonary Embolism Present on Admission: No
--- NOTE | 2025-03-21 17:46 | PC.NURSE ---
Discharge: Pt feels to ready to d/c to home. Tolerates fluids and food w/out problems, Vds w/out diff. Pt reports she has adequate pain control. Seen by PT and is save with her therapy and mobility. Seen by MD and given d/c instructions. PT gave there instructions. Given discharge packet and questions answered. She knows she will need a follow up and she needs to make the appt. Pt d/c to home via auto with her friend.
== END 2025-03-21 14:00 | disposition home or self-care (01) | DRG 481 ==
LOC: ED 03-19 05:10 → AC 03-19 05:12
PROVIDERS: Orthopaedic Surgery Adult Reconstructive Orthopaedic Surgery; Admitting Provider Internal Medicine; Emergency Provider Emergency Medicine; Referring Provider Emergency Medicine; Visit Provider Internal Medicine
PROC: 0SRS0JZ Replacement of Left Hip Joint, Femoral Surface with Synthetic Substitute, Open Approach (ICD-10-PCS; CPT 27125; principal; 2025-03-19 14:30)
DX: M80.052A Age-related osteoporosis with current pathological fracture, left femur, initial encounter for fracture (principal); C25.9 Malignant neoplasm of pancreas, unspecified; I10 Essential (primary) hypertension; K59.00 Constipation, unspecified; F11.90 Opioid use, unspecified, uncomplicated; K86.89 Other specified diseases of pancreas; Z87.891 Personal history of nicotine dependence; Z95.828 Presence of other vascular implants and grafts
CPT/HCPCS: 27235; 36415; 73502; 73503; 73700; 76000; 80048; 80053; 85025; 85610; 85730; 86850; 86900; 86901; 97116; 97162; 97166; 97530; 97535; 99233; 99283; 99284; C1776; A9270; J0131; J0690; J1642; J2704; J3010